=== PATIENT | female | born 1955 | race Caucasian/White ===

== ENCOUNTER 2018-07-27 18:46 | Inpatient (IN) | payer OTHER ==
--- OUTSIDE RECORDS SUMMARY | 2018-07-27 18:51 | XMS REPORT | Continuity of Care Document ---
:1955 Author Organization Interface Problems Problem Status Onset Classification Date Comments Source Date Reported J444.9 Active 06/03/20 [facility] 15 729.89 - Active 04/19/20 [facility] MUSCSKEL SYMPT 15 [place] RESP FAILURE, Active 03/27/20 [facility] CHF 15 EXACERB[place] LOW OXYGEN, Active 12/15/19 [place] S[place] BY [facility] [place] COPD Active 12/15/19 [place] EXACERBATION, 15 [place] CHF EXACERBATION LUNG Active 10/30/19 [place] ABNORMALITY-793 [facility] [place] .19 RESPIRATORY Active 07/12/20 [place] FAILURE [address] [place] [address] Center LFLT Active 07/12/20 [place] TRANSFER#[id number] [place] [address] Depression Active Problem 10/30/2015 [facility] [place], [place] Anxiety Active Problem 02/07/2018 [facility] [place], [place] Atrial Active Problem 02/07/2018 [facility] Fibrillation [place], [place] Atrial Resolved Problem 02/07/2018 [facility] fibrillation [place], [place] Back pain Active Problem 02/07/2018 [facility] [place], [place] Chest pain Active Problem 02/07/2018 [facility] [place], [place] Congestive Resolved Problem 02/07/2018 [facility] heart failure [place], [place] COPD Active Problem 02/07/2018 [facility] [place], [place] Cough Active Problem 02/07/2018 [facility] [place], [place] Depression Active Problem 02/07/2018 [facility] [place], [place] Diabetes Resolved Problem 02/07/2018 [facility] [place], [place] HTN Active Problem 02/07/2018 [facility] [place], [place] Hypertension Resolved Problem 02/07/2018 [facility] [place], [place] Myeloma Resolved Problem 02/07/2018 [facility]ID [place], [place] NIDDM Active Problem 02/07/2018 [facility] [place], [place] INA (<span Active Problem 02/07/2018 [facility] ID="[id number]" [place] >Confirmed</spa [place], n>) [facility] [place] Simple obesity Active Problem 02/07/2018 [facility] Group Sleep apnea, Resolved Problem 02/07/2018 [facility] obstructive [place], [place] RESPIRATORY Active [place] ANOMALY [facility] Center ACUTE Active [facility] RESPIRATORY FAILUR CHR AIRWAY Active [place] OBSTRUCT NEC [place] CHF NOS Active [place] Medications Medication Details Route Status Patient Ordering Order Source Instructions Provider Date cefpodoxime 200 mg 400 mg=2 tab, Active oral tablet PO, Q12H, # 14 2014 [facility] tab, 0 Refill(s) Lantus 10 unit, Inactive Route: SUB-Q, 2014 [facility] Bedtime, Dosing Weight 84.1, kg, Start date: 03/29/15 21:00:00, Duration: 30 day, Stop date: 04/27/15 21:00:00 lamotrigine 100 MG 100 mg, 1 tab, No Longer Oral Tablet Route: PO, Active 2014 [facility] Drug form: TAB, Bedtime, Dosing Weight 84.1, kg, Start date: 03/29/15 21:00:00, Duration: 30 day, Stop date: 04/27/15 21:00:00Notes: (Same as:LaMICtal) Levemir FlexPen 10 unit, 0.1 No Longer mL, Route: Active 2014 [facility] SUB-Q, Drug form: INJ, Bedtime, Start date: 03/29/15 21:00:00, Duration: 30 day, Stop date: 04/27/15 21:00:00Notes: Same as Levemir Do not hold insulin without contacting prescriber "single patient use only" Symbicort 160/4.5 2 inhalation, No Longer inhalation aerosol Route: Active 2014 [facility] with adapter INHALER, Drug Form: AERO/A, Dosing Weight 84.1, kg, BID, Start date: 03/29/15 20:00:00, Duration: 30 day, Stop date: 04/28/15 17:00:00Notes: (Same as: Symbicort) Methocarbamol 750 mg, 1 tab, No Longer Route: PO, Active 2014 [facility] Drug form: TAB, TID, Dosing Weight 84.1, kg, Start date: 03/29/15 20:00:00, Duration: 30 day, Stop date: 04/28/15 17:00:00Notes: (Same as:Robaxin) Alprazolam 0.25 mg, 1 No Longer tab, Route: Active 2014 [facility] PO, Drug form: TAB, BID, Dosing Weight 84.1, kg, PRN as needed for anxiety, Start date: 03/29/15 18:44:00, Duration: 30 day, Stop date: 04/28/15 18:43:00Notes: With food or milk (Same as: Xanax) torsemide 100 mg, 5 tab, No Longer Route: PO, Active 2014 [facility] Drug form: TAB, Daily, Dosing Weight 84.1, kg, Start date: 03/29/15 18:30:00, Stop date: 04/28/15 9:00:00Notes: (Same As: Demadex) Vantin 400 mg, 2 tab, No Longer Route: PO, Active 2014 [facility] Drug form: TAB, Q12H, Dosing Weight 84.1, kg, Start date: 03/29/15 11:00:00, Stop date: 04/02/15 22:00:00Notes: With food. (Same As: Vantin) Fenofibrate 135 mg, Route: No Longer PO, Daily, Active 2014 [facility] Dosing Weight 84.1, kg, Start date: 03/29/15 9:00:00, Duration: 30 day, Stop date: 04/27/15 9:00:00 sennosides, DETENTION 17.2 mg, 2 No Longer tab, Route: Active 2014 [facility] PO, Drug Form: TAB, Dosing Weight 84.1, kg, Daily, Start date: 03/29/15 9:00:00, Duration: 30 day, Stop date: 04/27/15 9:00:00Notes: (Same as: Ree) duloxetine 60 mg, 1 cap, No Longer Route: PO, Active 2014 [facility] Drug form: DRC, Daily, Dosing Weight 84.1, kg, Start date: 03/29/15 9:00:00, Duration: 30 day, Stop date: 04/27/15 9:00:00Notes: (Same as: Cymbalta) (Do Not Crush) Amitriptyline 2 tab, Route: Inactive Hydrochloride 25 PO, Drug Form: 2014 [facility] MG / Perphenazine TAB, Dosing 4 MG Oral Tablet Weight 84.1, kg, Bedtime, Start date: 03/28/15 21:00:00, Duration: 30 day, Stop date: 04/26/15 21:00:00 Trilafon 8 mg, 4 tab, No Longer Route: PO, Active 2014 [facility] Drug form: TAB, Bedtime, Start date: 03/28/15 21:00:00, Duration: 30 day, Stop date: 04/26/15 21:00:00Notes: (Same as: Trilafon) amitriptyline 50 mg, 1 tab, No Longer Route: PO, Active 2014 [facility] Drug form: TAB, Bedtime, Start date: 03/28/15 21:00:00, Duration: 30 day, Stop date: 04/26/15 21:00:00Notes: (Same as: Elavil) lithium 600 mg, 2 tab, No Longer Route: PO, Active 2014 [facility] Drug form: TAB, QPM, Dosing Weight 84.1, kg, Start date: 03/28/15 17:00:00, Duration: 30 day, Stop date: 04/26/15 17:00:00Notes: Give with food. (Same as: Eskalith) Xarelto 20 mg, 2 tab, No Longer Route: PO, Active 2014 [facility] Drug form: TAB, QPM, Dosing Weight 84.091, kg, Start date: 03/28/15 17:00:00, Duration: 30 day, Stop date: 04/26/15 17:00:00Notes: (Same as: Xarelto) Do Not Crush TriCor 145 mg, 1 tab, No Longer Route: PO, Active 2014 [facility] Drug form: TAB, After Dinner, Start date: 03/28/15 17:00:00, Duration: 30 day, Stop date: 04/26/15 17:00:00Notes: (Same as: Tricor) Lovenox 40 mg, 0.4 mL, No Longer Route: SUB-Q, Active 2014 [facility] Drug form: INJ, [id number], Dosing Weight 84.1, kg, Start date: 03/28/15 15:00:00, Duration: 30 day, Stop date: 04/26/15 15:00:00Notes: (Same as: Lovenox) Ativan 2 mg, 1 tab, No Longer Route: PO, Active 2014 [facility] Drug form: TAB, TID, Dosing Weight 84.1, kg, PRN Anxiety, Start date: 03/28/15 14:51:00, Duration: 30 day, Stop date: 04/27/15 14:50:00Notes: (Same as: Ativan) Albuterol 0.833 3 mL, Route: No Longer MG/ML / INHALATION, Active 2014 [facility] Ipratropium Drug Form: [place] 0.167 SOLN, Dosing MG/ML Inhalant Weight 84.1, Solution kg, RQID, Start date: 03/28/15 11:00:00, Duration: 30 day, Stop date: 04/27/15 7:00:00Notes: (Same as: Duoneb) Nicotine 21 mg, 1 No Longer patch, Route: Active 2014 [facility] TOP, Drug form: ERFILM, Daily, Dosing Weight 84.1, kg, Start date: 03/28/15 10:09:00, Duration: 30 day, Stop date: 04/27/15 9:00:00Notes: (Same as: Habitrol) "Remove old patch before application of new patch" glucagon 1 mg, Route: No Longer INJ, Drug Active 2014 [facility] form: PDR/INJ, PRN, PRN Blood Glucose Results, Start date: 03/28/15 9:18:00, Duration: 30 day, Stop date: 04/27/15 9:17:00 Dextrose 50% in 50 mL, Route: No Longer Water IV IVP, Start Active 2014 [facility] date: 03/28/15 9:18:00, Duration: 30 day, Stop date: 04/27/15 9:17:00, PRN Blood Glucose Results NovoLOG FlexPen 12 unit, 0.12 No Longer mL, Route: Active 2014 [facility] SUB-Q, Drug form: SOLN, Sliding Scale, PRN Blood Glucose Results, Start date: 03/28/15 9:18:00, Duration: 30 day, Stop date: 04/27/15 9:17:00Notes: Roll in palms of hands gently; Do not shake vigorously. (Same as: NovoLOG) "single patient use only" Stable for 28 days at room temperature. Expires in days from Date Lasix 40 mg, 4 mL, Inactive Route: IVP, 2014 [facility] Drug form: INJ, Daily, Dosing Weight 84.1, kg, Start date: 03/28/15 9:17:00, Duration: 30 day, Stop date: 04/27/15 9:00:00Notes: (Same as: Lasix) MEDICATION WASTE Product Size: 40 mg Product Wasted: ___ mg normal saline 0.9% 1,000 mL, Inactive IV 1000 mL Rate: 75 2014 [facility] ml/hr, Infuse over: 13.3 hr, Route: IV, Dosing Weight 84.1 kg, Total Volume: 1,000, Start date: 03/28/15 9:14:00, Duration: 30 day, Stop date: 04/27/15 9:13:00 Hydrocodone 1 tab, Route: No Longer Bitartrate 5 MG / PO, Drug Form: Active 2014 [facility] Ibuprofen 200 MG TAB, Dosing Oral Tablet Weight 84.1, kg, Q4H, PRN Pain Score 4-6, Start date: 03/28/15 9:08:00, Duration: 30 day, Stop date: 04/27/15 9:07:00Notes: (Same as: Vicoprofen) Saline Flush 0.9% 10 ml, Route: Inactive IVP, Drug 2014 [facility] Form: INJ, Dosing Weight 84.091, kg, Q12H, Start date: 03/28/15 9:00:00, Duration: 30 day, Stop date: 04/26/15 21:00:00Notes: (Same as: BD Posiflush) Famotidine 20 mg, 1 tab, No Longer Route: PO, Active 2014 [facility] Drug form: TAB, Q12H, Dosing Weight 84.091, kg, Start date: 03/28/15 9:00:00, Duration: 30 day, Stop date: 04/26/15 21:00:00Notes: (Same as: Pepcid) vancomycin 1.25 gm, 250 No Longer mL, Route: Active 2014 [facility] IVPB, Drug form: INJ, [id number], Start date: 03/28/15 9:00:00, Duration: 30 day, Stop date: 04/26/15 21:00:00Notes: TIME CRITICAL MEDICATION Same as: Vancocin-NS (premixed) Infusion rate 2001 mg: infuse over 2.5 hours Amiodarone 200 mg, 1 tab, No Longer Route: PO, Active 2014 [facility] Drug form: TAB, Daily, Dosing Weight 84.091, kg, Start date: 03/28/15 9:00:00, Duration: 30 day, Stop date: 04/26/15 9:00:00Notes: (Same as: Cordarone) pneumococcal 0.5 mL, Route: No Longer capsular IM, Drug Form: Active 2014 [facility] polysaccharide INJ, ONCALL, type 1 vaccine / Start date: pneumococcal 03/28/15 capsular 2:44:42, Stop polysaccharide date: 04/27/15 type 10A vaccine / 2:39:42Notes: pneumococcal (Same as: capsular Pneumovax 23) polysaccharide Refrigerate type 11A vaccine / pneumococcal capsular polysaccharide type 12F vaccine / pneumococcal capsular polysacchar meropenem 500 mg, Route: No Longer IVPB, Drug Active 2014 [facility] form: PDR/INJ, [id number], Dosing Weight 84.091, kg, CrCL >=50ml/min, Extended infusion, infuse over 3 hours, Start date: 03/28/15 2:00:00, Duration: 30 day, Stop date: 04/26/15 20:00:00Notes: Same as [place] MEDICATION WASTE Product Size: 500 mg Product Wasted: ___ mg Dextrose 50% in 25 gm, 50 mL, Inactive Water IV Route: IVP, 2014 [facility] Drug Form: INJ, PRN, PRN Blood Glucose Results, Start date: 03/28/15 1:05:00, Duration: 30 day, Stop date: 04/27/15 1:04:00 glucagon 1 mg, Route: Inactive IV, Drug form: 2014 [facility] PDR/INJ, PRN, PRN Blood Glucose Results, Start date: 03/28/15 1:05:00, Duration: 30 day, Stop date: 04/27/15 1:04:00 NovoLOG FlexPen 8 unit, 0.08 Inactive mL, Route: 2014 [facility] SUB-Q, Drug form: SOLN, Sliding Scale, PRN Blood Glucose Results, Start date: 03/28/15 1:04:00, Duration: 30 day, Stop date: 04/27/15 1:03:00Notes: Roll in palms of hands gently; Do not shake vigorously. (Same as: NovoLOG) "single patient use only" Stable for 28 days at room temperature. Expires in days from Date Vancomycin 1 ea, Route: Inactive MISC, Dosing 2014 [facility] Weight 84.091, kg, ONCALL, Start date: 03/28/15 1:00:00, Duration: 1 doses or times, Pharmacy to doseSpecial Instructions: Pharmacy to dose glucagon 1 mg, Route: Inactive INJ, Drug 2014 [facility] form: PDR/INJ, PRN, PRN Blood Glucose Results, Start date: 03/28/15 0:10:00, Duration: 30 day, Stop date: 04/27/15 0:09:00 NovoLOG FlexPen 5 unit, 0.05 Inactive mL, Route: 2014 [facility] SUB-Q, Drug form: SOLN, Sliding Scale, PRN Blood Glucose Results, Start date: 03/28/15 0:09:00, Duration: 30 day, Stop date: 04/27/15 0:08:00Notes: Roll in palms of hands gently; Do not shake vigorously. (Same as: NovoLOG) "single patient use only" Stable for 28 days at room temperature. Expires in days from Date Dextrose 50% in 25 gm, 50 mL, Inactive Water IV Route: IVP, 2014 [facility] Drug Form: INJ, PRN, PRN Blood Glucose Results, Start date: 03/28/15 0:09:00, Duration: 30 day, Stop date: 04/27/15 0:08:00 lithium 300 mg 600 mg=2 tab, Active oral tablet PO, Bedtime, # 2015 [facility] 60 tab, 1 Refill(s) Lantus 20 unit, Active SUB-Q, 2014 [facility] Bedtime, 0 Refill(s) Zolpidem tartrate 10 mg=1 tab, Active 10 MG Oral Tablet PO, Bedtime, # 2014 [facility] [Ambien] 14 tab, 0 Refill(s) lamotrigine 100 MG 100 mg=1 tab, Active Oral Tablet PO, Bedtime, # 2015 [facility] 30 tab, 1 Refill(s) Symbicort 160/4.5 2 puff, Active inhalation aerosol INHALER, BID, 2014 [facility] with adapter # 1 ea, 3 Refill(s) Sodium Chloride 250 mL, Route: No Longer 0.9% IV IVPB, Start Active 2014 [facility] date: 03/27/15 22:38:00, Duration: 30 day, Stop date: 04/26/15 22:37:00, PRN Line Flush Saline Flush 0.9% 10 ml, Route: No Longer IVP, Drug Active 2014 [facility] Form: INJ, Dosing Weight 84.091, kg, PRN, PRN Line Flush, Start date: 03/27/15 22:33:00, Duration: 30 day, Stop date: 04/26/15 22:32:00Notes: (Same as: BD Posiflush) Albuterol 0.833 3 ml, Route: No Longer MG/ML / NEB, Drug Active 2014 [facility] Ipratropium Form: SOLN, [place] 0.167 Dosing Weight MG/ML Inhalant 84.091, kg, Solution PRN, PRN Respiratory Protocol, Start date: 03/27/15 22:33:00, Duration: 30 day, Stop date: 04/26/15 22:32:00Notes: (Same as: Duoneb) Acetaminophen 650 mg, 2 tab, No Longer Route: PO, Active 2014 [facility] Drug form: TAB, Q4H, Dosing Weight 84.091, kg, PRN For Temp > 100.4 F, Start date: 03/27/15 22:33:00, Duration: 30 day, Stop date: 04/26/15 22:32:00Notes: Do not exceed 4 gm/day. (Same as: Tylenol) predniSONE 20 mg See Special Active [place] oral tablet Instructions, 2014 [facility] PO, Daily, 4 day regimen: Day 1 - 40 mg (2 tabs) Day 2 - 30 mg (1 1/2 tabs) Day 3 - 20 mg (1 tab) Day 4 - 10 mg (1/2 tab), X 4 day, # 6 tab, 0 Refill(s)Speci al Instructions: 4 day regimen: Day 1 - 40 mg (2 tabs) Day 2 - 30 mg (1 1/2 tabs) Day 3 - 20 mg (1 tab) Day 4 - 10 mg (1/2 tab) levofloxacin 750 750 mg=1 tab, Active [place] mg oral tablet PO, Daily, X 5 2014 day, # 5 tab, 0 Refill(s) Albuterol 0.833 3 ml, Active [place] MG/ML / INHALATION, 2014 [facility] QID, # 30 ea, [place] 0.167 0 Refill(s) MG/ML Inhalant Solution torsemide 100 mg, 5 tab, Inactive Sugar Route: PO, 2014 Drug form: TAB, Daily, Dosing Weight 84.091, kg, Start date: 12/16/14 9:00:00, Duration: 30 day, Stop date: 01/14/15 9:00:00Notes: (Same As: Demadex) TriCor 145 mg, 1 tab, Inactive Sugar Route: PO, 2014 Drug form: TAB, Daily, Start date: 12/16/14 9:00:00, Duration: 30 day, Stop date: 01/14/15 9:00:00Notes: (Same as: Tricor) Trilipix 135 mg, Route: No Longer [place] PO, Drug form: Active 2014 [place] CAP, Daily, Dosing Weight 84.091, kg, Start date: 12/16/14 9:00:00, Duration: 30 day, Stop date: 01/14/15 9:00:00 insulin detemir 20 unit, 0.2 No Longer Sugar mL, Route: Active 2014 [facility] SUB-Q, Drug form: INJ, Bedtime, Dosing Weight 84.091, kg, Start date: 12/15/14 21:00:00, Duration: 30 day, Stop date: 01/13/15 21:00:00Notes: Same as Levemir Do not hold insulin without contacting prescriber "single patient use only" lithium 450 mg, Route: No Longer Sugar PO, Drug form: Active 2014 [facility] ERTAB, Bedtime, Dosing Weight 84.091, kg, Start date: 12/15/14 21:00:00, Duration: 30 day, Stop date: 01/13/15 21:00:00 Amitriptyline 2 tab, Route: No Longer [place] Hydrochloride 25 PO, Drug Form: Active 2014 [place] MG / Perphenazine TAB, Dosing 4 MG Oral Tablet Weight 84.091, kg, Bedtime, Start date: 12/15/14 21:00:00, Duration: 30 day, Stop date: 01/13/15 21:00:00 Levofloxacin 750 mg, 150 No Longer Sugar mL, Route: Active 2014 [facility] IVPB, Drug form: SOLN, Daily, Dosing Weight 83.636, kg, Start date: 12/15/14 20:00:00, Duration: 30 day, Stop date: 01/13/15 20:00:00Notes: (Same as:Levaquin) Xarelto 20 mg, 1 tab, No Longer Sugar Route: PO, Active 2014 Drug form: TAB, QPM, Dosing Weight 84.091, kg, Start date: 12/15/14 17:00:00, Duration: 30 day, Stop date: 01/13/15 17:00:00Notes: (Same as: Xarelto) Administer with food duloxetine 60 mg, 2 cap, No Longer Sugar Route: PO, Active 2014 Drug form: DRC, Daily, Dosing Weight 84.091, kg, Start date: 12/15/14 16:00:00, Duration: 30 day, Stop date: 01/14/15 9:00:00Notes: (Same as: Cymbalta) (Do Not Crush) Cartia XT 180 mg, 1 cap, No Longer Sugar Route: PO, Active 2014 Drug form: ERCAP, Daily, Dosing Weight 84.091, kg, Start date: 12/15/14 16:00:00, Duration: 30 day, Stop date: 01/14/15 9:00:00Notes: (Same as: Tiazac) Before meals. DO NOT CRUSH. Amiodarone 200 mg, 1 tab, No Longer Sugar Route: PO, 2014 Drug form: TAB, Daily, Dosing Weight 84.091, kg, Start date: 12/15/14 16:00:00, Duration: 30 day, Stop date: 01/14/15 9:00:00Notes: (Same as: Cordarone) Methocarbamol 750 mg, 1 tab, No Longer Sugar Route: PO, Active 2014 Drug form: TAB, TID, Dosing Weight 84.091, kg, Start date: 12/15/14 13:00:00, Duration: 30 day, Stop date: 01/14/15 9:00:00Notes: (Same as:Robaxin) Alprazolam 0.25 mg, 1 No Longer Sugar tab, Route: Active 2014 PO, Drug form: TAB, BID, Dosing Weight 84.091, kg, PRN as needed for anxiety, Start date: 12/15/14 10:42:00, Duration: 30 day, Stop date: 01/14/15 10:41:00Notes: With food or milk (Same as: Xanax) Insulin, Aspart, 4 unit, 0.04 No Longer Sugar Human mL, Route: Active 2014 [facility] SUB-Q, Drug form: SOLN, Bedtime, Dosing Weight 84.091, kg, PRN Blood Glucose Results, Start date: 12/15/14 10:41:00, Duration: 30 day, Stop date: 01/14/15 10:40:00Notes: Roll in palms of hands gently; Do not shake vigorously. (Same as: NovoLOG) "single patient use only" Stable for 28 days at room temperature. Expires in days from Date Dextrose 50% 25 gm, 50 mL, No Longer Sugar Syringe Route: IVP, Active 2014 [facility] Drug Form: INJ, Dosing Weight 84.091, kg, PRN, PRN Blood Glucose Results, Start date: 12/15/14 10:41:00, Duration: 30 day, Stop date: 01/14/15 10:40:00 Glucagon 1 mg, Route: No Longer Sugar IM, Drug form: Active 2014 [facility] PDR/INJ, PRN, Dosing Weight 84.091, kg, PRN Blood Glucose Results, Start date: 12/15/14 10:41:00, Duration: 30 day, Stop date: 01/14/15 10:40:00 Omnipaque 300 100 mL, Route: Inactive Sugar IV, Drug Form: 2014 [facility] SOLN, ONCE, Start date: 12/15/14 10:05:00, Stop date: 12/15/14 10:05:00Notes: (Same as:Omnipaque 300). Budesonide 0.25 1 mg, 4 ml, No Longer Sugar MG/ML Inhalant Route: NEB, Active 2014 [facility] Solution Drug form: [Pulmicort] SUSP, RBID, Dosing Weight 84.091, kg, Start date: 12/15/14 9:37:00, Duration: 30 day, Stop date: 01/14/15 8:00:00Notes: (Same As: Pulmicort) Lasix 20 mg, 2 mL, No Longer Sugar Route: IV, Active 2014 Drug form: INJ, BID, Dosing Weight 83.636, kg, Start date: 12/15/14 9:00:00, Duration: 30 day, Stop date: 01/13/15 17:00:00Notes: (Same as: Lasix) Enoxaparin 30 mg, 0.3 mL, No Longer Sugar Route: SUB-Q, Active 2014 Drug form: INJ, Daily, Dosing Weight 83.636, kg, For CrCl >=30 mL/min, Start date: 12/15/14 9:00:00, Duration: 30 day, Stop date: 01/13/15 9:00:00Notes: (Same as: Lovenox) acetaminophen-hydr 1 tab, Route: No Longer Sugar ocodone 325 mg-10 PO, Drug Form: Active 2014 [place] mg oral tablet TAB, Q4H, PRN Pain Score 1-5, Start date: 12/15/14 1:24:00, Duration: 30 day, Stop date: 01/14/15 1:23:00Notes: Do not exceed 4gm/day of acetaminophen. (Same as: [place] 325/10) acetaminophen-hydr 1 tab, Route: Inactive [place] ocodone 325 mg-10 PO, Drug Form: 2014 [place] mg oral tablet TAB, Dosing Weight 84.091, kg, Q4H, PRN Pain Score 1-5, prn, Start date: 12/15/14 1:20:00, Duration: 30 day, Stop date: 01/14/15 1:19:00Notes: Do not exceed 4gm/day of acetaminophen. (Same as: [place] 325/10) Acetaminophen 325 1 tab, Route: Inactive [place] MG / Hydrocodone PO, Drug Form: 2014 [place] Bitartrate 10 MG TAB, Dosing Oral Tablet [[place] Weight 84.091, 10/325] kg, Q4H, PRN Pain Score 1-5, prn, Start date: 12/15/14 1:02:00, Duration: 30 day, Stop date: 01/14/15 1:01:00Notes: Do not exceed 4gm/day of acetaminophen. (Same as: [place] 325/10) methylPREDNISolone 40 mg, 1 mL, No Longer Sugar SODium SUCCinate Route: IVP, Active 2014 Drug form: INJ, Q8H, Dosing Weight 83.636, kg, Start date: 12/15/14 0:00:00, Duration: 30 day, Stop date: 01/13/15 16:00:00Notes: (Same as:Solu-MEDROL , A-Methapred) Acetaminophen 325 1 tab, PO, Active [place] MG / Hydrocodone Q4H, PRN for 2014 Bitartrate 10 MG pain, 0 Oral Tablet [[place] Refill(s) 10/325] 24 HR Diltiazem 180 mg=1 cap, Active [place] Hydrochloride 180 PO, Daily, # 2014 [place] MG Extended 30 cap, 0 Release Capsule Refill(s) [Cartia] lithium 450 mg 450 mg=1 tab, Active Sugar oral tablet, PO, Bedtime, # 2014 [facility] extended release 60 tab, 0 Refill(s) Levofloxacin 500 mg, 100 No Longer Sugar mL, Route: Active 2014 IVPB, Drug form: INJ, Daily, Dosing Weight 83.636, kg, Start date: 12/14/14 20:00:00, Duration: 30 day, Stop date: 01/12/15 20:00:00Notes: (Same as:Levaquin) Albuterol 0.833 3 mL, Route: No Longer Sugar MG/ML / NEB, Drug Active 2014 [facility] Form: SOLN, [place] 0.167 Dosing Weight MG/ML Inhalant 83.636, kg, Solution RQ6H, Start date: 12/14/14 20:00:00, Duration: 30 day, Stop date: 01/13/15 14:00:00Notes: (Same as: Mendezoneb) Albuterol 0.83 2.5 mg, 3.01 No Longer Sugar MG/ML Inhalant mL, Route: Active 2014 Solution NEB, Drug form: SOLN, RQ2H, Dosing Weight 83.636, kg, PRN Wheezing, Priority: Routine, Start date: 12/14/14 19:48:00, Duration: 30 day, Stop date: 01/13/15 19:47:00Notes: SEE RT DOCUMENTATION (Same as: Proventil) potassium chloride 40 mEq, 2 tab, Inactive Sugar Route: PO, 2014 [facility] Drug form: ERTAB, ONCE, Dosing Weight 83.636, kg, Priority: STAT, Start date: 12/14/14 17:48:00, Stop date: 12/14/14 17:48:00Notes: (Same as: K-Dur 20) "Do Not Crush" With food and full glass of water Ceftriaxone 1 gm, Route: Inactive Sugar IVPB, Drug 2014 [facility] form: PDR/INJ, ONCE, Dosing Weight 83.636, kg, Priority: STAT, Start date: 12/14/14 17:46:00, Stop date: 12/14/14 17:46:00 Lasix 40 mg, 4 mL, No Longer Sugar Route: IVP, Active 2014 [facility] Drug form: INJ, Daily, Dosing Weight 83.636, kg, Priority: STAT, Start date: 12/14/14 17:45:00, Duration: 30 day, Stop date: 01/13/15 9:00:00Notes: (Same as: Lasix) MEDICATION WASTE Product Size: 40 mg Product Wasted: ___ mg Levaquin 750 mg, 150 Inactive Sugar mL, Route: IV, 2014 [facility] Drug form: SOLN, Q24H, Dosing Weight 83.636, kg, Start date: 12/14/14 17:13:00, Duration: 30 day, Stop date: 01/12/15 17:13:00Notes: (Same as:Levaquin) Solu-Medrol 125 mg, 2 mL, Inactive Sugar Route: IVP, 2014 [facility] Drug form: INJ, ONCE, Dosing Weight 83.636, kg, Priority: STAT, Start date: 12/14/14 17:11:00, Stop date: 12/14/14 17:11:00Notes: (Same as:Solu-MEDROL , A-Methapred) Acetaminophen 325 1 tab, Route: Inactive [place] MG / Hydrocodone PO, Drug Form: 2014 [place] Bitartrate 5 MG TAB, Dosing Oral Tablet [[place] Weight 83.636, 5/325] kg, ONCE, STAT, Start date: 12/14/14 17:03:00, Stop date: 12/14/14 17:03:00 Lasix 20 mg, Route: Inactive [place] IVP, Drug 2014 [place] form: INJ, ONCE, Dosing Weight 83.636, kg, Priority: STAT, Start date: 12/14/14 15:07:00, Stop date: 12/14/14 15:07:00 Albuterol 0.833 3 mL, Route: Inactive [place] MG/ML / INHALATION, 2014 [place] Ipratropium Dosing Weight [place] 0.167 83.636, kg, MG/ML Inhalant ONCE, Start Solution [DuoNeb] date: 12/14/14 15:07:00, Stop date: 12/14/14 15:07:00 Saline Flush 0.9% 10 mL, Route: No Longer Sugar IVP, Drug Active 2014 [place] Form: INJ, Dosing Weight 83.636, kg, PRN, PRN Line Flush, Start date: 12/14/14 14:16:00, Duration: 30 day, Stop date: 01/13/15 14:15:00Notes: (Same as: BD Posiflush) Alprazolam 0.5 MG 0.5 mg=1 tab, Active [place] Oral Tablet PO, PRN, 0 2014 [place] [Xanax] Refill(s) Metformin 1,000 mg=1 Active [place] hydrochloride 1000 tab, PO, BID, 2014 [place] MG Oral Tablet 0 Refill(s) duloxetine 60 MG 60 mg=1 cap, Active [place] Enteric Coated PO, Daily, 0 2014 [place] Capsule [Cymbalta] Refill(s) torsemide 100 mg 100 mg=1 tab, Active [place] oral tablet PO, Daily, 0 2014 [place] Refill(s) Rosuvastatin 20 mg=1 tab, Active [place] calcium 20 MG Oral PO, Bedtime, 0 2014 [place] Tablet [Crestor] Refill(s) AMIODarone 200 mg 200 mg=1 tab, Active [place] oral tablet PO, Daily, 0 2014 [place] Refill(s) fenofibric acid 135 mg=1 cap, Active Sugar 135 MG Enteric PO, Daily, # 2015 [place] Coated Capsule 30 cap, 0 [Trilipix] Refill(s) rivaroxaban 20 MG 20 mg=1 tab, Active [place] Oral Tablet PO, QPM, 0 2014 [place] [Xarelto] Refill(s) Allergies, Adverse Reactions, Alerts Substance Category Reaction Severity Reaction Status Date Comments Source type Reported penicillins Assertion hives,swel High Drug Active OPID ling allergy 2 [facility] Immunizations Immunization Date Given Site Status Last Updated Comments Source Results Order Name Results Value Reference Date Interpretation Comments Source Range Spine Spine lumbar Examination: Spine lumbar wo contrast MRI 04/20 - OPID lumbar wo wo contrast /2014 - [facility] contrast MRI MRI History: 729.89 bilateral leg weakness Read by: Franklin Olsen MD Dictated Date/time: 04/20/15 11:00 Electronically Signed by: Franklin Olsen MD 04/20/15 11:14 FINAL REPORT DIAGNOSIS: 1. Central canal and neuroforaminal stenosis at L2-L3, one level superior to a multilevel fusion, as discussed below. 2. Other extradural findings and postoperative changes as discussed. 3. No evidence of infection or spondylo-discitis TECHNIQUE: Lumbar MRI was completed without contrast in axial and sagittal planes with T1, T2 FSE and STIR pulse parameters. History is noted of prior L3-L4 and L4-L5 fusion DISCUSSION: Bone and Marrow Assessment: No evidence of bone marrow edema or evidence of spondylo-discitis Overall Disc Assessment: Fusions at L3-L4 and L4-L5 are noted. L1/2: Mild narrowing of the disc space with desiccation with minimal facet arthrosis but no high-grade canal or foraminal stenosis L 2/3: Mild narrowing of the a displaced with degenerative disc desiccation, moderately advanced facet arthrosis, with ligamentum flavum hypertrophy resulting in moderately high-grade canal and foraminal stenosis bilaterally. L 3/4: Interbody fusion with stabilizing pedicular screws and vertical rods. No high-grade canal stenosis L4/5: Fusion of the interspace with stabilizing posterior pedicular screws and rods L5/S1: Degenerative disc desiccation, mild disc space narrowing with minimal facet arthrosis. Minimal encroachment on the neuroforamina. Other: No subluxation is evident. STORM Tom Jr., MD Neuroradiology CHEM PANEL eGFR 96 03/30 Result Comment: The eGFR is calculated using the CKD-EPI formula. In most young, healthy individuals the eGFR will be >90 mL/ min/1.73m2. The eGFR declines with age. An eGFR of 60-89 may be normal in mL/min/1. some populations, particularly the elderly, for whom the CKD-EPI formula has not been extensively validated. Use of the eGFR is not recommended in the following populations: [place] [address] Individuals with unstable creatinine concentrations, including patients and those with serious co-morbid conditions. Patients with extremes in muscle mass or diet. The data above are obtained from the National Kidney Disease Education Program (NKDEP) which additionally recommends that when the eGFR is used in patients with extremes of body mass index for purposes of drug dosing, the eGFR should be multiplied by the estimated BMI. CHEM PANEL Calcium Lvl 9.2 mg/dL 8.5 - 10.5 03/30 [facility] CHEM PANEL Sodium Lvl 141 meq/L 135 - 145 03/30 [facility] CHEM PANEL Potassium 3.5 meq/L 3.5 - 5.1 03/30 [facility] CHEM PANEL Chloride Lvl 104 meq/L 95 - 109 03/30 [facility] CHEM PANEL CO2 28 meq/L 24 - 32 03/30 [facility] CHEM PANEL BUN 17 mg/dL 7 - 22 03/30 [facility] CHEM PANEL Creatinine 0.7 mg/dL 0.5 - 1.4 03/30 [facility] CHEM PANEL Glucose Lvl 126 mg/dL 70 - 99 03/30 [facility] CHEM PANEL AGAP 12.5 meq/L 10.0 - 03/30.0 [place] CHEM PANEL Lactic Acid 1.1 mMol/L 0.5 - 2.2 03/30 [facility] CHEM PANEL Magnesium 1.9 mg/dL 1.8 - 2.4 03/30 [facility] CHEM PANEL Phosphorus 3.3 mg/dL 2.5 - 4.5 03/30 [facility] HEMATOLOGY Lymphocytes 15.3 % 20.0 - 03/30 MH 40.0 /2014 [facility] HEMATOLOGY Segs 75.3 % 45.0 - 03/30 MH 75.0 /2014 [facility] HEMATOLOGY Basophils # 0.1 K/CMM 0.0 - 0.2 03/30 [facility] HEMATOLOGY Eosinophils 0.2 K/CMM 0.0 - 0.5 03/30 # /2014 [facility] HEMATOLOGY Monocytes # 0.5 K/CMM 0.0 - 0.8 03/30 [facility] HEMATOLOGY Lymphocytes 1.3 K/CMM 1.0 - 5.5 03/30 # /2014 [facility] HEMATOLOGY Segs-Bands # 6.2 K/CMM 1.5 - 8.1 03/30 [facility] HEMATOLOGY Eosinophils 2.9 % 0.0 - 4.0 03/30 [facility] HEMATOLOGY Monocytes 5.9 % 2.0 - 12.0 03/30 [facility] HEMATOLOGY Basophils 0.6 % 0.0 - 1.0 03/30 [facility] HEMATOLOGY RBC 4.14 M/CMM 4.20 - 03/30 MH 5.40 /2014 [facility] HEMATOLOGY WBC 8.2 K/CMM 3.7 - 10.4 03/30 [facility] HEMATOLOGY MPV 8.0 fL 7.4 - 10.4 03/30 /2014 [facility] HEMATOLOGY Hgb 10.9 g/dL 12.0 - 03/30 MH 16.0 [facility] HEMATOLOGY MCHC 31.8 g/dL 32.0 - 03/30 MH 36.0 [facility] HEMATOLOGY MCH 26.4 pg 27.0 - 03/30 MH 31.0 [facility] HEMATOLOGY MCV 83.0 fL 80.0 - 03/30 MH 98.0 /2014 [facility] HEMATOLOGY Hct 34.4 % 36.0 - 03/30 MH 48.0 [facility] HEMATOLOGY Platelet 316 K/CMM 133 - 450 03/30 [facility] HEMATOLOGY RDW 23.7 % 11.5 - 03/30 14. [facility] PARATHYROI Ca Norm WB 1.14 1.05 - 03/30 D PROFILE mMol/L 1. [facility] PARATHYROI Ca Ion WB 1.10 1.05 - 08/26 MH D PROFILE mMol/L 1. [facility] METAL [place] Lvl 0.66 meq/L 0.50 - 03/29 MH 1.50 [facility] TOXICOLOGY Vanco Tr TND [id number] 03/29 [facility] TOXICOLOGY Vanco Tr 12.9 ug/ml 03/29 [facility] CHEM PANEL Phosphorus 3.0 mg/dL 2.5 - 4.5 03/29 [facility] CHEM PANEL Magnesium 2.2 mg/dL 1.8 - 2.4 03/29 Lvl [facility] CHEM PANEL Procalcitoni 2.02 ng/mL 0.00 - 03/29 Result MH n Lvl 0.10 Comment: [facility] Critical Result(s) called to tamikanyasia at 03/29/2015 06:03 by gp. Read back OK. ELECTROLYT AGAP 8.8 meq/L 10.0 - 03/29 ES 20.0 [facility] ELECTROLYT eGFR 96 03/29 Result Comment: The eGFR is calculated using the CKD-EPI formula. In most young, healthy individuals the eGFR will be >90 mL/ min/1.73m2. The eGFR declines with age. An eGFR of 60-89 may be normal in ES mL/min/1.7 some populations, particularly the elderly, for whom the CKD-EPI formula has not been extensively validated. Use of the eGFR is not recommended in the following populations: [facility] 3m2 Individuals with unstable creatinine concentrations, including patients and those with serious co-morbid conditions. Patients with extremes in muscle mass or diet. The data above are obtained from the National Kidney Disease Education Program (NKDEP) which additionally recommends that when the eGFR is used in patients with extremes of body mass index for purposes of drug dosing, the eGFR should be multiplied by the estimated BMI. ELECTROLYT Sodium Lvl 143 meq/L 135 - 145 03/29 ES [facility] ELECTROLYT Creatinine 0.7 mg/dL 0.5 - 1.4 03/29 ES Lvl [facility] ELECTROLYT BUN 13 mg/dL 7 - 22 03/29 ES [facility] ELECTROLYT Glucose Lvl 136 mg/dL 70 - 99 03/29 ES [facility] ELECTROLYT Calcium Lvl 8.9 mg/dL 8.5 - 10.5 03/29 ES [facility] ELECTROLYT CO2 30 meq/L 24 - 32 03/29 ES [facility] ELECTROLYT Chloride Lvl 108 meq/L 95 - 109 03/29 ES [facility] ELECTROLYT Potassium 3.8 meq/L 3.5 - 5.1 03/29 ES [facility] CHEM PANEL Lactic Acid 1.3 mMol/L 0.5 - 2.2 03/29 Lvl [facility] HEMATOLOGY Lymphocytes 12.0 % 20.0 - 03/29 40.0 [facility] HEMATOLOGY Segs 83.2 % 45.0 - 03/29 MH 75.0 [facility] HEMATOLOGY Plt Morph Normal 03/29 [facility] (03/29/15 3:50 AM) HEMATOLOGY Monocytes 4.0 % 2.0 - 12.0 03/29 [facility] HEMATOLOGY Lymphocytes 1.3 K/CMM 1.0 - 5.5 03/29 # /2014 [facility] HEMATOLOGY Segs-Bands # 9.4 K/CMM 1.5 - 8.1 03/29 [facility] HEMATOLOGY Basophils 0.2 % 0.0 - 1.0 03/29 [facility] HEMATOLOGY Eosinophils 0.6 % 0.0 - 4.0 03/29 [facility] HEMATOLOGY Polychrom Moderate None Seen 03/29 [facility] *ABN* (03/29/15 3:50 AM) HEMATOLOGY Eosinophils 0.1 K/CMM 0.0 - 0.5 03/29 # /2014 [facility] HEMATOLOGY Monocytes # 0.5 K/CMM 0.0 - 0.8 03/29 [facility] HEMATOLOGY MPV 8.8 fL 7.4 - 10.4 03/29 [facility] HEMATOLOGY WBC 11.3 K/CMM 3.7 - 10.4 03/29 [facility] HEMATOLOGY RBC 3.61 M/CMM 4.20 - 03/29 MH 5.40 /2014 [facility] HEMATOLOGY MCV 83.8 fL 80.0 - 03/29 98.0 [facility] HEMATOLOGY MCH 26.5 pg 27.0 - 03/29 31.0 [facility] HEMATOLOGY Hgb 9.6 g/dL 12.0 - 03/29 16.0 [facility] HEMATOLOGY Hct 30.3 % 36.0 - 03/29 48.0 [facility] HEMATOLOGY RDW 24.3 % 11.5 - 03/29 14.5 [facility] HEMATOLOGY Platelet 280 K/CMM 133 - 450 03/29 /2014 [facility] HEMATOLOGY MCHC 31.6 g/dL 32.0 - 03/29 MH 36.0 /2014 [facility] PARATHYROI Ca Norm WB 1.08 1.05 - 03/29 MH D PROFILE mMol/L . [facility] PARATHYROI Ca Ion WB 1.10 1.05 - 03/29 MH D PROFILE mMol/L . [facility] CARDIAC CK MB Index 3.0 0.0 - 2.5 03/28 MH ENZYMES /2014 [facility] CARDIAC Total CK 47 unit/L 12 - 191 03/28 MH ENZYMES /2014 [facility] CARDIAC CK MB 1.4 ng/mL 0.5 - 3.6 03/28 MH ENZYMES /2014 [facility] CARDIAC Troponin-I null 0.00 - 03/28 MH ENZYMES 0.40 [facility] CHEM PANEL Procalcitoni 2.09 ng/mL 0.00 - 03/28 Result n Lvl 0.10 Comment: [facility] Critical Result(s) called to alisha forman at 03/28/2015 12:44 by jeffrey. Read back OK. METAL [place] Lvl 1.44 meq/L 0.50 - 03/28 MH 1.50 [facility] CARDIAC Troponin-I null 0.00 - 03/28 MH ENZYMES 0.40 [facility] CARDIAC Total CK 52 unit/L 03/28 MH ENZYMES [facility] CHEM PANEL eGFR 71 03/28 Result Comment: The eGFR is calculated using the CKD-EPI formula. In most young, healthy individuals the eGFR will be >90 mL/ min/1.73m2. The eGFR declines with age. An eGFR of 60-89 may be normal in MH mL/min/1.7 some populations, particularly the elderly, for whom the CKD-EPI formula has not been extensively validated. Use of the eGFR is not recommended in the following populations: [facility] 3m2 Individuals with unstable creatinine concentrations, including patients and those with serious co-morbid conditions. Patients with extremes in muscle mass or diet. The data above are obtained from the National Kidney Disease Education Program (NKDEP) which additionally recommends that when the eGFR is used in patients with extremes of body mass index for purposes of drug dosing, the eGFR should be multiplied by the estimated BMI. CHEM PANEL AGAP 7.0 meq/L 10.0 - 03/28 MH 20.0 [facility] CHEM PANEL Chloride Lvl 109 meq/L 95 - 109 03/28 [facility] CHEM PANEL CO2 28 meq/L 24 - 32 03/28 [facility] CHEM PANEL Calcium Lvl 8.9 mg/dL 8.5 - 10.5 03/28 [facility] CHEM PANEL Creatinine 0.9 mg/dL 0.5 - 1.4 03/28 [facility] CHEM PANEL Sodium Lvl 140 meq/L 135 - 145 03/28 [facility] CHEM PANEL Potassium 4.0 meq/L 3.5 - 5.1 03/28 MH Lv [facility] CHEM PANEL Glucose Lvl 230 mg/dL 70 - 99 03/28 [facility] CHEM PANEL BUN 13 mg/dL 7 - 22 03/28 [facility] CHEM PANEL Phosphorus 2.7 mg/dL 2.5 - 4.5 03/28 [facility] CHEM PANEL Magnesium 2.0 mg/dL 1.8 - 2.4 03/28 [facility] HEMATOLOGY Monocytes # 0.4 K/CMM 0.0 - 0.8 03/28 [facility] HEMATOLOGY Lymphocytes 2.4 % 20.0 - 03/28 MH 40.0 [facility] HEMATOLOGY Monocytes 1.9 % 2.0 - 12.0 03/28 [facility] HEMATOLOGY Lymphocytes 0.4 K/CMM 1.0 - 5.5 03/28 MH [facility] HEMATOLOGY Segs-Bands # 17.9 K/CMM 1.5 - 8.1 03/28 [facility] HEMATOLOGY Segs 95.7 % 45.0 - 03/28 MH 75.0 [facility] HEMATOLOGY Hct 35.3 % 36.0 - 03/28 MH 48.0 [facility] HEMATOLOGY WBC 18.7 K/CMM 3.7 - 10.4 03/28 [facility] HEMATOLOGY Hgb 11.0 g/dL 12.0 - 03/28 MH 16.0 [facility] HEMATOLOGY MCV 83.6 fL 80.0 - 03/28 MH 98.0 [facility] HEMATOLOGY RBC 4.22 M/CMM 4.20 - 03/28 MH 5.40 /2014 [facility] HEMATOLOGY MCHC 31.1 g/dL 32.0 - 03/28 MH 36.0 [facility] HEMATOLOGY RDW 23.8 % 11.5 - 03/28 MH 14.5 [facility] HEMATOLOGY MCH 26.0 pg 27.0 - 03/28 MH 31.0 /2014 [facility] HEMATOLOGY Platelet 293 K/CMM 133 - 450 03/28 [facility] HEMATOLOGY MPV 8.5 fL 7.4 - 10.4 03/28 [facility] PARATHYROI Ca Ion WB 1.19 1.05 - 03/28 D PROFILE mMol/L 1. [facility] PARATHYROI Ca Norm WB 1.15 1.05 - 03/28 D PROFILE mMol/L 1. [facility] CHEM PANEL Lactic Acid 2.4 mMol/L 0.5 - 2.2 03/28 MH Lvl /2014 [facility] CARDIAC Troponin-I 0.02 ng/mL 0.00 - 03/28 MH ENZYMES 0.40 [facility] CARDIAC Total CK 55 unit/L 12 - 191 03/28 ENZYMES [facility] BACTERIAL MRSA by PCR Negative 03/28 - SEROLOGY [facility] (03/27/15 10:42 PM) CARDIAC proBNP 2233 pg/mL 0 - 125 03/28 ENZYMES [facility] CHEM PANEL Globulin 5.1 g/dL 2.0 - 4.0 03/28 [facility] CHEM PANEL A/G Ratio 0.6 0.7 - 1.6 03/28 [facility] CHEM PANEL B/C Ratio 11 6 - 25 03/28 [facility] CHEM PANEL Total 8.1 g/dL 6.4 - 8.4 03/28 Protein [facility] CHEM PANEL Albumin Lvl 3.0 g/dL 3.5 - 5.0 03/28 [facility] CHEM PANEL Bili Total 0.5 mg/dL 0.2 - 1.3 03/28 [facility] CHEM PANEL AST 32 unit/L 0 - 37 03/28 [facility] CHEM PANEL ALT 16 unit/L 0 - 65 03/28 [facility] CHEM PANEL Alk Phos 59 unit/L 39 - 136 03/28 [facility] HEMATOLOGY Plt Morph Normal 03/28 [facility] (03/27/15 10:42 PM) HEMATOLOGY RBC Morph Normal 03/28 [facility] (03/27/15 10:42 PM) HEMATOLOGY Atypical 0.0 % <=0.0 % 03/28 Lymphs [facility] HEMATOLOGY Bands 7.0 % 0.0 - 11.0 03/28 [facility] HEMATOLOGY INR 1.04 0.85 - 03/28 MH 1.17 /2014 [facility] HEMATOLOGY PTT 31.6 s 22.9 - 03/28 MH 35.8 /2014 [facility] HEMATOLOGY PT 13.6 s 12.0 - 03/28 MH 14.7 /2014 [facility] URINE AND UA Color Yellow Yellow 03/28 STOOL [facility] *NA* (03/27/15 10:42 PM) URINE AND UA Spec Grav 1.025 <=1.030 03/28 STOOL [facility] URINE AND UA Turbidity Clear Clear 03/28 STOOL [facility] (03/27/15 10:42 PM) URINE AND UA Glucose 100 mg/dL Negative 03/28 [facility] mg/dL [facility] URINE AND UA Protein Negative Negative 03/28 STOOL [facility] (03/27/15 10:42 PM) URINE AND UA Ketones Negative Negative 03/28 STOOL [facility] *NA* (03/27/15 10:42 PM) URINE AND UA pH 6.0 5.0 - 8.0 03/28 STOOL [facility] URINE AND UA Nitrite Negative Negative 03/28 STOOL [facility] (03/27/15 10:42 PM) URINE AND UA Leuk Est Negative Negative 03/28 STOOL [facility] (03/27/15 10:42 PM) URINE AND UA 0.2 EU/dL 0.1 - 1.0 03/28 [facility] Urobilinogen /2014 [facility] URINE AND UA Bili Negative Negative 03/28 STOOL [facility] *NA* (03/27/15 10:42 PM) URINE AND UA Blood Small Negative 03/28 STOOL [facility] *ABN* (03/27/15 10:42 PM) URINE AND UA Sq Epi None Seen Few 03/28 STOOL [facility] (03/27/15 10:42 PM) URINE AND UA Mucus Few /LPF None Seen 03/28 [facility] /LPF [facility] URINE AND UA Bacteria Occasional None Seen 03/28 [facility] /HPF /HPF [facility] URINE AND UA RBC 13 /HPF 0 - 2 03/28 STOOL [facility] URINE AND UA CaOx Lizette Occasional None Seen 03/28 [facility] /HPF /HPF [facility] URINE AND UA WBC 2 /HPF 0 - 5 03/28 STOOL [facility] Chest Chest 1view Chest one view: 03/28 - 1view DX DX /2014 - [facility] Exam reason: Shortness of breath. Read by: Ambrose Waters MD Dictated Date/time: 03/28/15 01:39 Electronically Signed by: Ambrose Waters MD 03/28/15 01:40 FINAL REPORT Cardio mediastinal silhouette is stable unchanged from 12/14/2014; however , since the previous exam, there is diffuse consolidative pulmonary parenchymal opacity at both lungs associated with air bronch ograms which is nonspecific could represent ARDS, pulmonary edema, pulmonary hemorrhage or pneumonia. Tiny pleural fluid collections are noted bilaterally. SL:12 Chest w Chest w Exam: CT chest with contrast: 03/07 - OPID contrast contrast CT /2014 - [facility] History: Dyspnea/COPD Read by: Zoila Paiz MD Dictated Date/time: 03/07/15 09:03 Electronically Signed by: Zoila Paiz MD 03/07/15 09:29 FINAL REPORT Comparison Study: 12/15/2014 Findings: Contiguous axial sections are obtained through the chest after intravenous administration of 100 cc of Omnipaque-300 as per protocol. Sagittal and coronal reformations are also obtained .Seru m creatinine level obtained using i Stat is 0.6. The reported DLP in mGy* cm is 488 . No remarkable change in the appearance of mediastinal and hilar lymphadenopathy is noted.. Normal appearance of the aorta and major brachiocephalic vessels are noted. The pulmonary artery and its major branches demonstrate no filling defects to suggest pulmonary embolism. The main pulmonary vein is prominent in size, which along with mild bowing of the interventricular septum raises the possibility of increased right ventricular pressure. The lung parenchyma demonstrates generalized mosaic pattern of groundglass opacity with appearance suggestive of interstitial edema and mild CHF. These changes are greatest in the upper lung zones. Pres ence of small right pleural effusion is noted. Minimal areas of basilar atelectasis are seen the. . There is no evidence of bronchiectasis or interstitial lung disease . The visualized bony structures are unremarkable . The visualized portions of the upper abdominal structures within normal limits . Impression: No remarkable interval change compared to prior studies. Mediastinal and hilar lymphadenopathy, probably reactive, it is unchanged. Generalized ground glass opacity predominantly involving the upper anil ng zones. Probable pulmonary arterial hypertension.. IMMUNOLOGY Tot Prot 14 mg/dL 05 [facility] [place] (UPE) /2014 [place] IMMUNOLOGY Interp (UPE) Urine 12/15 [facility] [place] protein /2014 [place] consists primarily of albumin. No monoclonal bands are identified .Interpret ation performed at [facility]. IMMUNOLOGY Spec Type random 12/15 [place] (UPE) urine 100x /2014 [place] IMMUNOLOGY Albumin % 39.4 REL % 55.8 - 12/15 [facility] [place] 66.1 /2014 [place] IMMUNOLOGY Alpha 1 % 5.0 REL % 2.8 - 4.9 12/15 [place] /2014 [place] IMMUNOLOGY SPE Interp Total 12/15 [place] protein is /2014 [place] increased. A presumptiv e monoclonal protein (1.47 g/dl) is present within the preserved polyclonal gamma globulin region and overlaps with a large peak in the beta-2 fraction that may also ne monoclonal . Serum and urine immunofixa tion studies are recommende d for further evaluation .Interpret ation performed at [facility]. IMMUNOLOGY Beta Glob 1.52 g/dL 0.50 - 12/15 [facility] [place] 1.15 /2014 [place] IMMUNOLOGY Alpha 2 Glob 1.42 g/dL 0.45 - 12/15 [facility] [place] 1.00 /2014 [place] IMMUNOLOGY Alpha 1 Glob 0.51 g/dL 0.18 - 12/15 [facility] [place] 0.41 /2014 [place] IMMUNOLOGY Tot Prot 10.1 g/dL 6.4 - 8.4 12/15 [facility] [place] (SPE) /2014 [place] IMMUNOLOGY Gamma Glob 2.68 g/dL 0.71 - 12/15 [facility] [place] 1.57 /2014 [place] IMMUNOLOGY Alpha 2 % 14.1 REL % 7.0 - 11.9 12/15 [place] /2014 [place] IMMUNOLOGY Albumin 3.98 g/dL 3.57 - 12/15 [facility] [place] (SPE) 5.55 /2014 [place] IMMUNOLOGY Gamma % 26.5 REL % 11.1 - 12/15 [facility] [place] 18.7 /2014 [place] IMMUNOLOGY Beta % 15.0 REL % 7.8 - 13.7 12/15 [place] /2014 [place] IMMUNOLOGY RF Qnt null 0 - 20 12/15 [place] /2014 [place] IMMUNOLOGY DIANNE Negative Negative 12/15 [place] /2014 [place] (12/15/14 12:16 PM) SPECIAL DORA 53 unit/L 8 - 52 12/15 [place] CHEMISTRY /2014 [place] THYROID TSH 1.110 0.360 - 12/15 [place] PANEL uIU/mL 3.740 /2014 [facility] CARDIAC Total CK 35 unit/L 12 - 191 12/15 [place] ENZYMES /2014 [facility] CARDIAC Troponin-I null 0.00 - 12/15 [place] ENZ[facility]ES 0.40 /2014 [place] CHEM PANEL Calcium Lvl 8.8 mg/dL 8.5 - 10.5 12/15 [place] CHEM PANEL AGAP 12.1 meq/L 10.0 - 05 [place] 20.0 /2014 [place] CHEM PANEL CO2 24 meq/L 24 - 32 12/15 [place] CHEM PANEL Chloride Lvl 106 meq/L 95 - 109 12/15 [place] CHEM PANEL eGFR 82 12/15 1Result Comment: The eGFR is calculated using the CKD-EPI formula. In most young, healthy individuals the eGFR will be >90 mL/ min/1.73m2. The eGFR declines with age. An eGFR of 60-89 may be normal in mL/min/1.7 some populations, particularly the elderly, for whom the CKD-EPI formula has not been extensively validated. Use of the eGFR is not recommended in the following populations: [place] 3m2 Individuals with unstable creatinine concentrations, including patients and those with serious co-morbid conditions. Patients with extremes in muscle mass or diet. The data above are obtained from the National Kidney Disease Education Program (NKDEP) which additionally recommends that when the eGFR is used in patients with extremes of body mass index for purposes of drug dosing, the eGFR should be multiplied by the estimated BMI. CHEM PANEL Sodium Lvl 138 meq/L 135 - 145 12/15 [place] CHEM PANEL Creatinine 0.8 mg/dL 0.5 - 1.4 12/15 [place] CHEM PANEL Glucose Lvl 247 mg/dL 70 - 99 12/15 3Interpretive Data: Adult reference range values reflect the clinical guidelines of the [place] [employer]. [place] CHEM PANEL BUN 12 mg/dL 7 - 22 12/15 [place] CHEM PANEL Potassium 4.1 meq/L 3.5 - 5.1 12/15 [place] Lvl [facility] HEMATOLOGY Platelet 305 K/CMM 133 - 450 12/15 [facility] HEMATOLOGY RDW 21.8 % 11.5 - 12/15 [place] 14.5 [facility] HEMATOLOGY MPV 8.2 fL 7.4 - 10.4 12/15 [place] /2014 [place] HEMATOLOGY WBC 9.7 K/CMM 3.7 - 10.4 12/15 [place] /2014 [place] HEMATOLOGY Hct 31.8 % 36.0 - 12/15 [place] 48.0 /2014 [place] HEMATOLOGY RBC 3.92 M/CMM 4.20 - 12/15 [place] 5.40 /2014 [place] HEMATOLOGY Hgb 10.3 g/dL 12.0 - 12/15 [place] 16.0 /2014 [place] HEMATOLOGY MCHC 32.3 g/dL 32.0 - 12/15 [place] 36.0 /2014 [place] HEMATOLOGY MCH 26.3 pg 27.0 - 12/15 [place] 31.0 /2014 [place] HEMATOLOGY MCV 81.3 fL 80.0 - 12/15 [place] 98.0 /2014 [place] HEMATOLOGY Eosinophils 0.0 K/CMM 0.0 - 0.5 12/15 [place] # /2014 [place] HEMATOLOGY Anisocyte 1+ None Seen 12/15 [place] *ABN* (12/15/14 6:09 AM) HEMATOLOGY Basophils # 0.0 K/CMM 0.0 - 0.2 12/15 [place] HEMATOLOGY Monocytes # 0.1 K/CMM 0.0 - 0.8 12/15 [place] HEMATOLOGY Segs-Bands # 9.0 K/CMM 1.5 - 8.1 12/15 [place] HEMATOLOGY Lymphocytes 0.6 K/CMM 1.0 - 5.5 12/15 [place] # /2014 [place] HEMATOLOGY Eosinophils 0.0 % 0.0 - 4.0 12/15 [place] HEMATOLOGY Basophils 0.1 % 0.0 - 1.0 12/15 [place] HEMATOLOGY Lymphocytes 6.3 % 20.0 - 12/15 [place] 40.0 [place] HEMATOLOGY Segs 92.7 % 45.0 - 12/15 [place] 75.0 [place] HEMATOLOGY Monocytes 0.9 % 2.0 - 12.0 12/15 [place] Chest Chest Examination: Chest CTA pulm emb 12/15 - [place] Pulmonary Pulmonary /2014 - [place] Embolism Embolism CTA Dose: 631 mGy-cm CTA Read by: Franklin Olsen MD Dictated Date/time: 12/15/14 13:17 History: Cough and fever Electronically Signed by: Franklin Olsen MD 12/15/14 13:24 FINAL REPORT DIAGNOSIS: 1. No evidence of pulmonary embolic disease, aortic dissection 2. Vascular congestion, extensive groundglass alveolar edema, and small effusions consistent with congestive heart failure 3. Other findings as below. DISCUSSION: Dynamic, high resolution CT scanning with the bolus injection of 100 cc Omnipaque, with MIP reconstructions including coronal and oblique reconstructions. The study demonstrates satisfactory opacification of the pulmonary arterial as well as systemic arterial system. No evidence of a pulmonary arterial filling defect is identified and there is no evidence of aortic dissection. No evidence of a pulmonary . Of note is extensive groundglass alveolar edema throughout both lungs. Central pulmonary vascularity is prominent. There are small pleural effusions. Mild mediastinal and hilar lymphadenopathy is present unchanged from 12 July 2014. There is a small pericardial effusion unchanged. Mild left-sided substernal thyroid is noted. The left atrium is mod erately enlarged. There are calcifications within the mitral annulus as well as the aortic root. Of note is mild bowing of the interventricular septum posterior laterally, (images [id number], series 2) which can be associated with pulmonary hypertension. With the extensive alveolar consolidation, and other findings as discussed , superimposed inflammatory disease cannot be excluded. CARDIAC Troponin-I null 0.00 - 12/15 [place] ENZYMES 0.40 /2014 [facility] CARDIAC Total CK 45 unit/L 12 - 191 12/15 ENZYMES [facility] URINE AND UA RBC 0-2 /HPF 0 - 2 12/15 [facility] URINE AND UA Bacteria Occasional None Seen 12/15 [place] STOOL /HPF /HPF /2014 [facility] URINE AND UA WBC 0-2 /HPF None Seen 12/15 [place] ST[facility]OL /HPF /2014 [facility] URINE AND UA Leuk Est Negative Negative 12/15 [place] [facility] [place] (12/14/14 7:06 PM) URINE AND UA Sq Epi Occasional Few /LPF 12/15 [place] STOOL /LPF /2014 [facility] URINE AND UA Ketones Negative Negative 12/15 [place] *NA* (12/14/14 7:06 PM) URINE AND UA Bili Negative Negative 12/15 [facility] *NA* (12/14/14 7:06 PM) URINE AND UA Nitrite Negative Negative 12/15 [place] (12/14/14 7:06 PM) URINE AND UA Blood Trace Negative 12/15 [place] [facility] [place] *ABN* (12/14/14 7:06 PM) URINE AND UA 0.2 EU/dL 0.1 - 1.0 12/15 [place] STOOL Urobilinogen URINE AND UA Color Yellow Yellow 12/15 [place] *NA* (12/14/14 7:06 PM) URINE AND UA Turbidity Clear Clear 12/15 [place] [facility] [place] (12/14/14 7:06 PM) URINE AND UA Spec Grav 1.010 <=1.030 12/15 [place] STOOL [facility] URINE AND UA Protein Negative Negative 12/15 [place] STOOL [facility] (12/14/14 7:06 PM) URINE AND UA pH 6.5 5.0 - 8.0 12/15 [place] [facility] URINE AND UA Glucose Negative Negative 12/15 [place] [facility] [place] (12/14/14 7:06 PM) SPECIAL Hgb A1C 7.4 % <=5.6 % 12/14 [place] CHEMISTRY [facility] HEMATOLOGY Microcyte 1+ None Seen 12/14 [place] *ABN* (12/14/14 4:24 PM) HEMATOLOGY Spherocyte Occasional None Seen 12/14 [place] *ABN* (12/14/14 4:24 PM) HEMATOLOGY Anisocyte 1+ None Seen 12/14 *ABN* (12/14/14 4:24 PM) HEMATOLOGY Macrocyte 1+ None Seen 12/14 *ABN* (12/14/14 4:24 PM) HEMATOLOGY Lymphocytes 1.2 K/CMM 1.0 - 5.5 12/14 [place] # /2014 [place] HEMATOLOGY Eosinophils 0.1 K/CMM 0.0 - 0.5 12/14 [place] # /2014 [place] HEMATOLOGY Basophils # 0.1 K/CMM 0.0 - 0.2 12/14 HEMATOLOGY Lymphocytes 7.0 % 20.0 - 12/14 [place] 40.0 /2015 [place] HEMATOLOGY Monocytes 3.9 % 2.0 - 12.0 12/14 HEMATOLOGY Eosinophils 0.5 % 0.0 - 4.0 12/14 [place] HEMATOLOGY Plt Morph Normal 12/14 [place] /2015 [place] (12/14/14 4:24 PM) HEMATOLOGY Monocytes # 0.6 K/CMM 0.0 - 0.8 12/14 [place] /2014 [place] HEMATOLOGY Segs 88.2 % 45.0 - 12/14 6Result [facility] [place] 75.0 /2014 Comment: [place] Reviewed. HEMATOLOGY Basophils 0.4 % 0.0 - 1.0 12/14 [place] /2014 [place] HEMATOLOGY Segs-Bands # 14.7 K/CMM 1.5 - 8.1 12/14 [place] /2014 [place] HEMATOLOGY MPV 7.5 fL 7.4 - 10.4 12/14 [place] /2014 [place] HEMATOLOGY Hct 34.9 % 36.0 - 12/14 [place] 48.0 /2014 [place] HEMATOLOGY Platelet 400 K/CMM 133 - 450 12/14 [place] HEMATOLOGY RDW 21.9 % 11.5 - 12/14 [place] 14.5 /2014 [place] HEMATOLOGY MCHC 32.7 g/dL 32.0 - 12/14 [place] 36.0 /2014 [place] HEMATOLOGY MCV 81.4 fL 80.0 - 12/14 [place] 98.0 /2014 [place] HEMATOLOGY MCH 26.6 pg 27.0 - 12/14 [place] 31.0 /2014 [place] HEMATOLOGY Hgb 11.4 g/dL 12.0 - 12/14 [place] 16.0 /2014 [place] HEMATOLOGY WBC 16.6 K/CMM 3.7 - 10.4 12/14 [place] /2014 [place] HEMATOLOGY RBC 4.29 M/CMM 4.20 - 12/14 [place] 5.40 /2014 [place] CARDIAC CK MB Index 4.2 0.0 - 2.5 12/14 [place] CARDIAC BNP 350 pg/mL <=100 12/14 5Interpretive Data: Elevated results are in line with increasing severity of [place] ENZYMES pg/mL /2014 congestive heart failure. Minor elevations between 100 and 300 [place] may be seen with Myocardial Ischemia, Sodium retaining drugs, and compensated/treated heart failure. CARDIAC CK MB 2.0 ng/mL 0.5 - 3.6 12/14 [place] [place] CARDIAC Troponin-I null 0.00 - 12/14 [place] EN[facility] 0.40 /2014 [place] CARDIAC Total CK 48 unit/L 12 - 191 12/14 [place] [facility] [place] CHEM PANEL eGFR 82 12/14 2Result Comment: The eGFR is calculated using the CKD-EPI formula. In most young, healthy individuals the eGFR will be >90 mL/ min/1.73m2. The eGFR declines with age. An eGFR of 60-89 may be normal in mL/min/1.7 /2015 some populations, particularly the elderly, for whom the CKD-EPI formula has not been extensively validated. Use of the eGFR is not recommended in the following populations: [place] 3m2 Individuals with unstable creatinine concentrations, including patients and those with serious co-morbid conditions. Patients with extremes in muscle mass or diet. The data above are obtained from the National Kidney Disease Education Program (NKDEP) which additionally recommends that when the eGFR is used in patients with extremes of body mass index for purposes of drug dosing, the eGFR should be multiplied by the estimated BMI. CHEM PANEL A/G Ratio 0.5 0.7 - 1.6 05/ MH [place] CHEM PANEL AST 15 unit/L 0 - 37 / [place] CHEM PANEL Bili Total 0.5 mg/dL 0.2 - 1.3 / MH [place] CHEM PANEL Alk Phos 74 unit/L 39 - 136 05/ MH [place] CHEM PANEL Total 10.1 g/dL 6.4 - 8.4 / MH [place] Protein [place] CHEM PANEL Albumin Lvl 3.5 g/dL 3.5 - 5.0 / [facility] [place] CHEM PANEL ALT 12 unit/L 0 - 65 / [facility] [place] CHEM PANEL Calcium Lvl 9.0 mg/dL 8.5 - 10.5 / MH [place] CHEM PANEL B/C Ratio 9 6 - 25 /12 [facility] [place] CHEM PANEL AGAP 11.4 meq/L 10.0 - 05/12 [facility] [place] 20.0 /2015 [place] CHEM PANEL Globulin 6.6 g/dL 2.0 - 4.0 05/ MH [place] CHEM PANEL CO2 26 meq/L 24 - 32 05/ [facility] [place] CHEM PANEL Sodium Lvl 139 meq/L 135 - 145 05/12 [facility] [place] CHEM PANEL Creatinine 0.8 mg/dL 0.5 - 1.4 05/12 [facility] [place] L[facility] [place] CHEM PANEL Chloride Lvl 105 meq/L 95 - 109 05/12 [place] [facility] CHEM PANEL Potassium 3.4 meq/L 3.5 - 5.1 12/14 [place] Lvl /2014 [facility] CHEM PANEL Glucose Lvl 124 mg/dL 70 - 99 12/14 4Interpretive Data: Adult reference range values reflect the clinical guidelines of the [place] [employer]. [facility] CHEM PANEL BUN 7 mg/dL 7 - 22 12/14 [place] [facility] Chest Chest 1view Examination: Chest 1view 12/14 - [place] 1view DX Provided History: Chest pain Read by: Franklin Olsen MD Dictated Date/time: 12/14/14 14:56 Electronically Signed by: Franklin Olsen MD 12/14/14 14:57 FINAL REPORT DIAGNOSIS: Changes suspect for congestive failure DISCUSSION: Single AP chest is compared to a prior study dated November 15, 2014. There is cardiomegaly, central pulmonary vascular congestion and a probable small left pleural effusion consistent with developing congestive failure. Fluoroscop Fluoroscopy No report is required for this exam. 11/15 - [place] y assist assist to [facility] to 1 hour hour DX Technical component complete. Dose report sent to PACS. DX Electronically Signed by: aMrleni Garcia RT 11/15/14 15:30 FINAL REPORT Chest Chest 1view PORTABLE CHEST AP SEMIERECT 11/15/2014, 9:09 a.m. 11/15 - [place] 1view DX HISTORY: Post bronchoscopy. Compared to exam dated 07/17/2014. Read by: Wali Gonzalez MD Dictated Date/time: 11/15/14 09:46 Electronically Signed by: Wali Gonzalez MD 11/15/14 09:50 FINAL REPORT Mild cardiomegaly. The pulmonary vascularity is now congested with Juan Antonio B lines at the lung bases suggesting pulmonary edema, superimposed on COPD, new finding since exam dated 07/17/2015. Acute exace rbation of lung fibrosis or progression of other diffuse interstitial lung disease not excluded. No evidence of pneumothorax. CONCLUSION: The appearance of the chest suggests pulmonary edema superimposed on COPD, new finding compared to exam dated 07/17/2015. Acute exacerbation of lung fibrosis or progression of other diffuse interstitial lung disease not excluded. Report called to Dr. Navas. Vital Signs Vital Sign Value Date Comments Source BMI Calculated 29.84 11/01/2017 [facility] Height 167.64 cm 11/01/2017 [facility] Weight 83.864 11/01/2017 [facility] Heart Rate 87 11/01/2017 [facility] Systolic (mm Hg) 120 11/01/2017 [facility] Diastolic (mm Hg) 73 11/01/2017 [facility] Weight 77.273 06/20/2015 [facility] BMI Calculated 29.7 06/20/2015 [facility] Height 161.29 cm 06/20/2015 [facility] Respitory Rate 20 03/30/2015 [facility] Systolic (mm Hg) 100 03/30/2015 [facility] Diastolic (mm Hg) 66 03/30/2015 [facility] Heart Rate 82 03/30/2015 [facility] Temperature Oral (F) 97.9 F 03/30/2015 [facility] Systolic (mm Hg) 110 03/30/2015 [facility] Diastolic (mm Hg) 70 03/30/2015 [facility] Respitory Rate 18 03/30/2015 [facility] Heart Rate 77 03/30/2015 [facility] Temperature Oral (F) 97.7 F 03/30/2015 [facility] Systolic (mm Hg) 104 03/30/2015 [facility] Diastolic (mm Hg) 69 03/30/2015 [facility] Heart Rate 85 03/30/2015 [facility] Temperature Oral (F) 98.5 F 03/30/2015 [facility] Respitory Rate 18 03/30/2015 [facility] Weight 84.1 03/28/2015 [facility] BMI Calculated 28.19 03/28/2015 [facility] Weight 84.091 03/28/2015 [facility] Height 172.72 cm 03/28/2015 [facility] Heart Rate 84 12/16/2014 [facility] Temperature Oral (F) 97.8 F 12/16/2014 [facility] Systolic (mm Hg) 105 12/16/2014 [facility] Diastolic (mm Hg) 65 12/16/2014 [facility] Respitory Rate 18 12/16/2014 [facility] Respitory Rate 18 12/16/2014 [facility] Systolic (mm Hg) 107 12/16/2014 [facility] Diastolic (mm Hg) 74 12/16/2014 [facility] Temperature Oral (F) 97.9 F 12/16/2014 [facility] Heart Rate 80 12/16/2014 [facility] Temperature Oral (F) 97.6 F 12/16/2014 [facility] Heart Rate 87 12/16/2014 [facility] Respitory Rate 18 12/16/2014 [facility] Systolic (mm Hg) 115 12/16/2014 [facility] Diastolic (mm Hg) 69 12/16/2014 [facility] Weight 84.091 12/15/2014 [facility] BMI Calculated 28.19 12/15/2014 [facility] Height 172.72 cm 12/15/2014 [facility] Weight 83.636 12/14/2014 [facility] Weight 84.091 11/12/2014 [facility] BMI Calculated 28.19 11/12/2014 [facility] Height 172.72 cm 11/12/2014 [facility] Encounters Location Location Encounter Encounter Reason Attending ADM DC Status Source Details Type Number For Provider Date Date Visit [facility] [id number] [facility] 11/15 11/15 [facility] [place] [facility] [id number] [facility] 12/14 12/16 [facility] [place] [facility] Outpt Diag [id number] [facility] 03/07 03/08 [facility]2014 [facility] [id number] [place] 03/28 03/30 Bertrand Sweet /2014 [facility] Outpt Diag [id number] Nery 04/20 04/21 [facility] /2014 [facility] [place] [facility] Outpt Diag [id number] Jenaro Russ 06/03 06/04 [facility]2014 [facility] [id number] [place] 06/20 06/21 [facility] Spoor /2014 [facility] Outpt Diag [id number] Nery 10/26 10/27 [facility] Shar /2015 [facility] [place] [facility] [id number] [facility] 03/01 [facility] /2016 [facility] Outpatient [id number] [facility] 03/15 Active [facility] /2016 [facility] Outpatient [id number] [place] 06/14 Active [facility] /2016 [facility] [id number] [facility] [id number] [place] 11/01 11/02 [facility] Procedures Procedure Code Date Perfomer Comments Source Back fusion [id number] 01/03/2014 [facility] [place] Back fusion [id number] 01/03/2014 [facility] Back fusion [id number] 01/03/2014 [place] Back fusion [id number] 01/03/2014 [facility] Ablation [id number] 08/05/2012 [facility] [place] Ablation [id number] 08/05/2012 [facility] Ablation [id number] 08/05/2012 [place] Ablation [id number] 08/05/2012 [facility] Back fusion [id number] 08/05/2008 [facility] [place] Back fusion [id number] 08/05/2008 [facility] Back fusion [id number] 08/05/2008 [place] Back fusion [id number] 08/05/2008 [facility] Hysterectomy [id number] 08/05/1994 [facility] [place] Hysterectomy [id number] 08/05/1994 [facility] Hysterectomy [id number] 08/05/1994 [place] Hysterectomy [id number] 08/05/1994 [facility] Arthroscopy of [id number] 08/05/1972 [facility] [place] knee [place] Arthroscopy of [id number] 08/05/1972 [facility] knee Arthroscopy of [id number] 08/05/1972 [place] knee Arthroscopy of [id number] 08/05/1972 Medical knee Group
--- OUTSIDE RECORDS SUMMARY | 2018-07-27 18:52 | XMS REPORT | Summary of Care ---
:1955 Author Organization [facility] Outpatient [facility] [place] Address [address] [place] [address]- [facility] Jim_abdulaziz(FIN) [id number] Date(s): 03/07/15 - 03/07/15 [facility] Outpatient Imaging [address] Discharge Disposition: Home Attending Physician: Raudel Navas MD Vital Signs No data available for this section Problem List Condition Effective Dates Status Health Status Informant Anxiety(Confirmed) Active Anxiety(Confirmed) Active Atrial Fibrillation(Confirmed) Active Atrial fibrillation(Confirmed) Resolved Atrial fibrillation(Confirmed) Active Back pain(Confirmed) Active Back pain(Confirmed) Active Chest pain(Confirmed) Active Congestive heart failure(Confirmed) Resolved COPD(Confirmed) Active Cough(Confirmed) Active Depression(Confirmed) Active Depression(Confirmed) Active Diabetes(Confirmed) Resolved Diabetes(Confirmed) Active HTN(Confirmed) Active Hypertension(Confirmed) Resolved Myeloma(Confirmed) Resolved NIDDM(Confirmed) Active INA (obstructive sleep Active apnea)(Confirmed) Sleep apnea, obstructive(Confirmed) Resolved Allergies, Adverse Reactions, Alerts Substance Reaction Severity Status penicillins hives,swelling High Active Medications No data available for this section Results No data available for this section Immunizations No data available for this section Procedures Procedure Date Related Diagnosis Body Site Back fusion 01/03/14 Ablation 08/05/12 Back fusion 08/05/08 Hysterectomy 08/05/94 Arthroscopy of knee 08/05/72 Social History Social History Type Response Substance Abuse Use: None. Sexual Sexually active: No. 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 Alcohol Past Smoking Status Current every day smoker; Type: Cigarettes; Ready to change: No ; Exposure to Tobacco Smoke None; Cigarette Smoking Last 365 Days Yes; Reg Smoking Cessation Counseling Yes 1no Assessment and Plan No data available for this section
--- OUTSIDE RECORDS SUMMARY | 2018-07-27 18:52 | XMS REPORT | Summary of Care ---
:1955 Author Encounter KATIE Lowe(LUCINA) [id number] Date(s): 11/15/14 - 11/15/14 [facility] [address] [place] [address]- Discharge Disposition: Home Physician Attending: Raudel Navas MD Physician Admitting: Raudel Navas MD Physician_Referring: Raudel Navas MD Vital Signs Most recent to oldest [Reference Range]: 1 Height 172.72 cm (11/12/14 8:52 AM) Weight 84.091 kg (11/12/14 8:52 AM) Body Mass Index 28.19 m2 (11/12/14 8:52 AM) Problem List Condition Effective Dates Status Health Status Informant Anxiety(Confirmed) Active Anxiety(Confirmed) Active Atrial Fibrillation(Confirmed) Active Atrial fibrillation(Confirmed) Resolved Atrial fibrillation(Confirmed) Active Back pain(Confirmed) Active Back pain(Confirmed) Active Chest pain(Confirmed) Active Congestive heart failure(Confirmed) Resolved COPD(Confirmed) Active Cough(Confirmed) Active Depression(Confirmed) Active Depression(Confirmed) Active Diabetes(Confirmed) Resolved Diabetes(Confirmed) Active HTN(Confirmed) Active Hypertension(Confirmed) Resolved NIDDM(Confirmed) Active INA (obstructive sleep Active apnea)(Confirmed) Sleep apnea, obstructive(Confirmed) Resolved Allergies, Adverse Reactions, Alerts Substance Reaction Severity Status penicillins hives,swelling High Active Medications AMIODarone 200 mg oral tablet 200 mg=1 tab, PO, Daily, 0 Refill(s) Start Date: 11/12/14 Status: OrderedCrestor 20 mg oral tablet 20 mg=1 tab, PO, Bedtime, 0 Refill(s) Start Date: 11/12/14 Status: OrderedCymbalta 60 mg oral delayed release capsule 60 mg=1 cap, PO, Daily, 0 Refill(s) Start Date: 11/12/14 Status: OrderedmetFORMIN 1000 mg oral tablet 1,000 mg=1 tab, PO, BID, 0 Refill(s) Start Date: 11/12/14 Status: Orderedtorsemide 100 mg oral tablet 100 mg=1 tab, PO, Daily, 0 Refill(s) Start Date: 11/12/14 Status: OrderedTrilipix 135 mg oral delayed release capsule 135 mg=1 cap, PO, Daily, # 30 cap, 0 Refill(s) Start Date: 11/12/14 Status: OrderedXanax 0.5 mg oral tablet 0.5 mg=1 tab, PO, PRN, 0 Refill(s) Start Date: 11/12/14 Status: OrderedXarelto 20 mg oral tablet 20 mg=1 tab, PO, QPM, 0 Refill(s) Start Date: 11/12/14 Status: Ordered Results No data available for this section Immunizations No data available for this section Procedures Procedure Date Related Diagnosis Body Site Back fusion 01/03/14 Ablation 08/05/12 Back fusion 08/05/08 Hysterectomy 08/05/94 Arthroscopy of knee 08/05/72 Social History Social History Type Response Substance Abuse Use: None. 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 Alcohol Never Smoking Status Current every day smoker; Exposure to Tobacco Smoke None; Cigarette Smoking Last 365 Days No; Reg Smoking Cessation Counseling No 1no Assessment and Plan No data available for this section
--- OUTSIDE RECORDS SUMMARY | 2018-07-27 18:52 | XMS REPORT | Summary of Care ---
:1955 Author Encounter KATIE Lowe(LUCINA) [id number] Date(s): 12/14/14 - 12/16/14 [facility] [address] [place] [address]- Discharge Disposition: Home Physician Attending: Magnus Hampton MD Physician Admitting: Magnus Hampton MD Vital Signs Most recent to oldest 1 2 3 [Reference Range]: Height 172.72 cm (12/14/14 7:49 PM) Current Weight 83.273 kg (12/15/14 7:01 AM) Temperature Oral [96.4-99.1 97.8 DegF 97.9 DegF 97.6 DegF DegF] (12/16/14 11:07 AM) (12/16/14 7:24 AM) (12/16/14 3:25 AM) Blood Pressure [90-140/60-90 105/65 mmHg 107/74 mmHg 115/69 mmHg mmHg] (12/16/14 11:07 AM) (12/16/14 7:24 AM) (12/16/14 3:25 AM) Respiratory Rate [14-20 BRMIN] 18 BRMIN 18 BRMIN 18 BRMIN (12/16/14 11:07 AM) (12/16/14 7:24 AM) (12/16/14 3:25 AM) Peripheral Pulse Rate [60-100 84 bpm 80 bpm 87 bpm bpm] (12/16/14 11:07 AM) (12/16/14 7:24 AM) (12/16/14 3:25 AM) Weight 84.091 kg 83.636 kg (12/14/14 7:49 PM) (12/14/14 2:02 PM) Body Mass Index 28.19 m2 (12/14/14 7:49 PM) Problem List Condition Effective Dates Status Health [...] Severity Status penicillins hives,swelling High Active Medications acetaminophen-hydrocodone 325 mg-10 mg oral tablet 1 tab, Route: PO, Drug Form: TAB, Q4H, PRN Pain Score 1-5, Start date: 12/15/14 1:24:00, Duration: 30 day, Stop date: 01/14/15 1:23:00 Notes: Do not exceed 4gm/day of acetaminophen. (Same as: Caroleen 325/10) Start Date: 12/15/14 Stop Date: 12/16/14 Status: Discontinuedacetaminophen-hydrocodone 325 mg-10 mg oral tablet 1 tab, Route: PO, Drug Form: TAB, Dosing Weight 84.091, kg, Q4H, PRN Pain Score 1-5, prn, Start date: 12/15/14 1:20:00, Duration: 30 day, Stop date: 01/14/15 1: 19:00 Notes: Do not exceed 4gm/day of acetaminophen. (Same as: Caroleen 325/10) Start Date: 12/15/14 Stop Date: 12/15/14 Status: Deletedalbuterol 0.083% inhalation solution 2.5 mg, 3.01 mL, Route: NEB, Drug form: SOLN, RQ2H, Dosing Weight 83.636, kg, PRN Wheezing, Priority: Routine, Start date: 12/14/14 19:48:00, Duration: 30 day , Stop date: 01/13/15 19:47:00 Notes: SEE RT DOCUMENTATION (Same as: Proventil) Start Date: 12/14/14 Stop Date: 12/16/14 Status: Discontinuedalbuterol-ipratropium 2.5-0.5 mg inhalation solution 3 mL, Route: NEB, Drug Form: SOLN, Dosing Weight 83.636, kg, RQ6H, Start date: 12/14/14 20:00:00, Duration: 30 day, Stop date: 01/13/15 14:00:00 Notes: (Same as: Duoneb) Start Date: 12/14/14 Stop Date: 12/16/14 Status: Discontinuedalbuterol-ipratropium 2.5-0.5 mg inhalation solution 3 ml, INHALATION, QID, # 30 ea, 0 Refill(s) Start Date: 12/16/14 Status: OrderedALPRAZOLam 0.25 mg, 1 tab, Route: PO, Drug form: TAB, BID, Dosing Weight 84.091, kg, PRN as needed for anxiety,Start date: 12/15/14 10:42:00, Duration: 30 day, Stop date : 01/14/15 10:41:00 Notes: With food or milk(Same as: Xanax) Start Date: 12/15/14 Stop Date: 12/16/14 Status: DiscontinuedAMIODarone 200 mg, 1 tab, Route: PO, Drug form: TAB, Daily, Dosing Weight 84.091, kg, Start date: 12/15/14 16:00:00, Duration: 30 day, Stop date: 01/14/15 9:00:00 Notes: (Same as: Cordarone) Start Date: 12/15/14 Stop Date: 12/16/14 Status: Discontinuedamitriptyline-perphenazine 25 mg-4 mg oral tablet 2 tab, Route: PO, Drug Form: TAB, Dosing Weight 84.091, kg, Bedtime, Start date : 12/15/14 21:00:00, Duration: 30 day, Stop date: 01/13/15 21:00:00 Start Date: 12/15/14 Stop Date: 12/16/14 Status: DiscontinuedCartia XT 180 mg, 1 cap, Route: PO, Drug form: ERCAP, Daily, Dosing Weight 84.091, kg, Start date: 12/15/14 16:00:00, Duration: 30 day, Stop date: 01/14/15 9:00:00 Notes: (Same as: Tiazac) Before meals. DO NOT CRUSH. Start Date: 12/15/14 Stop Date: 12/16/14 Status: DiscontinuedCartia XT 180 mg/24 hours oral capsule, extended release 180 mg=1 cap, PO, Daily, # 30 cap, 0 Refill(s) Start Date: 12/14/14 Status: OrderedcefTRIAXone 1 gm, Route: IVPB, Drug form: PDR/INJ, ONCE, Dosing Weight 83.636, kg, Priority : STAT, Start date: 12/14/14 17:46:00, Stop date: 12/14/14 17:46:00 Start Date: 12/14/14 Stop Date: 12/14/14 Status: DiscontinuedDextrose 50% Syringe 25 gm, 50 mL, Route: IVP, Drug Form: INJ, Dosing Weight 84.091, kg, PRN, PRN Blood Glucose Results, Start date: 12/15/14 10:41:00, Duration: 30 day, Stop date: 01/14/15 10:40:00 Start Date: 12/15/14 Stop Date: 12/16/14 Status: DiscontinuedDextrose 50% Syringe 12.5 gm, 25 mL, Route: IVP, Drug Form: INJ, Dosing Weight 84.091, kg, PRN, PRN Blood Glucose Results, Start date: 12/15/14 10:41:00, Duration: 30 day, Stop date: 01/14/15 10:40:00 Start Date: 12/15/14 Stop Date: 12/16/14 Status: DiscontinuedDULoxetine 60 mg, 2 cap, Route: PO, Drug form: DRC, Daily, Dosing Weight 84.091, kg, Start date: 12/15/14 16:00:00, Duration: 30 day, Stop date: 01/14/15 9:00:00 Notes: (Same as: Cymbalta) (Do Not Crush) Start Date: 12/15/14 Stop Date: 12/16/14 Status: DiscontinuedDuoNeb inhalation solution 3 mL, Route: INHALATION, Dosing Weight 83.636, kg, ONCE, Start date: 12/14/14 15 :07:00, Stop date: 12/14/14 15:07:00 Start Date: 12/14/14 Stop Date: 12/14/14 Status: Completedenoxaparin 30 mg, 0.3 mL, Route: SUB-Q, Drug form: INJ, Daily, Dosing Weight 83.636, kg, For CrCl >=30 mL/min, Start date: 12/15/14 9:00:00, Duration: 30 day, Stop date : 01/13/15 9:00:00 Notes: (Same as: Lovenox) Start Date: 12/15/14 Stop Date: 12/16/14 Status: Discontinuedglucagon 1 mg, Route: IM, Drug form: PDR/INJ, PRN, Dosing Weight 84.091, kg, PRN Blood Glucose Results, Startdate: 12/15/14 10:41:00, Duration: 30 day, Stop date: 07/19 10:40:00 Start Date: 12/15/14 Stop Date: 12/16/14 Status: Discontinuedinsulin aspart 4 unit, 0.04 mL, Route: SUB-Q, Drug form: SOLN, Bedtime, Dosing Weight 84.091, kg, PRN Blood GlucoseResults, Start date: 12/15/14 10:41:00, Duration: 30 day, Stop date: 01/14/15 10:40:00 Notes: Roll in palms of hands gently; Do not shake vigorously. (Same as: NovoLOG)"single patient use only" Stable for 28 days at room temperature.Expires in days from Date Start Date: 12/15/14 Stop Date: 12/16/14 Status: Discontinuedinsulin aspart 2 unit, 0.02 mL, Route: SUB-Q, Drug form: SOLN, Bedtime, Dosing Weight 84.091, kg, PRN Blood GlucoseResults, Start date: 12/15/14 10:41:00, Duration: 30 day, Stop date: 01/14/15 10:40:00 Notes: Roll in palms of hands gently; Do not shake vigorously. (Same as: NovoLOG)"single patient use only" Stable for 28 days at room temperature.Expires in days from Date Start Date: 12/15/14 Stop Date: 12/16/14 Status: Discontinuedinsulin aspart 1 unit, 0.01 mL, Route: SUB-Q, Drug form: SOLN, Bedtime, Dosing Weight 84.091, kg, PRN Blood GlucoseResults, Start date: 12/15/14 10:41:00, Duration: 30 day, Stop date: 01/14/15 10:40:00 Notes: Roll in palms of hands gently; Do not shake vigorously. (Same as: NovoLOG)"single patient use only" Stable for 28 days at room temperature.Expires in days from Date Start Date: 12/15/14 Stop Date: 12/16/14 Status: Discontinuedinsulin aspart 3 unit, 0.03 mL, Route: SUB-Q, Drug form: SOLN, Bedtime, Dosing Weight 84.091, kg, PRN Blood GlucoseResults, Start date: 12/15/14 10:41:00, Duration: 30 day, Stop date: 01/14/15 10:40:00 Notes: Roll in palms of hands gently; Do not shake vigorously. (Same as: NovoLOG)"single patient use only" Stable for 28 days at room temperature.Expires in days from Date Start Date: 12/15/14 Stop Date: 12/16/14 Status: Discontinuedinsulin aspart 10 unit, 0.1 mL, Route: SUB-Q, Drug form: SOLN, TID-Before Meals, Dosing Weight 84.091, kg, PRN Blood Glucose Results, Start date: 12/15/14 10:41:00, Duration: 30 day, Stop date: 01/14/15 10:40:00 Notes: Roll in palms of hands gently; Do not shake vigorously. (Same as: NovoLOG)"single patient use only" Stable for 28 days at room temperature.Expires in days from Date Start Date: 12/15/14 Stop Date: 12/16/14 Status: Discontinuedinsulin aspart 8 unit, 0.08 mL, Route: SUB-Q, Drug form: SOLN, TID-Before Meals, Dosing Weight 84.091, kg, PRN Blood Glucose Results, Start date: 12/15/14 10:41:00, Duration: 30 day, Stop date: 01/14/15 10:40:00 Notes: Roll in palms of hands gently; Do not shake vigorously. (Same as: NovoLOG)"single patient use only" Stable for 28 days at room temperature.Expires in days from Date Start Date: 12/15/14 Stop Date: 12/16/14 Status: Discontinuedinsulin aspart 6 unit, 0.06 mL, Route: SUB-Q, Drug form: SOLN, TID-Before Meals, Dosing Weight 84.091, kg, PRN Blood Glucose Results, Start date: 12/15/14 10:41:00, Duration: 30 day, Stop date: 01/14/15 10:40:00 Notes: Roll in palms of hands gently; Do not shake vigorously. (Same as: NovoLOG)"single patient use only" Stable for 28 days at room temperature.Expires in days from Date Start Date: 12/15/14 Stop Date: 12/16/14 Status: Discontinuedinsulin aspart 4 unit, 0.04 mL, Route: SUB-Q, Drug form: SOLN, TID-Before Meals, Dosing Weight 84.091, kg, PRN Blood Glucose Results, Start date: 12/15/14 10:41:00, Duration: 30 day, Stop date: 01/14/15 10:40:00 Notes: Roll in palms of hands gently; Do not shake vigorously. (Same as: NovoLOG)"single patient use only" Stable for 28 days at room temperature.Expires in days from Date Start Date: 12/15/14 Stop Date: 12/16/14 Status: Discontinuedinsulin aspart 2 unit, 0.02 mL, Route: SUB-Q, Drug form: SOLN, TID-Before Meals, Dosing Weight 84.091, kg, PRN Blood Glucose Results, Start date: 12/15/14 10:41:00, Duration: 30 day, Stop date: 01/14/15 10:40:00 Notes: Roll in palms of hands gently; Do not shake vigorously. (Same as: NovoLOG)"single patient use only" Stable for 28 days at room temperature.Expires in days from Date Start Date: 12/15/14 Stop Date: 12/16/14 Status: Discontinuedinsulin detemir 20 unit, 0.2 mL, Route: SUB-Q, Drug form: INJ, Bedtime, Dosing Weight 84.091, kg , Start date: 12/15/14 21:00:00, Duration: 30 day, Stop date: 01/13/15 21:00:00 Notes: Same as LevemirDo not hold insulin without contacting prescriber " single patient use only" Start Date: 12/15/14 Stop Date: 12/16/14 Status: DiscontinuedLasix 20 mg, 2 mL, Route: IV, Drug form: INJ, BID, Dosing Weight 83.636, kg, Start date: 12/15/14 9:00:00,Duration: 30 day, Stop date: 01/13/15 17:00:00 Notes: (Same as: Lasix) Start Date: 12/15/14 Stop Date: 12/16/14 Status: DiscontinuedLasix 40 mg, 4 mL, Route: IVP, Drug form: INJ, Daily, Dosing Weight 83.636, kg, Priority: STAT, Start date: 12/14/14 17:45:00, Duration: 30 day, Stop date: 06/19 9:00:00 Notes: (Same as: Lasix) MEDICATION WASTE Product Size: 40 mgProduct Wasted: ___ mg Start Date: 12/14/14 Stop Date: 12/15/14 Status: DiscontinuedLasix 20 mg, Route: IVP, Drug form: INJ, ONCE, Dosing Weight 83.636, kg, Priority: STAT, Start date: 12/14/14 15:07:00, Stop date: 12/14/14 15:07:00 Start Date: 12/14/14 Stop Date: 12/14/14 Status: CompletedLevaquin 750 mg, 150 mL, Route: IV, Drug form: SOLN, Q24H, Dosing Weight 83.636, kg, Start date: 12/14/14 17:13:00, Duration: 30 day, Stop date: 01/12/15 17:13:00 Notes: (Same as:Levaquin) Start Date: 12/14/14 Stop Date: 12/14/14 Status: Discontinuedlevofloxacin 750 mg, 150 mL, Route: IVPB, Drug form: SOLN, Daily, Dosing Weight 83.636, kg, Start date: 12/15/14 20:00:00, Duration: 30 day, Stop date: 01/13/15 20:00:00 Notes: (Same as:Levaquin) Start Date: 12/15/14 Stop Date: 12/16/14 Status: Discontinuedlevofloxacin 500 mg, 100 mL, Route: IVPB, Drug form: INJ, Daily, Dosing Weight 83.636, kg, Start date: 12/14/14 20:00:00, Duration: 30 day, Stop date: 01/12/15 20:00:00 Notes: (Same as:Levaquin) Start Date: 12/14/14 Stop Date: 12/15/14 Status: Discontinuedlevofloxacin 750 mg oral tablet 750 mg=1 tab, PO, Daily, X 5 day, # 5 tab, 0 Refill(s) Start Date: 12/16/14 Stop Date: 12/21/14 Status: Orderedlithium 450 mg, Route: PO, Drug form: ERTAB, Bedtime, Dosing Weight 84.091, kg, Start date: 12/15/14 21:00:00, Duration: 30 day, Stop date: 01/13/15 21:00:00 Start Date: 12/15/14 Stop Date: 12/16/14 Status: Discontinuedlithium 450 mg oral tablet, extended release 450 mg=1 tab, PO, Bedtime, # 60 tab, 0 Refill(s) Start Date: 12/14/14 Status: Orderedmethocarbamol 750 mg, 1 tab, Route: PO, Drug form: TAB, TID, Dosing Weight 84.091, kg, Start date: 12/15/14 13:00:00, Duration: 30 day, Stop date: 01/14/15 9:00:00 Notes: (Same as:Robaxin) Start Date: 12/15/14 Stop Date: 12/16/14 Status: DiscontinuedmethylPREDNISolone SODium SUCCinate 40 mg, 1 mL, Route: IVP, Drug form: INJ, Q8H, Dosing Weight 83.636, kg, Start date: 12/15/14 0:00:00, Duration: 30 day, Stop date: 01/13/15 16:00:00 Notes: (Same as:Solu-MEDROL, A-Methapred) Start Date: 12/15/14 Stop Date: 12/16/14 Status: DiscontinuedNorco 10/325 oral tablet 1 tab, Route: PO, Drug Form: TAB, Dosing Weight 84.091, kg, Q4H, PRN Pain Score 1-5, prn, Start date: 12/15/14 1:02:00, Duration: 30 day, Stop date: 01/14/15 1: 01:00 Notes: Do not exceed 4gm/day of acetaminophen. (Same as: Caroleen 325/10) Start Date: 12/15/14 Stop Date: 12/15/14 Status: DiscontinuedNorco 10/325 oral tablet 1 tab, PO, Q4H, PRN for pain, 0 Refill(s) Start Date: 12/14/14 Status: OrderedNorco 5/325 oral tablet 1 tab, Route: PO, Drug Form: TAB, Dosing Weight 83.636, kg, ONCE, STAT, Start date: 12/14/14 17:03:00, Stop date: 12/14/14 17:03:00 Start Date: 12/14/14 Stop Date: 12/14/14 Status: CompletedOmnipaque 300 100 mL, Route: IV, Drug Form: SOLN, ONCE, Start date: 12/15/14 10:05:00, Stop date: 12/15/14 10:05:00 Notes: (Same as:Omnipaque 300). Start Date: 12/15/14 Stop Date: 12/15/14 Status: Completedpotassium chloride 40 mEq, 2 tab, Route: PO, Drug form: ERTAB, ONCE, Dosing Weight 83.636, kg, Priority: STAT, Start date: 12/14/14 17:48:00, Stop date: 12/14/14 17:48:00 Notes: (Same as: K-Dur 20)"Do Not Crush" With food and full glass of water Start Date: 12/14/14 Stop Date: 12/14/14 Status: CompletedpredniSONE 20 mg oral tablet See Special Instructions, PO, Daily, 4 day regimen: Day 1 - 40 mg (2 tabs) Day 2 - 30 mg (1 1/2 tabs) Day 3 - 20 mg (1 tab) Day 4 - 10 mg (1/2 tab), X 4 day, # 6 tab, 0 Refill(s) Special Instructions: 4 day regimen:Day 1 - 40 mg (2 tabs)Day 2 - 30 mg (1 1/2 tabs)Day 3 - 20 mg (1tab)Day 4 - 10 mg (1/2 tab) Start Date: 12/16/14 Stop Date: 12/20/14 Status: OrderedPulmicort Respules 0.5 mg/2 mL inhalation suspension 1 mg, 4 ml, Route: NEB, Drug form: SUSP, RBID, Dosing Weight 84.091, kg, Start date: 12/15/14 9:37:00, Duration: 30 day, Stop date: 01/14/15 8:00:00 Notes: (Same As: Pulmicort) Start Date: 12/15/14 Stop Date: 12/16/14 Status: DiscontinuedSaline Flush 0.9% 10 mL, Route: IVP, Drug Form: INJ, Dosing Weight 83.636, kg, PRN, PRN Line Flush , Start date: 12/14/14 14:16:00, Duration: 30 day, Stop date: 01/13/15 14:15:00 Notes: (Same as: BD Posiflush) Start Date: 12/14/14 Stop Date: 12/16/14 Status: DiscontinuedSolu-MEDROL 125 mg, 2 mL, Route: IVP, Drug form: INJ, ONCE, Dosing Weight 83.636, kg, Priority: STAT, Start date: 12/14/14 17:11:00, Stop date: 12/14/14 17:11:00 Notes: (Same as:Solu-MEDROL, A-Methapred) Start Date: 12/14/14 Stop Date: 12/14/14 Status: Completedtorsemide 100 mg, 5 tab, Route: PO, Drug form: TAB, Daily, Dosing Weight 84.091, kg, Start date: 12/16/14 9:00:00, Duration: 30 day, Stop date: 01/14/15 9:00:00 Notes: (Same As: Demadex) Start Date: 12/16/14 Stop Date: 12/16/14 Status: DiscontinuedTriCor 145 mg, 1 tab, Route: PO, Drug form: TAB, Daily, Start date: 12/16/14 9:00:00, Duration: 30 day, Stop date: 01/14/15 9:00:00 Notes: (Same as: Tricor) Start Date: 12/16/14 Stop Date: 12/16/14 Status: DiscontinuedTrilipix 135 mg, Route: PO, Drug form: CAP, Daily, Dosing Weight 84.091, kg, Start date: 12/16/14 9:00:00, Duration: 30 day, Stop date: 01/14/15 9:00:00 Start Date: 12/16/14 Stop Date: 12/15/14 Status: DeletedXarelto 20 mg, 1 tab, Route: PO, Drug form: TAB, QPM, Dosing Weight 84.091, kg, Start date: 12/15/14 17:00:00, Duration: 30 day, Stop date: 01/13/15 17:00:00 Notes: (Same as: Xarelto)Administer with food Start Date: 12/15/14 Stop Date: 12/16/14 Status: Discontinued Results ELECTROLYTES Most recent to oldest [Reference Range]: 1 2 3 Sodium Lvl [135-145 mEq/L] 138 mEq/L 139 mEq/L (12/15/14 6:09 AM) (12/14/14 2:37 PM) Potassium Lvl [3.5-5.1 mEq/L] 4.1 mEq/L 3.4 mEq/L (12/15/14 6:09 AM) *LOW* (12/14/14 2:37 PM) Chloride Lvl [95-109 mEq/L] 106 mEq/L 105 mEq/L (12/15/14 6:09 AM) (12/14/14 2:37 PM) CO2 [24-32 mEq/L] 24 mEq/L 26 mEq/L (12/15/14 6:09 AM) (12/14/14 2:37 PM) AGAP [10.0-20.0 mEq/L] 12.1 mEq/L 11.4 mEq/L (12/15/14 6:09 AM) (12/14/14 2:37 PM) CHEM PANEL Most recent to oldest [Reference Range]: 1 2 3 Creatinine Lvl [0.5-1.4 mg/dL] 0.8 mg/dL 0.8 mg/dL (12/15/14 6:09 AM) (12/14/14 2:37 PM) eGFR 82 mL/min/1.73m2 1 82 mL/min/1.73m2 2 *NA* *NA* (12/15/14 6:09 AM) (12/14/14 2:37 PM) BUN [7-22 mg/dL] 12 mg/dL 7 mg/dL (12/15/14 6:09 AM) (12/14/14 2:37 PM) B/C Ratio [6-25] 9 (12/14/14 2:37 PM) Glucose Lvl [70-99 mg/dL] 247 mg/dL 3 124 mg/dL 4 *HI* *HI* (12/15/14 6:09 AM) (12/14/14 2:37 PM) Total Protein [6.4-8.4 g/dL] 10.1 g/dL *HI* (12/14/14 2:37 PM) Albumin Lvl [3.5-5.0 g/dL] 3.5 g/dL (12/14/14 2:37 PM) Globulin [2.0-4.0 g/dL] 6.6 g/dL *HI* (12/14/14 2:37 PM) A/G Ratio [0.7-1.6] 0.5 *LOW* (12/14/14 2:37 PM) Calcium Lvl [8.5-10.5 mg/dL] 8.8 mg/dL 9.0 mg/dL (12/15/14 6:09 AM) (12/14/14 2:37 PM) ALT [0-65 unit/L] 12 unit/L (12/14/14 2:37 PM) AST [0-37 unit/L] 15 unit/L (12/14/14 2:37 PM) Alk Phos [39-136 unit/L] 74 unit/L (12/14/14 2:37 PM) Bili Total [0.2-1.3 mg/dL] 0.5 mg/dL (12/14/14 2:37 PM) 1Result Comment: The eGFR is calculated using the CKD-EPI formula. In most young , healthy individualsthe eGFR will be >90 mL/min/1.73m2. The eGFR declines with age. An eGFR of 60-89 may be normal in some populations, particularly the elderly, for whom the CKD-EPI formula has not been extensively validated. Use of the eGFR is not recommended in the following populations: Individuals with unstable creatinine concentrations, including patients and those with serious co-morbid conditions. Patients with extremes in muscle mass or diet. The data above are obtained from the National Kid[employer] Disease Education Program ( NKDEP) which additionally recommends that when the eGFR is used in patients with extremes of body mass index for purposesof drug dosing, the eGFR should be multiplied by the estimated BMI.2Result Comment: The eGFR is calculated using the CKD-EPI formula. In most young, healthy individualsthe eGFR will be >90 mL/ min/1.73m2. The eGFR declines with age. An eGFR of 60-89 may be normal in some populations, particularly the elderly, for whom the CKD-EPI formula has not been extensively validated. Use of the eGFR is not recommended in the following populations: Individuals with unstable creatinine concentrations, including patients and those with serious co-morbid conditions. Patients with extremes in muscle mass or diet. The data above are obtained from the National Kid[employer] Disease Education Program ( NKDEP) which additionally recommends that when the eGFR is used in patients with extremes of body mass index for purposesof drug dosing, the eGFR should be multiplied by the estimated BMI.3Interpretive Data: Adult reference range values reflect the clinical guidelines of the [place] [employer].4Interpretive Data: Adult reference range values reflect the clinical guidelines of the [place] [employer].CARDIAC ENZYMES Most recent to oldest 1 2 3 [Reference Range]: Total CK [12-191 unit/L] 35 unit/L 45 unit/L 48 unit/L (12/15/14 6:09 AM) (12/14/14 10:14 PM) (12/14/14 2:37 PM) CK MB [0.5-3.6 ng/mL] 2.0 ng/mL (12/14/14 2:37 PM) CK MB Index [0.0-2.5] 4.2 *HI* (12/14/14 2:37 PM) Troponin-I [0.00-0.40 ng/mL] <0.02 ng/mL <0.02 ng/mL <0.02 ng/mL (12/15/14 6:09 AM) (12/14/14 10:14 PM) (12/14/14 2:37 PM) BNP [<=100 pg/mL] 350 pg/mL 5 *HI* (12/14/14 2:37 PM) 5Interpretive Data: Elevated results are in line with increasing severity of congestive heart failure. Minor elevations between 100 and 300 may be seen with Myocardial Ischemia, Sodium retaining drugs, and compensated/treated heart failure.SPECIAL CHEMISTRY Most recent to oldest [Reference Range]: 1 2 3 Hgb A1C [<=5.6 %] 7.4 % *HI* (12/14/14 6:39 PM) DORA [8-52 unit/L] 53 unit/L *HI* (12/15/14 12:16 PM) THYROID PANEL Most recent to oldest [Reference Range]: 1 2 3 TSH [0.360-3.740 uIU/mL] 1.110 uIU/mL (12/15/14 12:16 PM) URINE AND STOOL Most recent to oldest [Reference Range]: 1 2 3 UA Turbidity [Clear] Clear (12/14/14 7:06 PM) UA Color [Yellow] Yellow *NA* (12/14/14 7:06 PM) UA pH [5.0-8.0] 6.5 (12/14/14 7:06 PM) UA Spec Grav [<=1.030] 1.010 (12/14/14 7:06 PM) UA Glucose [Negative] Negative (12/14/14 7:06 PM) UA Blood [Negative] Trace *ABN* (12/14/14 7:06 PM) UA Ketones [Negative] Negative *NA* (12/14/14 7:06 PM) UA Protein [Negative] Negative (12/14/14 7:06 PM) UA Urobilinogen [0.1-1.0 EU/dL] 0.2 EU/dL (12/14/14 7:06 PM) UA Bili [Negative] Negative *NA* (12/14/14 7:06 PM) UA Leuk Est [Negative] Negative (12/14/14 7:06 PM) UA Nitrite [Negative] Negative (12/14/14 7:06 PM) UA WBC [None Seen /HPF] 0-2 /HPF (12/14/14 7:06 PM) UA RBC [0-2 /HPF] 0-2 /HPF (12/14/14 7:06 PM) UA Bacteria [None Seen /HPF] Occasional /HPF (12/14/14 7:06 PM) UA Sq Epi [Few /LPF] Occasional /LPF (12/14/14 7:06 PM) IMMUNOLOGY Most recent to oldest [Reference 1 2 3 Range]: DIANNE [Negative] Negative (12/15/14 12:16 PM) RF Qnt [0-20 IU/mL] <10 IU/mL (12/15/14 12:16 PM) Albumin % [55.8-66.1 REL %] 39.4 REL % *LOW* (12/15/14 12:16 PM) Alpha 1 % [2.8-4.9 REL %] 5.0 REL % *HI* (12/15/14 12:16 PM) Alpha 2 % [7.0-11.9 REL %] 14.1 REL % *HI* (12/15/14 12:16 PM) Beta % [7.8-13.7 REL %] 15.0 REL % *HI* (12/15/14 12:16 PM) Gamma % [11.1-18.7 REL %] 26.5 REL % *HI* (12/15/14 12:16 PM) Albumin (SPE) [3.57-5.55 g/dL] 3.98 g/dL (12/15/14 12:16 PM) Alpha 1 Glob [0.18-0.41 g/dL] 0.51 g/dL *HI* (12/15/14 12:16 PM) Alpha 2 Glob [0.45-1.00 g/dL] 1.42 g/dL *HI* (12/15/14 12:16 PM) Beta Glob [0.50-1.15 g/dL] 1.52 g/dL *HI* (12/15/14 12:16 PM) Gamma Glob [0.71-1.57 g/dL] 2.68 g/dL *HI* (12/15/14 12:16 PM) Tot Prot (SPE) [6.4-8.4 g/dL] 10.1 g/dL *HI* (12/15/14 12:16 PM) SPE Interp Total protein is increased. A presumptive monoclonal protein (1.47 g/dl) is present within the preserved polyclonal gamma globulin region and overlaps with a large peak in the beta-2 fraction that may a lso ne monoclonal. Serum and urine immunofixation studies are recommended for further evaluation. Interpretation performed at [facility] [place]. *NA* (12/15/14 12:16 PM) Tot Prot (UPE) 14 mg/dL *NA* (12/15/14 2:31 PM) Interp (UPE) Urine protein consists primarily of albumin. No monoclonal bands are identified. Interpretation performed at [facility] [place]. *NA* (12/15/14 2:31 PM) Spec Type (UPE) random urine 100x *NA* (12/15/14 2:31 PM) HEMATOLOGY Most recent to oldest [Reference Range]: 1 2 3 WBC [3.7-10.4 K/CMM] 9.7 K/CMM 16.6 K/CMM (12/15/14 6:09 AM) *HI* (12/14/14 4:24 PM) RBC [4.20-5.40 M/CMM] 3.92 M/CMM 4.29 M/CMM *LOW* (12/14/14 4:24 PM) (12/15/14 6:09 AM) Hgb [12.0-16.0 g/dL] 10.3 g/dL 11.4 g/dL *LOW* *LOW* (12/15/14 6:09 AM) (12/14/14 4:24 PM) Hct [36.0-48.0 %] 31.8 % 34.9 % *LOW* *LOW* (12/15/14 6:09 AM) (12/14/14 4:24 PM) MCV [80.0-98.0 fL] 81.3 fL 81.4 fL (12/15/14 6:09 AM) (12/14/14 4:24 PM) MCH [27.0-31.0 pg] 26.3 pg 26.6 pg *LOW* *LOW* (12/15/14 6:09 AM) (12/14/14 4:24 PM) MCHC [32.0-36.0 g/dL] 32.3 g/dL 32.7 g/dL (12/15/14 6:09 AM) (12/14/14 4:24 PM) RDW [11.5-14.5 %] 21.8 % 21.9 % *HI* *HI* (12/15/14:09 AM) (12/14/14 4:24 PM) Platelet [133-450 K/CMM] 305 K/CMM 400 K/CMM (12/15/14:09 AM) (12/14/14 4:24 PM) MPV [7.4-10.4 fL] 8.2 fL 7.5 fL (12/15/14 6:09 AM) (12/14/14 4:24 PM) Segs [45.0-75.0 %] 92.7 % 88.2 % 6 *HI* *HI* (12/15/14 6:09 AM) (12/14/14 4:24 PM) Lymphocytes [20.0-40.0 %] 6.3 % 7.0 % *LOW* *LOW* (12/15/14:09 AM) (12/14/14 4:24 PM) Monocytes [2.0-12.0 %] 0.9 % 3.9 % *LOW* (12/14/14 4:24 PM) (12/15/14 6:09 AM) Eosinophils [0.0-4.0 %] 0.0 % 0.5 % (12/15/14 6:09 AM) (12/14/14 4:24 PM) Basophils [0.0-1.0 %] 0.1 % 0.4 % (12/15/14 6:09 AM) (12/14/14 4:24 PM) Segs-Bands # [1.5-8.1 K/CMM] 9.0 K/CMM 14.7 K/CMM *HI* *HI* (12/15/14 6:09 AM) (12/14/14 4:24 PM) Lymphocytes # [1.0-5.5 K/CMM] 0.6 K/CMM 1.2 K/CMM *LOW* (12/14/14 4:24 PM) (12/15/14 6:09 AM) Monocytes # [0.0-0.8 K/CMM] 0.1 K/CMM 0.6 K/CMM (12/15/14 6:09 AM) (12/14/14 4:24 PM) Eosinophils # [0.0-0.5 K/CMM] 0.0 K/CMM 0.1 K/CMM (12/15/14 6:09 AM) (12/14/14 4:24 PM) Basophils # [0.0-0.2 K/CMM] 0.0 K/CMM 0.1 K/CMM (12/15/14 6:09 AM) (12/14/14 4:24 PM) Anisocyte [None Seen] 1+ 1+ *ABN* *ABN* (12/15/14 6:09 AM) (12/14/14 4:24 PM) Macrocyte [None Seen] 1+ *ABN* (12/14/14 4:24 PM) Microcyte [None Seen] 1+ *ABN* (12/14/14 4:24 PM) Spherocyte [None Seen] Occasional *ABN* (12/14/14 4:24 PM) Plt Morph Normal (12/14/14 4:24 PM) 6Result Comment: Reviewed. Immunizations No data available for this section Procedures Procedure Date Related Diagnosis Body Site Back fusion 01/03/14 Ablation 08/05/12 Back fusion 08/05/08 Hysterectomy 08/05/94 Arthroscopy of knee 08/05/72 Social History Social History Type Response Substance Abuse Use: None. Sexual Sexually active: No. 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 Alcohol Past Smoking Status Current every day smoker; Type: Cigarettes; Ready to change: No ; Exposure to Tobacco Smoke None; Cigarette Smoking Last 365 Days Yes; Reg Smoking Cessation Counseling Yes 1no Assessment and Plan No data available for this section
--- OUTSIDE RECORDS SUMMARY | 2018-07-27 18:53 | XMS REPORT | Summary of Care ---
:1955 Author Organization [facility] [place] Address [address] [place] [address]- [facility] Jim_abdulaziz(FIN) [phone] Date(s): 10/27/15 - 10/27/15 [facility] Outpatient Imaging [address] Discharge Disposition: Home Attending Physician: Nery Maciel MD Vital Signs No data available for [...] Sexually active: No. 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 Alcohol Past Smoking Status Current every day smoker; Exposure to Tobacco Smoke None; Cigarette Smoking Last 365 Days No; Reg Smoking Cessation Counseling No 1no Assessment and Plan No data available for this section
--- OUTSIDE RECORDS SUMMARY | 2018-07-27 18:53 | XMS REPORT | Summary of Care ---
:1955 Author Organization [facility] Out[facility] [place] Address [id number] [place] [address]- [facility] Jim_abdulaziz(FIN) [phone] Date(s): 04/20/15 - 04/20/15 [facility] Outpatient Imaging [address] Discharge Disposition: Home Attending Physician: Nery [...] Sexually active: No. 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 Alcohol Past Smoking Status Current every day smoker; Exposure to Tobacco Smoke None; Cigarette Smoking Last 365 Days No; Reg Smoking Cessation Counseling No 1no Assessment and Plan No data available for this section
--- OUTSIDE RECORDS SUMMARY | 2018-07-27 18:53 | XMS REPORT | Summary of Care ---
:1955 Author Organization [facility] Address [address], [place] [address]- Encounter [facility](LUCINA) [id number] Date(s): 03/27/15 - 03/30/15 [facility] [address] [place] [address]- Discharge Disposition: Home Attending Physician: Magnus Hampton MD Admitting Physician: Magnus Hampton MD Referring Physician: Ruben Wing MD Vital Signs Most recent to oldest [Reference Range]: 1 2 3 Height 172.72 cm (03/27/15 10:03 PM) Most recent to oldest 1 2 3 [Reference Range]: Current Weight 84.091 kg 83.6 kg 84.1 kg (03/30/15 5:00 AM) (03/29/15 4:47 AM) (03/28/15 4:59 AM) Most recent to oldest 1 2 3 [Reference Range]: Temperature Oral [96.4-99.1 97.9 DegF 97.7 DegF 98.5 DegF DegF] (03/30/15 12:34 PM) (03/30/15 8:05 AM) (03/30/15 4:00 AM) Most recent to oldest 1 2 3 [Reference Range]: Blood Pressure [90-140/60-90 100/66 mmHg 110/70 mmHg 104/69 mmHg mmHg] (03/30/15 12:34 PM) (03/30/15 8:05 AM) (03/30/15 4:00 AM) Most recent to oldest 1 2 3 [Reference Range]: Respiratory Rate [14-20 BRMIN] 20 BRMIN 18 BRMIN 18 BRMIN (03/30/15 12:34 PM) (03/30/15 8:05 AM) (03/30/15 4:00 AM) Most recent to oldest 1 2 3 [Reference Range]: Peripheral Pulse Rate [60-100 82 bpm 77 bpm 85 bpm bpm] (03/30/15 12:34 PM) (03/30/15 8:05 AM) (03/30/15 4:00 AM) Most recent to oldest [Reference Range]: 1 2 3 Weight 84.1 kg 84.091 kg (03/28/15 2:32 AM) (03/27/15 10:03 PM) Most recent to oldest [Reference Range]: 1 2 3 Body Mass Index 28.19 m2 (03/27/15 10:03 PM) Problem List Condition Effective Dates Status [...] Severity Status penicillins hives,swelling High Active Medications acetaminophen 650 mg, 2 tab, Route: PO, Drug form: TAB, Q4H, Dosing Weight 84.091, kg, PRN For Temp > 100.4 F, Start date: 03/27/15 22:33:00, Duration: 30 day, Stop date: 04/26/15 22:32:00 Notes: Do not exceed 4 gm/day. (Same as: Tylenol) Start Date: 03/27/15 Stop Date: 03/30/15 Status: Discontinuedalbuterol-ipratropium 2.5-0.5 mg inhalation solution 3 ml, Route: NEB, Drug Form: SOLN, Dosing Weight 84.091, kg, PRN, PRN Respiratory Protocol, Start date: 03/27/15 22:33:00, Duration: 30 day, Stop date : 04/26/15 22:32:00 Notes: (Same as: Duoneb) Start Date: 03/27/15 Stop Date: 03/30/15 Status: Discontinuedalbuterol-ipratropium 2.5-0.5 mg inhalation solution 3 mL, Route: INHALATION, Drug Form: SOLN, Dosing Weight 84.1, kg, RQID, Start date: 03/28/15 11:00:00, Duration: 30 day, Stop date: 04/27/15 7:00:00 Notes: (Same as: Duoneb) Start Date: 03/28/15 Stop Date: 03/30/15 Status: DiscontinuedALPRAZOLam 0.25 mg, 1 tab, Route: PO, Drug form: TAB, BID, Dosing Weight 84.1, kg, PRN as needed for anxiety, Start date: 03/29/15 18:44:00, Duration: 30 day, Stop date: 04/28/15 18:43:00 Notes: With food or milk(Same as: Xanax) Start Date: 03/29/15 Stop Date: 03/30/15 Status: DiscontinuedAmbien 10 mg oral tablet 10 mg=1 tab, PO, Bedtime, # 14 tab, 0 Refill(s) Start Date: 03/27/15 Stop Date: 04/10/15 Status: OrderedAMIODarone 200 mg, 1 tab, Route: PO, Drug form: TAB, Daily, Dosing Weight 84.091, kg, Start date: 03/28/15 9:00:00, Duration: 30 day, Stop date: 04/26/15 9:00:00 Notes: (Same as: Cordarone) Start Date: 03/28/15 Stop Date: 03/30/15 Status: Discontinuedamitriptyline 50 mg, 1 tab, Route: PO, Drug form: TAB, Bedtime, Start date: 03/28/15 21:00:00 , Duration: 30 day, Stop date: 04/26/15 21:00:00 Notes: (Same as: Elavil) Start Date: 03/28/15 Stop Date: 03/30/15 Status: Discontinuedamitriptyline-perphenazine 25 mg-4 mg oral tablet 2 tab, Route: PO, Drug Form: TAB, Dosing Weight 84.1, kg, Bedtime, Start date: 03/28/15 21:00:00, Duration: 30 day, Stop date: 04/26/15 21:00:00 Start Date: 03/28/15 Stop Date: 03/28/15 Status: DeletedAtivan 2 mg, 1 tab, Route: PO, Drug form: TAB, TID, Dosing Weight 84.1, kg, PRN Anxiety , Start date: 03/28/15 14:51:00, Duration: 30 day, Stop date: 04/27/15 14:50:00 Notes: (Same as: Ativan) Start Date: 03/28/15 Stop Date: 03/30/15 Status: Discontinuedcefpodoxime 200 mg oral tablet 400 mg=2 tab, PO, Q12H, # 14 tab, 0 Refill(s) Start Date: 03/30/15 Stop Date: 04/06/15 Status: OrderedDextrose 50% in Water IV 25 gm, 50 mL, Route: IVP, Drug Form: INJ, PRN, PRN Blood Glucose Results, Start date: 03/28/15 1:05:00, Duration: 30 day, Stop date: 04/27/15 1:04:00 Start Date: 03/28/15 Stop Date: 03/28/15 Status: DiscontinuedDextrose 50% in Water IV 50 mL, Route: IVP, Start date: 03/28/15 9:18:00, Duration: 30 day, Stop date: 9:17:00, PRN Blood Glucose Results Start Date: 03/28/15 Stop Date: 03/30/15 Status: DiscontinuedDextrose 50% in Water IV 25 gm, 50 mL, Route: IVP, Drug Form: INJ, PRN, PRN Blood Glucose Results, Start date: 03/28/15 0:09:00, Duration: 30 day, Stop date: 04/27/15 0:08:00 Start Date: 03/28/15 Stop Date: 03/28/15 Status: DiscontinuedDULoxetine 60 mg, 1 cap, Route: PO, Drug form: DRC, Daily, Dosing Weight 84.1, kg, Start date: 03/29/15 9:00:00, Duration: 30 day, Stop date: 04/27/15 9:00:00 Notes: (Same as: Cymbalta) (Do Not Crush) Start Date: 03/29/15 Stop Date: 03/30/15 Status: Discontinuedfamotidine 20 mg, 1 tab, Route: PO, Drug form: TAB, Q12H, Dosing Weight 84.091, kg, Start date: 03/28/15 9:00:00, Duration: 30 day, Stop date: 04/26/15 21:00:00 Notes: (Same as: Pepcid) Start Date: 03/28/15 Stop Date: 03/29/15 Status: Discontinuedfenofibric acid 135 mg, Route: PO, Daily, Dosing Weight 84.1, kg, Start date: 03/29/15 9:00:00, Duration: 30 day, Stop date: 04/27/15 9:00:00 Start Date: 03/29/15 Stop Date: 03/28/15 Status: Deletedglucagon 1 mg, Route: INJ, Drug form: PDR/INJ, PRN, PRN Blood Glucose Results, Start date : 03/28/15 9:18:00, Duration: 30 day, Stop date: 04/27/15 9:17:00 Start Date: 03/28/15 Stop Date: 03/30/15 Status: Discontinuedglucagon 1 mg, Route: INJ, Drug form: PDR/INJ, PRN, PRN Blood Glucose Results, Start date : 03/28/15 0:10:00, Duration: 30 day, Stop date: 04/27/15 0:09:00 Start Date: 03/28/15 Stop Date: 03/28/15 Status: Discontinuedglucagon 1 mg, Route: IV, Drug form: PDR/INJ, PRN, PRN Blood Glucose Results, Start date : 03/28/15 1:05:00, Duration: 30 day, Stop date: 04/27/15 1:04:00 Start Date: 03/28/15 Stop Date: 03/28/15 Status: DiscontinuedHYDROcodone-ibuprofen 5 mg-200 mg oral tablet 1 tab, Route: PO, Drug Form: TAB, Dosing Weight 84.1, kg, Q4H, PRN Pain Score 4- 6, Start date: 03/28/15 9:08:00, Duration: 30 day, Stop date: 04/27/15 9:07:00 Notes: (Same as: Vicoprofen) Start Date: 03/28/15 Stop Date: 03/30/15 Status: DiscontinuedlamoTRIgine 100 mg oral tablet 100 mg, 1 tab, Route: PO, Drug form: TAB, Bedtime, Dosing Weight 84.1, kg, Start date: 03/29/15 21:00:00, Duration: 30 day, Stop date: 04/27/15 21:00:00 Notes: (Same as:LaMICtal) Start Date: 03/29/15 Stop Date: 03/30/15 Status: DiscontinuedlamoTRIgine 100 mg oral tablet 100 mg=1 tab, PO, Bedtime, # 30 tab, 1 Refill(s) Start Date: 03/27/15 Status: OrderedLantus 10 unit, Route: SUB-Q, Bedtime, Dosing Weight 84.1, kg, Start date: 03/29/15 21: 00:00, Duration: 30 day, Stop date: 04/27/15 21:00:00 Start Date: 03/29/15 Stop Date: 03/29/15 Status: DeletedLantus 20 unit, SUB-Q, Bedtime, 0 Refill(s) Start Date: 03/27/15 Status: OrderedLasix 40 mg, 4 mL, Route: IVP, Drug form: INJ, Daily, Dosing Weight 84.1, kg, Start date: 03/28/15 9:17:00, Duration: 30 day, Stop date: 04/27/15 9:00:00 Notes: (Same as: Lasix) MEDICATION WASTE Product Size: 40 mgProduct Wasted: ___ mg Start Date: 03/28/15 Stop Date: 03/28/15 Status: DiscontinuedLevemir FlexPen 10 unit, 0.1 mL, Route: SUB-Q, Drug form: INJ, Bedtime, Start date: 03/29/15 21: 00:00, Duration: 30 day, Stop date: 04/27/15 21:00:00 Notes: Same as LevemirDo not hold insulin without contacting prescriber " single patient use only" Start Date: 03/29/15 Stop Date: 03/30/15 Status: Discontinuedlithium 600 mg, 2 tab, Route: PO, Drug form: TAB, QPM, Dosing Weight 84.1, kg, Start date: 03/28/15 17:00:00, Duration: 30 day, Stop date: 04/26/15 17:00:00 Notes: Give with food. (Same as: Eskalith) Start Date: 03/28/15 Stop Date: 03/30/15 Status: Discontinuedlithium 300 mg oral tablet 600 mg=2 tab, PO, Bedtime, # 60 tab, 1 Refill(s) Start Date: 03/27/15 Status: OrderedLovenox 40 mg, 0.4 mL, Route: SUB-Q, Drug form: INJ, [id number], Dosing Weight 84.1, kg, Start date: 03/28/15 15:00:00, Duration: 30 day, Stop date: 04/26/15 15:00:00 Notes: (Same as: Lovenox) Start Date: 03/28/15 Stop Date: 03/29/15 Status: Discontinuedmeropenem + Sodium Chloride 0.9% IV 100 mL 500 mg, Route: IVPB, Drug form: PDR/INJ, [id number], Dosing Weight 84.091, kg, CrCL >=50ml/min, Extended infusion, infuse over 3 hours, Start date: 03/28/15 2:00:00 , Duration: 30 day, Stop date: 04/26/15 20:00:00 Notes: Same as Merrem MEDICATION WASTE Product Size: 500 mgProduct Wasted: ___ mg Start Date: 03/28/15 Stop Date: 03/29/15 Status: Discontinuedmethocarbamol 750 mg, 1 tab, Route: PO, Drug form: TAB, TID, Dosing Weight 84.1, kg, Start date: 03/29/15 20:00:00, Duration: 30 day, Stop date: 04/28/15 17:00:00 Notes: (Same as:Robaxin) Start Date: 03/29/15 Stop Date: 03/30/15 Status: Discontinuednicotine 21 mg, 1 patch, Route: TOP, Drug form: ERFILM, Daily, Dosing Weight 84.1, kg, Start date: 03/28/15 10:09:00, Duration: 30 day, Stop date: 04/27/15 9:00:00 Notes: (Same as: Habitrol)"Remove old patch before application of new patch" Start Date: 03/28/15 Stop Date: 03/30/15 Status: Discontinuednormal saline 0.9% IV 1000 mL 1,000 mL, Rate: 75 ml/hr, Infuse over: 13.3 hr, Route: IV, Dosing Weight 84.1 kg , Total Volume: 1,000, Start date: 03/28/15 9:14:00, Duration: 30 day, Stop date : 04/27/15 9:13:00 Start Date: 03/28/15 Stop Date: 03/28/15 Status: DiscontinuedNovoLOG FlexPen 5 unit, 0.05 mL, Route: SUB-Q, Drug form: SOLN, Sliding Scale, PRN Blood Glucose Results, Start date: 03/28/15 0:09:00, Duration: 30 day, Stop date: 0:08:00 Notes: Roll in palms of hands gently; Do not shake vigorously. (Same as: NovoLOG)"single patient use only" Stable for 28 days at room temperature.Expires in days from Date Start Date: 03/28/15 Stop Date: 03/28/15 Status: DiscontinuedNovoLOG FlexPen 8 unit, 0.08 mL, Route: SUB-Q, Drug form: SOLN, Sliding Scale, PRN Blood Glucose Results, Start date: 03/28/15 1:04:00, Duration: 30 day, Stop date: 1:03:00 Notes: Roll in palms of hands gently; Do not shake vigorously. (Same as: NovoLOG)"single patient use only" Stable for 28 days at room temperature.Expires in days from Date Start Date: 03/28/15 Stop Date: 03/28/15 Status: DiscontinuedNovoLOG FlexPen 6 unit, 0.06 mL, Route: SUB-Q, Drug form: SOLN, Sliding Scale, PRN Blood Glucose Results, Start date: 03/28/15 1:04:00, Duration: 30 day, Stop date: 1:03:00 Notes: Roll in palms of hands gently; Do not shake vigorously. (Same as: NovoLOG)"single patient use only" Stable for 28 days at room temperature.Expires in days from Date Start Date: 03/28/15 Stop Date: 03/28/15 Status: DiscontinuedNovoLOG FlexPen 5 unit, 0.05 mL, Route: SUB-Q, Drug form: SOLN, Sliding Scale, PRN Blood Glucose Results, Start date: 03/28/15 1:04:00, Duration: 30 day, Stop date: 1:03:00 Notes: Roll in palms of hands gently; Do not shake vigorously. (Same as: NovoLOG)"single patient use only" Stable for 28 days at room temperature.Expires in days from Date Start Date: 03/28/15 Stop Date: 03/28/15 Status: DiscontinuedNovoLOG FlexPen 4 unit, 0.04 mL, Route: SUB-Q, Drug form: SOLN, Sliding Scale, PRN Blood Glucose Results, Start date: 03/28/15 1:04:00, Duration: 30 day, Stop date: 1:03:00 Notes: Roll in palms of hands gently; Do not shake vigorously. (Same as: NovoLOG)"single patient use only" Stable for 28 days at room temperature.Expires in days from Date Start Date: 03/28/15 Stop Date: 03/28/15 Status: DiscontinuedNovoLOG FlexPen 12 unit, 0.12 mL, Route: SUB-Q, Drug form: SOLN, Sliding Scale, PRN Blood Glucose Results, Start date: 03/28/15 9:18:00, Duration: 30 day, Stop date: 9:17:00 Notes: Roll in palms of hands gently; Do not shake vigorously. (Same as: NovoLOG)"single patient use only" Stable for 28 days at room temperature.Expires in days from Date Start Date: 03/28/15 Stop Date: 03/30/15 Status: DiscontinuedNovoLOG FlexPen 8 unit, 0.08 mL, Route: SUB-Q, Drug form: SOLN, Sliding Scale, PRN Blood Glucose Results, Start date: 03/28/15 9:18:00, Duration: 30 day, Stop date: 9:17:00 Notes: Roll in palms of hands gently; Do not shake vigorously. (Same as: NovoLOG)"single patient use only" Stable for 28 days at room temperature.Expires in days from Date Start Date: 03/28/15 Stop Date: 03/30/15 Status: DiscontinuedNovoLOG FlexPen 7 unit, 0.07 mL, Route: SUB-Q, Drug form: SOLN, Sliding Scale, PRN Blood Glucose Results, Start date: 03/28/15 9:18:00, Duration: 30 day, Stop date: 9:17:00 Notes: Roll in palms of hands gently; Do not shake vigorously. (Same as: NovoLOG)"single patient use only" Stable for 28 days at room temperature.Expires in days from Date Start Date: 03/28/15 Stop Date: 03/30/15 Status: DiscontinuedNovoLOG FlexPen 6 unit, 0.06 mL, Route: SUB-Q, Drug form: SOLN, Sliding Scale, PRN Blood Glucose Results, Start date: 03/28/15 9:18:00, Duration: 30 day, Stop date: 9:17:00 Notes: Roll in palms of hands gently; Do not shake vigorously. (Same as: NovoLOG)"single patient use only" Stable for 28 days at room temperature.Expires in days from Date Start Date: 03/28/15 Stop Date: 03/30/15 Status: DiscontinuedNovoLOG FlexPen 10 unit, 0.1 mL, Route: SUB-Q, Drug form: SOLN, Sliding Scale, PRN Blood Glucose Results, Start date: 03/28/15 0:09:00, Duration: 30 day, Stop date: 0:08:00 Notes: Roll in palms of hands gently; Do not shake vigorously. (Same as: NovoLOG)"single patient use only" Stable for 28 days at room temperature.Expires in days from Date Start Date: 03/28/15 Stop Date: 03/28/15 Status: DiscontinuedNovoLOG FlexPen 7 unit, 0.07 mL, Route: SUB-Q, Drug form: SOLN, Sliding Scale, PRN Blood Glucose Results, Start date: 03/28/15 0:09:00, Duration: 30 day, Stop date: 0:08:00 Notes: Roll in palms of hands gently; Do not shake vigorously. (Same as: NovoLOG)"single patient use only" Stable for 28 days at room temperature.Expires in days from Date Start Date: 03/28/15 Stop Date: 03/28/15 Status: DiscontinuedNovoLOG FlexPen 6 unit, 0.06 mL, Route: SUB-Q, Drug form: SOLN, Sliding Scale, PRN Blood Glucose Results, Start date: 03/28/15 0:09:00, Duration: 30 day, Stop date: 0:08:00 Notes: Roll in palms of hands gently; Do not shake vigorously. (Same as: NovoLOG)"single patient use only" Stable for 28 days at room temperature.Expires in days from Date Start Date: 03/28/15 Stop Date: 03/28/15 Status: Discontinuedpneumococcal 23-valent vaccine 0.5 mL, Route: IM, Drug Form: INJ, ONCALL, Start date: 03/28/15 2:44:42, Stop date: 04/27/15 2:39:42 Notes: (Same as: Pneumovax 23) Refrigerate Start Date: 03/28/15 Stop Date: 03/30/15 Status: CanceledSaline Flush 0.9% 10 ml, Route: IVP, Drug Form: INJ, Dosing Weight 84.091, kg, PRN, PRN Line Flush , Start date: 03/27/15 22:33:00, Duration: 30 day, Stop date: 04/26/15 22:32:00 Notes: (Same as: BD Posiflush) Start Date: 03/27/15 Stop Date: 03/30/15 Status: DiscontinuedSaline Flush 0.9% 10 ml, Route: IVP, Drug Form: INJ, Dosing Weight 84.091, kg, Q12H, Start date: 03/28/15 9:00:00, Duration: 30 day, Stop date: 04/26/15 21:00:00 Notes: (Same as: BD Posiflush) Start Date: 03/28/15 Stop Date: 03/28/15 Status: Discontinuedsenna 17.2 mg, 2 tab, Route: PO, Drug Form: TAB, Dosing Weight 84.1, kg, Daily, Start date: 03/29/15 9:00:00, Duration: 30 day, Stop date: 04/27/15 9:00:00 Notes: (Same as: Senokot) Start Date: 03/29/15 Stop Date: 03/30/15 Status: DiscontinuedSodium Chloride 0.9% IV 250 mL, Route: IVPB, Start date: 03/27/15 22:38:00, Duration: 30 day, Stop date : 04/26/15 22:37:00, PRN Line Flush Start Date: 03/27/15 Stop Date: 03/30/15 Status: DiscontinuedSymbicort 160/4.5 inhalation aerosol with adapter 2 inhalation, Route: INHALER, Drug Form: AERO/A, Dosing Weight 84.1, kg, BID, Start date: 03/29/15 20:00:00, Duration: 30 day, Stop date: 04/28/15 17:00:00 Notes: (Same as: Symbicort) Start Date: 03/29/15 Stop Date: 03/30/15 Status: DiscontinuedSymbicort 160/4.5 inhalation aerosol with adapter 2 puff, INHALER, BID, # 1 ea, 3 Refill(s) Start Date: 03/27/15 Status: Orderedtorsemide 100 mg, 5 tab, Route: PO, Drug form: TAB, Daily, Dosing Weight 84.1, kg, Start date: 03/29/15 18:30:00, Stop date: 04/28/15 9:00:00 Notes: (Same As: Demadex) Start Date: 03/29/15 Stop Date: 03/30/15 Status: DiscontinuedTriCor 145 mg, 1 tab, Route: PO, Drug form: TAB, After Dinner, Start date: 03/28/15 17: 00:00, Duration: 30 day, Stop date: 04/26/15 17:00:00 Notes: (Same as: Tricor) Start Date: 03/28/15 Stop Date: 03/30/15 Status: DiscontinuedTrilafon 8 mg, 4 tab, Route: PO, Drug form: TAB, Bedtime, Start date: 03/28/15 21:00:00, Duration: 30 day, Stop date: 04/26/15 21:00:00 Notes: (Same as: Trilafon) Start Date: 03/28/15 Stop Date: 03/30/15 Status: Discontinuedvancomycin 1.25 gm, 250 mL, Route: IVPB, Drug form: INJ, [id number], Start date: 03/28/15 9:00 :00, Duration: 30 day, Stop date: 04/26/15 21:00:00 Notes: TIME CRITICAL MEDICATIONSame as: Vancocin-NS (premixed)Infusion rate< 1000 mg: infuse over1 [id number] - 1500 mg: infuse over 1.5 [id number] - 2000 mg: infuse over 2 hours> 2001 mg: infuse over 2.5 hours Start Date: 03/28/15 Stop Date: 03/29/15 Status: DiscontinuedVancomycin Pharmacy Dosing 1 ea, Route: MISC, Dosing Weight 84.091, kg, ONCALL, Start date: 03/28/15 1:00: 00, Duration: 1 dosesor times, Pharmacy to dose Special Instructions: Pharmacy to dose Start Date: 03/28/15 Stop Date: 03/28/15 Status: DeletedVantin 400 mg, 2 tab, Route: PO, Drug form: TAB, Q12H, Dosing Weight 84.1, kg, Start date: 03/29/15 11:00:00, Stop date: 04/02/15 22:00:00 Notes: With food. (Same As: Vantin) Start Date: 03/29/15 Stop Date: 03/30/15 Status: DiscontinuedXarelto 20 mg, 2 tab, Route: PO, Drug form: TAB, QPM, Dosing Weight 84.091, kg, Start date: 03/28/15 17:00:00, Duration: 30 day, Stop date: 04/26/15 17:00:00 Notes: (Same as: Xarelto)Do Not Crush Start Date: 03/28/15 Stop Date: 03/30/15 Status: Discontinued Results ELECTROLYTES Most recent to oldest 1 2 3 [Reference Range]: Sodium Lvl [135-145 mEq/L] 141 mEq/L 143 mEq/L 140 mEq/L (03/30/15 6:03 AM) (03/29/15 4:59 AM) (03/28/15 4:13 AM) Potassium Lvl [3.5-5.1 3.5 mEq/L 3.8 mEq/L 4.0 mEq/L mEq/L] (03/30/15 6:03 AM) (03/29/15 4:59 AM) (03/28/15 4:13 AM) Chloride Lvl [95-109 mEq/L] 104 mEq/L 108 mEq/L 109 mEq/L (03/30/15 6:03 AM) (03/29/15 4:59 AM) (03/28/15 4:13 AM) CO2 [24-32 mEq/L] 28 mEq/L 30 mEq/L 28 mEq/L (03/30/15 6:03 AM) (03/29/15 4:59 AM) (03/28/15 4:13 AM) AGAP [10.0-20.0 mEq/L] 12.5 mEq/L 8.8 mEq/L 7.0 mEq/L (03/30/15 6:03 AM) *LOW* *LOW* (03/29/15 4:59 AM) (03/28/15 4:13 AM) CHEM PANEL Most recent to oldest 1 2 3 [Reference Range]: Creatinine Lvl [0.5-1.4 0.7 mg/dL 0.7 mg/dL 0.9 mg/dL mg/dL] (03/30/15 6:03 AM) (03/29/15 4:59 AM) (03/28/15 4:13 AM) eGFR 96 mL/min/1.73m2 3 96 mL/min/1.73m2 4 71 mL/min/1.73m2 5 *NA* *NA* *NA* (03/30/15 6:03 AM) (03/29/15 4:59 AM) (03/28/15 4:13 AM) BUN [7-22 mg/dL] 17 mg/dL 13 mg/dL 13 mg/dL (03/30/15 6:03 AM) (03/29/15 4:59 AM) (03/28/15 4:13 AM) B/C Ratio [6-25] 11 (03/27/15 10:42 PM) Glucose Lvl [70-99 mg/dL] 126 mg/dL 136 mg/dL 230 mg/dL *HI* *HI* *HI* (03/30/15 6:03 AM) (03/29/15 4:59 AM) (03/28/15 4:13 AM) Total Protein [6.4-8.4 g/dL] 8.1 g/dL (03/27/15 10:42 PM) Albumin Lvl [3.5-5.0 g/dL] 3.0 g/dL *LOW* (03/27/15 10:42 PM) Globulin [2.0-4.0 g/dL] 5.1 g/dL *HI* (03/27/15 10:42 PM) A/G Ratio [0.7-1.6] 0.6 *LOW* (03/27/15 10:42 PM) Calcium Lvl [8.5-10.5 mg/dL] 9.2 mg/dL 8.9 mg/dL 8.9 mg/dL (03/30/15 6:03 AM) (03/29/15 4:59 AM) (03/28/15 4:13 AM) Phosphorus [2.5-4.5 mg/dL] 3.3 mg/dL 3.0 mg/dL 2.7 mg/dL (03/30/15 6:03 AM) (03/29/15 4:59 AM) (03/28/15 4:13 AM) Magnesium Lvl [1.8-2.4 mg/dL] 1.9 mg/dL 2.2 mg/dL 2.0 mg/dL (03/30/15 6:03 AM) (03/29/15 4:59 AM) (03/28/15 4:13 AM) ALT [0-65 unit/L] 16 unit/L (03/27/15 10:42 PM) AST [0-37 unit/L] 32 unit/L (03/27/15 10:42 PM) Alk Phos [39-136 unit/L] 59 unit/L (03/27/15 10:42 PM) Bili Total [0.2-1.3 mg/dL] 0.5 mg/dL (03/27/15 10:42 PM) Lactic Acid Lvl [0.5-2.2 1.1 mMol/L 1.3 mMol/L 2.4 mMol/L mMol/L] (03/30/15 6:03 AM) (03/29/15 3:50 AM) *HI* (03/28/15 1:28 AM) Procalcitonin Lvl [0.00-0.10 2.02 ng/mL 1 2.09 ng/mL 2 ng/mL] *CRIT* *CRIT* (03/29/15 4:59 AM) (03/28/15 10:55 AM) 1Result Comment: Critical Result(s) called to daniel at 03/29/2015 06:03 by gp. Read back OK.2Result Comment: Critical Result(s) called to alisha forman at 03/28 12:44 by jeffrey. Read back OK.3Result Comment: The eGFR is calculated using the [...] eGFR should be multiplied by the estimated BMI.4Result Comment: The eGFR is calculated using the [...] eGFR should be multiplied by the estimated BMI.5Result Comment: The eGFR is calculated using the [...] eGFR should be multiplied by the estimated BMI.CARDIAC ENZYMES Most recent to oldest 1 2 3 [Reference Range]: Total CK [12-191 unit/L] 47 unit/L 52 unit/L 55 unit/L (03/28/15 10:55 AM) (03/28/15 4:13 AM) (03/27/15 10:44 PM) CK MB [0.5-3.6 ng/mL] 1.4 ng/mL (03/28/15 10:55 AM) CK MB Index [0.0-2.5] 3.0 *HI* (03/28/15 10:55 AM) Troponin-I [0.00-0.40 <0.02 ng/mL <0.02 ng/mL 0.02 ng/mL ng/mL] (03/28/15 10:55 AM) (03/28/15 4:13 AM) (03/27/15 10:44 PM) proBNP [0-125 pg/mL] 2233 pg/mL *HI* (03/27/15 10:42 PM) PARATHYROID PROFILE Most recent to oldest 1 2 3 [Reference Range]: Ca Ion WB [1.05-1.25 mMol/L] 1.10 mMol/L 1.10 mMol/L 1.19 mMol/L (03/30/15 6:03 AM) (03/29/15 3:50 AM) (03/28/15 4:13 AM) Ca Norm WB [1.05-1.25 1.14 mMol/L 1.08 mMol/L 1.15 mMol/L mMol/L] (03/30/15 6:03 AM) (03/29/15 3:50 AM) (03/28/15 4:13 AM) TOXICOLOGY Most recent to oldest [Reference Range]: 1 2 3 Vanco Tr TND [id number] *NA* (03/29/15 8:40 AM) Vanco Tr 12.9 ug/ml *NA* (03/29/15 8:40 AM) METAL Most recent to oldest [Reference Range]: 1 2 3 [place] Lvl [0.50-1.50 mEq/L] 0.66 mEq/L 1.44 mEq/L (03/29/15 8:40 AM) (03/28/15 10:55 AM) URINE AND STOOL Most recent to oldest [Reference Range]: 1 2 3 UA Turbidity [Clear] Clear (03/27/15 10:42 PM) UA Color [Yellow] Yellow *NA* (03/27/15 10:42 PM) UA pH [5.0-8.0] 6.0 (03/27/15 10:42 PM) UA Spec Grav [<=1.030] 1.025 (03/27/15 10:42 PM) UA Glucose [Negative mg/dL] 100 mg/dL *ABN* (03/27/15 10:42 PM) UA Blood [Negative] Small *ABN* (03/27/15 10:42 PM) UA Ketones [Negative] Negative *NA* (03/27/15 10:42 PM) UA Protein [Negative] Negative (03/27/15 10:42 PM) UA Urobilinogen [0.1-1.0 EU/dL] 0.2 EU/dL (03/27/15 10:42 PM) UA Bili [Negative] Negative *NA* (03/27/15 10:42 PM) UA Leuk Est [Negative] Negative (03/27/15 10:42 PM) UA Nitrite [Negative] Negative (03/27/15 10:42 PM) UA WBC [0-5 /HPF] 2 /HPF (03/27/15 10:42 PM) UA RBC [0-2 /HPF] 13 /HPF *HI* (03/27/15 10:42 PM) UA Bacteria [None Seen /HPF] Occasional /HPF *NA* (03/27/15 10:42 PM) UA Sq Epi [Few] None Seen (03/27/15 10:42 PM) UA CaOx Lizette [None Seen /HPF] Occasional /HPF *NA* (03/27/15 10:42 PM) UA Mucus [None Seen /LPF] Few /LPF *NA* (03/27/15 10:42 PM) HEMATOLOGY Most recent to oldest 1 2 3 [Reference Range]: WBC [3.7-10.4 K/CMM] 8.2 K/CMM 11.3 K/CMM 18.7 K/CMM (03/30/15 6:03 AM) *HI* *HI* (03/29/15 3:50 AM) (03/28/15 4:13 AM) RBC [4.20-5.40 M/CMM] 4.14 M/CMM 3.61 M/CMM 4.22 M/CMM *LOW* *LOW* (03/28/15 4:13 AM) (03/30/15 6:03 AM) (03/29/15 3:50 AM) Hgb [12.0-16.0 g/dL] 10.9 g/dL 9.6 g/dL 11.0 g/dL *LOW* *LOW* *LOW* (03/30/15 6:03 AM) (03/29/15 3:50 AM) (03/28/15 4:13 AM) Hct [36.0-48.0 %] 34.4 % 30.3 % 35.3 % *LOW* *LOW* *LOW* (03/30/15 6:03 AM) (03/29/15 3:50 AM) (03/28/15:13 AM) MCV [80.0-98.0 fL] 83.0 fL 83.8 fL 83.6 fL (03/30/15 6:03 AM) (03/29/15 3:50 AM) (03/28/15 4:13 AM) MCH [27.0-31.0 pg] 26.4 pg 26.5 pg 26.0 pg *LOW* *LOW* *LOW* (03/30/15 6:03 AM) (03/29/15 3:50 AM) (03/28/15 4:13 AM) MCHC [32.0-36.0 g/dL] 31.8 g/dL 31.6 g/dL 31.1 g/dL *LOW* *LOW* *LOW* (03/30/15 6:03 AM) (03/29/15 3:50 AM) (03/28/15 4:13 AM) RDW [11.5-14.5 %] 23.7 % 24.3 % 23.8 % *HI* *HI* *HI* (03/30/15 6:03 AM) (03/29/15 3:50 AM) (03/28/15:13 AM) Platelet [133-450 K/CMM] 316 K/CMM 280 K/CMM 293 K/CMM (03/30/15 6:03 AM) (03/29/15 3:50 AM) (03/28/15 4:13 AM) MPV [7.4-10.4 fL] 8.0 fL 8.8 fL 8.5 fL (03/30/15 6:03 AM) (03/29/15 3:50 AM) (03/28/15 4:13 AM) Segs [45.0-75.0 %] 75.3 % 83.2 % 95.7 % *HI* *HI* *HI* (03/30/15 6:03 AM) (03/29/15 3:50 AM) (03/28/15 4:13 AM) Bands [0.0-11.0 %] 7.0 % (03/27/15 10:42 PM) Lymphocytes [20.0-40.0 %] 15.3 % 12.0 % 2.4 % *LOW* *LOW* *LOW* (03/30/15 6:03 AM) (03/29/15 3:50 AM) (03/28/15 4:13 AM) Atypical Lymphs [<=0.0 %] 0.0 % (03/27/15 10:42 PM) Monocytes [2.0-12.0 %] 5.9 % 4.0 % 1.9 % (03/30/15 6:03 AM) (03/29/15 3:50 AM) *LOW* (03/28/15 4:13 AM) Eosinophils [0.0-4.0 %] 2.9 % 0.6 % (03/30/15 6:03 AM) (03/29/15 3:50 AM) Basophils [0.0-1.0 %] 0.6 % 0.2 % (03/30/15 6:03 AM) (03/29/15 3:50 AM) Segs-Bands # [1.5-8.1 6.2 K/CMM 9.4 K/CMM 17.9 K/CMM K/CMM] (03/30/15 6:03 AM) *HI* *HI* (03/29/15 3:50 AM) (03/28/15 4:13 AM) Lymphocytes # [1.0-5.5 1.3 K/CMM 1.3 K/CMM 0.4 K/CMM K/CMM] (03/30/15 6:03 AM) (03/29/15 3:50 AM) *LOW* (03/28/15 4:13 AM) Monocytes # [0.0-0.8 K/CMM] 0.5 K/CMM 0.5 K/CMM 0.4 K/CMM (03/30/15 6:03 AM) (03/29/15 3:50 AM) (03/28/15 4:13 AM) Eosinophils # [0.0-0.5 0.2 K/CMM 0.1 K/CMM K/CMM] (03/30/15 6:03 AM) (03/29/15 3:50 AM) Basophils # [0.0-0.2 K/CMM] 0.1 K/CMM (03/30/15 6:03 AM) RBC Morph Normal (03/27/15 10:42 PM) Polychrom [None Seen] Moderate *ABN* (03/29/15 3:50 AM) Plt Morph Normal Normal (03/29/15 3:50 AM) (03/27/15 10:42 PM) PT [12.0-14.7 seconds] 13.6 seconds (03/27/15 10:42 PM) INR [0.85-1.17] 1.04 (03/27/15 10:42 PM) PTT [22.9-35.8 seconds] 31.6 seconds (03/27/15 10:42 PM) BACTERIAL - SEROLOGY Most recent to oldest [Reference Range]: 1 2 3 MRSA by PCR Negative (03/27/15 10:42 PM) Immunizations No data available for this section Procedures Procedure Date Related Diagnosis Body Site Back fusion 01/03/14 Ablation 08/05/12 Back fusion 08/05/08 Hysterectomy 08/05/94 Arthroscopy of knee 08/05/72 Social History Social History Type Response Substance Abuse Use: None. Sexual Sexually active: No. 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 Alcohol Past Smoking Status Current every day smoker; Exposure to Tobacco Smoke None; Cigarette Smoking Last 365 Days No; Reg Smoking Cessation Counseling No 1no Assessment and Plan Extracted from: Title: Clinical Document Author: Lauryn Schulte MD Date: History and Physical [facility] Residential Program Coordinator CHIEF COMPLAINT: acute respiratory failure HPI: Mrs. Durant is a 59 year old woman with CHF who presented to the hospital in [place] earlier this evening due to shortness of breath. She has been out estrellita toresmide for 2 days. Her cxr showed pulmonar y edema. She was given 80 mg of lasix and started on bipap. Her WBC were also elveated and she received vanc an levaquion. 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 Sexual Details: Sexually active: No. Alcohol Details: Past Details: Never Exercise Comment(s): no Tobacco Details: Use: Current every day smoker. Type: Cigarettes. Ready to change: No. Tobacco smoke exposure: None. Did the Patient Smoke Cigarettes Anytime During the Last 365 Days? Yes. Cessation Counseling Provided? Yes. Details: Use: Current every day smoker. Tobacco smoke exposure: None. Did the Patient Smoke Cigarettes Anytime During the Last 365 Days? No. Cessation Counseling Provided? No. Details: Use: Current every day smoker. Type: Cigarettes. 40 per day. 40 year(s). Previous treatment: None. Ready to change: No. Household tobacco concerns: No. Tobacco smoke exposure: None. Did the Patient Smoke Cigarettes Anytime During the Last 365 Days? Yes. Cessation Counseling Provided? No.; Comment(s): 1 1/2 pack per day 2 packs per day Substance Abuse Details: Use: None. Home Medications: Current Medications: Medication List Active Medications Ordered acetaminophen: 650 mg, 2 tab, PO, Q4H, PRN: For Temp > 100.4 F. acetaminophen-hydrocodone: 1 tab, PO, Q4H, PRN: for pain, 0 Refill(s ). albuterol-ipratropium: 3 ml, NEB, PRN, PRN: Respiratory Protocol. ALPRAZolam: 0.25 mg, 1 tab, PO, BID, PRN: for anxiety. AMIODarone: 200 mg, 1 tab, PO, Daily, 0 Refill(s). AMIODarone: 200 mg, PO, Daily. amitriptyline-perphenazine: 2 tab, PO, Bedtime. budesonide-formoterol: 2 puff, INHALER, BID, 1 ea, 3 Refill(s). Dextrose 50% in Water IV: 25 gm, 50 mL, IVP, PRN, PRN: Blood Glucose Results. DULoxetine: 60 mg, 1 cap, PO, Daily, 30 cap. famotidine: 20 mg, 1 tab, PO, Q12H. fenofibric acid: 135 mg, 1 cap, PO, Daily, 30 cap. glucagon: 1 mg, INJ, PRN, PRN: Blood Glucose Results. insulin aspart: 5 unit, 0.05 mL, SUB-Q, Sliding Scale, PRN: Blood Glucose Results. insulin aspart: 6 unit, 0.06 mL, SUB-Q, Sliding Scale, PRN: Blood Glucose Results. insulin aspart: 7 unit, 0.07 mL, SUB-Q, Sliding Scale, PRN: Blood Glucose Results. insulin aspart: 10 unit, 0.1 mL, SUB-Q, Sliding Scale, PRN: Blood Glucose Results. insulin glargine: 20 unit, SUB-Q, Bedtime, 0 Refill(s). lamoTRIgine: 100 mg, 1 tab, PO, Bedtime, 30 tab, 1 Refill(s). lithium: 600 mg, 2 tab, PO, Bedtime, 60 tab, 1 Refill(s). metFORMIN: 1,000 mg, 1 tab, 2 tabs in am 1 tab in pm, 0 Refill(s). methocarbamol: 750 mg, 1 tab, PO, TID. rivaroxaban: 20 mg, 1 tab, PO, QPM, 0 Refill(s). rivaroxaban: 20 mg, PO, QPM. sodium chloride: 10 ml, IVP, Q12H. sodium chloride: 10 ml, IVP, PRN, PRN: Line Flush. Sodium Chloride 0.9% IV: 250 mL, IVPB, PRN, PRN: Line Flush. torsemide: 100 mg, 1 tab, PO, Daily, 0 Refill(s). zolpidem: 10 mg, 1 tab, PO, Bedtime, for 14 day, 14 tab, 0 Refill(s) . Medications Inactivated in the Last 72 Hours albuterol-ipratropium: 3 ml, INHALATION, QID, 30 ea, 0 Refill(s). diltiazem: 180 mg, 1 cap, PO, Daily, 30 cap, 0 Refill(s). lithium: 450 mg, 1 tab, PO, Bedtime, 60 tab, 0 Refill(s). Allergies (1) Active Reaction penicillins hives,swelling REVIEW OF SYSTEMS unable to obatin due to patien being on bipap OBJECTIVE Vitals and Temp: P 81, R 22, BP 107/55, O2 Sat 97% 24 Hr Tmax: No Data Available Vital Signs are the last 5 in the past 48 hours. Input/Output Record In Out Bal 24hr Tot 0 0 0 24hr Tot 0 0 0 Physical Exam: General: WDWN on bipap, NAD HEENT: no JVD, no bruit CV: rrr no mrg Lungs: rhonchi throughout Abdomen: obese, soft, NTND Ext: trace pretibial edema Labs (Last four charted values) WBC H 19.0 (MAR 27) Hgb L 11.7 (MAR 27) Hct L 35.8 (MAR 27) Plt 341 (MAR 27) Na 141 (MAR 27) K 4.0 (MAR 27) CO2 28 (MAR 27) Cl 104 (MAR 27) Cr 1.2 (MAR 27) BUN 13 (MAR 27) Glucose Random H 284 (MAR 27) Mg L 1.7 (MAR 27) Phos 3.6 (MAR 27) Ca L 8.2 (MAR 27) PT 13.6 (MAR 27) INR 1.04 (MAR 27) PTT 31.6 (MAR 27) Troponin 0.02 (MAR 27) Total CK 55 (MAR 27) EKG from outside facility:sinus tachycardia, no ST changes DIAGNOSTICS: pending NUTRITION: NPO PROPHYLAXIS: DVT: on xarelo for afib GI: pepcid pneum: HOB 30 ASSESMENT Critically ill 59 year old woman with acute respiratory failure, acute CHF exacerbation and pulmonary edema due to medicaition non adherence due to running out of her toresemide for the past 2 days. She also has a leukocytosis due to HCAP. She has a h/o afib, h/o COPD, and DM. PLAN 1. Respiratory: acute respiratory failure. Continue bipap and wean to room air as tolerated. 2. Pulmonary: pulmonary edema, s/p laxis at outside facilty. HCAP. Will start vanc and meropenem. COPD-not in exacerbation. Will start bronchodilators 3. CV: acute CHF, pt had not taken her toresmide for the last 2 days because she ran out. Pt got lasix at outside facility. Will hold off on giving additional diuretics at this time b/c pt is fairly hyp otensive. AFib. Will resume amiodarone and xarelto 4. ID: HCAP. Start vanc and meropenem. Will check cultures 5. Endocrine: DM. Accuchecks, SSI 6. Nutrition: NPO 7. Prophyalxis: SCDs, pepcic. Pharmacologic DVT prophylaxis is not indicated b/ c is on xarelto for afib. Critical care delivered for 40 minutes Excludes procedures and teaching time (Y/N) : Y
--- OUTSIDE RECORDS SUMMARY | 2018-07-27 18:53 | XMS REPORT | Summary of Care ---
:1955 Author Organization [facility] Outpatient Imaging [place] Address [address] [place] [address]- [facility] HQ Jim_abdulaziz(FIN) [id number] Date(s): 06/03/15 - 06/03/15 [facility] Outpatient Imaging [address] Discharge Disposition: Home Attending Physician: Jenaro Russ MD Vital Signs No data available for [...] Sexually active: No. 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 Alcohol Past Smoking Status Current every day smoker; Exposure to Tobacco Smoke None; Cigarette Smoking Last 365 Days No; Reg Smoking Cessation Counseling No 1no Assessment and Plan No data available for this section
--- OUTSIDE RECORDS SUMMARY | 2018-07-27 18:53 | XMS REPORT | Summary of Care ---
:1955 Author Organization [facility] Card[facility] [place] Address [address] [place] [address], [address] [place] [address] Encounter HQ Mynor(LUCINA) [id number] Date(s): 11/01/17 - 11/01/17 [facility] [place] [address], [address] [place] [address] Discharge Disposition: Home or Self Care Attending Physician: Ricardo Trujillo MD Vital Signs Most recent to oldest [Reference Range]: 1 Height 167.64 cm (11/01/17 3:18 PM) Blood Pressure [90-140/60-90 mmHg] 120/73 mmHg (11/01/17 3:18 PM) Peripheral Pulse Rate [60-100 bpm] 87 bpm (11/01/17 3:18 PM) Weight 83.864 kg (11/01/17 3:18 PM) Body Mass Index 29.84 m2 (11/01/17 3:18 PM) Problem List Condition Effective Dates Status Health Status Informant Anxiety(Confirmed) Active Anxiety(Confirmed) Active Atrial Fibrillation(Confirmed) Active Atrial fibrillation(Confirmed) Resolved Atrial fibrillation(Confirmed) Active Back pain(Confirmed) Active Back pain(Confirmed) Active Chest pain(Confirmed) Active Congestive heart failure(Confirmed) Resolved COPD(Confirmed) Active Cough(Confirmed) Active Depression(Confirmed) Active Diabetes(Confirmed) Resolved Diabetes(Confirmed) Active HTN(Confirmed) Active Hypertension(Confirmed) Resolved Myeloma(Confirmed) Resolved NIDDM(Confirmed) Active INA (obstructive sleep Active apnea)(Confirmed) Simple obesity(Confirmed) Active Sleep apnea, obstructive(Confirmed) Resolved Allergies, Adverse Reactions, Alerts Substance Reaction Severity Status penicillins hives,swelling High Active Medications No data available for this section Results No data available for this section Immunizations No data available for this section Procedures Procedure Date Related Diagnosis Body Site Status Back fusion 01/03/14 Completed Ablation 08/05/12 Completed Back fusion 08/05/08 Completed Hysterectomy 08/05/94 Completed Arthroscopy of knee 08/05/72 Completed Social History Social History Type Response Substance Abuse Use: None. Sexual Sexually active: No. 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 Alcohol Never Smoking Status Current every day smoker; Type: Cigarettes; Previous treatment : None; Ready to change: No; Concerns about tobacco use in household: No; Exposure to Tobacco Smoke None; Cigarette Smoking Last 365 Days Yes; Reg Smoking Cessation Counseling No; Tobacco use per day: 40; Number of years: 40; 2, 3 entered on: 11/01/17 1no22 packs per day31 1/2 pack per day Assessment and Plan No data available for this section
--- OUTSIDE RECORDS SUMMARY | 2018-07-27 18:53 | XMS REPORT | Summary of Care ---
:1955 Author Organization [facility] Address [address] [place] [id number]- Encounter HQ Jim_abdulaziz(FIN) [id number] Date(s): 06/20/15 - 06/20/[address] [address]- Discharge Disposition: Home Attending Physician: Earl Jefferson MD Referring Physician: Earl Jefferson MD Vital Signs Most recent to oldest [Reference Range]: 1 Height 161.29 cm (06/20/15 8:29 AM) Weight 77.273 kg (06/20/15 8:29 AM) Body Mass Index 29.7 m2 (06/20/15 8:29 AM) Problem List Condition Effective Dates Status [...] Sexually active: No. 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
--- OUTSIDE RECORDS SUMMARY | 2018-07-27 18:54 | XMS REPORT | Summary of Care ---
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
[2018-07-27 20:16] LABS: Arterial Blood Carboxyhemoglob 2.2 % (0-1.5); Blood Gas Oxyhemoglobin 88.9 % (94-97); Blood O2 Saturation 91.9 % (92-98.5)
[2018-07-27] MEDS ORDERED: IPRATROPIUM BROM 0.5MG/2.5ML ONE (20:18)
[2018-07-27] MEDS ORDERED: ALBUTEROL 2.5 MG/3 ML NEB SOL ONE (20:18)
[2018-07-27] MEDS ORDERED: NA CHLORIDE 0.9% 1,000 ML ONE (20:18)
[2018-07-27 20:55] LABS: Absolute Lymphocytes (CBC) 1.2 K/uL (0.7-4.9); Absolute Monocytes 0.4 K/uL (0.1-1.3); Eosinophils % 3.7 % (0-4.4); Hematocrit 34.1 % (36.0-45.0); Lymphocytes % 15.6 % (15.3-44.8); RBC Red Blood Cell Count 3.96 M/uL (3.86-4.86)
[2018-07-27 21:04] LABS: Protime INR 1.06
[2018-07-27 21:19] LABS: ALT/SGPT 24 U/L (12-78); AST/SGOT 20 U/L (15-37); Albumin 3.8 g/dL (3.4-5.0); Alkaline Phosphatase 88 U/L (45-117); BUN Blood Urea Nitrogen 19 mg/dL (7-18); Bicarbonate 23 mmol/L (21-32); Bilirubin Direct 0.2 mg/dL (0-0.2); Bilirubin Total 0.5 mg/dL (0.2-1.0); Glucose Level 161 mg/dL (74-106); Magnesium 2.5 mg/dL (1.8-2.4); NT PRO-BNP 1281 pg/mL (<125); Potassium 3.3 mmol/L (3.5-5.1); Protein, Total 8.8 g/dL (6.4-8.2); Sodium Level 135 mmol/L (136-145); Troponin (Emerg Dept Use Only) < 0.02 ng/mL (0.0-0.045)
--- NOTE | 2018-07-27 21:19 | RAD REPORT ---
EXAM DESCRIPTION: RAD - Chest Single View - 07/27/2018 8:47 pm CLINICAL HISTORY: Chest pain;Dyspnea Chest pain. COMPARISON: Chest Single View dated 04/04/2017; Chest Single View dated 12/26/2016; Chest Single View dated 10/16/2016; CHEST SINGLE VIEW dated 10/05/2015 FINDINGS: Portable technique limits examination quality. Mild interstitial pulmonary edema seen. The heart is moderately enlarged in size. No displaced fractu res. IMPRESSION: Mild CHF versus volume overload pattern.
--- NOTE | 2018-07-28 00:04 | ER ---
Nurse's Notes [facility] Name: Elli Durant Age: 63 yrs Sex: Female : 1955 Arrival Date: 07/27/2018 Time: 18:50 Bed 5 Private MD: Diagnosis: Acute dyspnea. Pulmonary edema Presentation: 07/27 19:10 Presenting complaint: Patient states: Reports she has been having difficulty breathing ea that started 1 and 1/2 weeks ago. Reports he has been having cough and congestion, "today I started feeling real short of breath and started having chest pain". Transition of care: patient was not received from another setting of care. Onset of symptoms was July 27, 2018. Risk Assessment: Do you want to hurt yourself or someone else? Patient reports no desire to harm self or others. Initial Sepsis Screen: Does the patient meet any 2 criteria? HR > 90 bpm. Yes Does the patient have a suspected source of infection? No. Patient's initial sepsis screen is negative. Care prior to arrival: None. 19:10 Method Of Arrival: Wheelchair ea 19:10 Acuity: GARY 3 ea Triage Assessment: 19:10 General: Appears uncomfortable, Behavior is restless. Pain: Complains of pain in chest ea Pain does not radiate. Neuro: Level of Consciousness is awake, alert, obeys commands, Oriented to person, place, time, situation. Cardiovascular: Patient's skin is warm and dry. Respiratory: Reports shortness of breath pain with cough since 1 week ago Onset: The symptoms/episode began/occurred 1 and 1/2 week ago, the patient has mild shortness of breath. Historical: - Allergies: 19:17 PENICILLINS; ea - Home Meds: 19:17 amiodarone 200 mg Oral tab 1 tab once daily [Active]; metformin 500 mg Oral tr24 1 tab ea twice a day [Active]; torsemide 100 mg Oral tab 1 tab once daily [Active]; citalopram 20 mg tab 1 tab once daily [Active]; clonazepam 0.5 mg Oral TbDL 1 tab 2 times per day [Active]; lithium carbonate 300 mg Oral tab 1 tab nightly [Active]; trazodone 100 mg Oral tab 1 tab nightly [Active]; - PMHx: 19:17 UTI; Pneumonia; insomnia; Diabetes - NIDDM; COPD; CHF; Atrial Fib; ea - Immunization history:: Adult Immunizations up to date. - Social history:: Smoking status: Patient uses tobacco products, E-cig. - Ebola Screening: : No symptoms or risks identified at this time. Screenin:21 Abuse screen: Denies threats or abuse. Nutritional screening: No deficits noted. ea Tuberculosis screening: No symptoms or risk factors identified. Fall Risk None identified. Assessment: 19:10 General: Appears uncomfortable, Behavior is restless. Pain: Complains of pain in chest ea Pain does not radiate. Neuro: Level of Consciousness is awake, alert, obeys commands, Oriented to person, place, time, situation. Cardiovascular: Patient's skin is warm and dry. 19:56 Respiratory: Airway is patent Respiratory effort is even, unlabored, Respiratory ea pattern is regular, symmetrical, Breath sounds with rhonchi bilaterally. GI: No signs and/or symptoms were reported involving the gastrointestinal system. Derm: Skin is pink, warm \\T\\ dry. 20:30 Reassessment: Patient and/or family updated on plan of care and expected duration. Pain ea level reassessed. Patient is alert, oriented x 3, equal unlabored respirations, skin warm/dry/pink. 21:00 Reassessment: Patient and/or family updated on plan of care and expected duration. Pain ea level reassessed. Patient is alert, oriented x 3, equal unlabored respirations, skin warm/dry/pink. 22:00 Reassessment: Patient and/or family updated on plan of care and expected duration. Pain ea level reassessed. Patient is alert, oriented x 3, equal unlabored respirations, skin warm/dry/pink. 23:36 Reassessment: Patient and/or family updated on plan of care and expected duration. Pain ea level reassessed. Patient is alert, oriented x 3, equal unlabored respirations, skin warm/dry/pink. 07/28 00:00 Reassessment: Patient and/or family updated on plan of care and expected duration. Pain ea level reassessed. Patient is alert, oriented x 3, equal unlabored respirations, skin warm/dry/pink. 01:34 Reassessment: Patient and/or family updated on plan of care and expected duration. Pain ea level reassessed. Patient is alert, oriented x 3, equal unlabored respirations, skin warm/dry/pink. 02:00 Reassessment: Patient and/or family updated on plan of care and expected duration. Pain ea level reassessed. Patient is alert, oriented x 3, equal unlabored respirations, skin warm/dry/pink. Vital Signs: 07/27 19:10 BP 126 / 58; Pulse 102; Resp 22; Temp 99.1; Pulse Ox 89% on R/A; Weight 81.65 kg; ea Height 5 ft. 6 in. (167.64 cm); Pain 8/10; 19:55 BP 111 / 64; Pulse 81; Resp 19; Pulse Ox 99% on 2 lpm NC; ea 20:45 BP 120 / 64; Pulse 82; Resp 16; Pulse Ox 100% ; ea 21:00 BP 110 / 65; Pulse 85; Resp 19; Pulse Ox 100% on 2 lpm NC; ea 22:00 BP 115 / 66; Pulse 84; Resp 18; Pulse Ox 99% ; ea 07/28 00:50 BP 120 / 60; Pulse 78; Resp 18; Pulse Ox 97% on 2 lpm NC; ea 01:55 BP 118 / 66; Pulse 76; Resp 16; Temp 98.2(O); Pulse Ox 100% on 2 lpm NC; ea 07/27 19:10 Body Mass Index 29.05 (81.65 kg, 167.64 cm) ea 07/27 19:10 Pt placed on O2 \\T\\ 2 L per n/c ea ED Course: 18:50 Patient arrived in ED. mr 19:07 Cameron Jones MD is Attending Physician. pkl 19:10 Mable Ruiz, RN is Primary Nurse. ea 19:13 Triage completed. ea 19:17 Patient has correct armband on for positive identification. Placed in gown. Bed in low ea position. Call light in reach. Side rails up X 1. 19:17 Arm band placed on right wrist. Patient placed in an exam room, on a stretcher, on ea oxygen, on personnel monitor, on pulse oximetry. 20:47 XRAY Chest (1 view) In Process Unspecified. EDMS 21:12 Notified ED physician of a critical lab result(s). d dimer 840. fc 21:30 Notified ED physician of a critical lab result(s). lactate 2.6. fc 22:47 CT Chest For PE Angio In Process Unspecified. EDMS 22:47 CT completed. Patient tolerated procedure well. Patient moved back from CT. kc3 07/28 00:01 Zita Zambrano MD is Hospitalizing Provider. pkl 01:35 No provider procedures requiring assistance completed. Patient admitted, IV remains in ea place. Administered Medications: 07/27 20:15 Drug: Albuterol - atroVENT (3:1) (2.5 mg - 0.5 mg) 3 ml Route: Nebulizer; ea 20:30 Follow up: Response: No adverse reaction; Marked relief of symptoms ea 20:38 Drug: NS 0.9% 1000 ml Route: IV; Rate: 100 ml/hr; Site: right antecubital; ea 07/28 01:00 Drug: K-Dur 20 mEq Route: PO; ea 01:30 Follow up: Response: No adverse reaction ea Outcome: 00:02 Decision to Hospitalize by Provider. pkl 01:30 Condition: stable ea 02:00 Admitted to Med/surg accompanied by tech, via wheelchair, with oxygen, with chart, ea Report called to Jenaro CHAPIN 02:00 Instructed on the need for admit. 02:13 Patient left the ED. ea Signatures: Dispatcher [employer] EDMS Cameron Jones MD MD pkl Rivera, Safia mr Daniela Adler, RN Mable Figueroa RN RN ea Campbell, Kim kc3
--- NOTE | 2018-07-28 00:04 | EDPHYS ---
Physician Documentation [facility] Name: Elli Durant Age: 63 yrs Sex: Female : 1955 Arrival Date: 07/27/2018 Time: 18:50 Bed 5 Private MD: ED Physician Cameron Jones HPI: 07/27 19:49 This 63 yrs old Female presents to ER via Wheelchair with complaints of pkl Breathing Difficulty. 19:49 The patient has shortness of breath at rest. Onset: The symptoms/episode began/occurred pkl 1.5 week(s) ago, and became worse today. Associated signs and symptoms: Pertinent positives: chest pain, productive cough. Historical: - Allergies: 19:17 PENICILLINS; ea - Home Meds: 19:17 amiodarone 200 mg Oral tab 1 tab once daily [Active]; metformin 500 mg Oral tr24 1 tab ea twice a day [Active]; torsemide 100 mg Oral tab 1 tab once daily [Active]; citalopram 20 mg tab 1 tab once daily [Active]; clonazepam 0.5 mg Oral TbDL 1 tab 2 times per day [Active]; lithium carbonate 300 mg Oral tab 1 tab nightly [Active]; trazodone 100 mg Oral tab 1 tab nightly [Active]; - PMHx: 19:17 UTI; Pneumonia; insomnia; Diabetes - NIDDM; COPD; CHF; Atrial Fib; ea - Immunization history:: Adult Immunizations up to date. - Social history:: Smoking status: Patient uses tobacco products, E-cig. - Ebola Screening: : No symptoms or risks identified at this time. ROS: 19:49 Eyes: Negative for injury, pain, redness, and discharge, ENT: Negative for injury, pkl pain, and discharge, Neck: Negative for injury, pain, and swelling. 19:49 Cardiovascular: Positive for chest pain. 19:49 Respiratory: Positive for cough, with no reported sputum, shortness of breath, at rest. 19:49 Abdomen/GI: Negative for abdominal pain, nausea, vomiting, and diarrhea. 19:49 Back: Negative for acute changes. 19:49 : Negative for urinary symptoms. 19:49 MS/extremity: Negative for acute changes. 19:49 Skin: Negative for rash. 19:49 Neuro: Negative for altered mental status. Exam: 19:49 Head/Face: Normocephalic, atraumatic. Eyes: Pupils equal round and reactive to light, pkl extra-ocular motions intact. Lids and lashes normal. Conjunctiva and sclera are non-icteric and not injected. Cornea within normal limits. Periorbital areas with no swelling, redness, or edema. ENT: Nares patent. No nasal discharge, no septal abnormalities noted. Tympanic membranes are normal and external auditory canals are clear. Oropharynx with no redness, swelling, or masses, exudates, or evidence of obstruction, uvula midline. Mucous membranes moist. Neck: Trachea midline, no thyromegaly or masses palpated, and no cervical lymphadenopathy. Supple, full range of motion without nuchal rigidity, or vertebral point tenderness. No Meningismus. Chest/axilla: Normal chest wall appearance and motion. Nontender with no deformity. No lesions are appreciated. 19:49 Cardiovascular: Rate: tachycardic, actual rate is 102 bpm, Rhythm: regular. 19:49 Respiratory: mild respiratory distress is noted, Respirations: labored breathing, that is mild, Breath sounds: rales, that are mild, are scattered. 19:49 Abdomen/GI: Bowel sounds: normal, Palpation: abdomen is soft and non-tender, in all quadrants. 19:49 Back: Exam negative for acute changes. 19:49 : Exam negative for acute changes. 19:49 Musculoskeletal/extremity: Exam is negative for acute changes. 19:49 Skin: Exam negative for rash. 19:49 Neuro: Exam negative for acute changes. Vital Signs: 19:10 BP 126 / 58; Pulse 102; Resp 22; Temp 99.1; Pulse Ox 89% on R/A; Weight 81.65 kg; ea Height 5 ft. 6 in. (167.64 cm); Pain 8/10; 19:55 BP 111 / 64; Pulse 81; Resp 19; Pulse Ox 99% on 2 lpm NC; ea 20:45 BP 120 / 64; Pulse 82; Resp 16; Pulse Ox 100% ; ea 21:00 BP 110 / 65; Pulse 85; Resp 19; Pulse Ox 100% on 2 lpm NC; ea 22:00 BP 115 / 66; Pulse 84; Resp 18; Pulse Ox 99% ; ea 07/28 00:50 BP 120 / 60; Pulse 78; Resp 18; Pulse Ox 97% on 2 lpm NC; ea 01:55 BP 118 / 66; Pulse 76; Resp 16; Temp 98.2(O); Pulse Ox 100% on 2 lpm NC; ea 07/27 19:10 Body Mass Index 29.05 (81.65 kg, 167.64 cm) ea 07/27 19:10 Pt placed on O2 \T\ 2 L per n/c ea MDM: 19:07 Patient medically screened. pkl 07/28 00:01 Data reviewed: vital signs, nurses notes, lab test result(s), EKG, radiologic studies, pkl plain films. 07/27 20:03 Order name: Basic Metabolic Panel; Complete Time: 22:24 pkl 07/27 20:03 Order name: CBC with Diff; Complete Time: 20:59 pkl 07/27 20:03 Order name: LFT's; Complete Time: 22:24 pkl 07/27 20:03 Order name: Magnesium; Complete Time: 22:24 pkl 07/27 20:03 Order name: NT PRO-BNP; Complete Time: 22:24 pkl 07/27 20:03 Order name: PT-INR; Complete Time: 21:19 pkl 07/27 20:03 Order name: Troponin (emerg Dept Use Only); Complete Time: 22:24 pkl 07/27 20:03 Order name: XRAY Chest (1 view); Complete Time: 22:24 pkl 07/27 20:03 Order name: D-Dimer; Complete Time: 21:19 pkl 07/27 20:03 Order name: ABG; Complete Time: 20:59 pkl 07/27 20:03 Order name: Blood Culture Adult (2) pkl 07/27 20:03 Order name: Procalcitonin; Complete Time: 22:24 pkl 07/27 20:03 Order name: Lactate; Complete Time: 22:24 pkl 07/27 22:29 Order name: CT Chest For PE Angio pkl 07/27 20:03 Order name: EKG; Complete Time: 20:05 pkl 07/27 20:03 Order name: Cardiac monitoring; Complete Time: 20:19 pkl 07/27 20:03 Order name: EKG - Nurse/Tech; Complete Time: 20:41 pkl 07/27 20:03 Order name: IV Saline Lock; Complete Time: 20:41 pkl 07/27 20:03 Order name: Labs collected and sent; Complete Time: : pkl 07/27 20:03 Order name: O2 Per Protocol; Complete Time: : pkl 07/27 20: Order name: O2 Sat Monitoring; Complete Time: 20: pkl Administered Medications: 07/27 20:15 Drug: Albuterol - atroVENT (3:1) (2.5 mg - 0.5 mg) 3 ml Route: Nebulizer; ea 20:30 Follow up: Response: No adverse reaction; Marked relief of symptoms ea 20:38 Drug: NS 0.9% 1000 ml Route: IV; Rate: 100 ml/hr; Site: right antecubital; ea 07/28 01:00 Drug: K-Dur 20 mEq Route: PO; ea 01:30 Follow up: Response: No adverse reaction ea Disposition: 07/28/18 00:02 Hospitalization ordered by Zita Zambrano for Observation. Preliminary diagnosis is Acute dyspnea. Pulmonary edema. - Bed requested for Telemetry/MedSurg (observation). - Status is Observation. ea - Condition is Stable. - Problem is new. - Symptoms are unchanged. UTI on Admission? No Signatures: Dispatcher [employer] EDCameron Love MD MD pkl Garcia, Cindy RN RN Mable Ruiz RN RN ea Corrections: (The following items were deleted from the chart) 01:02 00:02 Hospitalization Ordered by Zita Zambrano MD for Observation. Preliminary cg diagnosis is Acute dyspnea. Pulmonary edema. Bed requested for Telemetry/MedSurg (observation). Status is Observation. Condition is Stable. Problem is new. Symptoms are unchanged. UTI on Admission? No. pkl 02:13 01:02 07/28/2018 00:02 Hospitalization Ordered by Zita Zambrano MD for Observation. ea Preliminary diagnosis is Acute dyspnea. Pulmonary edema. Bed requested for Telemetry/MedSurg (observation). Status is Observation. Condition is Stable. Problem is new. Symptoms are unchanged. UTI on Admission? No. cg
[2018-07-28] MEDS ORDERED: POTASSIUM CL SA 10 MEQ TAB PO ONE (00:51)
[2018-07-28] MEDS ORDERED: ACETAMINOPHEN 500 MG TAB ONE (01:33)
[2018-07-28] MEDS ORDERED: ONDANSETRON 4 MG/2 ML VIAL IV PRN (02:16)
--- NOTE | 2018-07-28 05:36 | P.HP ---
Certification for Inpatient Patient admitted to: Observation With expected LOS: <2 Midnights Practitioner: I am a practitioner with admitting privileges, knowledge of patient current condition, hospital course, and medical plan of care. Services: Services provided to patient in accordance with Admission requirements found in Title 42 Section 412.3 of the Code of Federal Regulations Patient History Date of Service: 07/28/18 Reason for admission: acute respiratory failure History of Present Illness: Ms Durant is a 63 years old woman with history or COPD, former smoker, sleep apnea non-compliant with CPAP, pulmonary hypertension, DM II, who start with progressive SOB about 1 week ago. She denied cough, no history of fever or chills. She has been complaining of pressure like chest pain, subseternal, no radiating, lasting for 1-2 hours every time, since 1 week ago. She denied nausea , vomiting or sweating episode with her chest pain. At arrival she was hypoxemic , 89% on RA, lab work shows normal WBC count, normal procalcitonin but elevated lactate. CXR consistent with pulmonary edema. D-Dimer elevated, CTA chest showed no PE but pulmonary edema, also bilateral hilar and mediastinal lymphadenopathy. Allergies Penicillins Allergy (Verified 09/29/15 19:56) Itching/Hives/Rash Home medications list reviewed: Yes Home Medications: Amiodarone HCl [Cordarone*] 200 mg PO DAILY 12/26/16 [place] Carbonate [Lithotabs *] 300 mg PO BEDTIME 12/26/16 Metformin ER [Glucophage ER*] 500 mg PO BID 12/26/16 Rivaroxaban [Xarelto] 20 mg PO DAILY 12/26/16 Torsemide 100 mg PO DAILY 12/26/16 clonazePAM [Klonopin*] 0.25 mg PO BID 12/26/16 Citalopram [Celexa] 20 mg PO DAILY 07/28/18 Trazodone [Desyrel*] 150 mg PO DAILY 07/28/18 risperiDONE [Risperidone] 0.5 mg PO DAILY 07/28/18 - Past Medical/Surgical History Has patient received pneumonia vaccine in the past: Yes Diabetic: Yes -: CHF -: DM -: COPD -: SMOKER -: Degenerative Back Disease -: AFIB, SVT -: BACK SURGERY -: LEFT KNEE SURGERY -: HYSTERECTOMY -: HEART ABLATION - Family History Family History: Reviewed- Non-Contributory - Social History Smoking Status: Former smoker Alcohol use: No CD- Drugs: No Caffeine use: Yes Place of Residence: Home Review of Systems 10-point ROS is otherwise unremarkable Physical Examination - Vital Signs Temperature: 99.1 F Blood Pressure: 115/66 Pulse: 84 Respirations: 18 - Physical Exam General: Alert, In no apparent distress HEENT: Atraumatic, PERRLA, Mucous membr. moist/pink, EOMI, Sclerae nonicteric Neck: Supple, 2+ carotid pulse no bruit, No LAD, Without JVD or thyroid abnormality Respiratory: Diminished, Crackles/rales (bibasilar rales) Cardiovascular: Normal S1 S2, Abnormal S3 Gastrointestinal: Normal bowel sounds, No tenderness Musculoskeletal: No tenderness Integumentary: No rashes Neurological: Normal speech, Normal strength at 5/5 x4 extr, Normal tone, Normal affect Lymphatics: No axilla or inguinal lymphadenopathy - Studies Laboratory Data (last 24 hrs) 07/27/18 20:33: PT 12.5, INR 1.06 07/27/18 20:33: WBC 8.0, Hgb 11.5 L, Hct 34.1 L, Plt Count 258 07/27/18 20:33: Sodium 135 L, Potassium 3.3 L, BUN 19 H, Creatinine 1.27, Glucose 161 H, Magnesium 2.5 H, Total Bilirubin 0.5, AST 20, ALT 24, Alkaline Phosphatase 88 Assessment and Plan - Problems (Diagnosis) (1) Acute respiratory failure Current Visit: Yes Status: Acute Qualifiers: Respiratory failure complication: hypoxia Qualified Code(s): J96.01 - Acute respiratory failure with hypoxia (2) COPD (chronic obstructive pulmonary disease) Current Visit: No Status: Acute Qualifiers: COPD type: chronic bronchitis (3) Pulmonary hypertension Current Visit: No Status: Acute - Plan The patient will be admitted to the hospital due to acute respiratory failure with hypoxia, likely secondary to acute on chronic chf exacerbation. She has had chest pain as well, no ST-T abnormalities on EKG, trop I negative. Will order serial cardiac enzymes and EKG, IV diuresis, ECHO, consult cardiology and pulmonology. - Advance Directives Does patient have a Living Will: No Does patient have a Durable POA for Healthcare: No - Code Status/Comfort Care Code Status Assessed: Yes Code Status: Full Code
[2018-07-28] MEDS: FUROSEMIDE 40 MG/4 ML VIAL IV SCH ×2 (07:20→16:35)
[2018-07-28] MEDS: INSULIN -REGULAR HUMAN 50 UNIT/0.5 ML ML SQ SCH ×4 (07:30→21:41)
--- NOTE | 2018-07-28 07:55 | EKG ---
Test Date: 2018-07-27 Test Time: 20:31:20 Admitting Officer: MARGARET MEASUREMENT RESULTS: Intervals: Rate: 84 HI: 194 QRSD: 86 QT: 442 QTc: 522 [place]: P: 85 HI: 194 QRS: 94 T: 62 INTERPRETIVE STATEMENTS: Normal sinus rhythm Rightward axis Pulmonary disease pattern Prolonged QT Abnormal ECG Compared to ECG 04/04/2017 13:48:11 Right-axis deviation now present Prolonged QT interval now present Left-axis deviation no longer present Myocardial infarct finding no longer present Electronically Signed On 07-28-18 07:53:58 VARNISH SUPERVISOR by Colt Leblanc
[2018-07-28] MEDS: ENOXAPARIN 40 MG/0.4 ML SQ SCH (08:00)
[2018-07-28 08:21] LABS: Urine Appearance CLEAR; Urine Bilirubin NEGATIVE (NEG); Urine Blood NEGATIVE (NEG); Urine Color YELLOW; Urine Glucose NEGATIVE (NEG); Urine Protein NEGATIVE (NEG); Urine Urobilinogen 0.2 mg/dL (0.2-1.0)
[2018-07-28 08:22] LABS: Urine Microscopic Reflex NO UMIC
--- NOTE | 2018-07-28 08:42 | RAD REPORT ---
EXAM DESCRIPTION: CT - Chest For Pe Angio - 07/27/2018 10:47 pm CLINICAL HISTORY: Difficulty breathing, shortness of breath, chest pain A preliminary report was provided at the time of the study and reviewed prior to final report. COMPARISON: CT study December 2016 TECHNIQUE: Dynamically enhanced 3 mm thick images of the chest were obtained during administration o f approximately 150mL Isovue 370 IV contrast. Coronal and oblique MIP reconstruction images were gene rated and reviewed. Exam utilizes a protocol to evaluate the pulmonary arterial tree. All CT scans are performed using dose optimization technique as appropriate and may include automated exposure control or mA/KV adjustment according to patient size. FINDINGS: No pulmonary emboli are identified. The aorta as imaged shows no acute or suspicious finding. Overall cardiac silhouette is enlarged but not clearly different. Minimal pericardial thickening or effusion. Enlargement is primarily biatrial. Patient has prominent mitral valve calcifications. Aortic valve outflow was relatively narrow in the AP projection probably from atrial enlargement. There is some suggestion of left ventricular hypertr ophy as well. This can be more sensitively assessed with cardiac echo. No focal mass or consolidation. Interstitial thickening or edema is present. Small bilateral pleural effusions are present diminished compared to the comparison study. Patient has a prominent but stable mediastinal and hilar lymphadenopathy pattern. It is uncertain if the patient has undergone any further evaluation. The 1.5 year stability would indicate a non maligna nt etiology such as sarcoidosis or granulomatous disease. No chest wall masses or abnormal axillary l ymphadenopathy. IMPRESSION: No pulmonary emboli identified. Prominent but stable mediastinal and hilar lymphadenopathy. The 1.5 year stability would support a no n malignant etiologies such as sarcoidosis or granulomatous disease. Small bilateral pleural effusions and interstitial edema suggesting a mild failure or volume overload . Cardiomegaly with biatrial enlargement, questionable left ventricular hypertrophy and questionable ao rtic outflow stenosis. The aortic valve and left ventricle findings can be more sensitively assessed with cardiac echo.
[2018-07-28] MEDS: ACETAMINOPHEN 500 MG TAB PO PRN ×3 (11:15→21:44)
[2018-07-28] MEDS: IPRATROPIUM BROM 0.5MG/2.5ML NEB PRN (14:32)
[2018-07-28] MEDS: ALBUTEROL 2.5 MG/3 ML NEB SOL NEB PRN (14:32)
--- NOTE | 2018-07-28 19:16 | CON ---
Date of Consultation: 07/28/[address] Navas's service on 07/28/2018. Reason For Consultation: Chest pain and shortness of breath. History Of Present Illness: Ms. Durant is 63, has a history of bipolar disorder, mitral stenosis, COPD, pulmonary hypertension that is moderate, congestive heart failure that is chronic systolic. Go s had a history of pneumonias and UTIs, diabetes, and atrial fibrillation. She came in with chest pa in and shortness of breath. No nausea or vomiting or diaphoresis. Denied PND, orthopnea, pedal shaka a, palpitations, or syncope. Allergies: SHE IS ALLERGIC TO PENICILLIN. Review of Systems: Negative. Social History: Negative. She sees Dr. Vail for primary care. Medications: Her medications at home include amiodarone. She is supposed to be on Xarelto, but she stopped it because she could not afford it. She takes torsemide, metformin, lithium, Klonopin, Celex a, and trazodone. Physical Examination: General: When I saw her, she was in a sinus rhythm. Vital signs: Stable. She was afebrile. HEENT: Negative. Neck: Supple without any bruit, lymphadenopathy, JVD, or thyromegaly. Chest: Reveals rales bibasilarly with some expiratory wheezing. Cardiac: Revealed a regular rhythm and rate with an early diastolic murmur at the apex radiating to the axilla. There was no S3 or S4 gallops. Abdomen: Benign. Extremities: Revealed 1+ edema. Diagnostic Data: EKG was nonspecific. Chest x-ray shows CHF. Echocardiogram shows mild mitral sten osis with severe pulmonary hypertension with right ventricular systolic pressure of 97 mmHg. Her BNP was 1281. Troponin was negative. Her pO2 was 58, pCO2 of 31, pH is 7.49. D-dimer was 840. CTA wa s pending. Potassium 3.3, glucose 161, creatinine is 1.27. Impression And Plan: 1.Acute exacerbation of chronic systolic congestive heart failure. 2.Severe pulmonary hypertension. 3.Mild mitral stenosis. 4.Diabetes, well controlled. 5.Atrial fibrillation, resolved, on amiodarone. 6.Chronic obstructive pulmonary disease. 7.Bipolar disorder. 8.Hypokalemia. 9.Elevated D-dimer. I think we need to continue Mrs. Durant on present regimen. I think she needs to be on nebulized t reatment in addition to diuresis. I think we need to consider taking her off amiodarone with such se cresencio pulmonary hypertension. Her mitral stenosis is not severe enough for any procedure at this poin t. The case was discussed with Dr. Lomeli. ELISA/KENNY Voice ID: [id number] Report ID: [id number]
[2018-07-29] MEDS: ACETAMINOPHEN 500 MG TAB PO PRN ×3 (03:39→19:37)
[2018-07-29 05:11] LABS: Absolute Lymphocytes (CBC) 0.8 K/uL (0.7-4.9); Absolute Monocytes 0.4 K/uL (0.1-1.3); Absolute Neutrophil 5.5 K/uL (1.8-8.0); Basophils % 0.7 % (0-1.3); Eosinophils % 5.3 % (0-4.4); Hematocrit 30.2 % (36.0-45.0); Lymphocytes % 11.7 % (15.3-44.8); MPV 8.6 fL (7.6-11.3); Monocytes % 5.8 % (3.3-12.3); RBC Red Blood Cell Count 3.51 M/uL (3.86-4.86)
[2018-07-29 05:20] LABS: Potassium 3.6 mmol/L (3.5-5.1)
[2018-07-29] MEDS ORDERED: POTASSIUM 25 MEQ EFFERV TAB PO ONE (05:55)
--- NOTE | 2018-07-29 06:27 | ECHO ---
HEIGHT: 5 ft 6 in WEIGHT: 180 lb 0 oz DATE OF STUDY: 07/28/[address]: Zita Bates MD 2-DIMENSIONAL: YES M.MODE: YES DOPPLER: YES COLOR FLOW: YES TDS: PORTABLE: DEFINITY: BUBBLE STUDY: DIAGNOSIS: CHEST PAIN, DYSPNEA CARDIAC HISTORY: CATHERIZATION: YES SURGERY: NO PROSTHETIC VALVE: NO PACEMAKER: NO MEASUREMENTS (cm) DIASTOLIC (NORMALS) SYSTOLIC (NORMALS) IVSd 1.2 (0.6-1.2) LA Diam 4.9 (1.9-4.0) LVEF 65% LVIDd 3.6 (3.5-5.7) LVIDs 2.4 (2.0-3.5) %FS 35% LVPWd 1.4 (0.6-1.2) Ao Diam 2.9 (2.0-3.7) 2 DIMENSIONAL ASSESSMENT: RIGHT ATRIUM: NORMAL LEFT ATRIUM: DILATED RIGHT VENTRICLE: NORMAL LEFT VENTRICLE: NORMAL TRICUSPID VALVE: NORMAL MITRAL VALVE: STENOTIC PULMONIC VALVE: NORMAL AORTIC VALVE: SCLEROTIC PERICARDIAL EFFUSION: NONE AORTIC ROOT: NORMAL LEFT VENTRICULAR WALL MOTION: NORMAL DOPPLER/COLOR FLOW: MILD MITRAL STENOSIS. AREA 1.6 CENTIMETERS SQUARED. MODERATE TRICUSPID REGURGITATION. SEVERE PULMONARY HYPERTENSION. COMMENTS: NORMAL LEFT VENTRICULAR SIZE AND FUNCTION. MILD MITRAL STENOSIS. AREA 1.6 CENTIMETERS SQUARED. SEVERE PULMONARY HYPERTENSION. RIGHT VENTRICULAR SYSTOLIC PRESSRUE 96 mmHg. LEFT ATRIAL ENLARGEMENT. AORTIC SCLEROSIS. TECHNOLOGIST: URBANO SOTO
[2018-07-29] MEDS: INSULIN -REGULAR HUMAN 50 UNIT/0.5 ML ML SQ SCH ×4 (07:30→20:26)
[2018-07-29] MEDS: FUROSEMIDE 40 MG/4 ML VIAL IV SCH ×2 (09:04→16:42)
[2018-07-29] MEDS: ENOXAPARIN 40 MG/0.4 ML SQ SCH (09:05)
--- NOTE | 2018-07-29 11:18 | P.CNS ---
Date of Consult: 07/29/18 Chief Complaint: Pulmonary hypertension History of Present Illness: Patient is 63 years of age has been complaining of worsening dyspnea for the past 1-1/2 weeks although she has had intermittent dyspnea before history of pulmonary hypertension was following up with pulmonology doctor Allan in [place] Patient just got her Medicare insurance about a week ago former heavy smoker 2 packs a day does not use any bronchodilators at home he does have some dyspnea on exertion echocardiogram shows severe pulmonary hypertension without evidence of right ventricular dilatation patient is anti coagulated due to atrial fibrillation no prior history off right heart catheterization although she has had an ablation for AFib Allergies Penicillins Allergy (Verified 09/29/15 19:56) Itching/Hives/Rash Home Medications: Amiodarone HCl [Cordarone*] 200 mg PO DAILY 12/26/16 [place] Carbonate [Lithotabs *] 300 mg PO BEDTIME 12/26/16 Metformin ER [Glucophage ER*] 500 mg PO BID 12/26/16 Rivaroxaban [Xarelto] 20 mg PO DAILY 12/26/16 Torsemide 100 mg PO DAILY 12/26/16 clonazePAM [Klonopin*] 0.25 mg PO BID 12/26/16 Citalopram [Celexa] 20 mg PO DAILY 07/28/18 Trazodone [Desyrel*] 150 mg PO DAILY 07/28/18 risperiDONE [Risperidone] 0.5 mg PO DAILY 07/28/18 - Past Medical/Surgical History Diabetic: Yes -: CHF -: DM -: COPD -: SMOKER -: Degenerative Back Disease -: AFIB, SVT -: BACK SURGERY -: LEFT KNEE SURGERY -: HYSTERECTOMY -: HEART ABLATION - Social History Smoking Status: Current every day smoker Alcohol use: No CD- Drugs: No Caffeine use: Yes Place of Residence: Home Review of Systems 10-point ROS is otherwise unremarkable General: Weakness Respiratory: Shortness of Breath Cardiovascular: Edema Physical Examination Temp Pulse Resp BP Pulse Ox 97.6 F 89 18 129/60 97 07/29/18 08:00 07/29/18 09:04 07/29/18 08:00 07/29/18 09:04 07/29/18 08:00 General: Alert, Oriented x3 HEENT: Atraumatic Neck: Supple Respiratory: Clear to auscultation bilaterally, Diminished Cardiovascular: No edema, Normal S1 S2, Edema (1+ edema) Gastrointestinal: Normal bowel sounds, Soft and benign - Problems (1) Pulmonary hypertension Current Visit: No Status: Acute Plan: Patient is 63 years of age admitted with mild dyspnea on exertion she has severe pulmonary hypertension without right ventricular dilatation CT angiogram no evidence of pulmonary embolism she has chronic stable lymphadenopathy patient is mildly anemic mildly hypoxic she is already anti coagulated at this time I recommend patient be treated with bronchodilators consider Advair 250 1 puff twice a day check room air sats to see if she qualifies for home O2. Will obtain records from a drug regulatory affairs specialist to she will need a right heart catheterization before starting patient on any antihypertensives therapy I saw her last year HIV screen was negative patient is a diabetic
[2018-07-29] MEDS: RISPERIDONE 0.25 MG TABLET PO SCH (12:07)
[2018-07-29] MEDS: clonazePAM 0.5 MG TAB PO SCH ×2 (12:08→20:27)
[2018-07-29] MEDS: CITALOPRAM 10 MG TABLET PO SCH (12:08)
--- NOTE | 2018-07-29 13:39 | PN ---
Subjective: Currently, the patient sitting on the side of the bed. She continued to be short of breath. She is on oxygen. She is not on home oxygen normally. She has no chest pain. No abdominal pain. No fever or chills. Good appetite. Review of Systems: Otherwise as below. Physical Examination: Vital Signs: Blood pressure is 129/60, respiratory rate 18, pulse 89, temperature 97.6, saturating 97% on 2 L nasal cannula. General: She is alert and oriented x3. Does not look in any distress. HEENT: Atraumatic and normocephalic. PERRLA. Oral mucosa is moist. Neck: Supple. No JVD. Chest: Clear to auscultation with bibasilar rales. She has expiratory wheezing. Heart: Regular rate and rhythm. S1, S2 normal. She had diastolic murmur. No S3 or S4. Abdomen: Soft and obese. Positive bowel sounds. Extremities: No clubbing or cyanosis. She has 1+ edema, stasis dermatitis noted. Neurologic: Grossly intact. Laboratory Data: Today CBC within normal except for hemoglobin 10.3. Chemistry within normal except for creatinine 1.09, GFR 51, glucose 158. Cardiac enzyme checked over yesterday were all normal. Assessment And Plan: 1. Acute on chronic congestive heart failure. Appreciate cardiology note. The patient currently on Lasix. She is responding well. Echocardiogram showed normal left ventricular size and function. Mild mitral stenosis. Severe pulmonary hypertension, right ventricular systolic pressure 96,enlargement, aortic sclerosis. 2. Severe pulmonary hypertension on echocardiogram. Pulmonary consult requested and is still pending. Dr. Lomeli's input. 3. Mitral stenosis. No surgical intervention needed at this point. 4. Diabetes mellitus. We will check hemoglobin A1c. Continue sliding scale insulin, it seems control. 5. Atrial fibrillation paroxysmal. The patient was on amiodarone, but Dr. Leblanc stopped that given the patient's pulmonary hypertension. 6. Hyperkalemia, resolved. 7. Bipolar disorder. Continue home medication. 8. Elevated D-dimer. CT angio was negative. The patient eric and mediastinal adenopathy. She will need to have followup CT as outpatient. 9. Deep vein thrombosis prophylaxis. We will continue on Lovenox. VY/KENNY Voice ID: [id number] Report ID: [id number]
[2018-07-29] MEDS: METFORMIN ER 500 MG TAB PO SCH (16:42)
[2018-07-29] MEDS ORDERED: RIVAROXABAN 20 MG TABLET PO SCH (17:00)
[2018-07-29] MEDS: LITHIUM CARBONATE 300 MG TAB PO SCH (20:27)
[2018-07-30] MEDS: ACETAMINOPHEN 500 MG TAB PO PRN ×2 (03:19→22:11)
[2018-07-30 05:53] VITALS: BMI 29.1
[2018-07-30 06:23] LABS: Magnesium 2.5 mg/dL (1.8-2.4); Potassium 3.6 mmol/L (3.5-5.1)
[2018-07-30] MEDS ORDERED: POTASSIUM 25 MEQ EFFERV TAB PO ONE (06:27)
[2018-07-30] MEDS: INSULIN -REGULAR HUMAN 50 UNIT/0.5 ML ML SQ SCH ×4 (07:30→21:00)
[2018-07-30] MEDS ORDERED: HOME MED 1 EA UNK (Risperidone [Risperidone] 0.5 MG) PO SCH (09:00)
[2018-07-30] MEDS: ENOXAPARIN 40 MG/0.4 ML SQ SCH (09:41)
[2018-07-30] MEDS: FUROSEMIDE 40 MG/4 ML VIAL IV SCH ×2 (09:42→17:08)
[2018-07-30] MEDS: RISPERIDONE 0.25 MG TABLET PO SCH (09:42)
[2018-07-30] MEDS: clonazePAM 0.5 MG TAB PO SCH ×2 (09:43→21:16)
[2018-07-30] MEDS: CITALOPRAM 10 MG TABLET PO SCH (09:43)
[2018-07-30] MEDS: METFORMIN ER 500 MG TAB PO SCH ×2 (09:44→17:08)
[2018-07-30] MEDS: TRAZODONE 150 MG TAB PO SCH (09:44)
[2018-07-30] MEDS ORDERED: NA CHLORIDE 0.9% 0 ML IV ONE (12:04)
--- NOTE | 2018-07-30 15:18 | PN ---
Subjective: Currently, patient sitting on the side of the bed. She looks comfortable. She continue d to feel short of breath and admitted about chest pain. She has no fever or chills overnight. She is curious about the plan of care. Objective: Vital Signs: Currently, blood pressure 129/64, respiratory rate 20, pulse 88, temperatur e 97.1. General: The patient is alert and oriented x3. Does not look in any distress. HEENT: Atraumatic, normocephalic. PERRLA oral mucosa is moist. Neck: Supple. No JVD. No bruits. Chest: Clear to auscultation. Good air entry with basilar crackles and expiratory wheezing. Heart: Regular rate and rhythm. No gallop. Patient has diastolic murmur. Abdomen: Soft, nontender. No masses. No hepatosplenomegaly. Positive bowel sounds. Extremities: No clubbing, no cyanosis. She has 1+ edema with stasis dermatitis. Neuro: Grossly intact. Laboratory Data: CBC not done yet. CMP with sodium 133, potassium 3.6, creatinine 1.06, BUN of 18, glucose , magnesium 2.5. BNP done yesterday at 977. Assessment And Plan: 1.Acute on chronic congestive heart failure. The patient on Lasix responding well. She continued t o be short of breath. We will check O2 saturation with ambulation. Echocardiogram showed normal lef t ventricular size and function. Mild mitral stenosis with severe pulmonary hypertension and right v entricular systolic pressure at 96 with aortic sclerosis. Currently defer management to pulmonary, b ut Dr. Lomeli suggested that the patient will need a right heart cath before considering any antihy pertensive therapy. Pending Dr. Leblanc's plan of care. 2.Severe pulmonary hypertension. Echocardiogram again we appreciate Dr. Lomeli input in that rega rd. The patient will be started on Advair via Dr. Lomeli's recommendation. 3.Diabetes mellitus. Hemoglobin A1c order is still pending. Glucose in the range of 160 to 190. 4.Atrial fibrillation. Paroxysmal the patient amiodarone that apparently stopped by Dr. Leblanc. G iven the patient's severe pulmonary hypertension. 5.Hypokalemia, resolved. 6.Bipolar disorder. Continue home medication. 7.Elevated D-dimer. CT angio was negative for PE, but patient have hilar and mediastinal adenopathy . She will need to have close followup as outpatient to make sure those are not malignant. 8.Deep vein thrombosis prophylaxis on Lovenox. VY/KENNY Voice ID: [id number] Report ID: [id number]
--- NOTE | 2018-07-30 19:39 | PN ---
Date of Progress Note: 07/29/2018 The patient was admitted with shortness of breath, was found to have severe pulmonary hypertension. She remains on oxygen, remains on gentle diuresis as well as bronchodilators. The case was discussed with Dr. Lomeli. He requested that we do a right heart catheterization on her. I will do a left heart catheterization as well because of her elevation for troponin. The patient is on Xarelto, arellano georges, we will hold Xarelto and do the procedure on July. ELISA/KENNY Voice ID: [id number] Report ID: [id number]
--- NOTE | 2018-07-30 19:54 | PN ---
Date of Progress Note: 07/30/2018 The patient was admitted with shortness of breath, severe pulmonary hypertension, abnormal troponin, has improved from a breathing standpoint, still have some edema and some rales and expiratory wheezin g at the base of her lungs. She is in atrial fibrillation chronically. She is on Xarelto that has b een held. Plan for left and right heart catheterization in the morning on July 31, 2018. The pa paul understands the risks and the benefits of the procedure and she agrees to proceed. ELISA/KENNY Voice ID: [id number] Report ID: [id number]
[2018-07-30] MEDS: DULERA 100/5 (MOMETASONE/FORMOTEROL) INHALER IH SCH (21:16)
[2018-07-30] MEDS: LITHIUM CARBONATE 300 MG TAB PO SCH (21:16)
[2018-07-31 05:58] LABS: Absolute Lymphocytes (CBC) 0.9 K/uL (0.7-4.9); Absolute Monocytes 0.3 K/uL (0.1-1.3); Absolute Neutrophil 4.2 K/uL (1.8-8.0); Basophils % 0.9 % (0-1.3); Eosinophils % 6.4 % (0-4.4); Hematocrit 29.7 % (36.0-45.0); Lymphocytes % 15.2 % (15.3-44.8); MPV 8.6 fL (7.6-11.3); Monocytes % 5.4 % (3.3-12.3); RBC Red Blood Cell Count 3.47 M/uL (3.86-4.86)
[2018-07-31 06:20] LABS: Albumin 3.3 g/dL (3.4-5.0); Bilirubin Total 0.4 mg/dL (0.2-1.0); Potassium 3.8 mmol/L (3.5-5.1); Protein, Total 7.4 g/dL (6.4-8.2)
[2018-07-31] MEDS ORDERED: NA CHLORIDE 0.9% 250 ML ONE (06:53)
[2018-07-31] MEDS: INSULIN -REGULAR HUMAN 50 UNIT/0.5 ML ML SQ SCH ×4 (07:30→21:00)
[2018-07-31] MEDS ORDERED: KCL 20 MEQ/100 mL IVPB 20 MEQ/100 ML BAG IV SCH (07:30)
--- NOTE | 2018-07-31 08:40 | P.PN ---
Subjective Date of Service: 07/31/18 Chief Complaint: Pulmonary hypertension Subjective: Improving (Patient is doing better shortness of breath has improved schedule for a right heart catheterization) Review of Systems Unremarkable Physical Examination - Vital Signs Temperature: 98.2 F Blood Pressure: 107/58 Pulse: 86 Respirations: 16 Pulse Ox (%): 98 - Physical Exam General: Alert, Oriented x3 Respiratory: Clear to auscultation bilaterally Cardiovascular: No edema, Normal S1 S2 Assessment & Plan - Problems (Diagnosis) (1) Pulmonary hypertension Onset Date: 07/30/18 Current Visit: Yes Status: Acute Plan: Patient is 63 years of age admitted with shortness of breath I suspect that she has underlying COPD schedule for a right heart catheterization no evidence of pulmonary embolism check room air pulse ox patient can be discharged home on Symbicort or Advair for now will schedule for outpatient pulmonary function testing may need home oxygen follow up with me in 1-2 weeks recommend stopping torsemide as patients with pulmonary hypertension are volume dependent you spironolactone once a twice a day 25 mg on a p.r.n. basis the time of discharge Dc torsemide
[2018-07-31] MEDS: RISPERIDONE 0.25 MG TABLET PO SCH (09:00)
[2018-07-31] MEDS: DULERA 100/5 (MOMETASONE/FORMOTEROL) INHALER IH SCH ×2 (09:00→21:00)
[2018-07-31] MEDS: TRAZODONE 150 MG TAB PO SCH (09:00)
[2018-07-31] MEDS: ENOXAPARIN 40 MG/0.4 ML SQ SCH (09:00)
[2018-07-31] MEDS ORDERED: ATROPINE SULF 1 MG/10 ML SYR IV ONE (09:03)
[2018-07-31] MEDS ORDERED: NA CHLORIDE 0.9% 500 ML ONE ×2 (09:03→09:41)
[2018-07-31] MEDS ORDERED: NA CHLORIDE 0.9% 0 ML ONE (09:03)
[2018-07-31] MEDS ORDERED: NA CHLORIDE 0.9% 100 ML IV ONE (09:03)
[2018-07-31] MEDS ORDERED: HEPA 1000U/500MLS 1,000 UNIT/500 ML BAG IV ONE (09:03)
[2018-07-31] MEDS ORDERED: MIDAZOLAM HCL 2 MG/2 ML INJ ONE (09:04)
[2018-07-31] MEDS ORDERED: FENTANYL CITR 100 MCG/2 ML ONE (09:04)
[2018-07-31] MEDS: clonazePAM 0.5 MG TAB PO SCH ×2 (11:04→21:04)
[2018-07-31] MEDS: CITALOPRAM 10 MG TABLET PO SCH (11:05)
[2018-07-31] MEDS: METFORMIN ER 500 MG TAB PO SCH ×2 (11:05→16:38)
[2018-07-31] MEDS: FUROSEMIDE 40 MG TABLET PO SCH (11:06)
--- NOTE | 2018-07-31 11:24 | OP ---
Surgeon: Colt Leblanc MD Healthcare Business Analyst: Kin Brewer. Indications: Admitted to Dr. Pedroza's service on 07/28/2018 with chest pain and shortness of breath, abnormal EKG, severe pulmonary hypertension on echocardiography. Dr. Lomeli requested that we help in her diagnosis with right heart catheterization. I decided to do a left heart catheterization, mo stly because of her symptoms and cardiac risk factors and abnormal EKG. Procedure In Detail: She was brought to the maintenance shop laborer today as an inpatient, prepped and draped in ro utine sterile fashion, given 2 mg of Versed for IV sedation. She had a 6-Venezuelan sheath in the right common femoral artery. A 7-Venezuelan sheath in the right common femoral vein. A 6-Venezuelan catheter was used for the left heart catheterization. She has normal coronaries. Left Augie and right Augie JR4 were used. A Healy-Allen catheter was floated through the right common femoral vein. This showed severe pulmonary hypertension, elevated right atrial pressure, right ventricular pressure, and pulmon vivian artery pressure. I could not wedge the catheter. O2 saturation were pending. Cardiac output wa s 4.7 L a minute. 6-Venezuelan catheters were used. Total conscious sedation was 45 minutes. Complications: None. Blood Loss: 5 cc. Postoperative Diagnosis: Normal coronary arteries. Severe pulmonary hypertension. I will discuss the case further with Dr. Trevino and Dr. Pedroza. The patient can certainly go home to day after 2 hours of bedrest, and we will see her in the office in the next 2 weeks. ELISA/KENNY Voice ID: [id number] Report ID: [id number]
[2018-07-31] MEDS ORDERED: POTASSIUM CL SA 10 MEQ TAB PO ONE (11:31)
[2018-07-31] MEDS: ACETAMINOPHEN 500 MG TAB PO PRN ×2 (11:39→18:33)
[2018-07-31] MEDS ORDERED: NITROGLYCERIN 0.4 MG/TAB SL PRN (13:00)
[2018-07-31] MEDS ORDERED: NA CHLORIDE 0.9% 1,000 ML IV SCH (13:00)
--- NOTE | 2018-07-31 20:19 | PN ---
Date of Progress Note: 07/31/2018 Subjective: Patient seen and examined. Chart reviewed and case discussed with RN. The patient went for right heart and left heart catheterization today with normal coronaries, however, was found to h ave severe pulmonary hypertension. Medications: List reviewed. Physical Examination: Vital Signs: Temperature 97.4, heart rate 93, blood pressure 97/65, respirations 20, O2 98% on 3 L v ia nasal cannula. General: Awake, alert, and oriented x3. No acute distress. The patient is still on supplemental ox ygen. Ill-appearing, older than stated age female. CV: S1, S2. Peripheral pulses present. Respiratory: Moving air well bilaterally. No wheezing. Gastrointestinal: Abdomen is soft, nontender, nondistended. Positive bowel sounds. Extremities: No clubbing, cyanosis, or edema. Neurologic: Nonfocal. Skin: Cath site clean, dry, intact. Laboratory Data: WBC 5.8, hemoglobin and hematocrit 10.3 and 29.7, platelets 230. Sodium 135, potas sium 3.8, chloride 101, CO2 27, BUN 18, creatinine 1.08, glucose 136, calcium 8.9. Blood cultures, n o growth to date. Assessment: A 63-year-old female with: 1.Acute on chronic congestive heart failure. Continue diuresis. Continue monitoring I's and O's an d daily weights. Ejection fraction on echocardiogram is normal. Does have mild mitral stenosis and severe pulmonary hypertension. 2.Severe pulmonary hypertension. Right heart catheterization shows abnormal right sciatic pressures . Appreciate Dr. Lomeli's input. Continue Advair. The patient will need outpatient pulmonary fun ction tests. 3.Diabetes mellitus type 2 with hyperglycemia, non-insulin requiring. Continue Accu-Cheks and slidi ng scale insulin. 4.Atrial fibrillation, paroxysmal. Amiodarone stopped due to severe pulmonary hypertension. 5.Hypokalemia, corrected. 6.Bipolar disorder, stable on home medications. 7.Elevated D-dimer. CT angio negative for pulmonary embolism. The patient does have hilar and medi astinal adenopathy. The patient will need followup CT scans in 3 to 6 months to ensure resolution of the adenopathy to make sure those are no malignant. 8.Gastrointestinal and deep vein thrombosis prophylaxis addressed. Plan: Likely discharge in a.m. follow up with Pulmonology as outpatient. SA/MODL Voice ID: [id number] Report ID: [id number]
[2018-07-31] MEDS ORDERED: TRAZODONE 150 MG TAB PO SCH (21:00)
[2018-07-31] MEDS ORDERED: RISPERIDONE 0.25 MG TABLET PO SCH (21:00)
[2018-07-31] MEDS: LITHIUM CARBONATE 300 MG TAB PO SCH (21:03)
[2018-07-31] MEDS: IPRATROPIUM BROM 0.5MG/2.5ML NEB PRN (22:10)
[2018-07-31] MEDS: ALBUTEROL 2.5 MG/3 ML NEB SOL NEB PRN (22:10)
--- NOTE | 2018-08-01 06:52 | EKG ---
Test Date: 2018-07-31 Test Time: 22:59:30 Merchandising Stock Associate: RT-O MEASUREMENT RESULTS: Intervals: Rate: 84 MD: 200 QRSD: 90 QT: 444 QTc: 524 [place]: P: 82 MD: 200 QRS: 247 T: 53 INTERPRETIVE STATEMENTS: Normal sinus rhythm Indeterminate axis Cannot rule out Anterior infarct, age undetermined Prolonged QT Abnormal ECG Compared to ECG 07/27/2018 20:31:20 Indeterminate axis now present Myocardial infarct finding now present Electronically Signed On 08-01-18 06:51:38 TELE RN by Earl Ramirez
[2018-08-01] MEDS: INSULIN -REGULAR HUMAN 50 UNIT/0.5 ML ML SQ SCH ×3 (07:30→16:30)
[2018-08-01] MEDS ORDERED: AMIODARONE HCL 200 MG TAB PO SCH (09:00)
[2018-08-01] MEDS: CITALOPRAM 10 MG TABLET PO SCH (09:20)
[2018-08-01] MEDS: clonazePAM 0.5 MG TAB PO SCH (09:20)
[2018-08-01] MEDS: FUROSEMIDE 40 MG TABLET PO SCH (09:20)
[2018-08-01] MEDS: METFORMIN ER 500 MG TAB PO SCH ×2 (09:20→17:01)
[2018-08-01] MEDS: DULERA 100/5 (MOMETASONE/FORMOTEROL) INHALER IH SCH (09:21)
[2018-08-01] MEDS: ACETAMINOPHEN 325 MG TABLET PO PRN ×2 (10:36→18:15)
--- NOTE | 2018-08-01 10:41 | P.PN ---
Subjective Date of Service: 08/01/18 Chief Complaint: Pulmonary hypertension Patient's condition stable right heart cath shows severe pulmonary hypertension Review of Systems General: Weakness Respiratory: Shortness of Breath Physical Examination - Vital Signs Temperature: 97.6 F Blood Pressure: 113/64 Pulse: 88 Respirations: 20 Pulse Ox (%): 95 - Physical Exam General: Alert, In no apparent distress, Oriented x3 HEENT: Atraumatic Neck: Supple Respiratory: Clear to auscultation bilaterally, Diminished Assessment & Plan - Problems (Diagnosis) (1) Pulmonary hypertension Onset Date: 07/30/18 Current Visit: Yes Status: Acute Plan: Patient has severe pulmonary hypertension by a right-sided cardiac catheterization normal coronary artery . She will qualify for home O2 patient can be discharged home on a bronchodilator lead outpatient pulmonary function testing including treatment for her severe pulmonary hypertension can discharge home follow up with me in 1 or 2 weeks Discharge Plan: Home
[2018-08-01 11:19] VITALS: O2SAT 95
[2018-08-01 12:57] VITALS: TEMP 97.5
[2018-08-01 17:05] VITALS: BP 121/64
--- NOTE | 2018-08-02 12:15 | DS ---
Date of Discharge: 08/01/2018 Consultants: Dr. Lomeli with Pulmonology, Dr. Leblanc with Cardiology. Procedures: On 07/31/2018, left and right heart catheterization. Postoperative Diagnoses: Normal coronary arteries. Severe pulmonary hypertension. Admitting Diagnoses: 1.Acute respiratory failure with hypoxia. 2.Chronic obstructive pulmonary disease, chronic bronchitis. 3.Pulmonary hypertension. Discharge Diagnoses: 1.Acute respiratory failure with hypoxia. 2.Acute on chronic congestive heart failure, diastolic dysfunction. 3.Severe pulmonary hypertension. 4.Diabetes mellitus type 2 with hyperglycemia, [id number]. 5.Atrial fibrillation, paroxysmal. 6.Amiodarone discontinued due to pulmonary hypertension. 7.Hypokalemia, corrected. 8.Bipolar disorder, stable. 9.Elevated D-dimer. Pulmonary embolism ruled out. 10.Hilar lymphadenopathy. The patient will need a followup CT scan in 3-6 months to ensure resoluti on of adenopathy. Hospital Course: The patient is a 63-year-old female with past medical history of COPD, former smoke r, sleep apnea, noncompliant with CPAP, pulmonary hypertension, diabetes, who comes in with progressi ve shortness of breath. The patient was hypoxemic and had to be placed on supplemental oxygen. Ches t x-ray showed pulmonary edema. She was started on diuresis. D-dimer was also elevated. CT angio c hest was done, which did not show any PE, but did show some hilar and mediastinal lymphadenopathy. T he patient was seen by Pulmonology and Cardiology for her pulmonary hypertension. The patient had ri ght and left heart catheterization done, which showed normal coronaries, however, did confirm severe pulmonary hypertension. The patient was seen by Pulmonology regarding her pulmonary hypertension and she will need outpatient PFTs and follow up with Dr. Lomeli, to be started on medications for her pulmonary hypertension. The patient overall did not appear septic. Her amiodarone was discontinued due to side effects and should be avoided in the patient with pulmonary hypertension. The patient wa s requiring supplemental oxygen and room air saturations were 87%. The patient qualified for oxygen and was set up. The patient was then cleared for discharge from design consultant's standpoint. The patien t was discharged home in a stable condition. Activity: No strenuous activity. Diet: Low-sodium, fluid-restricted diet. Followup: Follow up with PCP in 2-3 days. Follow up with human resources technician, Dr. Lomeli in 2 weeks. R eturn to ER for worsening condition. Physical Examination: General: Awake, alert, oriented x3. No acute distress. CV: S1, S2. Peripheral pulse is present. Respiratory: Moving air well bilaterally. No wheezing. Gastrointestinal: Abdomen is soft, nontender, nondistended. Positive bowel sounds. Extremities: No clubbing, cyanosis, edema. Neurologic: Nonfocal. Total time spent discharging the patient was 38 minutes. /KENNY Voice ID: [id number] Report ID: [id number]
== END 2018-08-01 19:55 | disposition home or self-care (01) | DRG 286 ==
LOC: ER 18:46 → ERHOLD 07-28 00:53 → 4TH 07-28 01:52 → OBSVTOIN 07-28 10:16
PROVIDERS: ADMIT Internal Medicine; ATTEND Family Medicine
PROC: 4A023N7 Measurement of Cardiac Sampling and Pressure, Left Heart, Percutaneous Approach (ICD-10-PCS; principal; 2018-07-31)
PROC: B211YZZ Fluoroscopy of Multiple Coronary Arteries using Other Contrast (ICD-10-PCS; 2018-07-31)
PROC: 02HQ32Z Insertion of Monitoring Device into Right Pulmonary Artery, Percutaneous Approach (ICD-10-PCS; 2018-07-31)
PROC: 4A133B3 Monitoring of Arterial Pressure, Pulmonary, Percutaneous Approach (ICD-10-PCS; 2018-07-31)
PROC: 4A1239Z Monitoring of Cardiac Output, Percutaneous Approach (ICD-10-PCS; 2018-07-31)
DX: I50.33 Acute on chronic diastolic (congestive) heart failure (principal); J96.01 Acute respiratory failure with hypoxia; I27.20 Pulmonary hypertension, unspecified; E11.65 Type 2 diabetes mellitus with hyperglycemia; Z79.84 Long term (current) use of oral hypoglycemic drugs; I48.0 Paroxysmal atrial fibrillation; E87.6 Hypokalemia; F31.9 Bipolar disorder, unspecified; R59.1 Generalized enlarged lymph nodes; J44.9 Chronic obstructive pulmonary disease, unspecified; Z87.891 Personal history of nicotine dependence; Z91.19 Patient's noncompliance with other medical treatment and regimen; Z88.0 Allergy status to penicillin; Z79.01 Long term (current) use of anticoagulants; I34.2 Nonrheumatic mitral (valve) stenosis
CPT/HCPCS: 36415; 71045; 71275; 80048; 80053; 80076; 81003; 82805; 82962; 83036; 83605; 83735; 83880; 84132; 84145; 84484; 85025; 85379; 85610; 87040; 87804; 93005; 93306; 93456; 94640; 97112; 97116; 97162; 99285; C1760; C1893; J0583; J1650; J1940; J2250; J3010; J7030; J7606; Q9967

== ENCOUNTER 2018-09-05 17:52 | Inpatient (IN) | payer OTHER ==
--- OUTSIDE RECORDS SUMMARY | 2018-09-05 18:24 | XMS REPORT | Continuity of Care Document ---
:1955 Author Organization Interface Problems Problem Status Onset Classification Date Comments Source Date Reported J444.9 Active 06/03/20 [facility] 15 729.89 - Active 04/19/20 [facility] MUSCSKEL SYMPT 15 [place] RESP FAILURE, Active 03/27/20 [facility] CHF 15 EXACERBATION COPD Active 12/15/19 [place] EXACERB[place], [place] CHF EXACERBATION LOW OXYGEN, Active 12/15/[address] [place] [address] Clarissa Syed LUNG Active 10/30/19 [place] ABNORMALITY-793 [place] .19 RESPIRATORY Active 07/12/20 [place] FAILURE [address] [place] [address] Center LFLT Active 07/12/20 [place] TRANSFER#[id number] [place] [address] Depression Active Problem 10/30/2015 [facility] [place] Anxiety Active Problem 02/07/2018 [facility] [place] Atrial Active Problem 02/07/2018 [facility] Fibrillation [place] Atrial Resolved Problem 02/07/2018 [facility] fibrillation [place] Back pain Active Problem 02/07/2018 [facility] [place] Chest pain Active Problem 02/07/2018 [facility] [place] Congestive Resolved Problem 02/07/2018 [facility] heart failure [place] COPD Active Problem 02/07/2018 [facility] [place] Cough Active Problem 02/07/2018 [facility] [place] Depression Active Problem 02/07/2018 [facility] [place] Diabetes Resolved Problem 02/07/2018 [facility] [place] HTN Active Problem 02/07/2018 [facility] [place] Hypertension Resolved Problem 02/07/2018 [facility] [place] Myeloma Resolved Problem 02/07/2018 [facility] [place] NIDDM Active Problem 02/07/2018 [facility] [place] INA (<span Active Problem 02/07/2018 [facility] ID="[id number]" [place] >Confirmed</spa [place], n>) [facility] Simple obesity Active Problem 02/07/2018 [facility] Sleep apnea, Resolved Problem 02/07/2018 [facility] obstructive [place] ACUTE Active [facility] RESPIRATORY FAILUR RESPIRATORY Active [place] [facility]OM[facility] CHR AIRWAY Active [place] OBSTRUCT NEC [place] CHF NOS Active [place] Medications Medication Details Route Status Patient Ordering Order Source Instructions Provider Date cefpodoxime 200 mg 400 mg=2 tab, Active oral tablet PO, Q12H, # 14 2014 [facility] tab, 0 Refill(s) Lantus 10 unit, Inactive Route: SUB-Q, 2014 [facility] Bedtime, Dosing Weight 84.1, kg, Start date: 03/29/15 21:00:00, Duration: 30 day, Stop date: 04/27/15 21:00:00 lamotrigine 100 MG 100 mg, 1 tab, No Longer Oral Tablet Route: PO, Active 2014 [facility] Drug form: TAB, Bedtime, Dosing Weight 84.1, kg, Start date: 03/29/15 21:00:00, Duration: 30 day, Stop date: 04/27/15 21:00:00Notes: (Same as:LaMICtal) Levemir FlexPen 10 unit, 0.1 No Longer mL, Route: Active 2014 [facility] SUB-Q, Drug form: INJ, Bedtime, Start date: 03/29/15 21:00:00, Duration: 30 day, Stop date: 04/27/15 21:00:00Notes: Same as Levemir Do not hold insulin without contacting prescriber "single patient use only" Symbicort 160/4.5 2 inhalation, No Longer inhalation aerosol Route: Active 2014 [facility] with adapter INHALER, Drug Form: AERO/A, Dosing Weight 84.1, kg, BID, Start date: 03/29/15 20:00:00, Duration: 30 day, Stop date: 04/28/15 17:00:00Notes: (Same as: Symbicort) Methocarbamol 750 mg, 1 tab, No Longer Route: PO, Active 2014 [facility] Drug form: TAB, TID, Dosing Weight 84.1, kg, Start date: 03/29/15 20:00:00, Duration: 30 day, Stop date: 04/28/15 17:00:00Notes: (Same as:Robaxin) Alprazolam 0.25 mg, 1 No Longer tab, Route: Active 2014 [facility] PO, Drug form: TAB, BID, Dosing Weight 84.1, kg, PRN as needed for anxiety, Start date: 03/29/15 18:44:00, Duration: 30 day, Stop date: 04/28/15 18:43:00Notes: With food or milk (Same as: Xanax) torsemide 100 mg, 5 tab, No Longer Route: PO, Active 2014 [facility] Drug form: TAB, Daily, Dosing Weight 84.1, kg, Start date: 03/29/15 18:30:00, Stop date: 04/28/15 9:00:00Notes: (Same As: Demadex) Vantin 400 mg, 2 tab, No Longer Route: PO, 2014 [facility] Drug form: TAB, Q12H, Dosing Weight 84.1, kg, Start date: 03/29/15 11:00:00, Stop date: 04/02/15 22:00:00Notes: With food. (Same As: Vantin) Fenofibrate 135 mg, Route: No Longer PO, Daily, Active 2014 [facility] Dosing Weight 84.1, kg, Start date: 03/29/15 9:00:00, Duration: 30 day, Stop date: 04/27/15 9:00:00 sennosides, NURSING HOME 17.2 mg, 2 No Longer tab, Route: Active 2014 [facility] PO, Drug Form: TAB, Dosing Weight 84.1, kg, Daily, Start date: 03/29/15 9:00:00, Duration: 30 day, Stop date: 04/27/15 9:00:00Notes: (Same as: Senokot) duloxetine 60 mg, 1 cap, No Longer Route: PO, Active 2014 [facility] Drug form: DRC, Daily, Dosing Weight 84.1, kg, Start date: 03/29/15 9:00:00, Duration: 30 day, Stop date: 04/27/15 9:00:00Notes: (Same as: Cymbalta) (Do Not Crush) Amitriptyline 2 tab, Route: Inactive Hydrochloride 25 PO, Drug Form: 2014 [facility] MG / Perphenazine TAB, Dosing 4 MG Oral Tablet Weight 84.1, kg, Bedtime, Start date: 03/28/15 21:00:00, Duration: 30 day, Stop date: 04/26/15 21:00:00 Trilafon 8 mg, 4 tab, No Longer Route: PO, Active 2014 [facility] Drug form: TAB, Bedtime, Start date: 03/28/15 21:00:00, Duration: 30 day, Stop date: 04/26/15 21:00:00Notes: (Same as: Trilafon) amitriptyline 50 mg, 1 tab, No Longer Route: PO, Active 2014 [facility] Drug form: TAB, Bedtime, Start date: 03/28/15 21:00:00, Duration: 30 day, Stop date: 04/26/15 21:00:00Notes: (Same as: Elavil) lithium 600 mg, 2 tab, No Longer Route: PO, Active 2014 [facility] Drug form: TAB, QPM, Dosing Weight 84.1, kg, Start date: 03/28/15 17:00:00, Duration: 30 day, Stop date: 04/26/15 17:00:00Notes: Give with food. (Same as: Eskalith) Xarelto 20 mg, 2 tab, No Longer Route: PO, Active 2014 [facility] Drug form: TAB, QPM, Dosing Weight 84.091, kg, Start date: 03/28/15 17:00:00, Duration: 30 day, Stop date: 04/26/15 17:00:00Notes: (Same as: Xarelto) Do Not Crush TriCor 145 mg, 1 tab, No Longer Route: PO, Active 2014 [facility] Drug form: TAB, After Dinner, Start date: 03/28/15 17:00:00, Duration: 30 day, Stop date: 04/26/15 17:00:00Notes: (Same as: Tricor) Lovenox 40 mg, 0.4 mL, No Longer Route: SUB-Q, Active 2014 [facility] Drug form: INJ, [id number], Dosing Weight 84.1, kg, Start date: 03/28/15 15:00:00, Duration: 30 day, Stop date: 04/26/15 15:00:00Notes: (Same as: Lovenox) Ativan 2 mg, 1 tab, No Longer Route: PO, Active 2014 [facility] Drug form: TAB, TID, Dosing Weight 84.1, kg, PRN Anxiety, Start date: 03/28/15 14:51:00, Duration: 30 day, Stop date: 04/27/15 14:50:00Notes: (Same as: Ativan) Albuterol 0.833 3 mL, Route: No Longer MG/ML / INHALATION, Active 2014 [facility] Ipratropium Drug Form: [place] 0.167 SOLN, Dosing MG/ML Inhalant Weight 84.1, Solution kg, RQID, Start date: 03/28/15 11:00:00, Duration: 30 day, Stop date: 04/27/15 7:00:00Notes: (Same as: Duoneb) Nicotine 21 mg, 1 No Longer patch, Route: Active 2014 [facility], Drug form: ERFILM, Daily, Dosing Weight 84.1, kg, Start date: 03/28/15 10:09:00, Duration: 30 day, Stop date: 04/27/15 9:00:00Notes: (Same as: Habitrol) "Remove old patch before application of new patch" glucagon 1 mg, Route: No Longer INJ, Drug Active 2014 [facility] form: PDR/INJ, PRN, PRN Blood Glucose Results, Start date: 03/28/15 9:18:00, Duration: 30 day, Stop date: 04/27/15 9:17:00 Dextrose 50% in 50 mL, Route: No Longer Water IV IVP, Start Active 2014 [facility] date: 03/28/15 9:18:00, Duration: 30 day, Stop date: 04/27/15 9:17:00, PRN Blood Glucose Results NovoLOG FlexPen 12 unit, 0.12 No Longer mL, Route: Active 2014 [facility] SUB-Q, Drug form: SOLN, Sliding Scale, PRN Blood Glucose Results, Start date: 03/28/15 9:18:00, Duration: 30 day, Stop date: 04/27/15 9:17:00Notes: Roll in palms of hands gently; Do not shake vigorously. (Same as: NovoLOG) "single patient use only" Stable for 28 days at room temperature. Expires in days from Date Lasix 40 mg, 4 mL, Inactive Route: IVP, 2014 [facility] Drug form: INJ, Daily, Dosing Weight 84.1, kg, Start date: 03/28/15 9:17:00, Duration: 30 day, Stop date: 04/27/15 9:00:00Notes: (Same as: Lasix) MEDICATION WASTE Product Size: 40 mg Product Wasted: ___ mg normal saline 0.9% 1,000 mL, Inactive IV 1000 mL Rate: 75 2014 [facility] ml/hr, Infuse over: 13.3 hr, Route: IV, Dosing Weight 84.1 kg, Total Volume: 1,000, Start date: 03/28/15 9:14:00, Duration: 30 day, Stop date: 04/27/15 9:13:00 Hydrocodone 1 tab, Route: No Longer Bitartrate 5 MG / PO, Drug Form: Active 2014 [facility] Ibuprofen 200 MG TAB, Dosing Oral Tablet Weight 84.1, kg, Q4H, PRN Pain Score 4-6, Start date: 03/28/15 9:08:00, Duration: 30 day, Stop date: 04/27/15 9:07:00Notes: (Same as: Vicoprofen) Saline Flush 0.9% 10 ml, Route: Inactive IVP, Drug 2014 [facility] Form: INJ, Dosing Weight 84.091, kg, Q12H, Start date: 03/28/15 9:00:00, Duration: 30 day, Stop date: 04/26/15 21:00:00Notes: (Same as: BD Posiflush) Famotidine 20 mg, 1 tab, No Longer Route: PO, Active 2014 [facility] Drug form: TAB, Q12H, Dosing Weight 84.091, kg, Start date: 03/28/15 9:00:00, Duration: 30 day, Stop date: 04/26/15 21:00:00Notes: (Same as: Pepcid) vancomycin 1.25 gm, 250 No Longer mL, Route: Active 2014 [facility] IVPB, Drug form: INJ, [id number], Start date: 03/28/15 9:00:00, Duration: 30 day, Stop date: 04/26/15 21:00:00Notes: TIME CRITICAL MEDICATION Same as: Vancocin-NS (premixed) Infusion rate 2001 mg: infuse over 2.5 hours Amiodarone 200 mg, 1 tab, No Longer Route: PO, Active 2014 [facility] Drug form: TAB, Daily, Dosing Weight 84.091, kg, Start date: 03/28/15 9:00:00, Duration: 30 day, Stop date: 04/26/15 9:00:00Notes: (Same as: Cordarone) pneumococcal 0.5 mL, Route: No Longer capsular IM, Drug Form: Active 2014 [facility] polysaccharide INJ, ONCALL, type 1 vaccine / Start date: pneumococcal 03/28/15 capsular 2:44:42, Stop polysaccharide date: 04/27/15 type 10A vaccine / 2:39:42Notes: pneumococcal (Same as: capsular Pneumovax 23) polysaccharide Refrigerate type 11A vaccine / pneumococcal capsular polysaccharide type 12F vaccine / pneumococcal capsular polysacchar meropenem 500 mg, Route: No Longer IVPB, Drug Active 2014 [facility] form: PDR/INJ, [id number], Dosing Weight 84.091, kg, CrCL >=50ml/min, Extended infusion, infuse over 3 hours, Start date: 03/28/15 2:00:00, Duration: 30 day, Stop date: 04/26/15 20:00:00Notes: Same as [place] MEDICATION WASTE Product Size: 500 mg Product Wasted: ___ mg Dextrose 50% in 25 gm, 50 mL, Inactive Water IV Route: IVP, 2014 [facility] Drug Form: INJ, PRN, PRN Blood Glucose Results, Start date: 03/28/15 1:05:00, Duration: 30 day, Stop date: 04/27/15 1:04:00 glucagon 1 mg, Route: Inactive IV, Drug form: 2014 [facility] PDR/INJ, PRN, PRN Blood Glucose Results, Start date: 03/28/15 1:05:00, Duration: 30 day, Stop date: 04/27/15 1:04:00 NovoLOG FlexPen 8 unit, 0.08 Inactive mL, Route: 2014 [facility] SUB-Q, Drug form: SOLN, Sliding Scale, PRN Blood Glucose Results, Start date: 03/28/15 1:04:00, Duration: 30 day, Stop date: 04/27/15 1:03:00Notes: Roll in palms of hands gently; Do not shake vigorously. (Same as: NovoLOG) "single patient use only" Stable for 28 days at room temperature. Expires in days from Date Vancomycin 1 ea, Route: Inactive MISC, Dosing 2014 [facility] Weight 84.091, kg, ONCALL, Start date: 03/28/15 1:00:00, Duration: 1 doses or times, Pharmacy to doseSpecial Instructions: Pharmacy to dose glucagon 1 mg, Route: Inactive INJ, Drug 2014 [facility] form: PDR/INJ, PRN, PRN Blood Glucose Results, Start date: 03/28/15 0:10:00, Duration: 30 day, Stop date: 04/27/15 0:09:00 NovoLOG FlexPen 5 unit, 0.05 Inactive mL, Route: 2014 [facility] SUB-Q, Drug form: SOLN, Sliding Scale, PRN Blood Glucose Results, Start date: 03/28/15 0:09:00, Duration: 30 day, Stop date: 04/27/15 0:08:00Notes: Roll in palms of hands gently; Do not shake vigorously. (Same as: NovoLOG) "single patient use only" Stable for 28 days at room temperature. Expires in days from Date Dextrose 50% in 25 gm, 50 mL, Inactive Water IV Route: IVP, 2014 [facility] Drug Form: INJ, PRN, PRN Blood Glucose Results, Start date: 03/28/15 0:09:00, Duration: 30 day, Stop date: 04/27/15 0:08:00 lithium 300 mg 600 mg=2 tab, Active oral tablet PO, Bedtime, # 2015 [facility] 60 tab, 1 Refill(s) Lantus 20 unit, Active SUB-Q, 2014 [facility] Bedtime, 0 Refill(s) Zolpidem tartrate 10 mg=1 tab, Active 10 MG Oral Tablet PO, Bedtime, # 2014 [facility] [Ambien] 14 tab, 0 Refill(s) lamotrigine 100 MG 100 mg=1 tab, Active Oral Tablet PO, Bedtime, # 2014 [facility] 30 tab, 1 Refill(s) Symbicort 160/4.5 2 puff, Active inhalation aerosol INHALER, BID, 2015 [facility] with adapter # 1 ea, 3 Refill(s) Sodium Chloride 250 mL, Route: No Longer 0.9% IV IVPB, Start Active 2014 [facility] date: 03/27/15 22:38:00, Duration: 30 day, Stop date: 04/26/15 22:37:00, PRN Line Flush Saline Flush 0.9% 10 ml, Route: No Longer IVP, Drug Active 2014 [facility] Form: INJ, Dosing Weight 84.091, kg, PRN, PRN Line Flush, Start date: 03/27/15 22:33:00, Duration: 30 day, Stop date: 04/26/15 22:32:00Notes: (Same as: BD Posiflush) Albuterol 0.833 3 ml, Route: No Longer MG/ML / NEB, Drug Active 2014 [facility] Ipratropium Form: SOLN, [place] 0.167 Dosing Weight MG/ML Inhalant 84.091, kg, Solution PRN, PRN Respiratory Protocol, Start date: 03/27/15 22:33:00, Duration: 30 day, Stop date: 04/26/15 22:32:00Notes: (Same as: Duoneb) Acetaminophen 650 mg, 2 tab, No Longer Route: PO, Active 2014 [facility] Drug form: TAB, Q4H, Dosing Weight 84.091, kg, PRN For Temp > 100.4 F, Start date: 03/27/15 22:33:00, Duration: 30 day, Stop date: 04/26/15 22:32:00Notes: Do not exceed 4 gm/day. (Same as: Tylenol) predniSONE 20 mg See Special Active [place] oral tablet Instructions, 2014 [facility] PO, Daily, 4 day regimen: Day 1 [...] mg oral tablet PO, Daily, X 5 2014, # 5 tab, 0 Refill(s) Albuterol 0.833 3 ml, Active [place] MG/ML / INHALATION, 2014 [facility] Ipratropium QID, # 30 ea, [place] 0.167 0 Refill(s) MG/ML Inhalant Solution torsemide 100 mg, 5 tab, Inactive [place] Route: PO, 2014 [facility] Drug form: TAB, Daily, Dosing Weight 84.091, kg, Start date: 12/16/14 9:00:00, Duration: 30 day, Stop date: 01/14/15 9:00:00Notes: (Same As: Demadex) TriCor 145 mg, 1 tab, Inactive [place] Route: PO, 2014 [facility] Drug form: TAB, Daily, Start date: 12/16/14 9:00:00, Duration: 30 day, Stop date: 01/14/15 9:00:00Notes: (Same as: Tricor) Trilipix 135 mg, Route: No Longer [place] PO, Drug form: Active 2014 [facility] CAP, Daily, Dosing Weight 84.091, kg, Start date: 12/16/14 9:00:00, Duration: 30 day, Stop date: 01/14/15 9:00:00 insulin detemir 20 unit, 0.2 No Longer [place] mL, Route: Active 2014 [facility] SUB-Q, Drug form: INJ, Bedtime, Dosing Weight 84.091, kg, Start date: 12/15/14 21:00:00, Duration: 30 day, Stop date: 01/13/15 21:00:00Notes: Same as Levemir Do not hold insulin without contacting prescriber "single patient use only" lithium 450 mg, Route: No Longer [place] PO, Drug form: Active 2014 [facility] ERTAB, Bedtime, Dosing Weight 84.091, kg, Start date: 12/15/14 21:00:00, Duration: 30 day, Stop date: 01/13/15 21:00:00 Amitriptyline 2 tab, Route: No Longer [place] Hydrochloride 25 PO, Drug Form: Active 2014 [facility] MG / Perphenazine TAB, Dosing 4 MG Oral Tablet Weight 84.091, kg, Bedtime, Start date: 12/15/14 21:00:00, Duration: 30 day, Stop date: 01/13/15 21:00:00 Levofloxacin 750 mg, 150 No Longer [place] mL, Route: Active 2014 [facility] IVPB, Drug form: SOLN, Daily, Dosing Weight 83.636, kg, Start date: 12/15/14 20:00:00, Duration: 30 day, Stop date: 01/13/15 20:00:00Notes: (Same as:Levaquin) Xarelto 20 mg, 1 tab, No Longer Sugar Route: PO, Active 2014 [facility] Drug form: TAB, QPM, Dosing Weight 84.091, kg, Start date: 12/15/14 17:00:00, Duration: 30 day, Stop date: 01/13/15 17:00:00Notes: (Same as: Xarelto) Administer with food duloxetine 60 mg, 2 cap, No Longer 05/13/ [facility] Route: PO, Active 2014 Drug form: [...] Route: PO, Active 2014 Drug form: TAB, Daily, Dosing Weight [...] mg, 1 No Longer [place] tab, Route: 2014 PO, Drug form: TAB, BID, Dosing Weight 84.091, kg, PRN as needed for anxiety, Start date: 12/15/14 10:42:00, Duration: 30 day, Stop date: 01/14/15 10:41:00Notes: With food or milk (Same as: Xanax) Insulin, Aspart, 4 unit, 0.04 No Longer Sugar Human mL, Route: Active 2014 SUB-Q, Drug form: SOLN, Bedtime, Dosing Weight [...] Longer [place] Syringe Route: IVP, Active 2014 [facility] Drug Form: INJ, Dosing Weight 84.091, kg, PRN, PRN Blood Glucose Results, Start date: 12/15/14 10:41:00, Duration: 30 day, Stop date: 01/14/15 10:40:00 Glucagon 1 mg, Route: No Longer [place] IM, Drug form: Active 2014 [place] PDR/INJ, PRN, Dosing Weight 84.091, kg, PRN Blood Glucose Results, Start date: 12/15/14 10:41:00, Duration: 30 day, Stop date: 01/14/15 10:40:00 Omnipaque 300 100 mL, Route: Inactive [place] IV, Drug Form: 2014 SOLN, ONCE, Start date: 12/15/14 10:05:00, Stop date: 12/15/14 10:05:00Notes: (Same as:Omnipaque 300). Budesonide 0.25 1 mg, 4 ml, No Longer [place] MG/ML Inhalant Route: NEB, Active 2014 [facility] Solution Drug form: [Pulmicort] SUSP, RBID, Dosing Weight 84.091, kg, Start date: 12/15/14 9:37:00, Duration: 30 day, Stop date: 01/14/15 8:00:00Notes: (Same As: Pulmicort) Lasix 20 mg, 2 mL, No Longer Sugar Route: IV, Active 2014 [facility] Drug form: INJ, BID, Dosing Weight 83.636, [...] not exceed 4gm/day of acetaminophen. (Same as: [place] 325/10) acetaminophen-hydr 1 tab, Route: Inactive [place] ocodone 325 mg-10 PO, Drug Form: 2014 [place] mg oral tablet TAB, Dosing Weight 84.091, kg, Q4H, PRN Pain Score 1-5, prn, Start date: 12/15/14 1:20:00, Duration: 30 day, Stop date: 01/14/15 1:19:00Notes: Do not exceed 4gm/day of acetaminophen. (Same as: [place] 325/10) Acetaminophen 325 1 tab, Route: Inactive [place] MG / Hydrocodone PO, Drug Form: 2014 Bitartrate 10 MG TAB, Dosing Oral Tablet [[place] Weight 84.091, 10/325] kg, Q4H, PRN Pain Score 1-5, prn, Start date: 12/15/14 1:02:00, Duration: 30 day, Stop date: 01/14/15 1:01:00Notes: Do not exceed 4gm/day of acetaminophen. (Same as: [place] 325/10) methylPREDNISolone 40 mg, 1 mL, No Longer [place] SODium SUCCinate Route: IVP, Active 2014 Drug form: INJ, Q8H, Dosing Weight 83.636, kg, Start date: 12/15/14 0:00:00, Duration: 30 day, Stop date: 01/13/15 16:00:00Notes: (Same as:Solu-MEDROL , A-Methapred) Acetaminophen 325 1 tab, PO, Active [place] MG / Hydrocodone Q4H, PRN for 2014 Bitartrate 10 MG pain, 0 Oral Tablet [[place] Refill(s) 10/325] 24 HR Diltiazem 180 mg=1 cap, Active [place] Hydrochloride 180 PO, Daily, # 2015 [place] Extended 30 cap, 0 Release Capsule Refill(s) [Cartia] lithium 450 mg 450 mg=1 tab, Active [place] oral tablet, PO, Bedtime, # 2015 [place] extended release 60 tab, 0 Refill(s) Levofloxacin 500 mg, 100 No Longer [place] mL, Route: Active 2014 IVPB, Drug form: INJ, Daily, Dosing Weight 83.636, kg, Start date: 12/14/14 20:00:00, Duration: 30 day, Stop date: 01/12/15 20:00:00Notes: (Same as:Levaquin) Albuterol 0.833 3 mL, Route: No Longer [place] MG/ML / NEB, Drug Active 2014 I[facility] Form: SOLN, [place] 0.167 Dosing Weight MG/ML Inhalant 83.636, kg, Solution RQ6H, Start date: 12/14/14 20:00:00, Duration: 30 day, Stop date: 01/13/15 14:00:00Notes: (Same as: Dory) Albuterol 0.83 2.5 mg, 3.01 No Longer [place] MG/ML Inhalant mL, Route: Active 2014 Solution NEB, Drug form: SOLN, RQ2H, Dosing Weight 83.636, kg, PRN Wheezing, Priority: Routine, Start date: 12/14/14 19:48:00, Duration: 30 day, Stop date: 01/13/15 19:47:00Notes: SEE RT DOCUMENTATION (Same as: Proventil) potassium chloride 40 mEq, 2 tab, Inactive [place] Route: PO, 2014 Drug form: ERTAB, ONCE, Dosing Weight 83.636, kg, Priority: STAT, Start date: 12/14/14 17:48:00, Stop date: 12/14/14 17:48:00Notes: (Same as: K-Dur 20) "Do Not Crush" With food and full glass of water Ceftriaxone 1 gm, Route: Inactive [place] IVPB, Drug 2014 [place] form: PDR/INJ, ONCE, Dosing Weight 83.636, kg, Priority: STAT, Start date: 12/14/14 17:46:00, Stop date: 12/14/14 17:46:00 Lasix 40 mg, 4 mL, No Longer Sugar Route: IVP, Active 2014 Drug form: INJ, Daily, Dosing Weight 83.636, kg, Priority: STAT, Start date: 12/14/14 17:45:00, Duration: 30 day, Stop date: 01/13/15 9:00:00Notes: (Same as: Lasix) MEDICATION WASTE Product Size: 40 mg Product Wasted: ___ mg Levaquin 750 mg, 150 Inactive [place] mL, Route: IV, 2014 Drug form: SOLN, Q24H, Dosing Weight 83.636, kg, Start date: 12/14/14 17:13:00, Duration: 30 day, Stop date: 01/12/15 17:13:00Notes: (Same as:Levaquin) Solu-Medrol 125 mg, 2 mL, Inactive [place] Route: IVP, 2014 Drug form: INJ, ONCE, Dosing Weight 83.636, kg, Priority: STAT, Start date: 12/14/14 17:11:00, Stop date: 12/14/14 17:11:00Notes: (Same as:Solu-MEDROL , A-Methapred) Acetaminophen 325 1 tab, Route: Inactive [place] MG / Hydrocodone PO, Drug Form: 2014 Bitartrate 5 MG TAB, Dosing Oral Tablet [[place] Weight 83.636, 5/325] kg, ONCE, STAT, Start date: 12/14/14 17:03:00, Stop date: 12/14/14 17:03:00 Lasix 20 mg, Route: Inactive [place] IVP, Drug 2014 [place] form: INJ, ONCE, Dosing Weight 83.636, kg, Priority: STAT, Start date: 12/14/14 15:07:00, Stop date: 12/14/14 15:07:00 Albuterol 0.833 3 mL, Route: Inactive [place] MG/ML / INHALATION, 2014 [place] Ipratropium Dosing Weight [place] 0.167 83.636, kg, MG/ML Inhalant ONCE, Start [...] Active [place] hydrochloride 1000 tab, PO, BID, 2015 [place] MG Oral Tablet 0 Refill(s) duloxetine [...] rivaroxaban 20 MG 20 mg=1 tab, Active 04/10/ [facility] Oral Tablet PO, QPM, 0 2014 [place] [Xarelto] Refill(s) Allergies, Adverse Reactions, Alerts Substance Category Reaction Severity Reaction Status Date Comments Source type Reported penicillins Assertion hivpaulswel High Drug Active [facility] ling allergy 2 [place] Immunizations Immunization Date Given Site Status Last Updated Comments Source Results Order Name Results Value Reference Date Interpretation Comments Source Range Spine Spine lumbar Examination: Spine lumbar wo contrast MRI 04/20 - [facility] lumbar wo wo contrast /2014 - [place] contrast MRI MRI History: 729.89 bilateral leg [...] is not recommended in the following populations: [place] [id number] Individuals with unstable creatinine concentrations, including patients [...] Lvl 9.2 mg/dL 8.5 - 10.5 03/30 [facility] CHEM PANEL Sodium Lvl 141 meq/L 135 - 145 03/30 [facility] CHEM PANEL Potassium 3.5 meq/L 3.5 - 5.1 03/30 [facility] CHEM PANEL Chloride Lvl 104 meq/L 95 - 109 03/30 [facility] CHEM PANEL CO2 28 meq/L 24 - 32 03/30 [facility] CHEM PANEL BUN 17 mg/dL 7 - 22 03/30 [facility] CHEM PANEL Creatinine 0.7 mg/dL 0.5 - 1.4 03/30 [facility] CHEM PANEL Glucose Lvl 126 mg/dL 70 - 99 03/30 [facility] CHEM PANEL AGAP 12.5 meq/L 10.0 - 03/30 20.0 [facility] CHEM PANEL Lactic Acid 1.1 mMol/L 0.5 - 2.2 03/30 [facility] CHEM PANEL Magnesium 1.9 mg/dL 1.8 - 2.4 03/30 [facility] CHEM PANEL Phosphorus 3.3 mg/dL 2.5 - 4.5 03/30 [facility] HEMATOLOGY Lymphocytes 15.3 % 20.0 - 03/30 40.0 [facility] HEMATOLOGY Segs 75.3 % 45.0 - 03/30 75.0 [facility] HEMATOLOGY Basophils # 0.1 K/CMM 0.0 - 0.2 03/30 [facility] HEMATOLOGY Eosinophils 0.2 K/CMM 0.0 - 0.5 03/30 /2014 [facility] HEMATOLOGY Monocytes # 0.5 K/CMM 0.0 - 0.8 03/30 [facility] HEMATOLOGY Lymphocytes 1.3 K/CMM 1.0 - 5.5 03/30 MH # /2014 [facility] HEMATOLOGY Segs-Bands # 6.2 K/CMM 1.5 - 8.1 03/30 [facility] HEMATOLOGY Eosinophils 2.9 % 0.0 - 4.0 03/30 [facility] HEMATOLOGY Monocytes 5.9 % 2.0 - 12.0 03/30 [facility] HEMATOLOGY Basophils 0.6 % 0.0 - 1.0 03/30 [facility] HEMATOLOGY RBC 4.14 M/CMM 4.20 - 03/30 MH 5.40 /2014 [facility] HEMATOLOGY WBC 8.2 K/CMM 3.7 - 10.4 03/30 [facility] HEMATOLOGY MPV 8.0 fL 7.4 - 10.4 03/30 [facility] HEMATOLOGY Hgb 10.9 g/dL 12.0 - 03/30 16.0 [facility] HEMATOLOGY MCHC 31.8 g/dL 32.0 - 03/30 36.0 [facility] HEMATOLOGY MCH 26.4 pg 27.0 - 03/30 MH 31.0 [facility] HEMATOLOGY MCV 83.0 fL 80.0 - 03/30 MH 98.0 [facility] HEMATOLOGY Hct 34.4 % 36.0 - 03/30 48.0 [facility] HEMATOLOGY Platelet 316 K/CMM 133 - 450 03/30 [facility] HEMATOLOGY RDW 23.7 % 11.5 - 03/30 MH 14.5 [facility] PARATHYROI Ca Norm WB 1.14 1.05 - 03/30 D PROFILE mMol/L 1. [facility] PARATHYROI Ca Ion WB 1.10 1.05 - 03/30 D PROFILE mMol/L . [facility] METAL [place] Lvl 0.66 meq/L 0.50 - 03/29 MH 1.50 [facility] TOXICOLOGY Vanco Tr TND [id number] 03/29 [facility] TOXICOLOGY Vanco Tr 12.9 ug/ml 03/29 [facility] CHEM PANEL Phosphorus 3.0 mg/dL 2.5 - 4.5 03/29 [facility] CHEM PANEL Magnesium 2.2 mg/dL 1.8 - 2.4 03/29 Lv [facility] CHEM PANEL Procalcitoni 2.02 ng/mL 0.00 - 03/29 Result n Lvl 0.10 Comment: [facility] Critical Result(s) called to daniel at 03/29/2015 06:03 by gp. Read back OK. ELECTROLYT AGAP 8.8 meq/L 10.0 - 03/29 ES 20.0 [facility] ELECTROLYT eGFR 96 03/29 Result Comment: The [...] is not recommended in the following populations: [facility] 3m2 Individuals with unstable creatinine concentrations, including [...] Lvl 143 meq/L 135 - 145 03/29 [facility] ELECTROLYT Creatinine 0.7 mg/dL 0.5 - 1.4 03/29 ES Lv [facility] ELECTROLYT BUN 13 mg/dL 7 - 22 03/29 [facility] ELECTROLYT Glucose Lvl 136 mg/dL 70 - 99 03/29 [facility] ELECTROLYT Calcium Lvl 8.9 mg/dL 8.5 - 10.5 03/29 ES [facility] ELECTROLYT CO2 30 meq/L 24 - 32 03/29 ES [facility] ELECTROLYT Chloride Lvl 108 meq/L 95 - 109 03/29 ES [facility] ELECTROLYT Potassium 3.8 meq/L 3.5 - 5.1 03/29 ES Lv [facility] CHEM PANEL Lactic Acid 1.3 mMol/L 0.5 - 2.2 03/29 Lv [facility] HEMATOLOGY Lymphocytes 12.0 % 20.0 - 03/29 MH 40.0 /2014 [facility] HEMATOLOGY Segs 83.2 % 45.0 - 03/29 MH 75.0 /2014 [facility] HEMATOLOGY Plt Morph Normal 03/29 /2014 [facility] (03/29/15 3:50 AM) HEMATOLOGY Monocytes 4.0 % 2.0 - 12.0 03/29 [facility] HEMATOLOGY Lymphocytes 1.3 K/CMM 1.0 - 5.5 03/29 # /2014 [facility] HEMATOLOGY Segs-Bands # 9.4 K/CMM 1.5 - 8.1 03/29 [facility] HEMATOLOGY Basophils 0.2 % 0.0 - 1.0 03/29 [facility] HEMATOLOGY Eosinophils 0.6 % 0.0 - 4.0 03/29 [facility] HEMATOLOGY Polychrom Moderate None Seen 03/29 [facility] *ABN* (03/29/15 3:50 AM) HEMATOLOGY Eosinophils 0.1 K/CMM 0.0 - 0.5 03/29 # /2014 [facility] HEMATOLOGY Monocytes # 0.5 K/CMM 0.0 - 0.8 03/29 [facility] HEMATOLOGY MPV 8.8 fL 7.4 - 10.4 03/29 [facility] HEMATOLOGY WBC 11.3 K/CMM 3.7 - 10.4 03/29 [facility] HEMATOLOGY RBC 3.61 M/CMM 4.20 - 03/29 MH 5.40 /2014 [facility] HEMATOLOGY MCV 83.8 fL 80.0 - 03/29 98.0 /2014 [facility] HEMATOLOGY MCH 26.5 pg 27.0 - 03/29 31.0 [facility] HEMATOLOGY Hgb 9.6 g/dL 12.0 - 03/29 16.0 [facility] HEMATOLOGY Hct 30.3 % 36.0 - 03/29 MH 48.0 /2014 [facility] HEMATOLOGY RDW 24.3 % 11.5 - 03/29 14.5 /2014 [facility] HEMATOLOGY Platelet 280 K/CMM 133 - 450 03/29 [facility] HEMATOLOGY MCHC 31.6 g/dL 32.0 - 03/29 36.0 [facility] PARATHYROI Ca Norm WB 1.08 1.05 - 03/29 MH D PROFILE mMol/L 08.29 [facility] PARATHYROI Ca Ion WB 1.10 1.05 - 03/29 D PROFILE mMol/L 08.29 [facility] CARDIAC CK MB Index 3.0 0.0 - 2.5 08/24 MH ENZYMES /2014 [facility] CARDIAC Total CK 47 unit/L 12 - 191 03/28 MH ENZYMES /2014 [facility] CARDIAC CK MB 1.4 ng/mL 0.5 - 3.6 03/28 MH ENZYMES /2014 [facility] CARDIAC Troponin-I null 0.00 - 03/28 MH ENZYMES 0.40 [facility] CHEM PANEL Procalcitoni 2.09 ng/mL 0.00 - 03/28 Result n Lvl 0.10 Comment: [facility] Critical Result(s) called to alisha forman at 03/28/2015 12:44 by jeffrey. Read back OK. METAL [place] Lvl 1.44 meq/L 0.50 - 03/28 MH 1.50 /2014 [facility] CARDIAC Troponin-I null 0.00 - 03/28 MH ENZYMES 0.40 [facility] CARDIAC Total CK 52 unit/L 12 - 191 03/28 MH ENZYMES /2014 [facility] CHEM PANEL eGFR 71 03/28 Result Comment: [...] is not recommended in the following populations: [facility] 3m2 Individuals with unstable creatinine concentrations, including [...] CHEM PANEL AGAP 7.0 meq/L 10.0 - 08 MH 20.0 /2014 [facility] CHEM PANEL Chloride Lvl 109 meq/L 95 - 109 03/28 [facility] CHEM PANEL CO2 28 meq/L 24 - 32 03/28 MH [facility] CHEM PANEL Calcium Lvl 8.9 mg/dL 8.5 - 10.5 03/28 [facility] CHEM PANEL Creatinine 0.9 mg/dL 0.5 - 1.4 03/28 MH Lvl /2014 [facility] CHEM PANEL Sodium Lvl 140 meq/L 135 - 145 03/28 [facility] CHEM PANEL Potassium 4.0 meq/L 3.5 - 5.1 03/28 MH Lvl /2014 [facility] CHEM PANEL Glucose Lvl 230 mg/dL 70 - 99 03/28 /2014 [facility] CHEM PANEL BUN 13 mg/dL 7 - 22 03/28 [facility] CHEM PANEL Phosphorus 2.7 mg/dL 2.5 - 4.5 03/28 [facility] CHEM PANEL Magnesium 2.0 mg/dL 1.8 - 2.4 03/28 [facility] HEMATOLOGY Monocytes # 0.4 K/CMM 0.0 - 0.8 03/28 /2014 [facility] HEMATOLOGY Lymphocytes 2.4 % 20.0 - 03/28 MH 40.0 /2014 [facility] HEMATOLOGY Monocytes 1.9 % 2.0 - 12.0 03/28 [facility] HEMATOLOGY Lymphocytes 0.4 K/CMM 1.0 - 5.5 03/28 MH /2014 [facility] HEMATOLOGY Segs-Bands # 17.9 K/CMM 1.5 - 8.1 03/28 [facility] HEMATOLOGY Segs 95.7 % 45.0 - 03/28 MH 75.0 /2014 [facility] HEMATOLOGY Hct 35.3 % 36.0 - 03/28 MH 48.0 /2014 [facility] HEMATOLOGY WBC 18.7 K/CMM 3.7 - 10.4 03/28 /2014 [facility] HEMATOLOGY Hgb 11.0 g/dL 12.0 - 03/28 MH 16.0 [facility] HEMATOLOGY MCV 83.6 fL 80.0 - 03/28 MH 98.0 /2014 [facility] HEMATOLOGY RBC 4.22 M/CMM 4.20 - 03/28 MH 5.40 /2014 [facility] HEMATOLOGY MCHC 31.1 g/dL 32.0 - 03/28 MH 36.0 [facility] HEMATOLOGY RDW 23.8 % 11.5 - 03/28 MH 14.5 /2014 [facility] HEMATOLOGY MCH 26.0 pg 27.0 - 03/28 MH 31.0 [facility] HEMATOLOGY Platelet 293 K/CMM 133 - 450 03/28 [facility] HEMATOLOGY MPV 8.5 fL 7.4 - 10.4 03/28 [facility] PARATHYROI Ca Ion WB 1.19 1.05 - 03/28 MH D PROFILE mMol/L . [facility] PARATHYROI Ca Norm WB 1.15 1.05 - 03/28 MH D PROFILE mMol/L 1. [facility] CHEM PANEL Lactic Acid 2.4 mMol/L 0.5 - 2.2 03/28 Lvl /2014 [facility] CARDIAC Troponin-I 0.02 ng/mL 0.00 - 03/28 ENZYMES 0.40 /2014 [facility] CARDIAC Total CK 55 unit/L 12 - 191 03/28 ENZYMES [facility] BACTERIAL MRSA by PCR Negative 03/28 - SEROLOGY [facility] (03/27/15 10:42 PM) CARDIAC proBNP 2233 pg/mL 0 - 125 03/28 ENZYMES [facility] CHEM PANEL Globulin 5.1 g/dL 2.0 - 4.0 03/28 [facility] CHEM PANEL A/G Ratio 0.6 0.7 - 1.6 03/28 [facility] CHEM PANEL B/C Ratio 11 6 - 25 03/28 [facility] CHEM PANEL Total 8.1 g/dL 6.4 - 8.4 03/28 Protein [facility] CHEM PANEL Albumin Lvl 3.0 g/dL 3.5 - 5.0 03/28 [facility] CHEM PANEL Bili Total 0.5 mg/dL 0.2 - 1.3 03/28 [facility] CHEM PANEL AST 32 unit/L 0 - 37 03/28 [facility] CHEM PANEL ALT 16 unit/L 0 - 65 03/28 [facility] CHEM PANEL Alk Phos 59 unit/L 39 - 136 03/28 [facility] HEMATOLOGY Plt Morph Normal 03/28 [facility] (03/27/15 10:42 PM) HEMATOLOGY RBC Morph Normal 03/28 [facility] (03/27/15 10:42 PM) HEMATOLOGY Atypical 0.0 % <=0.0 % 03/28 Lymphs [facility] HEMATOLOGY Bands 7.0 % 0.0 - 11.0 03/28 [facility] HEMATOLOGY INR 1.04 0.85 - 03/28 MH 1.17 [facility] HEMATOLOGY PTT 31.6 s 22.9 - 03/28 MH 35.8 [facility] HEMATOLOGY PT 13.6 s 12.0 - 03/28 MH 14.7 [facility] URINE AND UA Color Yellow Yellow 03/28 STOOL [facility] *NA* (03/27/15 10:42 PM) URINE AND UA Spec Grav 1.025 <=1.030 03/28 STOOL [facility] URINE AND UA Turbidity Clear Clear 03/28 STOOL [facility] (03/27/15 10:42 PM) URINE AND UA Glucose 100 mg/dL Negative 03/28 STOOL mg/dL [facility] URINE AND UA Protein Negative Negative 03/28 STOOL [facility] (03/27/15 10:42 PM) URINE AND UA Ketones Negative Negative 03/28 STOOL [facility] *NA* (03/27/15 10:42 PM) URINE AND UA pH 6.0 5.0 - 8.0 03/28 STOOL [facility] URINE AND UA Nitrite Negative Negative 03/28 STOOL [facility] (03/27/15 10:42 PM) URINE AND UA Leuk Est Negative Negative 03/28 STOOL [facility] (03/27/15 10:42 PM) URINE AND UA 0.2 EU/dL 0.1 - 1.0 03/28 STOOL Urobilinogen [facility] URINE AND UA Bili Negative Negative 03/28 STOOL [facility] *NA* (03/27/15 10:42 PM) URINE AND UA Blood Small Negative 03/28 STOOL [facility] *ABN* (03/27/15 10:42 PM) URINE AND UA Sq Epi None Seen Few 03/28 STOOL [facility] (03/27/15 10:42 PM) URINE AND UA Mucus Few /LPF None Seen 03/28 [facility] /LPF [facility] URINE AND UA Bacteria Occasional None Seen 03/28 [facility] /HPF /HPF URINE AND UA RBC 13 /HPF 0 - 2 03/28 [facility] URINE AND UA CaOx Lizette Occasional None Seen 03/28 [facility] /HPF /HPF [facility] URINE AND UA WBC 2 /HPF 0 - 5 03/28 STOOL [facility] Chest Chest 1view Chest one view: 03/28 [facility] 1view DX DX - [facility] Exam reason: Shortness of breath. Read by: [...] - OPID contrast contrast CT /2014 - [place] [facility] History: Dyspnea/COPD Read by: Zoila Paiz [...] arterial hypertension.. IMMUNOLOGY Tot Prot 14 mg/dL 12/15 [place] (UPE) /2014 [facility] IMMUNOLOGY Interp (UPE) Urine 12/15 [place] protein /2014 [place] consists primarily of albumin. No monoclonal bands are identified .Interpret ation performed at [facility]. IMMUNOLOGY Spec Type random 12/15 [place] (UPE) urine 100x /2014 [facility] IMMUNOLOGY Albumin % 39.4 REL % 55.8 - 12/15 [place] 66.1 /2015 [facility] IMMUNOLOGY Alpha 1 % 5.0 REL % 2.8 - 4.9 12/15 MH [place] /2014 [place] IMMUNOLOGY SPE Interp Total 12/15 MH [place] protein is /2014 [place] increased. A presumptiv e monoclonal protein (1.47 g/dl) is present within the preserved polyclonal gamma globulin region and overlaps with a large peak in the beta-2 fraction that may also ne monoclonal . Serum and urine immunofixa tion studies are recommende d for further evaluation .Interpret ation performed at [facility]. IMMUNOLOGY Beta Glob 1.52 g/dL 0.50 - 05 MH [place] 1.15 /2014 [place] IMMUNOLOGY Alpha 2 Glob 1.42 g/dL 0.45 - 05 MH [place] 1.00 /2014 [place] IMMUNOLOGY Alpha 1 Glob 0.51 g/dL 0.18 - 05 MH [place] 0.41 /2014 [place] IMMUNOLOGY Tot Prot 10.1 g/dL 6.4 - 8.4 12/15 MH [place] (SPE) /2014 [place] IMMUNOLOGY Gamma Glob 2.68 g/dL 0.71 - 12/15 MH [place] 1.57 /2014 [place] IMMUNOLOGY Alpha 2 % 14.1 REL % 7.0 - 11.9 12/15 MH [place] /2014 [place] IMMUNOLOGY Albumin 3.98 g/dL 3.57 - 05 MH [place] (SPE) 5.55 /2014 [place] IMMUNOLOGY Gamma % 26.5 REL % 11.1 - 05 MH [place] 18.7 /2014 [place] IMMUNOLOGY Beta % 15.0 REL % 7.8 - 13.7 12/15 MH [place] /2014 [place] IMMUNOLOGY RF Qnt null 0 - 20 12/15 MH [place] /2014 [place] IMMUNOLOGY DIANNE Negative Negative 12/15 [place] (12/15/14 12:16 PM) SPECIAL DORA 53 unit/L 8 - 52 12/15 MH [place] CHEMISTRY /2014 [place] THYROID TSH 1.110 0.360 - 12/15 MH [place] PANEL uIU/mL 3.740 /2014 [place] CARDIAC Total CK 35 unit/L 12 - 191 12/15 MH [place] ENZYMES /2014 [place] CARDIAC Troponin-I null 0.00 - 12/15 MH [place] EN[place]ES 0.40 /2014 [place] CHEM PANEL Calcium Lvl 8.8 mg/dL 8.5 - 10.5 12/15 [place] /2014 [place] CHEM PANEL AGAP 12.1 meq/L 10.0 - 05 MH [place] 20.0 /2014 [place] CHEM PANEL CO2 24 meq/L 24 - 32 12/15 [place] CHEM PANEL Chloride Lvl 106 meq/L 95 - 109 12/15 [place] CHEM PANEL eGFR 82 12/15 1Result Comment: The eGFR is calculated using the CKD-EPI formula. In most young, healthy individuals the eGFR will be >90 mL/ min/1.73m2. The eGFR declines with age. An eGFR of 60-89 may be normal in mL/min/1.7 /2014 some populations, particularly the elderly, for whom the CKD-EPI formula has not been extensively validated. Use of the eGFR is not recommended in the following populations: [facility] 3m2 Individuals with unstable creatinine concentrations, including [...] 0.8 mg/dL 0.5 - 1.4 12/15 [place] CHEM PANEL Glucose Lvl 247 mg/dL 70 - 99 12/15 3Interpretive Data: Adult reference range values reflect the clinical guidelines of the [place] [employer]. [place] CHEM PANEL BUN 12 mg/dL 7 - 22 12/15 [place] CHEM PANEL Potassium 4.1 meq/L 3.5 - 5.1 12/15 [place] Lvl [place] HEMATOLOGY Platelet 305 K/CMM 133 - 450 12/15 [place] HEMATOLOGY RDW 21.8 % 11.5 - 12/15 MH [place] 14.5 /2014 [place] HEMATOLOGY MPV 8.2 fL 7.4 - 10.4 12/15 [place] HEMATOLOGY WBC 9.7 K/CMM 3.7 - 10.4 12/15 [place] HEMATOLOGY Hct 31.8 % 36.0 - 12/15 [place] 48.0 /2014 [facility] HEMATOLOGY RBC 3.92 M/CMM 4.20 - 12/15 [place] 5.40 /2015 [facility] HEMATOLOGY Hgb 10.3 g/dL 12.0 - 12/15 [place] 16.0 [facility] HEMATOLOGY MCHC 32.3 g/dL 32.0 - 12/15 [place] 36.0 /2014 [facility] HEMATOLOGY MCH 26.3 pg 27.0 - 12/15 [place] 31.0 [facility] HEMATOLOGY MCV 81.3 fL 80.0 - 12/15 [place] 98.0 /2014 [facility] HEMATOLOGY Eosinophils 0.0 K/CMM 0.0 - 0.5 12/15 [place] # /2015 [place] HEMATOLOGY Anisocyte 1+ None Seen 12/15 [place] *ABN* (12/15/14 6:09 AM) HEMATOLOGY Basophils # 0.0 K/CMM 0.0 - 0.2 12/15 [place] /2014 [facility] HEMATOLOGY Monocytes # 0.1 K/CMM 0.0 - 0.8 12/15 [facility] HEMATOLOGY Segs-Bands # 9.0 K/CMM 1.5 - 8.1 12/15 [facility] HEMATOLOGY Lymphocytes 0.6 K/CMM 1.0 - 5.5 12/15 [place] # /2014 [facility] HEMATOLOGY Eosinophils 0.0 % 0.0 - 4.0 12/15 [facility] HEMATOLOGY Basophils 0.1 % 0.0 - 1.0 12/15 /2014 [facility] HEMATOLOGY Lymphocytes 6.3 % 20.0 - 12/15 [place] 40.0 [facility] HEMATOLOGY Segs 92.7 % 45.0 - 12/15 [place] 75.0 [facility] HEMATOLOGY Monocytes 0.9 % 2.0 - 12.0 12/15 [facility] Chest Chest Examination: Chest CTA pulm emb [...] 0.00 - 12/15 [place] ENZYMES 0.40 /2014 [facility] CARDIAC Total CK 45 unit/L 12 - 191 12/15 [place] ENZYMES [facility] URINE AND UA RBC 0-2 /HPF 0 - 2 12/15 [place] STOOL [facility] URINE AND UA Bacteria Occasional None Seen 12/15 [place] [facility] /HPF /HPF /2014 [facility] URINE AND UA WBC 0-2 /HPF None Seen 12/15 [place] [facility] /HPF /2014 [facility] URINE AND UA Leuk Est Negative Negative 12/15 [place] STOOL [facility] (12/14/14 7:06 PM) URINE AND UA Sq Epi Occasional Few /LPF 12/15 [place] [facility] /LPF /2014 [facility] URINE AND UA Ketones Negative Negative 12/15 [place] STOOL [facility] *NA* (12/14/14 7:06 PM) URINE AND UA Bili Negative Negative 12/15 [place] STOOL [facility] *NA* (12/14/14 7:06 PM) URINE AND UA Nitrite Negative Negative 12/15 [place] STOOL [facility] (12/14/14 7:06 PM) URINE AND UA Blood Trace Negative 12/15 [place] [facility] *ABN* (12/14/14 7:06 PM) URINE AND UA 0.2 EU/dL 0.1 - 1.0 12/15 [place] [facility] Urobilinogen /2014 [facility] URINE AND UA Color Yellow Yellow 12/15 [place] [facility] *NA* (12/14/14 7:06 PM) URINE AND UA Turbidity Clear Clear 12/15 [place] [facility] [place] (12/14/14 7:06 PM) URINE AND UA Spec Grav 1.010 <=1.030 12/15 [place] ST[facility] [place] URINE AND UA Protein Negative Negative 12/15 [place] [facility] [place] (12/14/14 7:06 PM) URINE AND UA pH 6.5 5.0 - 8.0 12/15 [place] [facility] [place] URINE AND UA Glucose Negative Negative 12/15 [place] ST[facility] [place] (12/14/14 7:06 PM) SPECIAL Hgb A1C 7.4 % <=5.6 % 12/14 [place] CHEMISTRY [place] HEMATOLOGY Microcyte 1+ None Seen 12/14 [place] *ABN* (12/14/14 4:24 PM) HEMATOLOGY Spherocyte Occasional None Seen 12/14 [place] *ABN* (12/14/14 4:24 PM) HEMATOLOGY Anisocyte 1+ None Seen 12/14 [place] *ABN* (12/14/14 4:24 PM) HEMATOLOGY Macrocyte 1+ None Seen 12/14 [place] *ABN* (12/14/14 4:24 PM) HEMATOLOGY Lymphocytes 1.2 K/CMM 1.0 - 5.5 12/14 [place] # [place] HEMATOLOGY Eosinophils 0.1 K/CMM 0.0 - 0.5 12/14 [place] HEMATOLOGY Basophils # 0.1 K/CMM 0.0 - 0.2 12/14 [place] HEMATOLOGY Lymphocytes 7.0 % 20.0 - 12/14 [place] 40.0 /2015 [place] HEMATOLOGY Monocytes 3.9 % 2.0 - 12.0 12/14 [place] HEMATOLOGY Eosinophils 0.5 % 0.0 - 4.0 12/14 [place] HEMATOLOGY Plt Morph Normal 12/14 [place] (12/14/14 4:24 PM) HEMATOLOGY Monocytes # 0.6 K/CMM 0.0 - 0.8 12/14 [place] HEMATOLOGY Segs 88.2 % 45.0 - 12/14 6Result MH [place] 75.0 /2015 Comment: [place] Reviewed. HEMATOLOGY Basophils 0.4 % 0.0 - 1.0 12/14 [place] HEMATOLOGY Segs-Bands # 14.7 K/CMM 1.5 - 8.1 05/12 MH [place] /2014 [facility] HEMATOLOGY MPV 7.5 fL 7.4 - 10.4 / [place] /2014 [facility] HEMATOLOGY Hct 34.9 % 36.0 - 12/14 MH [place] 48.0 /2015 [facility] HEMATOLOGY Platelet 400 K/CMM 133 - 450 12/14 [place] /2014 [facility] HEMATOLOGY RDW 21.9 % 11.5 - 05/ MH [place] 14.5 /2015 [facility] HEMATOLOGY MCHC 32.7 g/dL 32.0 - 12/14 MH [place] 36.0 /2014 [facility] HEMATOLOGY MCV 81.4 fL 80.0 - 12/14 MH [place] 98.0 /2014 [facility] HEMATOLOGY MCH 26.6 pg 27.0 - 12/14 [place] 31.0 /2014 [facility] HEMATOLOGY Hgb 11.4 g/dL 12.0 - 12/14 [place] 16.0 /2014 [facility] HEMATOLOGY WBC 16.6 K/CMM 3.7 - 10.4 12/14 [place] /2014 [facility] HEMATOLOGY RBC 4.29 M/CMM 4.20 - 12/14 [place] 5.40 /2014 [facility] CARDIAC CK MB Index 4.2 0.0 - 2.5 12/14 [place] ENZYMES /2014 [facility] CARDIAC BNP 350 pg/mL <=100 12/14 5Interpretive Data: Elevated results are in line with increasing severity of [place] ENZYMES pg/mL /2014 congestive heart failure. Minor elevations between 100 and 300 [place] may be seen with Myocardial Ischemia, Sodium retaining drugs, and compensated/treated heart failure. CARDIAC CK MB 2.0 ng/mL 0.5 - 3.6 12/14 [place] ENZYMES [facility] CARDIAC Troponin-I null 0.00 - 12/14 [place] ENZYMES 0.40 /2014 [facility] CARDIAC Total CK 48 unit/L 12 - 191 12/14 [place] ENZYMES [facility] CHEM PANEL eGFR 82 12/14 2Result Comment: The eGFR is calculated using the CKD-EPI formula. In most young, healthy individuals the eGFR will be >90 mL/ min/1.73m2. The eGFR declines with age. An eGFR of 60-89 may be normal in mL/min/1.7 /2014 some populations, particularly the elderly, for whom [...] PANEL A/G Ratio 0.5 0.7 - 1.6 05/12 [facility] [place] CHEM PANEL AST 15 unit/L 0 - 37 05/ MH [place] CHEM PANEL Bili Total 0.5 mg/dL 0.2 - 1.3 / MH [place] CHEM PANEL Alk Phos 74 unit/L 39 - 136 05/ MH [place] CHEM PANEL Total 10.1 g/dL 6.4 - 8.4 / MH [place] Protein [place] CHEM PANEL Albumin Lvl 3.5 g/dL 3.5 - 5.0 05/ MH [place] CHEM PANEL ALT 12 unit/L 0 - 65 / [place] CHEM PANEL Calcium Lvl 9.0 mg/dL 8.5 - 10.5 / [place] CHEM PANEL B/C Ratio 9 6 - 25 / MH [place] CHEM PANEL AGAP 11.4 meq/L 10.0 - 05/ MH [place] 20.0 /2014 [place] CHEM PANEL Globulin 6.6 g/dL 2.0 - 4.0 / [place] CHEM PANEL CO2 26 meq/L 24 - 32 / MH [place] CHEM PANEL Sodium Lvl 139 meq/L 135 - 145 / [place] CHEM PANEL Creatinine 0.8 mg/dL 0.5 - 1.4 / MH [place] Lvl [place] CHEM PANEL Chloride Lvl 105 meq/L 95 - 109 / MH [place] CHEM PANEL Potassium 3.4 meq/L 3.5 - 5.1 / MH [place] Lvl [place] CHEM PANEL Glucose Lvl 124 mg/dL 70 - 99 05/ 4Interpretive Data: Adult reference range values reflect the clinical guidelines of the [place] [employer]. [place] CHEM PANEL BUN 7 mg/dL 7 - 22 05/ MH [place] Chest Chest 1view Examination: Chest 1view 05/ - MH [place] 1view DX DX /2014 - Provided History: Chest pain Read by: [place] [...] 11/15 - [place] y assist assist to - [place] to 1 hour hour DX Technical component complete. Dose report sent to PACS. DX Electronically Signed by: Marleni Garcia RT 11/15/14 15:30 FINAL REPORT Chest Chest 1view PORTABLE CHEST AP SEMIERECT 11/15/2014, 9:09 a.m. 11/15 - [place] 1view DX - HISTORY: Post bronchoscopy. Compared to exam dated [...] 11/01/2017 [facility] Weight 83.864 11/01/2017 [facility] Heart Rate 87 11/01/2017 [facility] Systolic (mm Hg) 120 11/01/2017 [facility] Diastolic (mm Hg) 73 11/01/2017 [facility] Weight 77.273 06/20/2015 [facility] BMI Calculated 29.7 06/20/2015 [facility] Height 161.29 cm 06/20/2015 [facility] Respitory Rate 20 03/30/2015 [facility] Systolic (mm Hg) 100 03/30/2015 [facility] Diastolic (mm Hg) 66 03/30/2015 [facility] Heart Rate 82 03/30/2015 [facility] Temperature Oral (F) 97.9 F 03/30/2015 [facility] Systolic (mm Hg) 110 03/30/2015 [facility] Diastolic (mm Hg) 70 03/30/2015 [facility] Respitory Rate 18 03/30/2015 [facility] Heart Rate 77 03/30/2015 [facility] Temperature Oral (F) 97.7 F 03/30/2015 [facility] Systolic (mm Hg) 104 03/30/2015 [facility] Diastolic (mm Hg) 69 03/30/2015 [facility] Heart Rate 85 03/30/2015 [facility] Temperature Oral (F) 98.5 F 03/30/2015 [facility] Respitory Rate 18 03/30/2015 [facility] Weight 84.1 03/28/2015 [facility] BMI Calculated 28.19 03/28/2015 [facility] Weight 84.091 03/28/2015 [facility] Height 172.72 cm 03/28/2015 [facility] Heart Rate 84 12/16/2014 [place] Temperature Oral (F) 97.8 F 12/16/2014 [place] Systolic (mm Hg) 105 12/16/2014 [place] Diastolic (mm Hg) 65 12/16/2014 [place] Respitory Rate 18 12/16/2014 [place] Respitory Rate 18 12/16/2014 [place] Systolic (mm Hg) 107 12/16/2014 [place] Diastolic (mm Hg) 74 12/16/2014 [place] Temperature Oral (F) 97.9 F 12/16/2014 [place] Heart Rate 80 12/16/2014 [place] Temperature Oral (F) 97.6 F 12/16/2014 [place] Heart Rate 87 12/16/2014 [place] Respitory Rate 18 12/16/2014 [place] Systolic (mm Hg) 115 12/16/2014 [place] Diastolic (mm Hg) 69 12/16/2014 [place] Weight 84.091 12/15/2014 [place] BMI Calculated 28.19 12/15/2014 [place] Height 172.72 cm 12/15/2014 [place] Weight 83.636 12/14/2014 [place] Weight 84.091 11/12/2014 [place] BMI Calculated 28.19 11/12/2014 [place] Height 172.72 cm 11/12/2014 [place] Encounters Location Location Encounter Encounter Reason Attending ADM DC Status Source Details Type Number For Provider Date Date Visit [facility] [id number] [facility] 11/15 11/15 [facility] [id number] [facility] 12/14 12/16 [facility] Ry Berta /2014 [facility] [place] [facility] Outpt Diag [id number] [facility] 03/07 03/08 [facility] Outpatient Services [facility] [place] /2014 [facility] Inpatient [id number] [place] 03/28 03/30 Ry Sweet /2014 [facility] Outpt Diag [id number] Nery 04/20 04/21 [facility] /2014 [facility] Outpt Diag [id number] Jenaro Russ 06/03 06/04 [facility] /2014 [facility] Outpatient [id number] [place] 06/20 06/21 Ry Spoor /2014 [facility] Outpt Diag [id number] [facility] 10/26 10/27 [facility] Outpatient Services [facility] /2015 [facility] [id number] [place] 03/01 [facility] /2016 [facility] Outpatient [id number] [place] 03/15 [facility] /2016 [place] [facility] [id number] [place] 06/14 [facility] /2016 [facility] Outpatient [id number] [place] 11/01 [facility] /2017 [facility] Outpatient [id number] [place] 11/01 11/02 Cardiology [facility] /2017 [facility] Procedures Procedure Code Date Perfomer Comments Source Back fusion [id number] 01/03/2014 [facility] [place] Back fusion [id number] 01/03/2014 [facility] Back fusion [id number] 01/03/2014 [place] Back fusion [id number] 01/03/2014 [facility] Ablation [id number] 08/05/2012 [facility] [place] Ablation [id number] 08/05/2012 [facility] Ablation [id number] 08/05/2012 [place] Ablation [id number] 08/05/2012 [facility] fusion [id number] 08/05/2008 [facility] [place] Back fusion [id number] 08/05/2008 [facility] Back fusion [id number] 08/05/2008 [place] Back fusion [id number] 08/05/2008 [facility] Hysterectomy [id number] 08/05/1994 [facility] [place] Hysterectomy [id number] 08/05/1994 [facility] Hysterectomy [id number] 08/05/1994 [place] Hysterectomy [id number] 08/05/1994 [facility] Arthroscopy of [id number] 08/05/1972 [facility] [id number] 08/05/1972 [facility] knee [facility] Arthroscopy of [id number] 08/05/1972 [place] knee Arthroscopy of [id number] 08/05/1972 [facility] knee
[2018-09-05 18:50] LABS: Absolute Lymphocytes (CBC) 0.3 K/uL (0.7-4.9); Absolute Monocytes 0.3 K/uL (0.1-1.3); Absolute Neutrophil 7.3 K/uL (1.8-8.0); Basophils % 0.5 % (0-1.3); Eosinophils % 1.4 % (0-4.4); Hematocrit 35.3 % (36.0-45.0); Lymphocytes % 3.7 % (15.3-44.8); MPV 9.2 fL (7.6-11.3); Monocytes % 3.5 % (3.3-12.3); RBC Red Blood Cell Count 4.18 M/uL (3.86-4.86)
[2018-09-05 18:51] LABS: Protime INR 1.94
[2018-09-05 19:15] LABS: ALT/SGPT 18 U/L (12-78); AST/SGOT 19 U/L (15-37); Albumin 3.3 g/dL (3.4-5.0); Alkaline Phosphatase 84 U/L (45-117); BUN Blood Urea Nitrogen 16 mg/dL (7-18); Bicarbonate 22 mmol/L (21-32); Bilirubin Direct 0.2 mg/dL (0-0.2); Bilirubin Total 0.6 mg/dL (0.2-1.0); Glucose Level 168 mg/dL (74-106); Magnesium 2.1 mg/dL (1.8-2.4); NT PRO-BNP 3148 pg/mL (<125); Potassium 3.9 mmol/L (3.5-5.1); Protein, Total 8.4 g/dL (6.4-8.2); Sodium Level 139 mmol/L (136-145); Troponin (Emerg Dept Use Only) < 0.02 ng/mL (0.0-0.045)
[2018-09-05 19:27] LABS: Anisocytosis 1+; Blood Morphology Comment NOTED (NOT SEEN); Platelet Estimate ADEQ; Platelets, Giant FEW; Urine White Blood Cell Casts OK
--- NOTE | 2018-09-05 19:47 | RAD REPORT ---
EXAM DESCRIPTION: RAD - Chest Single View - 09/05/2018 7:24 pm CLINICAL HISTORY: SOB Chest pain. COMPARISON: Chest Single View dated 07/27/2018; Chest Single View dated 04/04/2017; Chest Single View dated 12/26/2016; Chest Single View dated 10/16/2016 FINDINGS: Portable technique limits examination quality. Moderate bilateral pulmonary opacities are present compatible with moderate pulmonary edema. Small pl eural effusions are noted. The heart is moderately enlarged in size. No displaced fractures. IMPRESSION: Moderate CHF versus volume overload.
[2018-09-05] MEDS ORDERED: ALBUTEROL 2.5 MG/3 ML NEB SOL ONE (20:19)
[2018-09-05] MEDS ORDERED: FUROSEMIDE 40 MG/4 ML VIAL ONE (20:19)
[2018-09-05] MEDS ORDERED: IPRATROPIUM BROM 0.5MG/2.5ML ONE (20:19)
--- NOTE | 2018-09-05 20:34 | EDPHYS ---
Physician Documentation [facility] Name: Elli Durant Age: 63 yrs Sex: Female : 1955 Arrival Date: 09/05/2018 Time: 17:55 Bed 27 Private MD: Ceasar Zhou ED Physician Juan Best HPI: 09/05 18:20 This 63 yrs old Female presents to ER via Ambulatory with complaints of pm1 Breathing Difficulty. 18:20 The patient has shortness of breath at rest. Onset: The symptoms/episode began/occurred pm1 today. Duration: The symptoms are chronic, for 4 month(s), worse today. The patient's shortness of breath is aggravated by nothing, is alleviated by nothing. Associated signs and symptoms: Pertinent negatives: chest pain, non-productive cough, productive cough, fever, nausea, vomiting. Severity of symptoms: in the emergency department the symptoms are worse Pain is currently a 0 / 10. The patient has been recently seen by a physician: Dr. Lomeli and prescribed two new medicines: Trelegy Ellipta and Letairis 2 day(s) ago. 18:20 Patient on O2 oxygen at home 2 L and normally has saturation level of 92-94. Today with pm1 shortness of breath, reports dropped to 84% and required increase in O2 NC. Historical: - Allergies: 18:44 PENICILLINS; mg2 - Home Meds: 19:05 amiodarone 200 mg Oral tab 1 tab once daily [Active]; aripiprazole 5 mg Oral tab 1 tab mg2 once daily [Active]; citalopram 20 mg tab 1 tab once daily [Active]; clonazepam 0.5 mg Oral TbDL 0.5 tab nightly [Active]; clonazepam 0.5 mg Oral TbDL 1 tab 2 times per day [Active]; duloxetine 60 mg Oral cpDR 1 cap once daily [Active]; metformin 500 mg Oral tr24 1 tab twice a day [Active]; furosemide 20 mg Oral tab 1 tab once daily [Active]; trazodone 150 mg oral tab [Active]; lithium carbonate 300 mg Oral tab 1 tab nightly [Active]; Xarelto 20 mg Oral tab 1 tab once daily [Active]; citalopram 20 mg tab 2 tabs once daily [Active]; risperidone 0.5 mg oral TbDL [Active]; spironolactone 25 mg Oral tab [Active]; Letairis 5 mg oral tab 1 tab once daily [Active]; trelegy 100 /62.5/256 mcg 1 puff [Active]; - PMHx: 18:44 Atrial Fib; COPD; CHF; Diabetes - NIDDM; insomnia; Pneumonia; UTI; mg2 - PSHx: 18:44 Hysterectomy; back surgery; Knee surgery; ablation; mg2 - Immunization history:: Flu vaccine is up to date. - Social history:: Smoking status: Patient/guardian denies using tobacco, Patient/guardian denies using alcohol, street drugs, IV drugs. - Ebola Screening: : No symptoms or risks identified at this time. ROS: 19:10 Constitutional: Negative for fever, chills, and weight loss, Eyes: Negative for injury, pm1 pain, redness, and discharge, ENT: Negative for injury, pain, and discharge, Neck: Negative for injury, pain, and swelling, Cardiovascular: Negative for chest pain, palpitations, and edema. 19:10 Abdomen/GI: Negative for abdominal pain, nausea, vomiting, diarrhea, and constipation, Back: Negative for injury and pain, : Negative for injury, bleeding, discharge, and swelling, MS/Extremity: Negative for injury and deformity, Skin: Negative for injury, rash, and discoloration, Neuro: Negative for headache, weakness, numbness, tingling, and seizure. 19:10 Cardiovascular: Positive for edema, Negative for chest pain, orthopnea, palpitations. 19:10 Respiratory: Positive for shortness of breath. Exam: 18:20 Constitutional: This is a well developed, well nourished patient who is awake, alert, pm1 and in no acute distress. Head/Face: Normocephalic, atraumatic. Eyes: Pupils equal round and reactive to light, extra-ocular motions intact. Lids and lashes normal. Conjunctiva and sclera are non-icteric and not injected. Cornea within normal limits. Periorbital areas with no swelling, redness, or edema. ENT: Nares patent. No nasal discharge, no septal abnormalities noted. Tympanic membranes are normal and external auditory canals are clear. Oropharynx with no redness, swelling, or masses, exudates, or evidence of obstruction, uvula midline. Mucous membranes moist. Neck: Trachea midline, no thyromegaly or masses palpated, and no cervical lymphadenopathy. Supple, full range of motion without nuchal rigidity, or vertebral point tenderness. No Meningismus. Chest/axilla: Normal chest wall appearance and motion. Nontender with no deformity. No lesions are appreciated. Cardiovascular: Regular rate and rhythm with a normal S1 and S2. No gallops, murmurs, or rubs. Normal PMI, no JVD. No pulse deficits. 18:20 Abdomen/GI: Soft, non-tender, with normal bowel sounds. No distension or tympany. No guarding or rebound. No evidence of tenderness throughout. Back: No spinal tenderness. No costovertebral tenderness. Full range of motion. Skin: Warm, dry with normal turgor. Normal color with no rashes, no lesions, and no evidence of cellulitis. MS/ Extremity: Pulses equal, no cyanosis. Neurovascular intact. Full, normal range of motion. 18:20 Respiratory: the patient does not display signs of respiratory distress, Respirations: normal, Breath sounds: decreased breath sounds, are located in both bases. 18:20 Neuro: Orientation: is normal, Motor: is normal, moves all fours. Vital Signs: 18:42 BP 107 / 63; Pulse 96; Resp 24; Temp 99.1(O); Pulse Ox 96% on 4 lpm NC; Weight 86.64 mg2 kg; Height 5 ft. 6 in. (167.64 cm); Pain 4/10; 19:44 BP 114 / 60; Pulse 85; Resp 22; Pulse Ox 93% on 2 lpm NC; mg2 20:51 BP 126 / 79; Pulse 104; Resp 20; Pulse Ox 91% on 2 lpm NC; mg2 23:03 BP 103 / 56; Pulse 101; Resp 20; Temp 99.2; Pulse Ox 92% on 2 lpm NC; Pain 0/10; mg2 18:42 Body Mass Index 30.83 (86.64 kg, 167.64 cm) mg2 MDM: 18:11 Patient medically screened. pm1 20:31 Data reviewed: vital signs. Data interpreted: Pulse oximetry: on 2L(s) per nasal pm1 canula, is 93 %. Interpretation: normal. Counseling: I had a detailed discussion with the patient and/or guardian regarding: the historical points, exam findings, and any diagnostic results supporting the discharge/admit diagnosis, lab results, radiology results, the need for further work-up and treatment in the hospital. 09/05 18:17 Order name: Basic Metabolic Panel; Complete Time: 19:30 pm1 09/05 18:17 Order name: CBC with Diff; Complete Time: 19:30 pm1 09/05 18:17 Order name: LFT's; Complete Time: 19:30 pm1 09/05 18:17 Order name: Magnesium; Complete Time: 19:30 pm1 09/05 18:17 Order name: NT PRO-BNP; Complete Time: 19:30 pm1 09/05 18:17 Order name: PT-INR; Complete Time: 19:30 pm1 09/05 18:17 Order name: Troponin (emerg Dept Use Only); Complete Time: 19:30 pm1 09/05 18:53 Order name: CBC Smear Scan; Complete Time: 19:30 EDMS 09/05 22:15 Order name: CBC with Automated Diff EDMS 09/05 22:15 Order name: CBC with Automated Diff EDMS 09/05 22:15 Order name: Comprehensive Metabolic Panel EDMS 09/05 22:15 Order name: Comprehensive Metabolic Panel EDMS 09/05 22:15 Order name: Magnesium EDMS 09/05 22:15 Order name: Magnesium EDMS 09/05 18:17 Order name: XRAY Chest (1 view); Complete Time: 20:00 pm1 09/05 18:17 Order name: EKG; Complete Time: 18:18 pm1 09/05 18:17 Order name: Cardiac monitoring; Complete Time: 18:49 pm1 09/05 18:17 Order name: EKG - Nurse/Tech; Complete Time: 18:49 pm1 09/05 18:17 Order name: IV Saline Lock; Complete Time: 18:49 pm1 09/05 18:17 Order name: Labs collected and sent; Complete Time: 18:49 pm1 09/05 18:17 Order name: O2 Per Protocol; Complete Time: 18:49 pm1 09/05 18:17 Order name: O2 Sat Monitoring; Complete Time: 18:49 pm1 09/05 22:15 Order name: Heart Healthy EDMS 09/05 22:15 Order name: Phosphorus EDMS 09/05 22:15 Order name: Phosphorus EDMS Administered Medications: 20:14 Drug: Lasix 40 mg Route: IVP; Site: left antecubital; mg2 21:08 Follow up: Response: No adverse reaction; Marked relief of symptoms mg2 20:14 Drug: Albuterol - atroVENT (3:1) (2.5 mg - 0.5 mg) 3 ml Route: Nebulizer; mg2 21:08 Follow up: Response: No adverse reaction; Marked relief of symptoms mg2 Disposition: 09/05/18 20:34 Hospitalization ordered by Siobhan Maravilla for Inpatient Admission. Preliminary diagnosis are Pulmonary hypertension, Pulmonary edema. - Bed requested for Telemetry/MedSurg (Inpatient). - Status is Inpatient Admission. tl3 - Condition is Stable. - Problem is new. - Symptoms have improved. UTI on Admission? No Addendum: 09/08/2018 07:21 Co-signature as Attending Physician, Juan Best MD I agree with the assessment and k dr plan of care. Signatures: Dispatcher [employer] EDMS Ailyn Muhammad RN RN Juan Best MD MD [facility] Ambrose Vivar NP DIETARY AIDE COOK pm1 Ruby Lopez RN RN tl3 Kwame Medley RN RN mg2 Corrections: (The following items were deleted from the chart) 09/05 22:33 20:34 Hospitalization Ordered by Siobhan Maravilla MD for Inpatient Admission. Preliminary diagnosis is Pulmonary hypertension; Pulmonary edema. Bed requested for Telemetry/MedSurg (Inpatient). Status is Inpatient Admission. Condition is Stable. Problem is new. Symptoms have improved. UTI on Admission? No. pm1 23:19 22:33 09/05/2018 20:34 Hospitalization Ordered by Siobhan Maravilla MD for Inpatient tl3 Admission. Preliminary diagnosis is Pulmonary hypertension; Pulmonary edema. Bed requested for Telemetry/MedSurg (Inpatient). Status is Inpatient Admission. Condition is Stable. Problem is new. Symptoms have improved. UTI on Admission? No. mw
--- NOTE | 2018-09-05 20:34 | ER ---
Nurse's Notes [facility] Name: Elli Durant Age: 63 yrs Sex: Female : 1955 Arrival Date: 09/05/2018 Time: 17:55 Bed 27 Private MD: Ceasar Zhou Diagnosis: Pulmonary hypertension;Pulmonary edema Presentation: 09/05 18:40 Presenting complaint: Patient states: i have shortness of breath, cough and chest pain mg2 for about a month now. pain is aggravated by exertion. Transition of care: patient was not received from another setting of care. Onset of symptoms was August 01, 2018. Risk Assessment: Do you want to hurt yourself or someone else? Patient reports no desire to harm self or others. Initial Sepsis Screen: Does the patient meet any 2 criteria? No. Patient's initial sepsis screen is negative. Does the patient have a suspected source of infection? No. Patient's initial sepsis screen is negative. Care prior to arrival: None. 18:40 Method Of Arrival: Ambulatory mg2 18:40 Acuity: GARY 3 mg2 Triage Assessment: 19:07 General: Appears in no apparent distress. comfortable, Behavior is calm, cooperative. mg2 Respiratory: the patient has mild shortness of breath. Historical: - Allergies: 18:44 PENICILLINS; mg2 - Home Meds: 19:05 amiodarone 200 mg Oral tab 1 tab once daily [Active]; aripiprazole 5 mg Oral tab 1 tab mg2 once daily [Active]; citalopram 20 mg tab 1 tab once daily [Active]; clonazepam 0.5 mg Oral TbDL 0.5 tab nightly [Active]; clonazepam 0.5 mg Oral TbDL 1 tab 2 times per day [Active]; duloxetine 60 mg Oral cpDR 1 cap once daily [Active]; metformin 500 mg Oral tr24 1 tab twice a day [Active]; furosemide 20 mg Oral tab 1 tab once daily [Active]; trazodone 150 mg oral tab [Active]; lithium carbonate 300 mg Oral tab 1 tab nightly [Active]; Xarelto 20 mg Oral tab 1 tab once daily [Active]; citalopram 20 mg tab 2 tabs once daily [Active]; risperidone 0.5 mg oral TbDL [Active]; spironolactone 25 mg Oral tab [Active]; Letairis 5 mg oral tab 1 tab once daily [Active]; trelegy 100 /62.5/256 mcg 1 puff [Active]; - PMHx: 18:44 Atrial Fib; COPD; CHF; Diabetes - NIDDM; insomnia; Pneumonia; UTI; mg2 - PSHx: 18:44 Hysterectomy; back surgery; Knee surgery; ablation; mg2 - Immunization history:: Flu vaccine is up to date. - Social history:: Smoking status: Patient/guardian denies using tobacco, Patient/guardian denies using alcohol, street drugs, IV drugs. - Ebola Screening: : No symptoms or risks identified at this time. Screenin:44 Abuse screen: Denies threats or abuse. Denies injuries from another. Nutritional mg2 screening: No deficits noted. Tuberculosis screening: No symptoms or risk factors identified. Fall Risk IV access (20 points). Assessment: 18:49 General: Appears in no apparent distress. comfortable, Behavior is calm, cooperative. mg2 Pain: Complains of pain in chest Pain does not radiate. Pain currently is 4 out of 10 on a pain scale. Quality of pain is described as aching, Pain began suddenly, Is intermittent. Neuro: Level of Consciousness is awake, alert, obeys commands, Oriented to person, place, time, situation. Cardiovascular: Capillary refill < 3 seconds Patient's skin is warm and dry. Rhythm is. Respiratory: Reports shortness of breath on exertion cough that is non-productive, since 1 month Airway is patent Respiratory effort is even, unlabored, Breath sounds are clear bilaterally. in right upper lobe, left upper lobe, right middle lobe and left lower lobe. GI: No signs and/or symptoms were reported involving the gastrointestinal system. : No signs and/or symptoms were reported regarding the genitourinary system. EENT: No signs and/or symptoms were reported regarding the EENT system. Derm: Skin is intact, is healthy with good turgor, Skin is pink, warm \T\ dry. normal. Musculoskeletal: Circulation, motion, and sensation intact. Capillary refill < 3 seconds. 20:50 Reassessment: Patient appears in no apparent distress at this time. Patient and/or mg2 family updated on plan of care and expected duration. Pain level reassessed. Patient is alert, oriented x 3, equal unlabored respirations, skin warm/dry/pink. patient informed about the need for admission. family and patient agreed. Vital Signs: 18:42 BP 107 / 63; Pulse 96; Resp 24; Temp 99.1(O); Pulse Ox 96% on 4 lpm NC; Weight 86.64 mg2 kg; Height 5 ft. 6 in. (167.64 cm); Pain 4/10; 19:44 BP 114 / 60; Pulse 85; Resp 22; Pulse Ox 93% on 2 lpm NC; mg2 20:51 BP 126 / 79; Pulse 104; Resp 20; Pulse Ox 91% on 2 lpm NC; mg2 23:03 BP 103 / 56; Pulse 101; Resp 20; Temp 99.2; Pulse Ox 92% on 2 lpm NC; Pain 0/10; mg2 18:42 Body Mass Index 30.83 (86.64 kg, 167.64 cm) mg2 ED Course: 17:55 Patient arrived in ED. mr 17:56 Ceasar Zhou DO is Private Physician. mr 18:07 Ambrose Vivar NP is PHCP. pm1 18:07 Juan Best MD is Attending Physician. pm1 18:21 Kwame Medley RN is Primary Nurse. mg2 18:42 Triage completed. mg2 18:44 Arm band placed on. mg2 18:52 No provider procedures requiring assistance completed. mg2 18:58 Inserted saline lock: 20 gauge in right antecubital area, using aseptic technique. mg2 Blood collected. 19:06 Patient has correct armband on for positive identification. mg2 19:24 XRAY Chest (1 view) In Process Unspecified. EDMS 20:33 Siobhan Maravilla MD is Hospitalizing Provider. pm1 23:00 Patient admitted, IV remains in place. mg2 Administered Medications: 20:14 Drug: Lasix 40 mg Route: IVP; Site: left antecubital; mg2 21:08 Follow up: Response: No adverse reaction; Marked relief of symptoms mg2 20:14 Drug: Albuterol - atroVENT (3:1) (2.5 mg - 0.5 mg) 3 ml Route: Nebulizer; mg2 21:08 Follow up: Response: No adverse reaction; Marked relief of symptoms mg2 Outcome: 20:34 Decision to Hospitalize by Provider. pm1 23:01 Admitted to Med/surg accompanied by nurse, via wheelchair, room 212, with oxygen, with mg2 chart, Report called to TAVARES Soto 23:01 Condition: stable 23:01 Instructed on the need for admit, Demonstrated understanding of instructions. 23:19 Patient left the ED. tl3 Signatures: Dispatcher [employer] Safia Nunez CbAmbrose, DERRICK WORKER WELL SERVICE DERRICK WORKER WELL SERVICE pm1 Ruby Lopez RN RN tl3 Kwame Medley RN RN mg2
[2018-09-05] MEDS ORDERED: ONDANSETRON 4 MG/2 ML VIAL IV PRN (22:11)
[2018-09-05] MEDS: ACETAMINOPHEN 500 MG TAB PO PRN (23:48)
[2018-09-06 01:10] LABS: Urine Appearance CLEAR; Urine Bilirubin NEGATIVE (NEG); Urine Blood NEGATIVE (NEG); Urine Color YELLOW; Urine Glucose NEGATIVE (NEG); Urine Protein NEGATIVE (NEG); Urine Specific Gravity <=1.005 (1.005-1.030); Urine Urobilinogen 0.2 mg/dL (0.2-1.0); Urine pH 6.5 (5.0-7.0)
[2018-09-06 01:30] LABS: Urine Microscopic Reflex NO UMIC
[2018-09-06] MEDS: ALBUTEROL 2.5 MG/3 ML NEB SOL NEB SCH ×4 (02:00→20:00)
[2018-09-06] MEDS: IPRATROPIUM BROM 0.5MG/2.5ML NEB SCH ×5 (04:00→20:00)
[2018-09-06 05:07] LABS: Absolute Lymphocytes (CBC) 0.7 K/uL (0.7-4.9); Absolute Monocytes 0.3 K/uL (0.1-1.3); Absolute Neutrophil 6.9 K/uL (1.8-8.0); Basophils % 0.6 % (0-1.3); Eosinophils % 1.6 % (0-4.4); Hematocrit 33.4 % (36.0-45.0); Lymphocytes % 8.4 % (15.3-44.8); MPV 9.1 fL (7.6-11.3); Monocytes % 4.1 % (3.3-12.3); RBC Red Blood Cell Count 3.99 M/uL (3.86-4.86)
[2018-09-06 05:26] LABS: Albumin 3.2 g/dL (3.4-5.0); Bilirubin Total 0.6 mg/dL (0.2-1.0); Phosphorus 3.6 mg/dL (2.5-4.9); Potassium 3.7 mmol/L (3.5-5.1); Protein, Total 7.9 g/dL (6.4-8.2)
--- NOTE | 2018-09-06 07:46 | EKG ---
Test Date: 2018-09-05 Test Time: 18:48:32 Environmental Economist: MG MEASUREMENT RESULTS: Intervals: Rate: 92 AR: 180 QRSD: 76 QT: 388 QTc: 479 [place]: P: 73 AR: 180 QRS: 202 T: 54 INTERPRETIVE STATEMENTS: Sinus rhythm with occasional premature ventricular complexes Right superior axis deviation Cannot rule out Anterior infarct, age undetermined Pulmonary disease pattern Abnormal ECG Compared to ECG 07/31/2018 22:59:30 Ventricular premature complex(es) now present Prolonged QT interval no longer present Myocardial infarct finding still present Electronically Signed On 09-06-18 07:46:25 FORK LIFT TECHNICIAN by Earl Ramirez
[2018-09-06] MEDS ORDERED: METFORMIN HCL 500 MG TAB PO SCH (08:00)
[2018-09-06] MEDS: clonazePAM 0.5 MG TAB PO SCH ×2 (08:41→20:43)
[2018-09-06] MEDS: ACETAMINOPHEN 500 MG TAB PO PRN ×3 (08:41→19:02)
[2018-09-06] MEDS: METOPROLOL TAR 50 MG TAB PO SCH ×2 (08:42→20:46)
[2018-09-06] MEDS: SPIRONOLACTONE 25 MG TABLET PO SCH (08:43)
[2018-09-06] MEDS: ASPIRIN EC 81 MG TAB PO SCH (08:43)
--- NOTE | 2018-09-06 08:56 | P.HP ---
Certification for Inpatient Patient admitted to: Inpatient With expected LOS: >2 Midnights Patient will require the following post-hospital care: None Practitioner: I am a practitioner with admitting privileges, knowledge of patient current condition, hospital course, and medical plan of care. Services: Services provided to patient in accordance with Admission requirements found in Title 42 Section 412.3 of the Code of Federal Regulations Patient History Date of Service: 09/05/18 Reason for admission: Shortness of breath History of Present Illness: Patient is a 63-year-old female with history of primary pulmonary hypertension. She had extensive workup done about a month and a half ago. At that time she was found to not have any coronary artery disease nor did she have any cardiac issues. She was diagnosed with primary pulmonary hypertension. She has followed up with Dr. Jimenes and has been started on Letairis. This was just started last week. Patient started getting short of breath a couple of days ago and has gotten progressively worse. She gets severely short of breath just walking a few steps. She finally came into the hospital. We started her on IV diuretics. She is clinically starting to feel better but gets short of breath just going to the bathroom. Will go ahead and put a Diane catheter for the next 24-48 hours while we diurese her and get her respiratory status stabilized. I will consult Dr. Jimenes as well. Allergies Penicillins Allergy (Verified 09/06/18 00:03) Itching/Hives/Rash Home Medications: Ambrisentan [Letairis] 1 tab PO DAILY 09/06/18 Citalopram [Celexa*] 15 mg PO BEDTIME 09/06/18 Fluticasone/Umeclidin/Vilanter [Trelegy Ellipta 100-62.5-25] 1 puff IH DAILY 09/23 Furosemide [Lasix] 20 mg PO DAILY 09/06/18 [place] Carbonate [Lithotabs *] 1 tab PO BEDTIME 09/06/18 Metformin HCl 1 tab PO BID 09/06/18 Risperidone [Risperdal] 1 tab PO BEDTIME 09/06/18 Rivaroxaban [Xarelto*] 20 mg PO DAILY 09/06/18 Spironolactone [Aldactone*] 1 tab PO DAILY 09/06/18 Trazodone [Desyrel*] 1 tab PO BEDTIME 09/06/18 clonazePAM [Clonazepam] 0.25 mg PO BID 09/06/18 - Past Medical/Surgical History Diabetic: Yes -: CHF -: DM -: COPD -: SMOKER -: Degenerative Back Disease -: AFIB, SVT -: BACK SURGERY -: LEFT KNEE SURGERY -: HYSTERECTOMY -: HEART ABLATION - Family History Father Family History: Reviewed- Non-Contributory - Social History Smoking Status: Never smoker Alcohol use: No CD- Drugs: No Caffeine use: Yes Place of Residence: Home Review of Systems 10-point ROS is otherwise unremarkable Physical Examination - Vital Signs Temperature: 97.6 F Blood Pressure: 122/56 Pulse: 101 Respirations: 18 Pulse Ox (%): 72 - Physical Exam General: Alert, In no apparent distress, Oriented x3 HEENT: Atraumatic, PERRLA, Mucous membr. moist/pink, EOMI, Sclerae nonicteric Neck: Supple, 2+ carotid pulse no bruit, No LAD, Without JVD or thyroid abnormality Respiratory: Diminished, Crackles/rales Cardiovascular: Regular rate/rhythm, Normal S1 S2, Systolic murmur Gastrointestinal: Normal bowel sounds, Soft and benign, Non-distended, No tenderness Musculoskeletal: No clubbing, No swelling, No tenderness Integumentary: No rashes Neurological: Normal gait, Normal speech, Normal strength at 5/5 x4 extr, Normal tone, Normal affect Lymphatics: No axilla or inguinal lymphadenopathy - Studies Laboratory Data (last 24 hrs) 09/05/18 18:30: PT 23.1 H, INR 1.94 09/05/18 18:30: WBC 8.0, Hgb 11.1 L, Hct 35.3 L, Plt Count 258 09/05/18 18:30: Sodium 139, Potassium 3.9, BUN 16, Creatinine 1.11, Glucose 168 H, Magnesium 2.1, Total Bilirubin 0.6, AST 19, ALT 18, Alkaline Phosphatase 84 Assessment & Plan - Problems (Diagnosis) (1) Acute respiratory failure Onset Date: 07/30/18 Current Visit: No Status: Acute Qualifiers: Respiratory failure complication: hypoxia Qualified Code(s): J96.01 - Acute respiratory failure with hypoxia (2) Primary pulmonary hypertension Current Visit: Yes Status: Acute (3) Diastolic dysfunction with acute on chronic heart failure Current Visit: No Status: Acute (4) A-fib Current Visit: No Status: Acute (5) Lower extremity edema Onset Date: 12/27/16 Current Visit: No Status: Acute (6) Shortness of breath Onset Date: 09/05/15 Current Visit: No Status: Acute - Plan 1. Echocardiogram performed last month revealed normal cardiac functioning but severe pulmonary hypertension 2. Resume Letairis 3. Strict blood pressure control 4. pulmonary consultation 5. Aggressive diuresis 6. Strict I's and O's 7. Repeat CXR 8. Daily weights 9. Education regarding treatment of primary pulmonary hypertension Discharge Plan: Home Plan to discharge in: Greater than 2 days - Advance Directives Does patient have a Living Will: No Does patient have a Durable POA for Healthcare: No - Code Status/Comfort Care Code Status Assessed: Yes Code Status: Full Code Critical Care: No Time Spent Managing PTS Care (In Minutes): 50
[2018-09-06] MEDS ORDERED: POTASSIUM CL SA 10 MEQ TAB PO ONE (09:00)
[2018-09-06] MEDS ORDERED: HOME MED 1 EA UNK (Fluticasone/Umeclidin/Vilanter [Trelegy Ellipta 100-62.5-25] 1 PUFF) IH SCH (09:00)
[2018-09-06] MEDS ORDERED: FUROSEMIDE 40 MG/4 ML VIAL IV SCH (09:00)
[2018-09-06] MEDS ORDERED: AMBRISENTAN PO SCH (09:00)
[2018-09-06] MEDS ORDERED: ENOXAPARIN 40 MG/0.4 ML SQ SCH (09:00)
--- NOTE | 2018-09-06 10:45 | P.CNS ---
Date of Consult: 09/06/18 Chief Complaint: Shortness of breath History of Present Illness: Patient is 63 years of age recently diagnosed with severe pulmonary hypertension she also had a cardiac catheterization done and was started on Letaris by me just last week no history of coronary artery disease no evidence of thromboembolism currently on a BiPAP of breath Patient was scheduled to have PFTs and a sleep study anti coagulated Allergies Penicillins Allergy (Verified 09/06/18 00:03) Itching/Hives/Rash Home Medications: Ambrisentan [Letairis] 1 tab PO DAILY 09/06/18 Citalopram [Celexa*] 15 mg PO BEDTIME 09/06/18 Fluticasone/Umeclidin/Vilanter [Trelegy Ellipta 100-62.5-25] 1 puff IH DAILY 09/23 Furosemide [Lasix] 20 mg PO DAILY 09/06/18 [place] Carbonate [Lithotabs *] 1 tab PO BEDTIME 09/06/18 Metformin HCl 1 tab PO BID 09/06/18 Risperidone [Risperdal] 1 tab PO BEDTIME 09/06/18 Rivaroxaban [Xarelto*] 20 mg PO DAILY 09/06/18 Spironolactone [Aldactone*] 1 tab PO DAILY 09/06/18 Trazodone [Desyrel*] 1 tab PO BEDTIME 09/06/18 clonazePAM [Clonazepam] 0.25 mg PO BID 09/06/18 - Past Medical/Surgical History Diabetic: Yes -: CHF -: DM -: COPD -: SMOKER -: Degenerative Back Disease -: AFIB, SVT -: BACK SURGERY -: LEFT KNEE SURGERY -: HYSTERECTOMY -: HEART ABLATION - Family History Father Family History: Reviewed- Non-Contributory - Social History Smoking Status: Current every day smoker Alcohol use: No CD- Drugs: No Caffeine use: Yes Place of Residence: Home Review of Systems is unable to be obtained Physical Examination Temp Pulse Resp BP Pulse Ox 97.6 F 101 H 18 122/56 L 72 L 09/06/18 09:04 09/06/18 09:04 09/06/18 09:04 09/06/18 09:04 09/06/18 09:04 General: Moderate distress Respiratory: Clear to auscultation bilaterally Cardiovascular: No edema, Normal S1 S2 Gastrointestinal: Normal bowel sounds, Soft and benign Laboratory Data (last 24 hrs) 09/05/18 18:30: PT 23.1 H, INR 1.94 09/05/18 18:30: WBC 8.0, Hgb 11.1 L, Hct 35.3 L, Plt Count 258 09/05/18 18:30: Sodium 139, Potassium 3.9, BUN 16, Creatinine 1.11, Glucose 168 H, Magnesium 2.1, Total Bilirubin 0.6, AST 19, ALT 18, Alkaline Phosphatase 84 - Problems (1) Respiratory distress Current Visit: Yes Status: Acute Plan: Patient is 63 years of age with the recent diagnosis of severe pulmonary hypertension confirmed by a cardiac catheterization admitted with respiratory distress she was just recently started on Letaris as an outpatient 5 mg. A former heavy smoker workup was pending as an outpatient including PFTs and a sleep study he has normal left ventricular function elevated BNP is probably from her cor pulmonale I suggest stopping Lasix continue with low-dose spironolactone increased bronchodilators and steroids I have also added sildenafil arterial blood gases currently on BiPAP chest x-ray shows cardiomegaly suspect is from her head pulmonary hypertension no evidence of sepsis normal white count
[2018-09-06] MEDS: SILDENAFIL CITRATE 20 MG TABLET PO SCH ×2 (11:20→20:46)
[2018-09-06] MEDS: METHYLPREDNISOLONE 40 MG INJ IV SCH ×2 (11:20→17:24)
[2018-09-06 12:34] LABS: Arterial Blood Carboxyhemoglob 2.5 % (0-1.5); Blood Gas Oxyhemoglobin 83.7 % (94-97); Blood O2 Saturation 86.2 % (92-98.5)
[2018-09-06] MEDS ORDERED: GLUCAGON 1 MG/VIAL IM PRN (14:40)
[2018-09-06] MEDS ORDERED: D50W 25 GM/50 ML SYRINGE IV PRN (14:40)
[2018-09-06] MEDS: INSULIN -REGULAR HUMAN 50 UNIT/0.5 ML ML SQ SCH ×2 (17:23→20:29)
[2018-09-06] MEDS: RIVAROXABAN 20 MG TABLET PO SCH (17:24)
--- NOTE | 2018-09-06 17:29 | P.PN ---
Subjective Date of Service: 09/06/18 Chief Complaint: Shortness of breath Physical Examination - Vital Signs Temperature: 97.4 F Blood Pressure: 100/56 Pulse: 91 Respirations: 18 Pulse Ox (%): 89 - Studies Laboratory Data (last 24 hrs) 09/05/18 18:30: PT 23.1 H, INR 1.94 09/05/18 18:30: WBC 8.0, Hgb 11.1 L, Hct 35.3 L, Plt Count 258 09/05/18 18:30: Sodium 139, Potassium 3.9, BUN 16, Creatinine 1.11, Glucose 168 H, Magnesium 2.1, Total Bilirubin 0.6, AST 19, ALT 18, Alkaline Phosphatase 84 Assessment And Plan - Plan Acute respiratory failure Primary pulmonary hypertension Diastolic dysfunction with acute on chronic heart failure A-fib Lower extremity edema Shortness of breath 1. Echocardiogram performed last month revealed normal cardiac functioning but severe pulmonary hypertension 2. Resume Letairis 3. Strict blood pressure control 4. pulmonary consultation, recommendations appreciated 5. Aggressive diuresis 6. Strict I's and O's 7. Repeat CXR tomorrow 8. Daily weights 9. BiPAP as needed
[2018-09-06] MEDS: TRAZODONE 150 MG TAB PO SCH (20:44)
[2018-09-06] MEDS: RISPERIDONE 0.25 MG TABLET PO SCH (20:44)
[2018-09-06] MEDS: CITALOPRAM 10 MG TABLET PO SCH (20:45)
[2018-09-06] MEDS: LITHIUM CARBONATE 300 MG TAB PO SCH (20:48)
[2018-09-06] MEDS ORDERED: RISPERIDONE PO SCH (21:00)
[2018-09-07] MEDS: ACETAMINOPHEN 500 MG TAB PO PRN (00:11)
[2018-09-07] MEDS: METHYLPREDNISOLONE 40 MG INJ IV SCH ×2 (00:12→09:31)
[2018-09-07] MEDS: IPRATROPIUM BROM 0.5MG/2.5ML NEB SCH ×4 (03:20→20:00)
[2018-09-07] MEDS: ALBUTEROL 2.5 MG/3 ML NEB SOL NEB SCH ×2 (03:20→09:12)
[2018-09-07 05:17] LABS: Potassium 4.5 mmol/L (3.5-5.1)
[2018-09-07] MEDS: INSULIN -REGULAR HUMAN 50 UNIT/0.5 ML ML SQ SCH ×4 (07:30→22:29)
[2018-09-07] MEDS: SPIRONOLACTONE 25 MG TABLET PO SCH (09:32)
[2018-09-07] MEDS: clonazePAM 0.5 MG TAB PO SCH ×2 (09:32→22:22)
[2018-09-07] MEDS: METOPROLOL TAR 50 MG TAB PO SCH ×2 (09:33→21:00)
[2018-09-07] MEDS: SILDENAFIL CITRATE 20 MG TABLET PO SCH ×2 (09:33→22:28)
[2018-09-07] MEDS: ASPIRIN EC 81 MG TAB PO SCH (09:33)
--- NOTE | 2018-09-07 10:10 | P.PN ---
Subjective Date of Service: 09/07/18 Chief Complaint: Shortness of breath Subjective: No C/O voiced, Improving Patient seen and examined at bedside. No family at bedside. Chart reviewed and case discussed with nursing staff. Drastic improvement in breathing. Off of BiPAP, on 2 L nasal cannula, which is baseline for her. complaints of generalized weakness/feeling tired this morning. Review of Systems 10-point ROS is otherwise unremarkable Physical Examination - Vital Signs Temperature: 97.0 F Blood Pressure: 98/60 Pulse: 62 Respirations: 16 Pulse Ox (%): 96 - Physical Exam General: Alert, In no apparent distress, Oriented x3 HEENT: Atraumatic, PERRLA, EOMI Neck: Supple, JVD not distended Respiratory: Diminished, Crackles/rales Cardiovascular: Regular rate/rhythm, Normal S1 S2 Gastrointestinal: Normal bowel sounds, No tenderness Musculoskeletal: No tenderness Integumentary: No rashes Neurological: Normal speech, Normal tone, Normal affect Lymphatics: No axilla or inguinal lymphadenopathy Assessment And Plan - Current Problems (Diagnosis) (1) Primary pulmonary hypertension Current Visit: Yes Status: Acute (2) A-fib Current Visit: No Status: Acute (3) Acute respiratory failure Onset Date: 07/30/18 Current Visit: No Status: Acute Qualifiers: Respiratory failure complication: hypoxia Qualified Code(s): J96.01 - Acute respiratory failure with hypoxia (4) COPD (chronic obstructive pulmonary disease) Onset Date: 07/30/18 Current Visit: No Status: Acute Qualifiers: COPD type: chronic bronchitis (5) Diastolic dysfunction with acute on chronic heart failure Current Visit: No Status: Acute - Plan Acute respiratory failure Primary pulmonary hypertension Pulmonary consultation, recommendations appreciated Resume Letairis Aggressive diuresis, Strict I's and O's and Daily weights Strict blood pressure control BiPAP as needed Diastolic dysfunction with acute on chronic heart failure Echocardiogram performed last month revealed normal cardiac functioning but severe pulmonary hypertension A-fib Resume home medications. DVT prophylaxis: Lovenox GI prophylaxis: None Diet: Heart healthy Disposition: Pending symptomatic improvement. Physical therapy consult/ evaluation pending. Possible discharge home in the next 24-48 hr depending on clinical symptoms
[2018-09-07] MEDS ORDERED: ALBUTEROL 2.5 MG/3 ML NEB SOL NEB PRN (11:10)
--- NOTE | 2018-09-07 11:11 | P.PN ---
Subjective Date of Service: 09/07/18 Chief Complaint: Shortness of breath Subjective: Improving (Patient is doing much better today shortness of breath has improved no new complaints) Review of Systems Unremarkable Physical Examination - Vital Signs Temperature: 97.0 F Blood Pressure: 98/60 Pulse: 62 Respirations: 16 Pulse Ox (%): 96 - Physical Exam General: Alert, In no apparent distress, Oriented x3 Neck: Supple Respiratory: Clear to auscultation bilaterally, Diminished Cardiovascular: No edema, Regular rate/rhythm Assessment & Plan - Problems (Diagnosis) (1) Respiratory distress Current Visit: Yes Status: Resolved Plan: Patient is 63 years of age with the recent diagnosis of severe pulmonary hypertension confirmed by a cardiac catheterization admitted with respiratory distress she was just recently started on Letaris as an outpatient 5 mg. A former heavy smoker workup was pending as an outpatient including PFTs and a sleep study he has normal left ventricular function elevated BNP is probably from her cor pulmonale I suggest stopping Lasix continue with low-dose spironolactone increased bronchodilators and steroids I have also added sildenafil arterial blood gases currently on BiPAP chest x-ray shows cardiomegaly suspect is from her head pulmonary hypertension no evidence of sepsis normal white count (2) COPD (chronic obstructive pulmonary disease) Onset Date: 07/30/18 Current Visit: No Status: Acute Plan: Is quite possible that she had a COPD exacerbation continue with steroids patient has improved significantly the pressure is slightly low continue with low-dose Sildenafil . Dc metoprolol continue with bronchodilators is quite possible that she had side effect of lLetaris. Patient has been advised to stop this medication she is scheduled to have further studies done as an outpatient as a part of workup for pulmonary hypertension she will not qualify for a BiPAP the check if she will qualify for home O2 possible discharge tomorrow on low-dose prednisone 10 mg twice a day continue with her trilogy inhaler. And low-dose sildenafil 10 mg twice a day Qualifiers: COPD type: chronic bronchitis Discharge Plan: Home Plan to discharge in: 24 Hours
[2018-09-07] MEDS: predniSONE 20 MG TAB PO SCH ×2 (12:22→22:24)
[2018-09-07] MEDS: RIVAROXABAN 20 MG TABLET PO SCH (17:32)
[2018-09-07] MEDS: CITALOPRAM 10 MG TABLET PO SCH (22:25)
[2018-09-07] MEDS: TRAZODONE 150 MG TAB PO SCH (22:27)
[2018-09-07] MEDS: LITHIUM CARBONATE 300 MG TAB PO SCH (22:28)
[2018-09-07] MEDS: RISPERIDONE 0.25 MG TABLET PO SCH (22:31)
[2018-09-08] MEDS: IPRATROPIUM BROM 0.5MG/2.5ML NEB SCH ×3 (02:00→14:22)
[2018-09-08] MEDS ORDERED: ACETAMINOPHEN 325 MG TABLET PO ONE (06:14)
[2018-09-08 06:42] VITALS: BMI 32.3
[2018-09-08] MEDS: SPIRONOLACTONE 25 MG TABLET PO SCH (08:32)
[2018-09-08] MEDS: predniSONE 20 MG TAB PO SCH (08:32)
[2018-09-08] MEDS: clonazePAM 0.5 MG TAB PO SCH (08:32)
[2018-09-08] MEDS: ASPIRIN EC 81 MG TAB PO SCH (08:32)
[2018-09-08] MEDS: INSULIN -REGULAR HUMAN 50 UNIT/0.5 ML ML SQ SCH ×3 (08:33→16:30)
[2018-09-08] MEDS: METOPROLOL TAR 50 MG TAB PO SCH (08:33)
[2018-09-08 10:15] VITALS: O2SAT 100
[2018-09-08] MEDS: SILDENAFIL CITRATE 20 MG TABLET PO SCH (10:19)
--- NOTE | 2018-09-08 11:53 | P.DS ---
Admission Date: 09/05/18 Discharge Date: 09/08/18 Primary Care Provider: Dr. Zhou Disposition: DC HOME/HOME HEALTH CARE Discharge Condition: FAIR Reason for Admission: Shortness of breath Consultations: Pulmonary-Dr. Lomeli Procedures: Medical problem list: Shortness of breath secondary to primary pulmonary hypertension Atrial fibrillation on chronic anti coagulation therapy Diabetes mellitus type 2 Bipolar disorder Tobacco abuse Brief History of Present Illness: 63-year-old female presented to emergency room with increasing shortness of breath. Patient with primary pulmonary hypertension. Patient recently started on Letairis. Patient seen by pulmonology. Patient was admitted for treatment. Hospital Course: Patient presented with shortness of breath secondary to primary pulmonary hypertension. Patient seen and evaluated by pulmonology. Medications adjusted. At discharge she will no longer take Letairis and Lasix. New medications include Viagra 10 mg 1 pill twice daily and Aldactone 25 mg daily. Patient will follow up with pulmonology within 1 week. Prior to discharge home oxygen will be set up to maintain sats above 90%. Home health and physical therapy will also be arranged. Patient also presented with COPD exacerbation. At discharge she will continue with prednisone 20 mg 1 pill twice daily for 5 days then 1 pill once daily for 5 days. Patient will continue with her medication of Trelegy 1 puff daily and albuterol 2 puffs 3 times a day as needed for shortness of breath. Further adjustment in medication can be done by pulmonology. Recommend to follow up with pulmonology within 1 week. Patient with bipolar disorder. Patient will continue with her medications including Celexa 15 mg at bedtime, lithium 300 mg at bedtime, Risperdal 1 mg at bedtime, Klonopin 0.25 mg 1 pill twice daily, trazodone 150 mg at bedtime. Further adjustment in medication can be done by psychiatry. Recommend to follow up with psychiatry in 2-4 weeks to follow Patient with diabetes. Patient will continue with metformin twice daily. Recommend to maintain blood sugars less 140 fasting and less than 200 after meals. Further adjustment can be done by her PCP. Patient with history of atrial fibrillation on chronic anti coagulation therapy. Patient will continue with Xarelto 20 mg daily. Metoprolol has been discontinued due to low blood pressure. It is been discontinued as well in relation to her COPD and pulmonary hypertension. This was recommended by pulmonology. Vital Signs/Physical Exam: Temp Pulse Resp BP Pulse Ox 97 F 60 18 89/52 L 100 09/08/18 08:00 09/08/18 08:33 09/08/18 08:00 09/08/18 08:33 09/08/18 08:00 General: Alert, In no apparent distress, Oriented x3, Cooperative HEENT: Atraumatic Neck: Supple Respiratory: Clear to auscultation bilaterally, Normal air movement Cardiovascular: Normal pulses, Regular rate/rhythm Gastrointestinal: Normal bowel sounds, Soft and benign, Non-distended, No tenderness, No masses, No rebound, No guarding Musculoskeletal: No erythema, No tenderness, No warmth Integumentary: No tenderness/swelling, No erythema, No warmth, No cyanosis Neurological: Normal speech, Normal strength at 5/5 x4 extr, Normal tone Laboratory Data at Discharge: WBC 8.0 K/uL (4.3-10.9) 09/06/18 04:40 Hgb 10.5 g/dL (12.0-15.0) L 09/06/18 04:40 Hct 33.4 % (36.0-45.0) L 09/06/18 04:40 Plt Count 262 K/uL (152-406) 09/06/18 04:40 PT 23.1 SECONDS (9.5-12.5) H 09/05/18 18:30 INR 1.94 09/05/18 18:30 Sodium 136 mmol/L (136-145) 09/07/18 04:21 Potassium 4.5 mmol/L (3.5-5.1) 09/07/18 04:21 BUN 28 mg/dL (7-18) H 09/07/18 04:21 Creatinine 1.25 mg/dL (0.55-1.3) 09/07/18 04:21 Glucose 239 mg/dL (74-106) H 09/07/18 04:21 Phosphorus 3.6 mg/dL (2.5-4.9) 09/06/18 04:40 Magnesium 2.0 mg/dL (1.8-2.4) 09/06/18 04:40 Total Bilirubin 0.6 mg/dL (0.2-1.0) 09/06/18 04:40 AST 16 U/L (15-37) 09/06/18 04:40 ALT 15 U/L (12-78) 09/06/18 04:40 Alkaline Phosphatase 71 U/L (45-117) 09/06/18 04:40 Home Medications: Citalopram [Celexa*] 15 mg PO BEDTIME 09/06/18 Fluticasone/Umeclidin/Vilanter [Trelegy Ellipta 100-62.5-25] 1 puff IH DAILY 09/23 [place] Carbonate [Lithotabs *] 1 tab PO BEDTIME 09/06/18 Metformin HCl 1 tab PO BID 09/06/18 Risperidone [Risperdal] 1 tab PO BEDTIME 09/06/18 Rivaroxaban [Xarelto*] 20 mg PO DAILY 09/06/18 Spironolactone [Aldactone*] 1 tab PO DAILY 09/06/18 Trazodone [Desyrel*] 1 tab PO BEDTIME 09/06/18 clonazePAM [Clonazepam] 0.25 mg PO BID 09/06/18 Albuterol Sulfate [Proair Hfa] 8.5 gm IH TID PRN #1 hfa.aer.[id number] 09/08/18 Sildenafil Citrate [Sildenafil] 10 mg PO BID #60 tablet 09/08/18 predniSONE [Prednisone*] 20 mg PO SEECOM #15 tab 09/08/18 New Medications: Albuterol Sulfate [Proair Hfa] 8.5 gm IH TID PRN #1 hfa.aer.ad PRN Reason: Shortness Of Breath predniSONE [Prednisone*] 20 mg PO SEECOM #15 tab Sildenafil Citrate [Sildenafil] 10 mg PO BID #60 tablet Patient Discharge Instructions: 1. Patient will need to follow up with her PCP within 1 week to follow up this hospitalization. 2. Patient presented with shortness of breath secondary to primary pulmonary hypertension. Patient seen and evaluated by pulmonology. Medications adjusted. At discharge she will no longer take Letairis and Lasix. New medications include Viagra 10 mg 1 pill twice daily and Aldactone 25 mg daily. Patient will follow up with pulmonology within 1 week. Prior to discharge home oxygen will be set up to maintain sats above 90%. Home health and physical therapy will also be arranged. 3. Patient also presented with COPD exacerbation. At discharge she will continue with prednisone 20 mg 1 pill twice daily for 5 days then 1 pill once daily for 5 days. Patient will continue with her medication of Trelegy 1 puff daily and albuterol 2 puffs 3 times a day as needed for shortness of breath. Further adjustment in medication can be done by pulmonology. Recommend to follow up with pulmonology within 1 week. 4. Patient with bipolar disorder. Patient will continue with her medications including Celexa 15 mg at bedtime, lithium 300 mg at bedtime, Risperdal 1 mg at bedtime, Klonopin 0.25 mg 1 pill twice daily, trazodone 150 mg at bedtime. Further adjustment in medication can be done by psychiatry. Recommend to follow up with psychiatry in 2-4 weeks to follow. 5. Patient with diabetes. Patient will continue with metformin twice daily. Recommend to maintain blood sugars less 140 fasting and less than 200 after meals. Further adjustment can be done by her PCP. 6. Patient with history of atrial fibrillation on chronic anti coagulation therapy. Patient will continue with Xarelto 20 mg daily. Metoprolol has been discontinued due to low blood pressure. It is been discontinued as well in relation to her COPD and pulmonary hypertension. This was recommended by pulmonology. Diet: ADA Activity: Fall precautions Followup: Sloan Lomeli MD [ACTIVE - CAN ADMIT] - Ceasar Zhou DO [Primary Care Provider] - Time spent managing pt's care (in minutes): 55
[2018-09-08] MEDS ORDERED: ACETAMINOPHEN 500 MG TAB PO PRN (14:02)
[2018-09-08] MEDS: RIVAROXABAN 20 MG TABLET PO SCH (17:02)
[2018-09-08 18:31] VITALS: BP 95/55; TEMP 97.4
== END 2018-09-08 19:53 | disposition home or self-care (01) | DRG 314 ==
LOC: ER 17:52 → ERHOLD 22:17 → 2ND 23:01
PROVIDERS: ADMIT Hospitalist; ATTEND Family Medicine
PROC: 5A09457 Assistance with Respiratory Ventilation, 24-96 Consecutive Hours, Continuous Positive Airway Pressure (ICD-10-PCS; principal; 2018-09-05)
DX: I27.0 Primary pulmonary hypertension (principal); J96.01 Acute respiratory failure with hypoxia; I50.33 Acute on chronic diastolic (congestive) heart failure; J44.1 Chronic obstructive pulmonary disease with (acute) exacerbation; I48.2 Chronic atrial fibrillation; Z79.01 Long term (current) use of anticoagulants; E11.9 Type 2 diabetes mellitus without complications; F31.9 Bipolar disorder, unspecified; F17.210 Nicotine dependence, cigarettes, uncomplicated; Z79.84 Long term (current) use of oral hypoglycemic drugs; Z88.0 Allergy status to penicillin; R60.9 Edema, unspecified
CPT/HCPCS: 36415; 71045; 80048; 80053; 80076; 81003; 82805; 82962; 83735; 83880; 84100; 84145; 84484; 85025; 85610; 93005; 94640; 94660; 94760; 96374; 97110; 97116; 97162; 97530; 99285; J1940; J2920; J7512

== ENCOUNTER 2018-12-01 12:52 | Emergency (ER) | payer OTHER ==
--- OUTSIDE RECORDS SUMMARY | 2018-12-01 12:59 | XMS REPORT | Continuity of Care Document ---
:1955 Author Organization Interface Problems Problem Status Onset Classification Date Comments Source Date Reported J444.9 Active 06/03/20 [facility] 15 729.89 - Active 04/19/20 [facility] MUSCSKEL SYMPT 15 [place] RESP FAILURE, Active 03/27/20 [facility] CHF 15 EXACERBATION LOW OXYGEN, Active 12/15/19 [facility] SENT BY [facility] [place] COPD Active 12/15/19 [facility] EXACERBATION, 15 [place] CHF EXACERBATION LUNG Active 10/30/19 [facility] [id number]-793 15 [place] .19 LFLT Active 07/12/20 [facility] TRANSFER#[id number] 14 [facility] RESPIRATORY Active 07/12/20 [place] [facility] Anxiety Active Problem 10/30/2015 [facility] OPID [place] Atrial Active Problem 10/30/2015 Fibrillation [facility], [facility] [place] Atrial Resolved Problem 10/30/2015 fibrillation [facility] OPID [place] Back pain Active Problem 10/30/2015 [facility] [place] Chest pain Active Problem 10/30/2015 [facility] [place] Congestive Resolved Problem 10/30/2015 heart failure [facility] OP[facility] [place] COPD Active Problem 10/30/2015 [facility] [place] Cough Active Problem 10/30/2015 [facility] [place] Depression Active Problem 10/30/2015 [facility] [place] Depression Active Problem 10/30/2015 [facility] [place] Diabetes Resolved Problem 10/30/2015 [facility] [place] HTN Active Problem 10/30/2015 [facility] [place] Hypertension Resolved Problem 10/30/2015 [facility] [place] Myeloma Resolved Problem 10/30/2015 [facility] [place] NIDDM Active Problem 10/30/2015 [facility] OPID [place] INA (<span Active Problem 10/30/2015 ID="[id number]" [facility] >Confirmed</spa OPID [facility] n>) [place] Sleep apnea, Resolved Problem 10/30/2015 obstructive [facility] OPID [place] Anxiety Active Problem 10/15/2018 [facility] Atrial Active Problem 10/15/2018 Fibrillation [facility] Atrial Resolved Problem 10/15/2018 fibrillation [facility] Back pain Active Problem 10/15/2018 [facility] Chest pain Active Problem 10/15/2018 [facility] Congestive Resolved Problem 10/15/2018 heart failure [facility] COPD Active Problem 10/15/2018 [facility] Cough Active Problem 10/15/2018 [facility] Depression Active Problem 10/15/2018 [facility] Diabetes Resolved Problem 10/15/2018 [facility] HTN Active Problem 10/15/2018 [facility] Hypertension Resolved Problem 10/15/2018 [facility] Myeloma Resolved Problem 10/15/2018 [facility] NIDDM Active Problem 10/15/2018 [facility] INA (<span Active Problem 10/15/2018 ID="[id number]" [facility] >Confirmed</spa [facility] n>) [facility] Simple obesity Active Problem 10/15/2018 [facility] Sleep apnea, Resolved Problem 10/15/2018 obstructive [facility] RESPIRATORY Active [place] [facility] ACUTE Active [facility] RESPIRATORY FAILUR CHR AIRWAY Active [facility] OBSTRUCT NEC [facility] CHF NOS Active [place] Medications Medication Details Route Status Patient Ordering Order Source Instructions Provider Date rivaroxaban 20 MG 20 mg=1 tab, Active 08/19/ Medical Oral Tablet PO, QPM, # 30 2019 Group [Xarelto] tab, 0 Refill(s), Pharmacy: [facility] [id number], Patient must shedule a follow up appointment for any further refills. AMIODarone 200 mg See Active 05/28/ Medical oral tablet Instructions, 2018 Group TAKE 1 TABLET BY MOUTH EVERY DAY, # 30 tab, 0 Refill(s), Pharmacy: [facility] [id number] AMIODarone 200 mg See Active Medical oral tablet Instructions, 2018 Group TAKE 1 TABLET BY MOUTH DAILY, # 30 tab, 0 Refill(s), Pharmacy: [facility] [id number], Patient needs to schedule a follow up appointment. cefpodoxime 200 mg 400 mg=2 tab, Active oral tablet PO, Q12H, # 14 2014 [facility] tab, 0 Refill(s) Lantus 10 unit, Inactive Route: SUB-Q, 2014 [facility] Bedtime, Dosing Weight 84.1, kg, Start date: 03/29/15 21:00:00, Duration: 30 day, Stop date: 04/27/15 21:00:00 lamotrigine 100 MG 100 mg, 1 tab, No Longer Oral Tablet Route: PO, Active 2014 [facility] Drug form: TAB, Bedtime, Dosing Weight 84.1, kg, Start date: 03/29/15 21:00:00, Duration: 30 day, Stop date: 04/27/15 21:00:00Notes: (Same as:LaMICtal) Levemir FlexPen 10 unit, 0.1 No Longer mL, Route: Active 2014 [facility] SUB-Q, Drug form: INJ, Bedtime, Start date: 03/29/15 21:00:00, Duration: 30 day, Stop date: 04/27/15 21:00:00Notes: Same as Levemir Do not hold insulin without contacting prescriber "single patient use only" Symbicort 160/4.5 2 inhalation, No Longer inhalation aerosol Route: Active 2014 [facility] with adapter INHALER, Drug Form: AERO/A, Dosing Weight 84.1, kg, BID, Start date: 03/29/15 20:00:00, Duration: 30 day, Stop date: 04/28/15 17:00:00Notes: (Same as: Symbicort) Methocarbamol 750 mg, 1 tab, No Longer Route: PO, Active 2014 [facility] Drug form: TAB, TID, Dosing Weight 84.1, kg, Start date: 03/29/15 20:00:00, Duration: 30 day, Stop date: 04/28/15 17:00:00Notes: (Same as:Robaxin) Alprazolam 0.25 mg, 1 No Longer tab, Route: Active 2014 [facility] PO, Drug form: TAB, BID, Dosing Weight 84.1, kg, PRN as needed for anxiety, Start date: 03/29/15 18:44:00, Duration: 30 day, Stop date: 04/28/15 18:43:00Notes: With food or milk (Same as: Xanax) torsemide 100 mg, 5 tab, No Longer Route: PO, Active 2014 [facility] Drug form: TAB, Daily, Dosing Weight 84.1, kg, Start date: 03/29/15 18:30:00, Stop date: 04/28/15 9:00:00Notes: (Same As: Demadex) Vantin 400 mg, 2 tab, No Longer Route: PO, Active 2014 [facility] Drug form: TAB, Q12H, Dosing Weight 84.1, kg, Start date: 03/29/15 11:00:00, Stop date: 04/02/15 22:00:00Notes: With food. (Same As: Vantin) Fenofibrate 135 mg, Route: No Longer PO, Daily, Active 2014 [facility] Dosing Weight 84.1, kg, Start date: 03/29/15 9:00:00, Duration: 30 day, Stop date: 04/27/15 9:00:00 sennosides, JAIL 17.2 mg, 2 No Longer tab, Route: Active 2014 [facility] PO, Drug Form: TAB, Dosing Weight 84.1, kg, Daily, Start date: 03/29/15 9:00:00, Duration: 30 day, Stop date: 04/27/15 9:00:00Notes: (Same as: Senokot) duloxetine 60 mg, 1 cap, No Longer Route: PO, Active 2014 [facility] Drug form: DRC, Daily, Dosing Weight 84.1, kg, Start date: 03/29/15 9:00:00, Duration: 30 day, Stop date: 04/27/15 9:00:00Notes: (Same as: Cymbalta) (Do Not Crush) Amitriptyline 2 tab, Route: Inactive Hydrochloride 25 PO, Drug Form: 2014 [facility] MG / Perphenazine TAB, Dosing 4 MG Oral Tablet Weight 84.1, kg, Bedtime, Start date: 03/28/15 21:00:00, Duration: 30 day, Stop date: 04/26/15 21:00:00 Trilafon 8 mg, 4 tab, No Longer Route: PO, Active 2014 [facility] Drug form: TAB, Bedtime, Start date: 03/28/15 21:00:00, Duration: 30 day, Stop date: 04/26/15 21:00:00Notes: (Same as: Trilafon) amitriptyline 50 mg, 1 tab, No Longer Route: PO, Active 2014 [facility] Drug form: TAB, Bedtime, Start date: 03/28/15 21:00:00, Duration: 30 day, Stop date: 04/26/15 21:00:00Notes: (Same as: Elavil) lithium 600 mg, 2 tab, No Longer Route: PO, Active 2014 [facility] Drug form: TAB, QPM, Dosing Weight 84.1, kg, Start date: 03/28/15 17:00:00, Duration: 30 day, Stop date: 04/26/15 17:00:00Notes: Give with food. (Same as: Eskalith) Xarelto 20 mg, 2 tab, No Longer Route: PO, Active 2014 [facility] Drug form: TAB, QPM, Dosing Weight 84.091, kg, Start date: 03/28/15 17:00:00, Duration: 30 day, Stop date: 04/26/15 17:00:00Notes: (Same as: Xarelto) Do Not Crush TriCor 145 mg, 1 tab, No Longer Route: PO, Active 2014 [facility] Drug form: TAB, After Dinner, Start date: 03/28/15 17:00:00, Duration: 30 day, Stop date: 04/26/15 17:00:00Notes: (Same as: Tricor) Lovenox 40 mg, 0.4 mL, No Longer Route: SUB-Q, Active 2014 [facility] Drug form: INJ, [id number], Dosing Weight 84.1, kg, Start date: 03/28/15 15:00:00, Duration: 30 day, Stop date: 04/26/15 15:00:00Notes: (Same as: Lovenox) Ativan 2 mg, 1 tab, No Longer Route: PO, Active 2014 [facility] Drug form: TAB, TID, Dosing Weight 84.1, kg, PRN Anxiety, Start date: 03/28/15 14:51:00, Duration: 30 day, Stop date: 04/27/15 14:50:00Notes: (Same as: Ativan) Albuterol 0.833 3 mL, Route: No Longer MG/ML / INHALATION, Active 2014 [facility] Ipratropium Drug Form: [place] 0.167 SOLN, Dosing MG/ML Inhalant Weight 84.1, Solution kg, RQID, Start date: 03/28/15 11:00:00, Duration: 30 day, Stop date: 04/27/15 7:00:00Notes: (Same as: Duoneb) Nicotine 21 mg, 1 No Longer patch, Route: Active 2014 [facility] TOP, Drug form: ERFILM, Daily, Dosing Weight 84.1, kg, Start date: 03/28/15 10:09:00, Duration: 30 day, Stop date: 04/27/15 9:00:00Notes: (Same as: Habitrol) "Remove old patch before application of new patch" glucagon 1 mg, Route: No Longer INJ, Drug Active 2014 [facility] form: PDR/INJ, PRN, PRN Blood Glucose Results, Start date: 03/28/15 9:18:00, Duration: 30 day, Stop date: 04/27/15 9:17:00 Dextrose 50% in 50 mL, Route: No Longer Water IV IVP, Start Active 2014 [facility] date: 03/28/15 9:18:00, Duration: 30 day, Stop date: 04/27/15 9:17:00, PRN Blood Glucose Results NovoLOG FlexPen 12 unit, 0.12 No Longer mL, Route: Active 2014 [facility] SUB-Q, Drug form: SOLN, Sliding Scale, PRN Blood Glucose Results, Start date: 03/28/15 9:18:00, Duration: 30 day, Stop date: 04/27/15 9:17:00Notes: Roll in palms of hands gently; Do not shake vigorously. (Same as: NovoLOG) "single patient use only" Stable for 28 days at room temperature. Expires in days from Date Lasix 40 mg, 4 mL, Inactive Route: IVP, 2014 [facility] Drug form: INJ, Daily, Dosing Weight 84.1, kg, Start date: 03/28/15 9:17:00, Duration: 30 day, Stop date: 04/27/15 9:00:00Notes: (Same as: Lasix) MEDICATION WASTE Product Size: 40 mg Product Wasted: ___ mg normal saline 0.9% 1,000 mL, Inactive IV 1000 mL Rate: 2014 [facility] ml/hr, Infuse over: 13.3 hr, Route: IV, Dosing Weight 84.1 kg, Total Volume: 1,000, Start date: 03/28/15 9:14:00, Duration: 30 day, Stop date: 04/27/15 9:13:00 Hydrocodone 1 tab, Route: No Longer Bitartrate 5 MG / PO, Drug Form: Active 2014 [facility] Ibuprofen 200 MG TAB, Dosing Oral Tablet Weight 84.1, kg, Q4H, PRN Pain Score 4-6, Start date: 03/28/15 9:08:00, Duration: 30 day, Stop date: 04/27/15 9:07:00Notes: (Same as: Vicoprofen) Saline Flush 0.9% 10 ml, Route: Inactive IVP, Drug 2014 [facility] Form: INJ, Dosing Weight 84.091, kg, Q12H, Start date: 03/28/15 9:00:00, Duration: 30 day, Stop date: 04/26/15 21:00:00Notes: (Same as: BD Posiflush) Famotidine 20 mg, 1 tab, No Longer Route: PO, Active 2014 [facility] Drug form: TAB, Q12H, Dosing Weight 84.091, kg, Start date: 03/28/15 9:00:00, Duration: 30 day, Stop date: 04/26/15 21:00:00Notes: (Same as: Pepcid) vancomycin 1.25 gm, 250 No Longer mL, Route: Active 2014 [facility] IVPB, Drug form: INJ, [id number], Start date: 03/28/15 9:00:00, Duration: 30 day, Stop date: 04/26/15 21:00:00Notes: TIME CRITICAL MEDICATION Same as: Vancocin-NS (premixed) Infusion rate 2001 mg: infuse over 2.5 hours Amiodarone 200 mg, 1 tab, No Longer Route: PO, Active 2014 [facility] Drug form: TAB, Daily, Dosing Weight 84.091, kg, Start date: 03/28/15 9:00:00, Duration: 30 day, Stop date: 04/26/15 9:00:00Notes: (Same as: Cordarone) pneumococcal 0.5 mL, Route: No Longer capsular IM, Drug Form: Active 2014 [facility] polysaccharide INJ, ONCALL, type 1 vaccine / Start date: pneumococcal 03/28/15 capsular 2:44:42, Stop polysaccharide date: 04/27/15 type 10A vaccine / 2:39:42Notes: pneumococcal (Same as: capsular Pneumovax 23) polysaccharide Refrigerate type 11A vaccine / pneumococcal capsular polysaccharide type 12F vaccine / pneumococcal capsular polysacchar meropenem 500 mg, Route: No Longer IVPB, Drug Active 2014 [facility] form: PDR/INJ, [id number], Dosing Weight 84.091, kg, CrCL >=50ml/min, Extended infusion, infuse over 3 hours, Start date: 03/28/15 2:00:00, Duration: 30 day, Stop date: 04/26/15 20:00:00Notes: Same as Merrem MEDICATION WASTE Product Size: 500 mg Product Wasted: ___ mg Dextrose 50% in 25 gm, 50 mL, Inactive Water IV Route: IVP, 2014 [facility] Drug Form: INJ, PRN, PRN Blood Glucose Results, Start date: 03/28/15 1:05:00, Duration: 30 day, Stop date: 04/27/15 1:04:00 glucagon 1 mg, Route: Inactive IV, Drug form: 2014 [facility] PDR/INJ, PRN, PRN Blood Glucose Results, Start date: 03/28/15 1:05:00, Duration: 30 day, Stop date: 04/27/15 1:04:00 NovoLOG FlexPen 8 unit, 0.08 Inactive mL, Route: 2014 [facility] SUB-Q, Drug form: SOLN, Sliding Scale, PRN Blood Glucose Results, Start date: 03/28/15 1:04:00, Duration: 30 day, Stop date: 04/27/15 1:03:00Notes: Roll in palms of hands gently; Do not shake vigorously. (Same as: NovoLOG) "single patient use only" Stable for 28 days at room temperature. Expires in days from Date Vancomycin 1 ea, Route: Inactive MISC, Dosing 2014 [facility] Weight 84.091, kg, ONCALL, Start date: 03/28/15 1:00:00, Duration: 1 doses or times, Pharmacy to doseSpecial Instructions: Pharmacy to dose glucagon 1 mg, Route: Inactive INJ, Drug 2014 [facility] form: PDR/INJ, PRN, PRN Blood Glucose Results, Start date: 03/28/15 0:10:00, Duration: 30 day, Stop date: 04/27/15 0:09:00 NovoLOG FlexPen 5 unit, 0.05 Inactive mL, Route: 2014 [facility] SUB-Q, Drug form: SOLN, Sliding Scale, PRN Blood Glucose Results, Start date: 03/28/15 0:09:00, Duration: 30 day, Stop date: 04/27/15 0:08:00Notes: Roll in palms of hands gently; Do not shake vigorously. (Same as: NovoLOG) "single patient use only" Stable for 28 days at room temperature. Expires in days from Date Dextrose 50% in 25 gm, 50 mL, Inactive Water IV Route: IVP, 2014 [facility] Drug Form: INJ, PRN, PRN Blood Glucose Results, Start date: 03/28/15 0:09:00, Duration: 30 day, Stop date: 04/27/15 0:08:00 lithium 300 mg 600 mg=2 tab, Active oral tablet PO, Bedtime, # 2015 [facility] 60 tab, 1 Refill(s) Lantus 20 unit, Active SUB-Q, 2014 [facility] Bedtime, 0 Refill(s) Zolpidem tartrate 10 mg=1 tab, Active 10 MG Oral Tablet PO, Bedtime, # 2014 [facility] [Ambien] 14 tab, 0 Refill(s) lamotrigine 100 MG 100 mg=1 tab, Active Oral Tablet PO, Bedtime, # 2014 [facility] 30 tab, 1 Refill(s) Symbicort 160/4.5 2 puff, Active inhalation aerosol INHALER, BID, 2014 [facility] with adapter # 1 ea, 3 Refill(s) Sodium Chloride 250 mL, Route: No Longer 0.9% IV IVPB, Start Active 2014 [facility] date: 03/27/15 22:38:00, Duration: 30 day, Stop date: 04/26/15 22:37:00, PRN Line Flush Saline Flush 0.9% 10 ml, Route: No Longer IVP, Drug Active 2014 [facility] Form: INJ, Dosing Weight 84.091, kg, PRN, PRN Line Flush, Start date: 03/27/15 22:33:00, Duration: 30 day, Stop date: 04/26/15 22:32:00Notes: (Same as: BD Posiflush) Albuterol 0.833 3 ml, Route: No Longer MG/ML / NEB, Drug Active 2014 [facility] Ipratropium Form: SOLN, [place] 0.167 Dosing Weight MG/ML Inhalant 84.091, kg, Solution PRN, PRN Respiratory Protocol, Start date: 03/27/15 22:33:00, Duration: 30 day, Stop date: 04/26/15 22:32:00Notes: (Same as: Duoneb) Acetaminophen 650 mg, 2 tab, No Longer Route: PO, Active 2014 [facility] Drug form: TAB, Q4H, Dosing Weight 84.091, kg, PRN For Temp > 100.4 F, Start date: 03/27/15 22:33:00, Duration: 30 day, Stop date: 04/26/15 22:32:00Notes: Do not exceed 4 gm/day. (Same as: Tylenol) predniSONE 20 mg See Special Active [facility] oral tablet Instructions, 2014 [facility] PO, Daily, 4 day regimen: Day 1 [...] INHALATION, 2014 [facility] QID, # 30 ea, [place] 0.167 0 Refill(s) MG/ML Inhalant Solution torsemide 100 mg, 5 tab, Inactive Sugar Route: PO, 2014 [facility] Drug form: TAB, Daily, Dosing Weight 84.091, kg, Start date: 12/16/14 9:00:00, Duration: 30 day, Stop date: 01/14/15 9:00:00Notes: (Same As: Demadex) TriCor 145 mg, 1 tab, Inactive Sugar Route: PO, 2014 [facility] Drug form: TAB, Daily, Start date: 12/16/14 9:00:00, Duration: 30 day, Stop date: 01/14/15 9:00:00Notes: (Same as: Tricor) Trilipix 135 mg, Route: No Longer [place] PO, Drug form: Active 2014 [facility] CAP, Daily, Dosing Weight 84.091, kg, Start date: 12/16/14 9:00:00, Duration: 30 day, Stop date: 01/14/15 9:00:00 insulin detemir 20 unit, 0.2 No Longer [place] mL, Route: Active 2014 [facility] SUB-Q, Drug form: INJ, Bedtime, Dosing Weight 84.091, kg, Start date: 12/15/14 21:00:00, Duration: 30 day, Stop date: 01/13/15 21:00:00Notes: Same as Levemir Do not hold insulin without contacting prescriber "single patient use only" lithium 450 mg, Route: No Longer [place] PO, Drug form: Active 2014 [facility] ERTAB, Bedtime, Dosing Weight 84.091, kg, Start [...] No Longer Sugar mL, Route: Active 2014 [facility] IVPB, Drug form: SOLN, Daily, Dosing Weight [...] No Longer Sugar Route: PO, Active 2014 [facility] Drug form: ERCAP, Daily, Dosing Weight 84.091, [...] Longer Sugar Syringe Route: IVP, Active 2014 [facility] Drug Form: INJ, Dosing Weight 84.091, kg, [...] Sugar MG/ML Inhalant Route: NEB, Active 2014 [facility] Solution Drug form: [Pulmicort] SUSP, RBID, Dosing [...] No Longer Sugar Route: SUB-Q, Active 2014 [facility] Drug form: INJ, Daily, Dosing Weight 83.636, [...] not exceed 4gm/day of acetaminophen. (Same as: [place] 325/10) acetaminophen-hydr 1 tab, Route: Inactive Sugar ocodone 325 mg-10 PO, Drug Form: 2014 [facility] mg oral tablet TAB, Dosing Weight 84.091, kg, Q4H, PRN Pain Score 1-5, prn, Start date: 12/15/14 1:20:00, Duration: 30 day, Stop date: 01/14/15 1:19:00Notes: Do not exceed 4gm/day of acetaminophen. (Same as: [place] 325/10) Acetaminophen 325 1 tab, Route: Inactive [place] MG / Hydrocodone PO, Drug Form: 2014 Bitartrate 10 MG TAB, Dosing Oral Tablet [[place] Weight 84.091, 10/325] kg, Q4H, PRN Pain Score 1-5, prn, Start date: 12/15/14 1:02:00, Duration: 30 day, Stop date: 01/14/15 1:01:00Notes: Do not exceed 4gm/day of acetaminophen. (Same as: [place] 325/10) methylPREDNISolone 40 mg, 1 mL, No Longer Sugar SODium SUCCinate Route: IVP, Active 2014 Drug form: INJ, Q8H, Dosing Weight 83.636, kg, Start date: 12/15/14 0:00:00, Duration: 30 day, Stop date: 01/13/15 16:00:00Notes: (Same as:Solu-MEDROL , A-Methapred) Acetaminophen 325 1 tab, PO, Active [place] MG / Hydrocodone Q4H, PRN for 2014 Bitartrate 10 MG pain, 0 Oral Tablet [[place] Refill(s) 10/325] 24 HR Diltiazem 180 mg=1 [...] NEB, Drug Active 2014 [facility] Form: SOLN, [place] 0.167 Dosing Weight MG/ML Inhalant 83.636, kg, Solution RQ6H, Start date: 12/14/14 20:00:00, Duration: 30 day, Stop date: 01/13/15 14:00:00Notes: (Same as: Duoneb) Albuterol 0.83 2.5 mg, 3.01 No Longer [...] Bitartrate 5 MG TAB, Dosing Oral Tablet [[place] Weight 83.636, 5/325] kg, ONCE, STAT, Start date: 12/14/14 17:03:00, Stop date: 12/14/14 17:03:00 Lasix 20 mg, Route: Inactive [place] IVP, Drug 2014 [facility] form: INJ, ONCE, Dosing Weight 83.636, kg, Priority: STAT, Start date: 12/14/14 15:07:00, Stop date: 12/14/14 15:07:00 Albuterol 0.833 3 mL, Route: Inactive [place] MG/ML / INHALATION, 2014 [facility] Dosing Weight [place] 0.167 83.636, kg, MG/ML Inhalant ONCE, Start [...] Date Comments Source type Reported penicillins Assertion hives,swe High Drug Active [facility] lling allergy 2 [place] Immunizations Immunization Date Given Site Status Last Updated Comments Source Results Order Name Results Value Reference Date Interpretation Comments Source Range Spine Spine lumbar Examination: Spine lumbar wo contrast MRI 04/20 - [facility] OPID lumbar wo wo contrast /2014 - [facility] contrast MRI MRI History: 729.89 bilateral leg [...] is not recommended in the following populations: [place] [address] Individuals with unstable creatinine concentrations, including patients [...] Lvl 9.2 mg/dL 8.5 - 10.5 03/30 [facility] CHEM PANEL Sodium Lvl 141 meq/L 135 - 145 03/30 [facility] CHEM PANEL Potassium 3.5 meq/L 3.5 - 5.1 03/30 [facility] CHEM PANEL Chloride Lvl 104 meq/L 95 - 109 03/30 [facility] CHEM PANEL CO2 28 meq/L 24 - 32 03/30 [facility] CHEM PANEL BUN 17 mg/dL 7 - 03/30 [facility] CHEM PANEL Creatinine 0.7 mg/dL 0.5 - 1.4 03/30 [facility] CHEM PANEL Glucose Lvl 126 mg/dL 70 - 99 03/30 [facility] CHEM PANEL AGAP 12.5 meq/L 10.0 - 03/30 20. [facility] CHEM PANEL Lactic Acid 1.1 mMol/L 0.5 - 2.2 03/30 [facility] CHEM PANEL Magnesium 1.9 mg/dL 1.8 - 2.4 03/30 [facility] CHEM PANEL Phosphorus 3.3 mg/dL 2.5 - 4.5 03/30 [facility] HEMATOLOGY Lymphocytes 15.3 % 20.0 - 03/30 [facility] 40.0 [facility] HEMATOLOGY Segs 75.3 % 45.0 - 03/30 75.0 [facility] HEMATOLOGY Basophils # 0.1 K/CMM 0.0 - 0.2 03/30 [facility] HEMATOLOGY Eosinophils 0.2 K/CMM 0.0 - 0.5 03/30 [facility] HEMATOLOGY Monocytes # 0.5 K/CMM 0.0 - 0.8 03/30 [facility] HEMATOLOGY Lymphocytes 1.3 K/CMM 1.0 - 5.5 03/30 [facility] # /2014 [facility] HEMATOLOGY Segs-Bands # 6.2 K/CMM 1.5 - 8.1 03/30 /2014 [facility] HEMATOLOGY Eosinophils 2.9 % 0.0 - 4.0 03/30 /2014 [facility] HEMATOLOGY Monocytes 5.9 % 2.0 - 12.0 03/30 [facility] HEMATOLOGY Basophils 0.6 % 0.0 - 1.0 03/30 [facility] HEMATOLOGY RBC 4.14 M/CMM 4.20 - 03/30 MH 5.40 /2014 [facility] HEMATOLOGY WBC 8.2 K/CMM 3.7 - 10.4 03/30 [facility] HEMATOLOGY MPV 8.0 fL 7.4 - 10.4 03/30 [facility] HEMATOLOGY Hgb 10.9 g/dL 12.0 - 03/30 16.0 [facility] HEMATOLOGY MCHC 31.8 g/dL 32.0 - 03/30 MH 36.0 [facility] MCH 26.4 pg 27.0 - 03/30 MH 31.0 [facility] HEMATOLOGY MCV 83.0 fL 80.0 - 03/30 MH 98.0 [facility] HEMATOLOGY Hct 34.4 % 36.0 - 03/30 MH 48.0 /2014 [facility] HEMATOLOGY Platelet 316 K/CMM 133 - 450 03/30 [facility] HEMATOLOGY RDW 23.7 % 11.5 - 03/30 14.5 [facility] PARATHYROI Ca Norm WB 1.14 1.05 - 03/30 D PROFILE mMol/L 1. [facility] PARATHYROI Ca Ion WB 1.10 1.05 - 03/30 D PROFILE mMol/L . [facility] METAL [place] Lvl 0.66 meq/L 0.50 - 03/29 MH 1.50 [facility] TOXICOLOGY Vanco Tr TND [id number] 03/29 [facility] TOXICOLOGY Vanco Tr 12.9 ug/ml 03/29 [facility] CHEM PANEL Phosphorus 3.0 mg/dL 2.5 - 4.5 03/29 [facility] CHEM PANEL Magnesium 2.2 mg/dL 1.8 - 2.4 03/29 Lvl /2014 [facility] CHEM PANEL Procalcitoni 2.02 ng/mL 0.00 - 03/29 Result n Lvl 0. Comment: [facility] Critical Result(s) called to daniel at 03/29/2015 06:03 by gp. Read back OK. ELECTROLYT AGAP 8.8 meq/L 10.0 - 03/29 ES 20. [facility] ELECTROLYT eGFR 96 03/29 Result Comment: The eGFR is calculated using the CKD-EPI formula. In most young, healthy individuals the eGFR will be >90 mL/ min/1.73m2. The eGFR declines with age. An eGFR of 60-89 may be normal in ES mL/min/1. some populations, particularly the elderly, for whom the CKD-EPI formula has not been extensively validated. Use of the eGFR is not recommended in the following populations: [facility] 3m2 Individuals with unstable creatinine concentrations, [...] Lvl 143 meq/L 135 - 145 03/29 [facility] ELECTROLYT Creatinine 0.7 mg/dL 0.5 - 1.4 03/29 ES Lv [facility] ELECTROLYT BUN 13 mg/dL 7 - 22 03/29 [facility] ELECTROLYT Glucose Lvl 136 mg/dL 70 - 99 03/29 [facility] ELECTROLYT Calcium Lvl 8.9 mg/dL 8.5 - 10.5 03/29 [facility] ELECTROLYT CO2 30 meq/L 24 - 32 03/29 [facility] ELECTROLYT Chloride Lvl 108 meq/L 95 - 109 03/29 [facility] ELECTROLYT Potassium 3.8 meq/L 3.5 - 5.1 03/29 ES Lv [facility] CHEM PANEL Lactic Acid 1.3 mMol/L 0.5 - 2.2 03/29 [facility] [facility] HEM[facility]Y Lymphocytes 12.0 % 20.0 - 03/29 40.0 [facility] HEMATOLOGY Segs 83.2 % 45.0 - 03/29 75.0 [facility] HEMATOLOGY Plt Morph Normal 03/29 [facility] (03/29/15 3:50 AM) HEMATOLOGY Monocytes 4.0 % 2.0 - 12.0 03/29 [facility] HEMATOLOGY Lymphocytes 1.3 K/CMM 1.0 - 5.5 03/29 # /2014 [facility] HEMATOLOGY Segs-Bands # 9.4 K/CMM 1.5 - 8.1 03/29 [facility] HEMATOLOGY Basophils 0.2 % 0.0 - 1.0 03/29 [facility] HEMATOLOGY Eosinophils 0.6 % 0.0 - 4.0 03/29 [facility] HEMATOLOGY Polychrom Moderate None Seen 03/29 [facility] *ABN* (03/29/15 3:50 AM) HEMATOLOGY Eosinophils 0.1 K/CMM 0.0 - 0.5 03/29 # /2014 [facility] HEMATOLOGY Monocytes # 0.5 K/CMM 0.0 - 0.8 03/29 [facility] HEMATOLOGY MPV 8.8 fL 7.4 - 10.4 03/29 [facility] HEMATOLOGY WBC 11.3 K/CMM 3.7 - 10.4 03/29 [facility] HEMATOLOGY RBC 3.61 M/CMM 4.20 - 03/29 MH 5.40 /2014 [facility] HEMATOLOGY MCV 83.8 fL 80.0 - 03/29 MH 98.0 /2014 [facility] HEMATOLOGY MCH 26.5 pg 27.0 - 03/29 MH 31.0 [facility] HEMATOLOGY Hgb 9.6 g/dL 12.0 - 03/29 16.0 [facility] HEMATOLOGY Hct 30.3 % 36.0 - 03/29 MH 48.0 /2014 [facility] HEMATOLOGY RDW 24.3 % 11.5 - 03/29 MH 14.5 [facility] HEMATOLOGY Platelet 280 K/CMM 133 - 450 03/29 [facility] HEMATOLOGY MCHC 31.6 g/dL 32.0 - 03/29 MH 36.0 [facility] PARATHYROI Ca Norm WB 1.08 1.05 - 03/29 D PROFILE mMol/L 08.29 [facility] PARATHYROI Ca Ion WB 1.10 1.05 - 03/29 D PROFILE mMol/L 08.29 [facility] CARDIAC CK MB Index 3.0 0.0 - 2.5 03/28 [facility] CARDIAC Total CK 47 unit/L 12 - 191 03/28 [facility] CARDIAC CK MB 1.4 ng/mL 0.5 - 3.6 08/24 MH ENZYMES /2015 [facility] CARDIAC Troponin-I null 0.00 - 03/28 MH ENZYMES 0.40 [facility] CHEM PANEL Procalcitoni 2.09 ng/mL 0.00 - 03/28 Result n Lvl 0.10 Comment: [facility] Critical Result(s) called to alisha forman at 03/28/2015 12:44 by jeffrey. Read back OK. METAL [place] Lvl 1.44 meq/L 0.50 - 08 MH 1.50 /2014 [facility] CARDIAC Troponin-I null 0.00 - 08 MH ENZYMES 0.40 [facility] CARDIAC Total CK 52 unit/L 12 - 191 03/28 MH ENZYMES /2014 [facility] CHEM PANEL eGFR 71 03/28 Result Comment: [...] is not recommended in the following populations: [facility] 3m2 Individuals with unstable creatinine concentrations, [...] 7.0 meq/L 10.0 - 03/28 MH 20.0 [facility] CHEM PANEL Chloride Lvl 109 meq/L 95 - 109 03/28 MH [facility] CHEM PANEL CO2 28 meq/L 24 - 32 03/28 MH [facility] CHEM PANEL Calcium Lvl 8.9 mg/dL 8.5 - 10.5 03/28 MH [facility] CHEM PANEL Creatinine 0.9 mg/dL 0.5 - 1.4 / MH Lvl [facility] CHEM PANEL Sodium Lvl 140 meq/L 135 - 145 03/28 MH [facility] CHEM PANEL Potassium 4.0 meq/L 3.5 - 5.1 03/28 MH Lvl [facility] CHEM PANEL Glucose Lvl 230 mg/dL 70 - 99 03/28 /2014 [facility] CHEM PANEL BUN 13 mg/dL 7 - 22 03/28 /2014 [facility] CHEM PANEL Phosphorus 2.7 mg/dL 2.5 - 4.5 03/28 /2014 [facility] CHEM PANEL Magnesium 2.0 mg/dL 1.8 - 2.4 03/28 MH Lvl [facility] HEMATOLOGY Monocytes # 0.4 K/CMM 0.0 - 0.8 03/28 /2014 [facility] HEMATOLOGY Lymphocytes 2.4 % 20.0 - 03/28 MH 40.0 /2014 [facility] HEMATOLOGY Monocytes 1.9 % 2.0 - 12.0 03/28 /2014 [facility] HEMATOLOGY Lymphocytes 0.4 K/CMM 1.0 - 5.5 03/28 MH /2014 [facility] HEMATOLOGY Segs-Bands # 17.9 K/CMM 1.5 - 8.1 03/28 /2014 [facility] HEMATOLOGY Segs 95.7 % 45.0 - 03/28 MH 75.0 /2014 [facility] HEMATOLOGY Hct 35.3 % 36.0 - 03/28 MH 48.0 /2014 [facility] HEMATOLOGY WBC 18.7 K/CMM 3.7 - 10.4 03/28 /2014 [facility] HEMATOLOGY Hgb 11.0 g/dL 12.0 - 03/28 MH 16.0 /2014 [facility] HEMATOLOGY MCV 83.6 fL 80.0 - 03/28 MH 98.0 /2014 [facility] HEMATOLOGY RBC 4.22 M/CMM 4.20 - 03/28 MH 5.40 /2014 [facility] HEMATOLOGY MCHC 31.1 g/dL 32.0 - 03/28 MH 36.0 /2014 [facility] HEMATOLOGY RDW 23.8 % 11.5 - 03/28 MH 14.5 [facility] HEMATOLOGY MCH 26.0 pg 27.0 - 03/28 MH 31.0 /2014 [facility] HEMATOLOGY Platelet 293 K/CMM 133 - 450 03/28 /2014 [facility] HEMATOLOGY MPV 8.5 fL 7.4 - 10.4 03/28 [facility] PARATHYROI Ca Ion WB 1.19 1.05 - 03/28 MH D PROFILE mMol/L 08.29 [facility] PARATHYROI Ca Norm WB 1.15 1.05 - 03/28 MH D PROFILE mMol/L 08.29 [facility] CHEM PANEL Lactic Acid 2.4 mMol/L 0.5 - 2.2 08/24 MH Lvl /2014 [facility] CARDIAC Troponin-I 0.02 ng/mL 0.00 - 03/28 ENZYMES 0.40 /2014 [facility] CARDIAC Total CK 55 unit/L 12 - 191 03/28 [facility] BACTERIAL MRSA by PCR Negative 03/28 - SEROLOGY [facility] (03/27/15 10:42 PM) CARDIAC proBNP 2233 pg/mL 0 - 125 03/28 [facility]ES [facility] CHEM PANEL Globulin 5.1 g/dL 2.0 - 4.0 03/28 [facility] CHEM PANEL A/G Ratio 0.6 0.7 - 1.6 03/28 [facility] CHEM PANEL B/C Ratio 11 6 - 25 03/28 [facility] CHEM PANEL Total 8.1 g/dL 6.4 - 8.4 03/28 Protein [facility] CHEM PANEL Albumin Lvl 3.0 g/dL 3.5 - 5.0 03/28 [facility] CHEM PANEL Bili Total 0.5 mg/dL 0.2 - 1.3 03/28 [facility] CHEM PANEL AST 32 unit/L 0 - 37 03/28 [facility] CHEM PANEL ALT 16 unit/L 0 - 65 03/28 [facility] CHEM PANEL Alk Phos 59 unit/L 39 - 136 03/28 [facility] HEMATOLOGY Plt Morph Normal 03/28 [facility] (03/27/15 10:42 PM) HEMATOLOGY RBC Morph Normal 03/28 [facility] (03/27/15 10:42 PM) HEMATOLOGY Atypical 0.0 % <=0.0 % 03/28 Lymphs [facility] HEMATOLOGY Bands 7.0 % 0.0 - 11.0 03/28 [facility] HEMATOLOGY INR 1.04 0.85 - 03/28 MH 1.17 /2014 [facility] HEMATOLOGY PTT 31.6 s 22.9 - 03/28 MH 35.8 /2014 [facility] HEMATOLOGY PT 13.6 s 12.0 - 03/28 MH 14.7 /2014 [facility] URINE AND UA Color Yellow Yellow 03/28 STOOL [facility] *NA* (03/27/15 10:42 PM) URINE AND UA Spec Grav 1.025 <=1.030 03/28 STOOL [facility] URINE AND UA Turbidity Clear Clear 03/28 STOOL [facility] (03/27/15 10:42 PM) URINE AND UA Glucose 100 mg/dL Negative 03/28 [facility] mg/dL [facility] URINE AND UA Protein Negative Negative 03/28 STOOL [facility] (03/27/15 10:42 PM) URINE AND UA Ketones Negative Negative 03/28 [facility] *NA* (03/27/15 10:42 PM) URINE AND UA pH 6.0 5.0 - 8.0 03/28 STOOL [facility] URINE AND UA Nitrite Negative Negative 03/28 STOOL [facility] (03/27/15 10:42 PM) URINE AND UA Leuk Est Negative Negative 03/28 STOOL [facility] (03/27/15 10:42 PM) URINE AND UA 0.2 EU/dL 0.1 - 1.0 03/28 [facility] Urobilinogen [facility] URINE AND UA Bili Negative Negative 03/28 [facility] *NA* (03/27/15 10:42 PM) URINE AND UA Blood Small Negative 03/28 [facility] *ABN* (03/27/15 10:42 PM) URINE AND UA Sq Epi None Seen Few 03/28 [facility]OL [facility] (03/27/15 10:42 PM) URINE AND UA Mucus Few /LPF None Seen 03/28 [facility] /LPF [facility] URINE AND UA Bacteria Occasional None Seen 03/28 [facility] /HPF /HPF [facility] URINE AND UA RBC 13 /HPF 0 - 2 03/28 [facility] URINE AND UA CaOx Lizette Occasional None Seen 03/28 [facility] /HPF /HPF [facility] URINE AND UA WBC 2 /HPF 0 - 5 03/28 [facility] Chest Chest 1view Chest one view: 03/28 [facility] 1view DX DX /2014 - [facility] Exam reason: Shortness of breath. Read by: [...] - [facility] contrast contrast CT /2014 - [facility] History: Dyspnea/COPD Read by: Zoila Paiz [...] Prot 14 mg/dL 12/15 [facility] (UPE) /2014 [facility] IMMUNOLOGY Interp (UPE) Urine 12/15 [facility] protein /2014 [place] consists primarily of albumin. No monoclonal bands are identified .Interpret ation performed at [facility]. IMMUNOLOGY Spec Type random 12/15 [facility] (UPE) urine 100x /2014 [facility] IMMUNOLOGY Albumin % 39.4 REL % 55.8 - 12/15 MH [place] 66.1 /2014 [facility] IMMUNOLOGY Alpha 1 % 5.0 REL % 2.8 - 4.9 12/15 [facility] /2014 [facility] IMMUNOLOGY SPE Interp Total 12/15 [place] protein is [place] increased. A presumptiv e monoclonal protein (1.47 g/dl) is present within the preserved polyclonal gamma globulin region and overlaps with a large peak in the beta-2 fraction that may also ne monoclonal . Serum and urine immunofixa tion studies are recommende d for further evaluation .Interpret ation performed at [facility]. IMMUNOLOGY Beta Glob 1.52 g/dL 0.50 - 05 MH [place] 1.15 /2014 [place] IMMUNOLOGY Alpha 2 Glob 1.42 g/dL 0.45 - 05 MH [place] 1.00 /2014 [facility] IMMUNOLOGY Alpha 1 Glob 0.51 g/dL 0.18 - 05 MH [place] 0.41 /2014 [facility] IMMUNOLOGY Tot Prot 10.1 g/dL 6.4 - 8.4 12/15 MH [place] (SPE) /2014 [place] IMMUNOLOGY Gamma Glob 2.68 g/dL 0.71 - 05 MH [place] 1.57 /2014 [facility] IMMUNOLOGY Alpha [...] null 0 - 20 12/15 [facility] [place] IMMUNOLOGY DIANNE Negative Negative 12/15 [facility] (12/15/14 12:16 PM) SPECIAL DORA 53 unit/L 8 - 52 12/15 [facility] CHEMISTRY /2014 [place] THYROID TSH 1.110 0.360 - 12/15 [facility] PANEL uIU/mL 3.740 /2014 [place] CARDIAC Total CK 35 unit/L 12 - 191 12/15 MH [place] [facility] /2014 [place] CARDIAC Troponin-I null 0.00 - 12/15 [facility] 0.40 /2014 [facility] CHEM PANEL Calcium Lvl 8.8 mg/dL 8.5 - 10.5 12/15 MH [place] CHEM PANEL AGAP 12.1 meq/L 10.0 - 05 MH [place] 20.0 /2014 [facility] CHEM PANEL CO2 24 meq/L 24 - 32 12/15 MH [place] CHEM PANEL Chloride Lvl 106 meq/L 95 - 109 12/15 MH [place] CHEM PANEL eGFR 82 05/ 1Result Comment: The eGFR is calculated using [...] 0.8 mg/dL 0.5 - 1.4 12/15 [facility] L[facility] CHEM PANEL Glucose Lvl 247 mg/dL 70 - 99 12/15 3Interpretive Data: Adult reference range values reflect the clinical guidelines of the [place] [employer]. [place] CHEM PANEL BUN 12 [...] HEMATOLOGY Hct 31.8 % 36.0 - 12/15 MH [place] 48.0 /2014 [place] HEMATOLOGY RBC 3.92 M/CMM 4.20 - 12/15 MH [place] 5.40 /2014 [facility] HEMATOLOGY Hgb 10.3 g/dL 12.0 - 12/15 MH [place] 16.0 /2014 [facility] HEMATOLOGY MCHC 32.3 g/dL 32.0 - 12/15 MH [place] 36.0 /2014 [facility] HEMATOLOGY MCH 26.3 pg 27.0 - 12/15 MH [place] 31.0 /2014 [facility] HEMATOLOGY MCV 81.3 fL 80.0 - 12/15 [facility] 98.0 /2015 [facility] HEMATOLOGY Eosinophils 0.0 K/CMM 0.0 - 0.5 12/15 [facility] # /2014 [facility] HEMATOLOGY Anisocyte 1+ None Seen 12/15 [facility] *ABN* (12/15/14 6:09 AM) HEMATOLOGY Basophils # 0.0 K/CMM 0.0 - 0.2 12/15 /2014 [facility] HEMATOLOGY Monocytes # 0.1 K/CMM 0.0 - 0.8 12/15 [facility] HEMATOLOGY Segs-Bands # 9.0 K/CMM 1.5 - 8.1 12/15 [facility] HEMATOLOGY Lymphocytes 0.6 K/CMM 1.0 - 5.5 12/15 [facility] # /2015 [place] HEMATOLOGY Eosinophils 0.0 % 0.0 - 4.0 12/15 [facility] HEMATOLOGY Basophils 0.1 % 0.0 - 1.0 12/15 [facility] HEMATOLOGY Lymphocytes 6.3 % 20.0 - 12/15 [facility] 40.0 [facility] HEMATOLOGY Segs 92.7 % 45.0 - 12/15 [facility] 75.0 [facility] HEMATOLOGY Monocytes 0.9 % 2.0 - 12.0 12/15 [facility] Chest Chest Examination: Chest CTA pulm emb [...] 0.00 - 12/15 [facility] ENZ[facility] 0.40 /2014 CARDIAC Total CK 45 unit/L 12 - 191 12/15 [facility] URINE AND UA RBC 0-2 /HPF 0 - 2 12/15 [facility] STOOL [facility] URINE AND UA Bacteria Occasional None Seen 12/15 [facility]OOL /HPF /HPF /2014 [facility] URINE AND UA WBC 0-2 /HPF None Seen 12/15 [facility] /HPF /2014 [facility] URINE AND UA Leuk Est Negative Negative 12/15 [facility] STOOL [facility] (12/14/14 7:06 PM) URINE AND UA Sq Epi Occasional Few /LPF 12/15 [facility] /LPF /2014 [facility] URINE AND UA Ketones Negative Negative 12/15 *NA* (12/14/14 7:06 PM) URINE AND UA Bili Negative Negative 12/15 [facility] STO[facility] *NA* (12/14/14 7:06 PM) URINE AND UA Nitrite Negative Negative 12/15 [facility] (12/14/14 7:06 PM) URINE AND UA Blood Trace Negative 12/15 [facility] STO[facility] *ABN* (12/14/14 7:06 PM) URINE AND UA 0.2 EU/dL 0.1 - 1.0 12/15 [facility] Urobilinogen [facility] URINE AND UA Color Yellow Yellow 12/15 [facility] *NA* (12/14/14 7:06 PM) URINE AND UA Turbidity Clear Clear 12/15 [facility] STOOL [facility] (12/14/14 7:06 PM) URINE AND UA Spec [...] K/CMM 0.0 - 0.5 12/14 [facility] # [facility] HEMATOLOGY Basophils # 0.1 K/CMM 0.0 - 0.2 12/14 [facility] HEMATOLOGY Lymphocytes 7.0 % 20.0 - 12/14 [facility] 40.0 /2014 [facility] HEMATOLOGY Monocytes 3.9 % 2.0 - 12.0 12/14 [facility] HEMATOLOGY Eosinophils 0.5 % 0.0 - 4.0 12/14 [facility] HEMATOLOGY Plt Morph Normal 12/14 [facility] (12/14/14 4:24 PM) HEMATOLOGY Monocytes # 0.6 K/CMM 0.0 - 0.8 12/14 [facility] HEMATOLOGY Segs 88.2 % 45.0 - 12/14 6Result [facility] 75.0 /2015 Comment: [place] Reviewed. HEMATOLOGY Basophils 0.4 % 0.0 - 1.0 12/14 [facility] HEMATOLOGY Segs-Bands # 14.7 K/CMM 1.5 - 8.1 12/14 [facility] HEMATOLOGY MPV 7.5 fL 7.4 - 10.4 12/14 [facility] HEMATOLOGY Hct 34.9 % 36.0 - 05 MH [place] 48.0 /2015 [facility] HEMATOLOGY Platelet 400 K/CMM 133 - 450 05/ MH [place] /2014 [facility] HEMATOLOGY RDW 21.9 % 11.5 - 05 MH [place] 14.5 /2014 [facility] HEMATOLOGY MCHC 32.7 g/dL 32.0 - 12/14 MH [place] 36.0 /2014 [facility] HEMATOLOGY MCV 81.4 fL 80.0 - 12/14 MH [place] 98.0 /2014 [facility] HEMATOLOGY MCH 26.6 pg 27.0 - 12/14 MH [place] 31.0 /2014 [facility] HEMATOLOGY Hgb 11.4 g/dL 12.0 - 05 MH [place] 16.0 /2015 [facility] HEMATOLOGY WBC 16.6 K/CMM 3.7 - 10.4 / [facility] /2014 [facility] HEMATOLOGY RBC 4.29 M/CMM 4.20 - 12/14 MH [place] 5.40 /2014 [facility] CARDIAC CK MB Index 4.2 0.0 - 2.5 12/14 [facility] ENZ[facility]ES /2014 [facility] CARDIAC BNP 350 pg/mL <=100 12/14 5Interpretive Data: Elevated results are in line with increasing severity of [place] ENZYMES pg/mL /2014 congestive heart failure. Minor elevations between 100 and 300 [place] may be seen with Myocardial Ischemia, Sodium retaining drugs, and compensated/treated heart failure. CARDIAC CK MB 2.0 ng/mL 0.5 - 3.6 12/14 [facility] EN[facility]ES /2014 [facility] CARDIAC Troponin-I null 0.00 - 12/14 [facility] EN[facility] 0.40 /2014 [facility] CARDIAC Total CK 48 unit/L 12 - 191 12/14 [facility] EN[facility]YMES /2014 [facility] CHEM PANEL eGFR 82 12/14 2Result Comment: The eGFR is calculated using the CKD-EPI formula. In most young, healthy individuals the eGFR will be >90 mL/ min/1.73m2. The eGFR declines with age. An eGFR of 60-89 may be normal in [place] mL/min/1.7 /2014 some populations, particularly the elderly, [...] PANEL A/G Ratio 0.5 0.7 - 1.6 /12 MH [place] CHEM PANEL AST 15 unit/L 0 - 37 / [place] CHEM PANEL Bili Total 0.5 mg/dL 0.2 - 1.3 / [place] CHEM PANEL Alk Phos 74 unit/L 39 - 136 / [place] CHEM PANEL Total 10.1 g/dL 6.4 - 8.4 / [facility] Protein [place] CHEM PANEL Albumin Lvl 3.5 g/dL 3.5 - 5.0 / [place] CHEM PANEL ALT 12 unit/L 0 - 65 / [facility] [place] CHEM PANEL Calcium Lvl 9.0 mg/dL 8.5 - 10.5 / [place] CHEM PANEL B/C Ratio 9 6 - 25 / [place] CHEM PANEL AGAP 11.4 meq/L 10.0 - 05/ MH [place] 20.0 /2014 [place] CHEM PANEL Globulin 6.6 g/dL 2.0 - 4.0 / [place] CHEM PANEL CO2 26 meq/L 24 - 32 / MH [place] CHEM PANEL Sodium Lvl 139 meq/L 135 - 145 / [place] CHEM PANEL Creatinine 0.8 mg/dL 0.5 - 1.4 / [facility] L[facility] [place] CHEM PANEL Chloride Lvl 105 meq/L 95 - 109 / [place] CHEM PANEL Potassium 3.4 meq/L 3.5 - 5.1 / [facility] Lvl /2014 [place] CHEM PANEL Glucose Lvl 124 mg/dL 70 - 99 12/14 4Interpretive Data: Adult reference range values reflect the clinical guidelines of the [place] [employer]. [place] CHEM PANEL BUN 7 mg/dL 7 - 22 12/14 [facility] Chest Chest 1view Examination: Chest 1view 12/14 - [facility] 1view DX - [facility] Provided History: Chest pain Read by: [place] [...] 73 11/01/2017 [facility] Weight 77.273 06/20/2015 [facility] BMI Calculated 29.7 06/20/2015 [facility] Height 161.29 cm 06/20/2015 [facility] Respitory Rate 20 03/30/2015 [facility] Systolic (mm Hg) 100 03/30/2015 [facility] Diastolic (mm Hg) 66 03/30/2015 [facility] Heart Rate 82 03/30/2015 [facility] Temperature Oral (F) 97.9 F 03/30/2015 [facility] Systolic (mm Hg) 110 03/30/2015 [facility] Diastolic (mm Hg) 70 03/30/2015 [facility] Respitory Rate 18 03/30/2015 [facility] Heart Rate 77 03/30/2015 [facility] Temperature Oral (F) 97.7 F 03/30/2015 [facility] Systolic (mm Hg) 104 03/30/2015 [facility] Diastolic (mm Hg) 69 03/30/2015 [facility] Heart Rate 85 03/30/2015 [facility] Temperature Oral (F) 98.5 F 03/30/2015 [facility] Respitory Rate 18 03/30/2015 [facility] Weight 84.1 03/28/2015 [facility] BMI Calculated 28.19 03/28/2015 [facility] Weight 84.091 03/28/2015 [facility] Height 172.72 cm 03/28/2015 [facility] Heart Rate 84 12/16/2014 [facility] Temperature Oral (F) 97.8 F 12/16/2014 [facility] Systolic (mm Hg) 105 12/16/2014 [facility] Diastolic (mm Hg) 65 12/16/2014 [facility] Respitory Rate 18 12/16/2014 [facility] Respitory Rate 18 12/16/2014 [facility] Systolic (mm Hg) 107 12/16/2014 [facility] Diastolic (mm Hg) 74 12/16/2014 [facility] Temperature Oral (F) 97.9 F 12/16/2014 [facility] Heart Rate 80 12/16/2014 [facility] Temperature Oral (F) 97.6 F 12/16/2014 [facility] Heart Rate 87 12/16/2014 [facility] Respitory Rate 18 12/16/2014 [facility] Systolic (mm Hg) 115 12/16/2014 [facility] Diastolic (mm Hg) 69 12/16/2014 [facility] Weight 84.091 12/15/2014 [facility] BMI Calculated 28.19 12/15/2014 [facility] Height 172.72 cm 12/15/2014 [facility] Weight 83.636 12/14/2014 [facility] Weight 84.091 11/12/2014 [facility] BMI Calculated 28.19 11/12/2014 [facility] Height 172.72 cm 11/12/2014 [facility] Encounters Location Location Encounter Encounter Reason Attending ADM DC Status Source Details Type Number For Provider Date Date Visit [facility] [id number] [facility] 11/15 11/15 [facility] [id number] [place] 12/14 12/16 [facility] Berta /2014 [place] [facility] Outpt Diag [id number] [place] 03/07 03/08 [facility] [place]2014 [facility] [id number] [place] 03/28 03/30 [facility]2014 [facility] Outpt Diag [id number] Nery 04/20 04/21 [facility] Shar /2014 [facility] Outpt Diag [id number] Jenaro Russ 06/03 06/04 [facility]2014 [facility] [id number] [place] 06/20 06/21 [facility] [id number] N[facility] 10/26 10/27 [facility] Shar /2015 [facility] [id number] [place] 03/01 [facility] /2016 [facility] [id number] [place] 03/15 [facility]2016 [facility] [id number] [place] 06/14 [facility] /2016 [facility] [id number] [place] 11/01 [facility] /2017 [facility] [id number] [place] 11/01 11/02 [facility] [place] /2017 [facility] Phone [id number] 03/27 03/29 Cardiology Message /2017 [facility] Procedures Procedure Code Date Perfomer Comments Source Back fusion [id number] 01/03/2014 [facility] Back fusion [id number] 01/03/2014 [facility] Back fusion [id number] 01/03/2014 [facility] Back fusion [id number] 01/03/2014 [facility] Ablation [id number] 08/05/2012 [facility] Ablation [id number] 08/05/2012 [facility] Ablation [id number] 08/05/2012 [facility] Ablation [id number] 08/05/2012 [facility] Back fusion [id number] 08/05/2008 [facility] Back fusion [id number] 08/05/2008 [facility] Back fusion [id number] 08/05/2008 [facility] Back fusion [id number] 08/05/2008 [facility] Hysterectomy [id number] 08/05/1994 [facility] Hysterectomy [id number] 08/05/1994 [facility] Hysterectomy [id number] 08/05/1994 [facility] Hysterectomy [id number] 08/05/1994 [facility] Arthroscopy of [id number] 08/05/1972 [facility] knee Arthroscopy of [id number] 08/05/1972 [facility] knee [place] Arthroscopy of [id number] 08/05/1972 [facility] knee Arthroscopy of [id number] 08/05/1972 [facility]
--- NOTE | 2018-12-01 15:36 | RAD REPORT ---
EXAM DESCRIPTION: RAD - Chest Single View - 12/01/2018 3:22 pm CLINICAL HISTORY: Shortness of breath, chest pain COMPARISON: September 2018 TECHNIQUE: AP portable chest image was obtained 1518 hours . FINDINGS: No focal mass or consolidation. Interstitial markings are mildly prominent, decreased from the comparison. Cardiac silhouette is enlarged similar to comparison. Vascular engorgement is presen t. No pneumothorax. Bilateral minimal costophrenic angle blunting present. No acute bony abnormality seen. No acute aortic findings suspected. IMPRESSION: Mild CHF/ volume overload pattern.
[2018-12-01 16:20] LABS: Absolute Lymphocytes (CBC) 0.6 K/uL (0.7-4.9); Absolute Monocytes 0.4 K/uL (0.1-1.3); Absolute Neutrophil 5.4 K/uL (1.8-8.0); Basophils % 0.5 % (0-1.3); Eosinophils % 1.4 % (0-4.4); Hematocrit 33.8 % (36.0-45.0); Lymphocytes % 9.7 % (15.3-44.8); MPV 8.9 fL (7.6-11.3); Monocytes % 5.4 % (3.3-12.3); RBC Red Blood Cell Count 4.58 M/uL (3.86-4.86)
[2018-12-01] MEDS ORDERED: LEVALBUTEROL 1.25 MG/3 ML NEB ONE (16:21)
[2018-12-01 16:22] LABS: Protime INR 1.54
[2018-12-01 16:41] LABS: Bilirubin Direct 0.3 mg/dL (0-0.2); Magnesium 2.1 mg/dL (1.8-2.4); Potassium 3.5 mmol/L (3.5-5.1); Protein, Total 9.2 g/dL (6.4-8.2); Troponin (Emerg Dept Use Only) 0.02 ng/mL (0.0-0.045)
[2018-12-01 16:56] LABS: Platelet Estimate ADEQ; Urine White Blood Cell Casts OK
[2018-12-01 16:57] LABS: Anisocytosis 1+; Blood Morphology Comment NOTED (NOT SEEN); Macrocytosis 1+; Ovalocytes 1+
[2018-12-01] MEDS ORDERED: FUROSEMIDE 40 MG/4 ML VIAL ONE (17:45)
--- NOTE | 2018-12-01 18:32 | EDPHYS ---
Physician Documentation [facility] Name: Elli Durant Age: 63 yrs Sex: Female : 1955 Arrival Date: 12/01/2018 Time: 12:52 Bed 16 Private MD: Ceasar Zhou ED Physician Greg Jiang HPI: 12/01 15:12 This 63 yrs old Female presents to ER via Wheelchair with complaints of jmm Shortness Of Breath. 15:12 The patient has shortness of breath at rest. Onset: The symptoms/episode began/occurred jmm gradually, 2 day(s) ago. Duration: The symptoms are continuous. The patient's shortness of breath is aggravated by coughing. This is a 63 year old female with a history of COPD, DM. pulomnary htn that presents to the ED with complaints of shortness of breath, sinus congestion beginning 2 days ago. Patient denies fever, denies chills. Patient has home o2. . Historical: - Allergies: 13:06 PENICILLINS; aa5 - Home Meds: 17:45 amiodarone 200 mg Oral tab 1 tab once daily [Active]; aripiprazole 5 mg Oral tab 1 tab ph once daily [Active]; citalopram 20 mg tab 1 tab once daily [Active]; citalopram 20 mg tab 2 tabs once daily [Active]; clonazepam 0.5 mg Oral TbDL 0.5 tab nightly [Active]; clonazepam 0.5 mg Oral TbDL 1 tab 2 times per day [Active]; duloxetine 60 mg Oral cpDR 1 cap once daily [Active]; furosemide 20 mg Oral tab 1 tab once daily [Active]; Letairis 5 mg Oral tab 1 tab once daily [Active]; lithium carbonate 300 mg Oral tab 1 tab nightly [Active]; metformin 500 mg Oral tr24 1 tab twice a day [Active]; risperidone 0.5 mg Oral TbDL [Active]; spironolactone 25 mg Oral tab [Active]; trazodone 150 mg Oral tab [Active]; trelegy 100 /62.5/256 mcg 1 puff [Active]; Xarelto 20 mg Oral tab 1 tab once daily [Active]; - PMHx: 13:06 Atrial Fib; CHF; COPD; Diabetes - NIDDM; insomnia; Pneumonia; UTI; aa5 - PSHx: 13:06 Hysterectomy; back surgery; Knee surgery; heart ablation; aa5 - Immunization history:: Adult Immunizations unknown. - Social history:: Smoking status: unknown. - Ebola Screening: : No symptoms or risks identified at this time. ROS: 15:12 Constitutional: Negative for fever, chills, and weight loss, Cardiovascular: Negative jmm for chest pain, palpitations, and edema. 15:12 Abdomen/GI: Negative for abdominal pain, nausea, vomiting, diarrhea, and constipation, Skin: Negative for injury, rash, and discoloration, Neuro: Negative for headache, weakness, numbness, tingling, and seizure. 15:12 Cardiovascular: Positive for chest pain, with cough. 15:12 Respiratory: Positive for shortness of breath. 15:12 All other systems are negative. Exam: 15:12 Constitutional: This is a well developed, well nourished patient who is awake, alert, jmm and in no acute distress. Head/Face: atraumatic. Eyes: EOMI, no conjunctival erythema appreciated ENT: Moist Mucus Membranes Neck: Trachea midline, Supple Chest/axilla: Normal chest wall appearance and motion. Cardiovascular: Regular rate and rhythm. No edema appreciated Respiratory: Normal respirations, no respiratory distress appreciated 15:12 Skin: General appearance color normal MS/ Extremity: Moves all extremities, no obvious deformities appreciated, no edema noted to the lower extremities Neuro: Awake and alert, normal gait Psych: Behavior is normal, Mood is normal, Patient is cooperative and pleasant 15:12 Respiratory: the patient does not display signs of respiratory distress, Respirations: normal, Breath sounds: are clear throughout. 15:12 Abdomen/GI: Inspection: abdomen appears normal, Bowel sounds: normal. Vital Signs: 13:08 BP 130 / 65; Pulse 113; Resp 24 S; Temp 98.8(TE); Pulse Ox 92% on 2 lpm NC; Weight 82.1 aa5 kg (R); Height 5 ft. 6 in. (167.64 cm) (R); Pain 7/10; 15:30 BP 108 / 66; Pulse 88; Resp 20; Pulse Ox 93% on 2 lpm NC; ph 16:43 BP 119 / 63; Pulse 96; Resp 22; Pulse Ox 94% on 2 lpm NC; ph 17:38 BP 126 / 65; Pulse 95; Resp 22; Pulse Ox 95% on 2 lpm NC; ph 18:50 BP 125 / 81; Pulse 94; Resp 20; Temp 98.0; Pulse Ox 97% on 2 lpm NC; ph 13:08 Body Mass Index 29.21 (82.10 kg, 167.64 cm) aa5 MDM: 15:11 Patient medically screened. [facility] 18:28 Data reviewed: vital signs, nurses notes, lab test result(s), radiologic studies, CT jmm scan. Data interpreted: Pulse oximetry: on room air. 18:39 ED course: Patient is alert and non toxic in appearance in the ED. Patient states [facility] feeling much better after administration of lasix. I discussed admission for observation with the patient whom declined. Patient was advised to closely follow up with Dr. Lomeli and otherwise given strict return precatuions. Patient was advised to double lasix until follow up. Patient understood and agrees with the plan of care. . 12/01 15:12 Order name: Basic Metabolic Panel; Complete Time: 16:57 [facility] 12/01 15:12 Order name: CBC with Diff; Complete Time: 16:59 [facility] 12/01 15:12 Order name: LFT's; Complete Time: 16:57 [facility] 12/01 15:12 Order name: Magnesium; Complete Time: 16:57 [facility] 12/01 15:12 Order name: NT PRO-BNP; Complete Time: 16:57 [facility] 12/01 15:12 Order name: PT-INR; Complete Time: 16:57 [facility] 12/01 15:12 Order name: Troponin (emerg Dept Use Only); Complete Time: 16:57 [facility] 12/01 15:12 Order name: XRAY Chest (1 view); Complete Time: 15:37 [facility] 12/01 15:12 Order name: EKG; Complete Time: 15:12 [facility] 12/01 15:12 Order name: Cardiac monitoring; Complete Time: 16:14 [facility] 12/01 15:37 Order name: Flu; Complete Time: 16:57 [facility] 12/01 16:22 Order name: CBC Smear Scan; Complete Time: 16:59 [facility] 12/01 15:12 Order name: EKG - Nurse/Tech; Complete Time: 16:14 [facility] 12/01 15:12 Order name: IV Saline Lock; Complete Time: 16:13 [facility] 12/01 15:12 Order name: Labs collected and sent; Complete Time: 16:13 [facility] 12/01 15:12 Order name: O2 Per Protocol; Complete Time: 16:42 [facility] 12/01 15:12 Order name: O2 Sat Monitoring; Complete Time: 16:42 [facility] Administered Medications: 16:13 Drug: Xopenex (3) 1.25 mg Route: Inhalation; ph 18:56 Follow up: Response: No adverse reaction ph 17:38 Drug: Lasix 40 mg Route: IVP; Site: right forearm; ph 18:56 Follow up: Urine output 500 ml; Response: No adverse reaction ph Disposition: 12/01/18 18:32 Discharged to Home. Impression: Acute on chronic combined systolic (congestive) and diastolic (congestive) heart failure. - Condition is Stable. - Discharge Instructions: Heart Failure. - Medication Reconciliation Form, Thank You Letter, Antibiotic Education, Prescription Opioid Use, Family Work Release form. - Follow up: Sloan Lomeli MD; When: 1 - 2 days; Reason: Recheck today's complaints, Continuance of care, Re-evaluation by your physician. - Notes: Please take 80 mg of lasix twice a day. Follow up with Dr. Loemli in 1 - 2 days. Please return to the ER if symptoms worsen. Signatures: Dispatcher [employer] EDMS Michael Bond PA PA jmm Calderon, Audri, RN RN aa5 Stephanie Crowley RN RN ph Corrections: (The following items were deleted from the chart) 18:58 18:32 12/01/2018 18:32 Discharged to Home. Impression: Acute on chronic combined ph systolic (congestive) and diastolic (congestive) heart failure. Condition is Stable. Forms are Medication Reconciliation Form, Thank You Letter, Antibiotic Education, Prescription Opioid Use. Follow up: Sloan Lomeli; When: 1 - 2 days; Reason: Recheck today's complaints, Continuance of care, Re-evaluation by your physician. [facility]
--- NOTE | 2018-12-01 18:32 | ER ---
Nurse's Notes [facility] Name: Elli Durant Age: 63 yrs Sex: Female : 1955 Arrival Date: 12/01/2018 Time: 12:52 Bed 16 Private MD: Ceasar Zhou Diagnosis: Acute on chronic combined systolic (congestive) and diastolic (congestive) heart failure Presentation: 12/01 13:06 Presenting complaint: Patient states: SOB that began 3 days ago and productive cough. aa5 Pt is 92% on 2 L NC at this time. Pt states "My lungs hurt". Transition of care: patient was not received from another setting of care. Onset of symptoms was November 2018. Risk Assessment: Do you want to hurt yourself or someone else? Patient reports no desire to harm self or others. Care prior to arrival: None. 13:06 Method Of Arrival: Wheelchair aa5 13:06 Acuity: GARY 3 aa5 15:00 Initial Sepsis Screen: Does the patient meet any 2 criteria? RR > 20 per min. No. ph Patient's initial sepsis screen is negative. Does the patient have a suspected source of infection? Yes: Productive cough/pneumonia. Historical: - Allergies: 13:06 PENICILLINS; aa5 - Home Meds: 17:45 amiodarone 200 mg Oral tab 1 tab once daily [Active]; aripiprazole 5 mg Oral tab 1 tab ph once daily [Active]; citalopram 20 mg tab 1 tab once daily [Active]; citalopram 20 mg tab 2 tabs once daily [Active]; clonazepam 0.5 mg Oral TbDL 0.5 tab nightly [Active]; clonazepam 0.5 mg Oral TbDL 1 tab 2 times per day [Active]; duloxetine 60 mg Oral cpDR 1 cap once daily [Active]; furosemide 20 mg Oral tab 1 tab once daily [Active]; Letairis 5 mg Oral tab 1 tab once daily [Active]; lithium carbonate 300 mg Oral tab 1 tab nightly [Active]; metformin 500 mg Oral tr24 1 tab twice a day [Active]; risperidone 0.5 mg Oral TbDL [Active]; spironolactone 25 mg Oral tab [Active]; trazodone 150 mg Oral tab [Active]; trelegy 100 /62.5/256 mcg 1 puff [Active]; Xarelto 20 mg Oral tab 1 tab once daily [Active]; - PMHx: 13:06 Atrial Fib; CHF; COPD; Diabetes - NIDDM; insomnia; Pneumonia; UTI; aa5 - PSHx: 13:06 Hysterectomy; back surgery; Knee surgery; heart ablation; aa5 - Immunization history:: Adult Immunizations unknown. - Social history:: Smoking status: unknown. - Ebola Screening: : No symptoms or risks identified at this time. Screenin:31 Abuse screen: Denies threats or abuse. Denies injuries from another. Nutritional ph screening: No deficits noted. Tuberculosis screening: No symptoms or risk factors identified. Fall Risk None identified. Assessment: 15:15 General: Appears in no apparent distress. uncomfortable, Behavior is calm, cooperative, ph appropriate for age, Denies fever, chills. Pain: Complains of pain in chest Is episodic, Aggravated by deep breathing or coughing. Neuro: Level of Consciousness is awake, alert, obeys commands, Oriented to person, place, time, situation. Cardiovascular: Reports shortness of breath, Capillary refill < 3 seconds in bilateral fingers Patient's skin is warm and dry. Respiratory: Reports shortness of breath at rest cough that is productive, pain with cough Airway is patent Respiratory effort is even, unlabored, using tripod position, Respiratory pattern is symmetrical, tachypnea. GI: No signs and/or symptoms were reported involving the gastrointestinal system. EENT: Reports nasal congestion. Derm: Skin is intact, Skin is pink, warm \\T\\ dry. Musculoskeletal: Circulation, motion, and sensation intact. Range of motion: intact in all extremities. 16:00 Reassessment: Patient appears in no apparent distress at this time. Patient and/or ph family updated on plan of care and expected duration. Pain level reassessed. Patient is alert, oriented x 3, equal unlabored respirations, skin warm/dry/pink. 17:00 Reassessment: Patient appears in no apparent distress at this time. Patient and/or ph family updated on plan of care and expected duration. Pain level reassessed. Patient is alert, oriented x 3, equal unlabored respirations, skin warm/dry/pink. 18:09 Reassessment: Patient appears in no apparent distress at this time. Patient and/or ph family updated on plan of care and expected duration. Pain level reassessed. Patient is alert, oriented x 3, equal unlabored respirations, skin warm/dry/pink. Pt resting quietly, denies pain at this time, VSS. 18:50 Reassessment: Patient appears in no apparent distress at this time. Patient and/or ph family updated on plan of care and expected duration. Pain level reassessed. Patient is alert, oriented x 3, equal unlabored respirations, skin warm/dry/pink. Pt instructed to increase home lasix and follow up w/ PCP in 1-2 days. Vital Signs: 13:08 BP 130 / 65; Pulse 113; Resp 24 S; Temp 98.8(TE); Pulse Ox 92% on 2 lpm NC; Weight 82.1 aa5 kg (R); Height 5 ft. 6 in. (167.64 cm) (R); Pain 7/10; 15:30 BP 108 / 66; Pulse 88; Resp 20; Pulse Ox 93% on 2 lpm NC; ph 16:43 BP 119 / 63; Pulse 96; Resp 22; Pulse Ox 94% on 2 lpm NC; ph 17:38 BP 126 / 65; Pulse 95; Resp 22; Pulse Ox 95% on 2 lpm NC; ph 18:50 BP 125 / 81; Pulse 94; Resp 20; Temp 98.0; Pulse Ox 97% on 2 lpm NC; ph 13:08 Body Mass Index 29.21 (82.10 kg, 167.64 cm) aa5 ED Course: 12:52 Patient arrived in ED. as 12:53 Ceasar Zhou DO is Private Physician. as 13:06 Arm band placed on. aa5 13:08 Triage completed. aa5 13:40 EKG done, by ob tech. reviewed by Greg Jiang MD. at1 15:03 Michael Bond PA is PHCP. jmm 15:03 Greg Jiang MD is Attending Physician. jmm 15:07 Stephanie Crowley, TAVARES is Primary Nurse. ph 15:22 XRAY Chest (1 view) In Process Unspecified. EDMS 16:13 Initial lab(s) drawn, by nc, sent to lab. Flu and/or RSV swab sent to lab. Inserted em1 saline lock: 22 gauge in right forearm, using aseptic technique. Blood collected. 17:43 Patient has correct armband on for positive identification. Bed in low position. Call ph light in reach. Side rails up X 1. Pulse ox on. NIBP on. Door closed. Noise minimized. Warm blanket given. 18:32 Sloan Lomeli MD is Referral Physician. [facility] 18:53 No provider procedures requiring assistance completed. IV discontinued, intact, ph bleeding controlled, No redness/swelling at site. Pressure dressing applied. Administered Medications: 16:13 Drug: Xopenex (3) 1.25 mg Route: Inhalation; ph 18:56 Follow up: Response: No adverse reaction ph 17:38 Drug: Lasix 40 mg Route: IVP; Site: right forearm; ph 18:56 Follow up: Urine output 500 ml; Response: No adverse reaction ph Output: 18:56 Urine: 500ml; Total: 500ml. ph Outcome: 18:32 Discharge ordered by MD. [facility] 18:54 Discharged to home via wheelchair, with family. ph 18:54 Condition: improved 18:54 Discharge instructions given to patient, Instructed on discharge instructions, follow up and referral plans. medication usage, Demonstrated understanding of instructions, follow-up care, medications. 18:58 Patient left the ED. ph Signatures: Dispatcher [employer] EDMS Michael Bond PA PA jmm Martinez, Amelia as Martinez, Eric em1 Radha Hendricks, RN RN aa5 Jonna Durant, medical aide EKG Tat1 Stephanie Crowley RN RN ph Corrections: (The following items were deleted from the chart) 13:08 13:06 Presenting complaint: Patient states: SOB that began 3 days ago and productive aa5 cough. Pt is 88% on 2 L NC at this time. aa5 13:09 13:06 Presenting complaint: Patient states: SOB that began 3 days ago and productive aa5 cough. Pt is 88% on 2 L NC at this time. Pt states "My lungs hurt" aa5 13:09 13:06 Acuity: GARY 2 aa5 aa5 13:09 13:08 BP 130 / 65; Pulse 113bpm; Resp 24bpm; Spontaneous; Pulse Ox 88% 2 lpm Nasal aa5 Cannula; Temp 98.8F Temporal; 82.1 kg Reported; Height 5 ft. 6 in. Reported; BMI: 29.2; Pain 7/10; aa5 17:40 14:30 Initial Sepsis Screen: Does the patient meet any 2 criteria? RR > 20 per min. No. ph Patient's initial sepsis screen is negative. Does the patient have a suspected source of infection? Yes: Productive cough/pneumonia ph
[2018-12-01 19:32] VITALS: BP 125/81; TEMP 98; O2SAT 97
--- NOTE | 2018-12-02 07:15 | EKG ---
Test Date: 2018-12-01 Test Time: 13:28:29 Roving Hauler: JEANINE MEASUREMENT RESULTS: Intervals: Rate: 91 MD: 168 QRSD: 84 QT: 418 QTc: 514 [place]: P: 83 MD: 168 QRS: 227 T: 56 INTERPRETIVE STATEMENTS: Normal sinus rhythm Possible Lateral infarct, age undetermined Right superior axis Prolonged QT Abnormal ECG Compared to ECG 09/05/2018 18:48:32 Prolonged QT interval now present Ventricular premature complex(es) no longer present Myocardial infarct finding still present Electronically Signed On 12-02-18 07:14:46 CDT by Earl Ramirez
== END 2018-12-01 18:58 | disposition home or self-care (01) ==
LOC: ER 12:52
DX: I50.43 Acute on chronic combined systolic (congestive) and diastolic (congestive) heart failure (principal); J44.9 Chronic obstructive pulmonary disease, unspecified; I48.91 Unspecified atrial fibrillation; I27.20 Pulmonary hypertension, unspecified; E11.9 Type 2 diabetes mellitus without complications; Z79.01 Long term (current) use of anticoagulants; Z88.0 Allergy status to penicillin
CPT/HCPCS: 93005; 85025; 80048; 36415; 83735; 85610; 80076; 84484; 83880; 87804 ×2; 71045; J1940

== ENCOUNTER 2018-12-09 19:06 | Inpatient (IN) | payer OTHER ==
--- OUTSIDE RECORDS SUMMARY | 2018-12-09 19:14 | XMS REPORT | Continuity of Care Document ---
:1955 Author Organization Interface Problems Problem Status Onset Classification Date Comments Source Date Reported J444.9 Active 06/03/20 [facility] 15 729.89 - Active 04/19/20 [facility] SYMPT 15 [place] RESP FAILURE, Active 03/27/20 [facility] CHF 15 EXACERBATION LOW OXYGEN, Active 12/15/19 [place] SENT BY 15 [place] COPD Active 12/15/19 [place] EXACERBATION, 15 [place] CHF EXACERBATION LUNG Active 10/30/19 [place] ABNORMALITY-793 15 [place] .19 LFLT Active 07/12/20 [facility] TRANSFER#[id number] 14 [facility] RESPIRATORY Active 07/12/20 [place] [facility] Anxiety Active Problem 10/30/2015 [facility] OPID [place] Atrial Active Problem 10/30/2015 Fibrillation [facility], OPID [place] Atrial Resolved Problem 10/30/2015 fibrillation [facility] OPID [place] Back pain Active Problem 10/30/2015 [facility] OPID [place] Chest pain Active Problem 10/30/2015 [facility] OPID [place] Congestive Resolved Problem 10/30/2015 heart failure [facility] OPID [place] COPD Active Problem 10/30/2015 [facility] OPID [place] Cough Active Problem 10/30/2015 [facility] OPID [place] Depression Active Problem 10/30/2015 [facility] OPID [place] Depression Active Problem 10/30/2015 [facility] OPID [place] Diabetes Resolved Problem 10/30/2015 [facility] OPID [place] HTN Active Problem 10/30/2015 [facility] OPID [place] Hypertension Resolved Problem 10/30/2015 [facility] OPID [place] Myeloma Resolved Problem 10/30/2015 [facility] OPID [place] NIDDM Active Problem 10/30/2015 [facility] OPID [place] INA (<span Active Problem 10/30/2015 ID="[id number]" [facility] >Confirmed</spa OPID [place] n>) [place] Sleep apnea, Resolved Problem 10/30/2015 obstructive [facility] OPID [place] Anxiety Active Problem 10/15/2018 [facility], [place] Atrial Active Problem 10/15/2018 Fibrillation [facility], [place] Atrial Resolved Problem 10/15/2018 fibrillation [facility], [place] Back pain Active Problem 10/15/2018 [facility], [place] Chest pain Active Problem 10/15/2018 [facility], [place] Congestive Resolved Problem 10/15/2018 heart failure [facility], [place] COPD Active Problem 10/15/2018 [facility], [place] Cough Active Problem 10/15/2018 [facility], [place] Depression Active Problem 10/15/2018 [facility], [place] Diabetes Resolved Problem 10/15/2018 [facility], [place] HTN Active Problem 10/15/2018 [facility], [place] Hypertension Resolved Problem 10/15/2018 [facility], [place] Myeloma Resolved Problem 10/15/2018 [facility], [place] NIDDM Active Problem 10/15/2018 [facility], [place] INA (<span Active Problem 10/15/2018 ID="[id number]" [facility] >Confirmed</spa [place] n>) [place] Simple obesity Active Problem 10/15/2018 [facility] Sleep apnea, Resolved Problem 10/15/2018 obstructive [facility], [place] RESPIRATORY Active [place] [facility] ACUTE Active [facility] RESPIRATORY FAILUR CHR AIRWAY Active [place] OBSTRUCT NEC [place] CHF NOS Active [place] Medications Medication Details Route Status Patient Ordering Order Source Instructions Provider Date rivaroxaban 20 MG 20 mg=1 tab, Active 08/19/ Medical Oral Tablet PO, QPM, # 30 2019 Group [Xarelto] tab, 0 Refill(s), Pharmacy: [facility] [id number], Patient must shedule a follow up appointment for any further refills. AMIODarone 200 mg See Active 05/28/ Medical oral tablet Instructions, 2018 Group TAKE 1 TABLET BY MOUTH EVERY DAY, # 30 tab, 0 Refill(s), Pharmacy: [facility] [id number] AMIODarone 200 mg See Active Medical oral tablet Instructions, 2018 Group TAKE 1 TABLET BY MOUTH DAILY, # 30 tab, 0 Refill(s), Pharmacy: [facility] [id number], Patient needs to schedule a follow up appointment. cefpodoxime 200 mg 400 mg=2 tab, Active oral tablet PO, Q12H, # 14 2014 [facility] tab, 0 Refill(s) Lantus 10 unit, Inactive Route: SUB-Q, 2014 [facility] Bedtime, Dosing Weight 84.1, kg, Start date: 03/29/15 21:00:00, Duration: 30 day, Stop date: 04/27/15 21:00:00 lamotrigine 100 MG 100 mg, 1 tab, No Longer Oral Tablet Route: PO, Active 2014 [facility] Drug form: TAB, Bedtime, Dosing Weight 84.1, kg, Start date: 03/29/15 21:00:00, Duration: 30 day, Stop date: 04/27/15 21:00:00Notes: (Same as:LaMICtal) Levemir FlexPen 10 unit, 0.1 No Longer mL, Route: Active 2014 [facility] SUB-Q, Drug form: INJ, Bedtime, Start date: 03/29/15 21:00:00, Duration: 30 day, Stop date: 04/27/15 21:00:00Notes: Same as Levemir Do not hold insulin without contacting prescriber "single patient use only" Symbicort 160/4.5 2 inhalation, No Longer inhalation aerosol Route: Active 2014 [facility] with adapter INHALER, Drug Form: AERO/A, Dosing Weight 84.1, kg, BID, Start date: 03/29/15 20:00:00, Duration: 30 day, Stop date: 04/28/15 17:00:00Notes: (Same as: Symbicort) Methocarbamol 750 mg, 1 tab, No Longer Route: PO, Active 2014 [facility] Drug form: TAB, TID, Dosing Weight 84.1, kg, Start date: 03/29/15 20:00:00, Duration: 30 day, Stop date: 04/28/15 17:00:00Notes: (Same as:Robaxin) Alprazolam 0.25 mg, 1 No Longer tab, Route: Active 2014 [facility] PO, Drug form: TAB, BID, Dosing Weight 84.1, kg, PRN as needed for anxiety, Start date: 03/29/15 18:44:00, Duration: 30 day, Stop date: 04/28/15 18:43:00Notes: With food or milk (Same as: Xanax) torsemide 100 mg, 5 tab, No Longer Route: PO, Active 2014 [facility] Drug form: TAB, Daily, Dosing Weight 84.1, kg, Start date: 03/29/15 18:30:00, Stop date: 04/28/15 9:00:00Notes: (Same As: Demadex) Vantin 400 mg, 2 tab, No Longer Route: PO, Active 2014 [facility] Drug form: TAB, Q12H, Dosing Weight 84.1, kg, Start date: 03/29/15 11:00:00, Stop date: 04/02/15 22:00:00Notes: With food. (Same As: Vantin) Fenofibrate 135 mg, Route: No Longer PO, Daily, Active 2014 [facility] Dosing Weight 84.1, kg, Start date: 03/29/15 9:00:00, Duration: 30 day, Stop date: 04/27/15 9:00:00 sennosides, CORRECTION 17.2 mg, 2 No Longer tab, Route: Active 2014 [facility] PO, Drug Form: TAB, Dosing Weight 84.1, kg, Daily, Start date: 03/29/15 9:00:00, Duration: 30 day, Stop date: 04/27/15 9:00:00Notes: (Same as: Senokot) duloxetine 60 mg, 1 cap, No Longer Route: PO, Active 2014 [facility] Drug form: DRC, Daily, Dosing Weight 84.1, kg, Start date: 03/29/15 9:00:00, Duration: 30 day, Stop date: 04/27/15 9:00:00Notes: (Same as: Cymbalta) (Do Not Crush) Amitriptyline 2 tab, Route: Inactive Hydrochloride 25 PO, Drug Form: 2014 [facility] MG / Perphenazine TAB, Dosing 4 MG Oral Tablet Weight 84.1, kg, Bedtime, Start date: 03/28/15 21:00:00, Duration: 30 day, Stop date: 04/26/15 21:00:00 Trilafon 8 mg, 4 tab, No Longer Route: PO, Active 2014 [facility] Drug form: TAB, Bedtime, Start date: 03/28/15 21:00:00, Duration: 30 day, Stop date: 04/26/15 21:00:00Notes: (Same as: Trilafon) amitriptyline 50 mg, 1 tab, No Longer Route: PO, Active 2014 [facility] Drug form: TAB, Bedtime, Start date: 03/28/15 21:00:00, Duration: 30 day, Stop date: 04/26/15 21:00:00Notes: (Same as: Elavil) lithium 600 mg, 2 tab, No Longer Route: PO, Active 2014 [facility] Drug form: TAB, QPM, Dosing Weight 84.1, kg, Start date: 03/28/15 17:00:00, Duration: 30 day, Stop date: 04/26/15 17:00:00Notes: Give with food. (Same as: Eskalith) Xarelto 20 mg, 2 tab, No Longer Route: PO, Active 2014 [facility] Drug form: TAB, QPM, Dosing Weight 84.091, kg, Start date: 03/28/15 17:00:00, Duration: 30 day, Stop date: 04/26/15 17:00:00Notes: (Same as: Xarelto) Do Not Crush TriCor 145 mg, 1 tab, No Longer Route: PO, Active 2014 [facility] Drug form: TAB, After Dinner, Start date: 03/28/15 17:00:00, Duration: 30 day, Stop date: 04/26/15 17:00:00Notes: (Same as: Tricor) Lovenox 40 mg, 0.4 mL, No Longer Route: SUB-Q, Active 2014 [facility] Drug form: INJ, [id number], Dosing Weight 84.1, kg, Start date: 03/28/15 15:00:00, Duration: 30 day, Stop date: 04/26/15 15:00:00Notes: (Same as: Lovenox) Ativan 2 mg, 1 tab, No Longer Route: PO, Active 2014 [facility] Drug form: TAB, TID, Dosing Weight 84.1, kg, PRN Anxiety, Start date: 03/28/15 14:51:00, Duration: 30 day, Stop date: 04/27/15 14:50:00Notes: (Same as: Ativan) Albuterol 0.833 3 mL, Route: No Longer MG/ML / INHALATION, Active 2014 [facility] Ipratropium Drug Form: [place] 0.167 SOLN, Dosing MG/ML Inhalant Weight 84.1, Solution kg, RQID, Start date: 03/28/15 11:00:00, Duration: 30 day, Stop date: 04/27/15 7:00:00Notes: (Same as: Duoneb) Nicotine 21 mg, 1 No Longer patch, Route: Active 2014 [facility] TOP, Drug form: ERFILM, Daily, Dosing Weight 84.1, kg, Start date: 03/28/15 10:09:00, Duration: 30 day, Stop date: 04/27/15 9:00:00Notes: (Same as: Habitrol) "Remove old patch before application of new patch" glucagon 1 mg, Route: No Longer INJ, Drug Active 2014 [facility] form: PDR/INJ, PRN, PRN Blood Glucose Results, Start date: 03/28/15 9:18:00, Duration: 30 day, Stop date: 04/27/15 9:17:00 Dextrose 50% in 50 mL, Route: No Longer Water IV IVP, Start Active 2014 [facility] date: 03/28/15 9:18:00, Duration: 30 day, Stop date: 04/27/15 9:17:00, PRN Blood Glucose Results NovoLOG FlexPen 12 unit, 0.12 No Longer mL, Route: Active 2014 [facility] SUB-Q, Drug form: SOLN, Sliding Scale, PRN Blood Glucose Results, Start date: 03/28/15 9:18:00, Duration: 30 day, Stop date: 04/27/15 9:17:00Notes: Roll in palms of hands gently; Do not shake vigorously. (Same as: NovoLOG) "single patient use only" Stable for 28 days at room temperature. Expires in days from Date Lasix 40 mg, 4 mL, Inactive Route: IVP, 2014 [facility] Drug form: INJ, Daily, Dosing Weight 84.1, kg, Start date: 03/28/15 9:17:00, Duration: 30 day, Stop date: 04/27/15 9:00:00Notes: (Same as: Lasix) MEDICATION WASTE Product Size: 40 mg Product Wasted: ___ mg normal saline 0.9% 1,000 mL, Inactive IV 1000 mL Rate: 2014 [facility] ml/hr, Infuse over: 13.3 hr, Route: IV, Dosing Weight 84.1 kg, Total Volume: 1,000, Start date: 03/28/15 9:14:00, Duration: 30 day, Stop date: 04/27/15 9:13:00 Hydrocodone 1 tab, Route: No Longer Bitartrate 5 MG / PO, Drug Form: Active 2014 [facility] Ibuprofen 200 MG TAB, Dosing Oral Tablet Weight 84.1, kg, Q4H, PRN Pain Score 4-6, Start date: 03/28/15 9:08:00, Duration: 30 day, Stop date: 04/27/15 9:07:00Notes: (Same as: Vicoprofen) Saline Flush 0.9% 10 ml, Route: Inactive IVP, Drug 2014 [facility] Form: INJ, Dosing Weight 84.091, kg, Q12H, Start date: 03/28/15 9:00:00, Duration: 30 day, Stop date: 04/26/15 21:00:00Notes: (Same as: BD Posiflush) Famotidine 20 mg, 1 tab, No Longer Route: PO, Active 2014 [facility] Drug form: TAB, Q12H, Dosing Weight 84.091, kg, Start date: 03/28/15 9:00:00, Duration: 30 day, Stop date: 04/26/15 21:00:00Notes: (Same as: Pepcid) vancomycin 1.25 gm, 250 No Longer mL, Route: Active 2014 [facility] IVPB, Drug form: INJ, [id number], Start date: 03/28/15 9:00:00, Duration: 30 day, Stop date: 04/26/15 21:00:00Notes: TIME CRITICAL MEDICATION Same as: Vancocin-NS (premixed) Infusion rate 2001 mg: infuse over 2.5 hours Amiodarone 200 mg, 1 tab, No Longer Route: PO, Active 2014 [facility] Drug form: TAB, Daily, Dosing Weight 84.091, kg, Start date: 03/28/15 9:00:00, Duration: 30 day, Stop date: 04/26/15 9:00:00Notes: (Same as: Cordarone) pneumococcal 0.5 mL, Route: No Longer capsular IM, Drug Form: Active 2014 [facility] polysaccharide INJ, ONCALL, type 1 vaccine / Start date: pneumococcal 03/28/15 capsular 2:44:42, Stop polysaccharide date: 04/27/15 type 10A vaccine / 2:39:42Notes: pneumococcal (Same as: capsular Pneumovax 23) polysaccharide Refrigerate type 11A vaccine / pneumococcal capsular polysaccharide type 12F vaccine / pneumococcal capsular polysacchar meropenem 500 mg, Route: No Longer IVPB, Drug Active 2014 [facility] form: PDR/INJ, [id number], Dosing Weight 84.091, kg, CrCL >=50ml/min, Extended infusion, infuse over 3 hours, Start date: 03/28/15 2:00:00, Duration: 30 day, Stop date: 04/26/15 20:00:00Notes: Same as [place] MEDICATION WASTE Product Size: 500 mg Product Wasted: ___ mg Dextrose 50% in 25 gm, 50 mL, Inactive Water IV Route: IVP, 2014 [facility] Drug Form: INJ, PRN, PRN Blood Glucose Results, Start date: 03/28/15 1:05:00, Duration: 30 day, Stop date: 04/27/15 1:04:00 glucagon 1 mg, Route: Inactive IV, Drug form: 2014 [facility] PDR/INJ, PRN, PRN Blood Glucose Results, Start date: 03/28/15 1:05:00, Duration: 30 day, Stop date: 04/27/15 1:04:00 NovoLOG FlexPen 8 unit, 0.08 Inactive mL, Route: 2014 [facility] SUB-Q, Drug form: SOLN, Sliding Scale, PRN Blood Glucose Results, Start date: 03/28/15 1:04:00, Duration: 30 day, Stop date: 04/27/15 1:03:00Notes: Roll in palms of hands gently; Do not shake vigorously. (Same as: NovoLOG) "single patient use only" Stable for 28 days at room temperature. Expires in days from Date Vancomycin 1 ea, Route: Inactive MISC, Dosing 2014 [facility] Weight 84.091, kg, ONCALL, Start date: 03/28/15 1:00:00, Duration: 1 doses or times, Pharmacy to doseSpecial Instructions: Pharmacy to dose glucagon 1 mg, Route: Inactive INJ, Drug 2014 [facility] form: PDR/INJ, PRN, PRN Blood Glucose Results, Start date: 03/28/15 0:10:00, Duration: 30 day, Stop date: 04/27/15 0:09:00 NovoLOG FlexPen 5 unit, 0.05 Inactive mL, Route: 2014 [facility] SUB-Q, Drug form: SOLN, Sliding Scale, [...] mL, Inactive Water IV Route: IVP, 2014 [facility] Drug Form: INJ, PRN, PRN Blood Glucose Results, Start date: 03/28/15 0:09:00, Duration: 30 day, Stop date: 04/27/15 0:08:00 lithium 300 mg 600 mg=2 tab, Active oral tablet PO, Bedtime, # 2015 [facility] 60 tab, 1 Refill(s) Lantus 20 unit, Active SUB-Q, 2014 [facility] Bedtime, 0 Refill(s) Zolpidem tartrate 10 mg=1 tab, Active 10 MG Oral Tablet PO, Bedtime, # 2014 [facility] [Ambien] 14 tab, 0 Refill(s) lamotrigine 100 MG 100 mg=1 tab, Active Oral Tablet PO, Bedtime, # 2014 [facility] 30 tab, 1 Refill(s) Symbicort 160/4.5 2 puff, Active inhalation aerosol INHALER, BID, 2014 [facility] with adapter # 1 ea, 3 Refill(s) Sodium Chloride 250 mL, Route: No Longer 0.9% IV IVPB, Start Active 2014 [facility] date: 03/27/15 22:38:00, Duration: 30 day, Stop date: 04/26/15 22:37:00, PRN Line Flush Saline Flush 0.9% 10 ml, Route: No Longer IVP, Drug Active 2014 [facility] Form: INJ, Dosing Weight 84.091, kg, PRN, PRN Line Flush, Start date: 03/27/15 22:33:00, Duration: 30 day, Stop date: 04/26/15 22:32:00Notes: (Same as: BD Posiflush) Albuterol 0.833 3 ml, Route: No Longer MG/ML / NEB, Drug Active 2014 [facility] Ipratropium Form: SOLN, [place] 0.167 Dosing Weight MG/ML Inhalant 84.091, kg, Solution PRN, PRN Respiratory Protocol, Start date: 03/27/15 22:33:00, Duration: 30 day, Stop date: 04/26/15 22:32:00Notes: (Same as: Duoneb) Acetaminophen 650 mg, 2 tab, No Longer Route: PO, Active 2014 [facility] Drug form: TAB, Q4H, Dosing Weight 84.091, kg, PRN For Temp > 100.4 F, Start date: 03/27/15 22:33:00, Duration: 30 day, Stop date: 04/26/15 22:32:00Notes: Do not exceed 4 gm/day. (Same as: Tylenol) predniSONE 20 mg See Special Active [place] oral tablet Instructions, 2014 [facility] PO, Daily, 4 day regimen: Day [...] INHALATION, 2014 [facility] QID, # 30 ea, [place] 0.167 0 Refill(s) MG/ML Inhalant Solution torsemide 100 mg, 5 tab, Inactive Sugar Route: PO, 2014 [facility] Drug form: TAB, Daily, Dosing Weight 84.091, kg, Start date: 12/16/14 9:00:00, Duration: 30 day, Stop date: 01/14/15 9:00:00Notes: (Same As: Demadex) TriCor 145 mg, 1 tab, Inactive Sugar Route: PO, 2014 [facility] Drug form: TAB, Daily, Start date: [...] No Longer Sugar Route: PO, Active 2014 [facility] Drug form: ERCAP, Daily, Dosing Weight 84.091, [...] Longer Sugar Syringe Route: IVP, Active 2014 [facility] Drug Form: INJ, Dosing Weight 84.091, [...] Sugar MG/ML Inhalant Route: NEB, Active 2014 [facility] Solution Drug form: [Pulmicort] SUSP, RBID, [...] not exceed 4gm/day of acetaminophen. (Same as: [place] 325/10) acetaminophen-hydr 1 tab, Route: Inactive [place] ocodone 325 mg-10 PO, Drug Form: 2014 [place] mg oral tablet TAB, Dosing Weight 84.091, kg, Q4H, PRN Pain Score 1-5, prn, Start date: 12/15/14 1:20:00, Duration: 30 day, Stop date: 01/14/15 1:19:00Notes: Do not exceed 4gm/day of acetaminophen. (Same as: [place] 325/10) Acetaminophen 325 1 tab, Route: Inactive [place] MG / Hydrocodone PO, Drug Form: 2014 Bitartrate 10 MG TAB, Dosing Oral Tablet [[place] Weight 84.091, 10/325] kg, Q4H, PRN Pain Score 1-5, prn, Start date: 12/15/14 1:02:00, Duration: 30 day, Stop date: 01/14/15 1:01:00Notes: Do not exceed 4gm/day of acetaminophen. (Same as: [place] 325/10) methylPREDNISolone 40 mg, 1 mL, No Longer Sugar SODium SUCCinate Route: IVP, Active 2014 Drug form: INJ, Q8H, Dosing Weight 83.636, kg, Start date: 12/15/14 0:00:00, Duration: 30 day, Stop date: 01/13/15 16:00:00Notes: (Same as:Solu-MEDROL , A-Methapred) Acetaminophen 325 1 tab, PO, Active [place] MG / Hydrocodone Q4H, PRN for 2014 Bitartrate 10 MG pain, 0 Oral Tablet [[place] Refill(s) 10/325] 24 HR Diltiazem 180 mg=1 [...] NEB, Drug Active 2014 [facility] Form: SOLN, [place] 0.167 Dosing Weight MG/ML Inhalant 83.636, kg, [...] Bitartrate 5 MG TAB, Dosing Oral Tablet [[place] Weight 83.636, 5/325] kg, ONCE, STAT, Start date: 12/14/14 17:03:00, Stop date: 12/14/14 17:03:00 Lasix 20 mg, Route: Inactive [place] IVP, Drug 2014 [place] form: INJ, ONCE, Dosing Weight 83.636, kg, Priority: STAT, Start date: 12/14/14 15:07:00, Stop date: 12/14/14 15:07:00 Albuterol 0.833 3 mL, Route: Inactive Sugar MG/ML / INHALATION, 2014 [facility] Dosing Weight [place] 0.167 83.636, kg, MG/ML Inhalant ONCE, Start [...] OPID lumbar wo wo contrast /2014 - [place] contrast MRI MRI History: 729.89 bilateral leg [...] is not recommended in the following populations: [place] [id number] Individuals with unstable creatinine concentrations, including patients [...] Lvl 9.2 mg/dL 8.5 - 10.5 03/30 [facility] CHEM PANEL Sodium Lvl 141 meq/L 135 - 145 03/30 [facility] CHEM PANEL Potassium 3.5 meq/L 3.5 - 5.1 03/30 [facility] CHEM PANEL Chloride Lvl 104 meq/L 95 - 109 03/30 [facility] CHEM PANEL CO2 28 meq/L 24 - 32 03/30 [facility] CHEM PANEL BUN 17 mg/dL 7 - 03/30 [facility] CHEM PANEL Creatinine 0.7 mg/dL 0.5 - 1.4 03/30 [facility] CHEM PANEL Glucose Lvl 126 mg/dL 70 - 99 03/30 [facility] CHEM PANEL AGAP 12.5 meq/L 10.0 - 03/30 20. [facility] CHEM PANEL Lactic Acid 1.1 mMol/L 0.5 - 2.2 03/30 [facility] CHEM PANEL Magnesium 1.9 mg/dL 1.8 - 2.4 03/30 [facility] CHEM PANEL Phosphorus 3.3 mg/dL 2.5 - 4.5 03/30 [facility] HEMATOLOGY Lymphocytes 15.3 % 20.0 - 03/30 MH 40.0 [facility] HEMATOLOGY Segs 75.3 % 45.0 - 03/30 75.0 [facility] HEMATOLOGY Basophils # 0.1 K/CMM 0.0 - 0.2 03/30 [facility] HEMATOLOGY Eosinophils 0.2 K/CMM 0.0 - 0.5 03/30 [facility] HEMATOLOGY Monocytes # 0.5 K/CMM 0.0 - 0.8 03/30 [facility] HEMATOLOGY Lymphocytes 1.3 K/CMM 1.0 - 5.5 03/30 MH # /2014 [facility] HEMATOLOGY Segs-Bands # 6.2 K/CMM 1.5 - 8.1 03/30 /2014 [facility] HEMATOLOGY Eosinophils 2.9 % 0.0 - 4.0 03/30 /2014 [facility] HEMATOLOGY Monocytes 5.9 % 2.0 - 12.0 03/30 [facility] HEMATOLOGY Basophils 0.6 % 0.0 - 1.0 03/30 [facility] HEMATOLOGY RBC 4.14 M/CMM 4.20 - 03/30 MH 5.40 /2014 [facility] HEMATOLOGY WBC 8.2 K/CMM 3.7 - 10.4 03/30 [facility] HEMATOLOGY MPV 8.0 fL 7.4 - 10.4 03/30 [facility] HEMATOLOGY Hgb 10.9 g/dL 12.0 - 03/30 16.0 [facility] HEMATOLOGY MCHC 31.8 g/dL 32.0 - 03/30 MH 36.0 [facility] MCH 26.4 pg 27.0 - 03/30 MH 31.0 [facility] HEMATOLOGY MCV 83.0 fL 80.0 - 03/30 MH 98.0 [facility] HEMATOLOGY Hct 34.4 % 36.0 - 03/30 MH 48.0 /2014 [facility] HEMATOLOGY Platelet 316 K/CMM 133 - 450 03/30 [facility] HEMATOLOGY RDW 23.7 % 11.5 - 03/30 14.5 [facility] PARATHYROI Ca Norm WB 1.14 1.05 - 03/30 D PROFILE mMol/L 1. [facility] PARATHYROI Ca Ion WB 1.10 1.05 - 03/30 D PROFILE mMol/L . [facility] METAL [place] Lvl 0.66 meq/L 0.50 - 03/29 MH 1.50 [facility] TOXICOLOGY Vanco Tr TND [id number] 03/29 [facility] TOXICOLOGY Vanco Tr 12.9 ug/ml 03/29 [facility] CHEM PANEL Phosphorus 3.0 mg/dL 2.5 - 4.5 03/29 [facility] CHEM PANEL Magnesium 2.2 mg/dL 1.8 - 2.4 03/29 Lvl /2014 [facility] CHEM PANEL Procalcitoni 2.02 ng/mL 0.00 - 03/29 Result n Lvl 0. Comment: [facility] Critical Result(s) called to daniel at 03/29/2015 06:03 by gp. Read back OK. ELECTROLYT AGAP 8.8 meq/L 10.0 - 03/29 ES 20. [facility] ELECTROLYT eGFR 96 03/29 Result Comment: [...] is not recommended in the following populations: [facility] 3m2 Individuals with unstable creatinine concentrations, [...] Lvl 143 meq/L 135 - 145 03/29 [facility] ELECTROLYT Creatinine 0.7 mg/dL 0.5 - 1.4 03/29 ES Lv [facility] ELECTROLYT BUN 13 mg/dL 7 - 22 03/29 [facility] ELECTROLYT Glucose Lvl 136 mg/dL 70 - 99 03/29 [facility] ELECTROLYT Calcium Lvl 8.9 mg/dL 8.5 - 10.5 03/29 [facility] ELECTROLYT CO2 30 meq/L 24 - 32 03/29 [facility] ELECTROLYT Chloride Lvl 108 meq/L 95 - 109 03/29 [facility] ELECTROLYT Potassium 3.8 meq/L 3.5 - 5.1 03/29 ES Lv [facility] CHEM PANEL Lactic Acid 1.3 mMol/L 0.5 - 2.2 03/29 [facility] HEMATOLOGY Lymphocytes 12.0 % 20.0 - 03/29 40.0 [facility] HEMATOLOGY Segs 83.2 % 45.0 - 03/29 75.0 [facility] HEMATOLOGY Plt Morph Normal 03/29 [facility] (03/29/15 3:50 AM) HEMATOLOGY Monocytes 4.0 % 2.0 - 12.0 03/29 [facility] HEMATOLOGY Lymphocytes 1.3 K/CMM 1.0 - 5.5 03/29 # /2014 [facility] HEMATOLOGY Segs-Bands # 9.4 K/CMM 1.5 - 8.1 03/29 [facility] HEMATOLOGY Basophils 0.2 % 0.0 - 1.0 03/29 [facility] HEMATOLOGY Eosinophils 0.6 % 0.0 - 4.0 03/29 [facility] HEMATOLOGY Polychrom Moderate None Seen 03/29 [facility] *ABN* (03/29/15 3:50 AM) HEMATOLOGY Eosinophils 0.1 K/CMM 0.0 - 0.5 03/29 # /2014 [facility] HEMATOLOGY Monocytes # 0.5 K/CMM 0.0 - 0.8 03/29 [facility] HEMATOLOGY MPV 8.8 fL 7.4 - 10.4 03/29 [facility] HEMATOLOGY WBC 11.3 K/CMM 3.7 - 10.4 03/29 [facility] HEMATOLOGY RBC 3.61 M/CMM 4.20 - 03/29 MH 5.40 /2014 [facility] HEMATOLOGY MCV 83.8 fL 80.0 - 03/29 MH 98.0 /2014 [facility] HEMATOLOGY MCH 26.5 pg 27.0 - 03/29 MH 31.0 [facility] HEMATOLOGY Hgb 9.6 g/dL 12.0 - 03/29 16.0 [facility] HEMATOLOGY Hct 30.3 % 36.0 - 03/29 MH 48.0 /2014 [facility] HEMATOLOGY RDW 24.3 % 11.5 - 03/29 MH 14.5 [facility] HEMATOLOGY Platelet 280 K/CMM 133 - 450 03/29 [facility] HEMATOLOGY MCHC 31.6 g/dL 32.0 - 03/29 MH 36.0 [facility] PARATHYROI Ca Norm WB 1.08 1.05 - 03/29 D PROFILE mMol/L 08.29 [facility] PARATHYROI Ca Ion WB 1.10 1.05 - 03/29 D PROFILE mMol/L 08.29 [facility] CARDIAC CK MB Index 3.0 0.0 - 2.5 03/28 ENZYMES [facility] CARDIAC Total CK 47 unit/L 12 - 191 03/28 ENZYMES [facility] CARDIAC CK MB 1.4 ng/mL 0.5 - 3.6 08/24 MH ENZYMES /2015 [facility] CARDIAC Troponin-I null 0.00 - 03/28 MH ENZYMES 0.40 [facility] CHEM PANEL Procalcitoni 2.09 ng/mL 0.00 - 03/28 Result n Lvl 0.10 Comment: [facility] Critical Result(s) called to alisha forman at 03/28/2015 12:44 by jeffrey. Read back OK. METAL [place] Lvl 1.44 meq/L 0.50 - 08 MH 1.50 /2014 [facility] CARDIAC Troponin-I null 0.00 - 08 MH ENZYMES 0.40 [facility] CARDIAC Total CK 52 unit/L 12 - 191 03/28 MH ENZYMES /2014 [facility] CHEM PANEL eGFR 71 03/28 Result [...] is not recommended in the following populations: [facility] 3m2 Individuals with unstable creatinine concentrations, [...] 7.0 meq/L 10.0 - 03/28 MH 20.0 [facility] CHEM PANEL Chloride Lvl 109 meq/L 95 - 109 03/28 MH [facility] CHEM PANEL CO2 28 meq/L 24 - 32 03/28 MH [facility] CHEM PANEL Calcium Lvl 8.9 mg/dL 8.5 - 10.5 03/28 MH [facility] CHEM PANEL Creatinine 0.9 mg/dL 0.5 - 1.4 / MH Lvl [facility] CHEM PANEL Sodium Lvl 140 meq/L 135 - 145 03/28 MH [facility] CHEM PANEL Potassium 4.0 meq/L 3.5 - 5.1 03/28 MH Lvl [facility] CHEM PANEL Glucose Lvl 230 mg/dL 70 - 99 03/28 /2014 [facility] CHEM PANEL BUN 13 mg/dL 7 - 22 03/28 /2014 [facility] CHEM PANEL Phosphorus 2.7 mg/dL 2.5 - 4.5 03/28 /2014 [facility] CHEM PANEL Magnesium 2.0 mg/dL 1.8 - 2.4 03/28 MH Lvl [facility] HEMATOLOGY Monocytes # 0.4 K/CMM 0.0 - 0.8 03/28 /2014 [facility] HEMATOLOGY Lymphocytes 2.4 % 20.0 - 03/28 MH 40.0 /2014 [facility] HEMATOLOGY Monocytes 1.9 % 2.0 - 12.0 03/28 /2014 [facility] HEMATOLOGY Lymphocytes 0.4 K/CMM 1.0 - 5.5 03/28 MH /2014 [facility] HEMATOLOGY Segs-Bands # 17.9 K/CMM 1.5 - 8.1 03/28 /2014 [facility] HEMATOLOGY Segs 95.7 % 45.0 - 03/28 MH 75.0 /2014 [facility] HEMATOLOGY Hct 35.3 % 36.0 - 03/28 MH 48.0 /2014 [facility] HEMATOLOGY WBC 18.7 K/CMM 3.7 - 10.4 03/28 /2014 [facility] HEMATOLOGY Hgb 11.0 g/dL 12.0 - 03/28 MH 16.0 /2014 [facility] HEMATOLOGY MCV 83.6 fL 80.0 - 03/28 MH 98.0 /2014 [facility] HEMATOLOGY RBC 4.22 M/CMM 4.20 - 03/28 MH 5.40 /2014 [facility] HEMATOLOGY MCHC 31.1 g/dL 32.0 - 03/28 MH 36.0 /2014 [facility] HEMATOLOGY RDW 23.8 % 11.5 - 03/28 MH 14.5 [facility] HEMATOLOGY MCH 26.0 pg 27.0 - 03/28 MH 31.0 /2014 [facility] HEMATOLOGY Platelet 293 K/CMM 133 - 450 03/28 /2014 [facility] HEMATOLOGY MPV 8.5 fL 7.4 - 10.4 03/28 [facility] PARATHYROI Ca Ion WB 1.19 1.05 - 03/28 MH D PROFILE mMol/L 08.29 [facility] PARATHYROI Ca Norm WB 1.15 1.05 - 03/28 MH D PROFILE mMol/L 08.29 [facility] CHEM PANEL Lactic Acid 2.4 mMol/L 0.5 - 2.2 08/24 MH Lvl /2014 [facility] CARDIAC Troponin-I 0.02 ng/mL 0.00 - 03/28 ENZYMES 0.40 /2014 [facility] CARDIAC Total CK 55 unit/L 12 - 191 03/28 ENZYMES [facility] BACTERIAL MRSA by PCR Negative 03/28 - SEROLOGY [facility] (03/27/15 10:42 PM) CARDIAC proBNP 2233 pg/mL 0 - 125 03/28 ENZYMES [facility] CHEM PANEL Globulin 5.1 g/dL 2.0 - 4.0 03/28 [facility] CHEM PANEL A/G Ratio 0.6 0.7 - 1.6 03/28 [facility] CHEM PANEL B/C Ratio 11 6 - 25 03/28 [facility] CHEM PANEL Total 8.1 g/dL 6.4 - 8.4 03/28 Protein [facility] CHEM PANEL Albumin Lvl 3.0 g/dL 3.5 - 5.0 03/28 [facility] CHEM PANEL Bili Total 0.5 mg/dL 0.2 - 1.3 03/28 [facility] CHEM PANEL AST 32 unit/L 0 - 37 03/28 [facility] CHEM PANEL ALT 16 unit/L 0 - 65 03/28 [facility] CHEM PANEL Alk Phos 59 unit/L 39 - 136 03/28 [facility] HEMATOLOGY Plt Morph Normal 03/28 [facility] (03/27/15 10:42 PM) HEMATOLOGY RBC Morph Normal 03/28 [facility] (03/27/15 10:42 PM) HEMATOLOGY Atypical 0.0 % <=0.0 % 03/28 Lymphs [facility] HEMATOLOGY Bands 7.0 % 0.0 - 11.0 03/28 [facility] HEMATOLOGY INR 1.04 0.85 - 03/28 MH 1.17 /2014 [facility] HEMATOLOGY PTT 31.6 s 22.9 - 03/28 MH 35.8 /2014 [facility] HEMATOLOGY PT 13.6 s 12.0 - 03/28 MH 14.7 /2014 [facility] URINE AND UA Color Yellow Yellow 03/28 STOOL [facility] *NA* (03/27/15 10:42 PM) URINE AND UA Spec Grav 1.025 <=1.030 03/28 STOOL [facility] URINE AND UA Turbidity Clear Clear 03/28 STOOL [facility] (03/27/15 10:42 PM) URINE AND UA Glucose 100 mg/dL Negative 03/28 STOOL mg/dL [facility] URINE AND UA Protein Negative Negative 03/28 STOOL [facility] (03/27/15 10:42 PM) URINE AND UA Ketones Negative Negative 03/28 [facility] *NA* (03/27/15 10:42 PM) URINE AND UA pH 6.0 5.0 - 8.0 03/28 STOOL [facility] URINE AND UA Nitrite Negative Negative 03/28 STOOL [facility] (03/27/15 10:42 PM) URINE AND UA Leuk Est Negative Negative 03/28 STOOL [facility] (03/27/15 10:42 PM) URINE AND UA 0.2 EU/dL 0.1 - 1.0 03/28 STOOL Urobilinogen [facility] URINE AND UA Bili Negative Negative 03/28 [facility] *NA* (03/27/15 10:42 PM) URINE AND UA Blood Small Negative 03/28 [facility] *ABN* (03/27/15 10:42 PM) URINE AND UA Sq Epi None Seen Few 03/28 STOOL [facility] (03/27/15 10:42 PM) URINE AND UA Mucus Few /LPF None Seen 03/28 STOOL /LPF [facility] URINE AND UA Bacteria Occasional None Seen 03/28 STOOL /HPF /HPF [facility] URINE AND UA RBC 13 /HPF 0 - 2 03/28 [facility] URINE AND UA CaOx Lizette Occasional None Seen 03/28 STOOL /HPF /HPF [facility] URINE AND UA WBC 2 /HPF 0 - 5 03/28 [facility] Chest Chest 1view Chest one view: 03/28 [facility] 1view DX DX /2014 - [facility] Exam reason: Shortness of breath. Read [...] - OP[facility] contrast contrast CT /2014 - [place] CT History: Dyspnea/COPD Read by: Zoila Paiz [...] Prot 14 mg/dL 12/15 [place] (UPE) /2014 [facility] IMMUNOLOGY Interp (UPE) Urine 12/15 [place] protein /2014 [place] consists primarily of albumin. No monoclonal bands are identified .Interpret ation performed at [facility]. IMMUNOLOGY Spec Type random 12/15 [place] (UPE) urine 100x /2014 [facility] IMMUNOLOGY Albumin % 39.4 REL % 55.8 - 12/15 MH [place] 66.1 /2014 [facility] IMMUNOLOGY Alpha 1 % 5.0 REL % 2.8 - 4.9 12/15 [place] /2014 [facility] IMMUNOLOGY SPE Interp Total 12/15 [place] protein is [place] increased. A presumptiv e monoclonal protein (1.47 g/dl) is present within the preserved polyclonal gamma globulin region and overlaps with a large peak in the beta-2 fraction that may also ne monoclonal . Serum and urine immunofixa tion studies are recommende d for further evaluation .Interpret ation performed at [facility]. IMMUNOLOGY Beta Glob 1.52 g/dL [...] values reflect the clinical guidelines of the [place] [employer]. [place] CHEM PANEL BUN 12 [...] 4.20 - 12/15 MH [place] 5.40 /2014 [facility] HEMATOLOGY Hgb 10.3 g/dL 12.0 - 12/15 MH [place] 16.0 /2014 [facility] HEMATOLOGY MCHC 32.3 g/dL 32.0 - 12/15 MH [place] 36.0 /2014 [facility] HEMATOLOGY MCH 26.3 pg 27.0 - [...] # 0.1 K/CMM 0.0 - 0.8 12/15 [facility] HEMATOLOGY Segs-Bands # 9.0 K/CMM 1.5 - 8.1 12/15 [facility] HEMATOLOGY Lymphocytes 0.6 K/CMM 1.0 - 5.5 12/15 [place] # /2015 [place] HEMATOLOGY Eosinophils 0.0 % 0.0 - 4.0 12/15 [facility] HEMATOLOGY Basophils 0.1 % 0.0 - 1.0 12/15 [facility] HEMATOLOGY Lymphocytes 6.3 % 20.0 - 12/15 [place] 40.0 [facility] HEMATOLOGY Segs 92.7 % 45.0 - 12/15 [place] 75.0 [facility] HEMATOLOGY Monocytes 0.9 % 2.0 - 12.0 12/15 [facility] Chest Chest Examination: Chest CTA pulm [...] unit/L 12 - 191 12/15 [place] ENZYMES [facility] URINE AND UA RBC 0-2 /HPF 0 - 2 12/15 [place] STOOL [facility] URINE AND UA Bacteria Occasional None Seen 12/15 [place] [facility] /HPF /HPF /2014 [facility] URINE AND UA WBC 0-2 /HPF None Seen 12/15 [facility] /HPF /2014 [facility] URINE AND UA Leuk Est Negative Negative 12/15 [place] STOOL [facility] (12/14/14 7:06 PM) URINE AND UA Sq Epi Occasional Few /LPF 12/15 [place] [facility]OOL /LPF /2014 [facility] URINE AND UA Ketones Negative Negative 12/15 *NA* (12/14/14 7:06 PM) URINE AND UA Bili Negative Negative 12/15 [place] STOOL [facility] *NA* (12/14/14 7:06 PM) URINE AND UA Nitrite Negative Negative 12/15 [facility] (12/14/14 7:06 PM) URINE AND UA Blood Trace Negative 12/15 [place] STOOL [facility] *ABN* (12/14/14 7:06 PM) URINE AND UA 0.2 EU/dL 0.1 - 1.0 12/15 [facility] Urobilinogen [facility] URINE AND UA Color Yellow Yellow 12/15 [facility] *NA* (12/14/14 7:06 PM) URINE AND UA Turbidity Clear Clear 12/15 [place] STOOL [facility] (12/14/14 7:06 PM) URINE AND UA Spec [...] # 0.1 K/CMM 0.0 - 0.2 12/14 [facility] HEMATOLOGY Lymphocytes 7.0 % 20.0 - 12/14 [place] 40.0 /2014 [place] HEMATOLOGY Monocytes 3.9 % 2.0 - 12.0 12/14 [facility] HEMATOLOGY Eosinophils 0.5 % 0.0 - 4.0 12/14 [place] HEMATOLOGY Plt Morph Normal 12/14 [facility] (12/14/14 4:24 PM) HEMATOLOGY Monocytes # 0.6 [...] 36.0 - 05 MH [place] 48.0 /2015 [facility] HEMATOLOGY Platelet 400 K/CMM 133 - 450 05/ MH [place] /2014 [facility] HEMATOLOGY RDW 21.9 % 11.5 - 05 MH [place] 14.5 /2014 [facility] HEMATOLOGY MCHC 32.7 g/dL 32.0 - 12/14 MH [place] 36.0 /2014 [facility] HEMATOLOGY MCV 81.4 fL 80.0 - 12/14 MH [place] 98.0 /2014 [facility] HEMATOLOGY MCH 26.6 pg 27.0 - 12/14 MH [place] 31.0 /2014 [facility] HEMATOLOGY Hgb 11.4 g/dL 12.0 - 05 MH [place] 16.0 /2015 [facility] HEMATOLOGY WBC 16.6 K/CMM 3.7 - 10.4 / [place] /2014 [facility] HEMATOLOGY RBC 4.29 M/CMM 4.20 - 12/14 MH [place] 5.40 /2014 [facility] CARDIAC CK MB Index 4.2 0.0 - 2.5 12/14 [place] ENZYMES /2014 [facility] CARDIAC BNP 350 pg/mL <=100 12/14 5Interpretive Data: Elevated results are in line with increasing severity of [place] ENZYMES pg/mL /2014 congestive heart failure. Minor elevations between 100 and 300 [place] may be seen with Myocardial Ischemia, Sodium retaining drugs, and compensated/treated heart failure. CARDIAC CK MB 2.0 ng/mL 0.5 - 3.6 12/14 [place] ENZYMES /2014 [facility] CARDIAC Troponin-I null 0.00 - 12/14 [place] ENZYMES 0.40 /2014 [facility] CARDIAC Total CK 48 unit/L 12 - 191 12/14 [place] ENZYMES /2014 [facility] CHEM PANEL eGFR 82 12/14 2Result [...] values reflect the clinical guidelines of the [place] [employer]. [place] CHEM PANEL BUN 7 mg/dL 7 - 22 12/14 [facility] Chest Chest 1view Examination: Chest 1view 12/14 - [place] 1view DX - [facility] Provided History: Chest pain Read by: [place] [...] 73 11/01/[facility] Weight 77.273 06/20/2015 [facility] BMI Calculated 29.7 06/20/2015 [facility] Height 161.29 cm 06/20/2015 [facility] Respitory Rate 20 03/30/2015 [facility] Systolic (mm Hg) 100 03/30/2015 [facility] Diastolic (mm Hg) 66 03/30/2015 [facility] Heart Rate 82 03/30/2015 [facility] Temperature Oral (F) 97.9 F 03/30/2015 [facility] Systolic (mm Hg) 110 03/30/2015 [facility] Diastolic (mm Hg) 70 03/30/2015 [facility] Respitory Rate 18 03/30/2015 [facility] Heart Rate 77 03/30/2015 [facility] Temperature Oral (F) 97.7 F 03/30/2015 [facility] Systolic (mm Hg) 104 03/30/2015 [facility] Diastolic (mm Hg) 69 03/30/2015 [facility] Heart Rate 85 03/30/2015 [facility] Temperature Oral (F) 98.5 F 03/30/2015 [facility] Respitory Rate 18 03/30/2015 [facility] Weight 84.1 03/28/2015 [facility] BMI Calculated 28.19 03/28/2015 [facility] Weight 84.091 03/28/2015 [facility] Height 172.72 cm 03/28/2015 [facility] Heart Rate 84 12/16/2014 [place] Temperature Oral (F) 97.8 F 12/16/2014 [place] Systolic (mm Hg) 105 12/16/2014 [place] Diastolic (mm Hg) 65 12/16/2014 [place] Respitory Rate 18 12/16/2014 [place] Respitory Rate 18 12/16/2014 [place] Systolic (mm Hg) 107 12/16/2014 [place] Diastolic (mm Hg) 74 12/16/2014 [place] Temperature Oral (F) 97.9 F 12/16/2014 [place] Heart Rate 80 12/16/2014 [place] Temperature Oral (F) 97.6 F 12/16/2014 [place] Heart Rate 87 12/16/2014 [place] Respitory Rate 18 12/16/2014 [place] Systolic (mm Hg) 115 12/16/2014 [place] Diastolic (mm Hg) 69 12/16/2014 [place] Weight 84.091 12/15/2014 [place] BMI Calculated 28.19 12/15/2014 [place] Height 172.72 cm 12/15/2014 [place] Weight 83.636 12/14/2014 [place] Weight 84.091 11/12/2014 [place] BMI Calculated 28.19 11/12/2014 [place] Height 172.72 cm 11/12/2014 [place] Encounters Location Location Encounter Encounter Reason Attending ADM DC Status Source Details Type Number For Provider Date Date Visit [facility] Bed[facility] [id number] [place] 11/15 11/15 [facility] [place] [facility]2014 [facility] [id number] [place] 12/14 12/16 [facility] Berta /2014 [facility] [place] [facility] Outpt Diag [id number] Raudel 03/07 03/08 [facility] [place] /2014 [facility] [id number] [place] 03/28 03/30 [place] /2014 [facility] Outpt Diag [id number] Nery 04/20 04/21 [facility] Out[facility] Services Shar /2014 [facility] [place] [facility] Outpt Diag [id number] Jenaro Russ 06/03 06/04 [facility] Out[facility] /2014 [facility] [id number] [place] 06/20 06/21 [place] [facility] [id number] Nery 10/26 10/27 [facility] Out[facility] Shar /2015 [facility] [place] [facility] [id number] [place] 03/01 [facility] /2016 [facility] Outpatient [id number] [place] 03/15 [facility] /2016 [place] Outpatient [id number] [place] 06/14 [facility] /2016 [facility] Outpatient [id number] [place] 11/01 [facility] /2017 [place] [facility] [id number] [place] 11/01 11/02 Cardiology [place] /2017 [facility] [place] [facility] Phone [id number] 03/27 03/29 Cardiology Message /2017 [facility] Procedures Procedure Code Date Perfomer Comments Source Back fusion [id number] 01/03/2014 [facility] Back fusion [id number] 01/03/2014 [facility] [place] Back fusion [id number] 01/03/2014 [place] Back fusion [id number] 01/03/2014 [facility] Ablation [id number] 08/05/2012 [facility] Ablation [id number] 08/05/2012 [facility] [place] Ablation [id number] 08/05/2012 [place] Ablation [id number] 08/05/2012 [facility] Back fusion [id number] 08/05/2008 [facility] Back fusion [id number] 08/05/2008 [facility] [place] Back fusion [id number] 08/05/2008 [place] Back fusion [id number] 08/05/2008 [facility] Hysterectomy [id number] 08/05/1994 [facility] Hysterectomy [id number] 08/05/1994 [facility] [place] Hysterectomy [id number] 08/05/1994 [place] Hysterectomy [id number] 08/05/1994 [facility] Arthroscopy of [id number] 08/05/1972 [facility] knee Arthroscopy of [id number] 08/05/1972 [facility] knee [place] Arthroscopy of [id number] 08/05/1972 [place] knee Arthroscopy of [id number] 08/05/1972 [facility]
[2018-12-09] MEDS ORDERED: ALBUTEROL 2.5 MG/3 ML NEB SOL ONE (19:54)
--- NOTE | 2018-12-09 20:33 | RAD REPORT ---
EXAM DESCRIPTION: [place] Single View12/09/2018 8:13 pm CLINICAL HISTORY: sob COMPARISON: December 01, 2018 FINDINGS: [id number] bilateral pulmonary opacities with small pleural effusions Heart is moderately to markedly enlarged IMPRESSION: CHF
[2018-12-09 20:36] LABS: Protime INR 1.53
[2018-12-09 20:43] LABS: Albumin 3.9 g/dL (3.4-5.0); Bilirubin Direct 0.4 mg/dL (0-0.2); Bilirubin Total 1.1 mg/dL (0.2-1.0); CKMB Creatine Kinase MB 1.3 ng/mL (0.3-3.6); Magnesium 2.2 mg/dL (1.8-2.4); Potassium 3.6 mmol/L (3.5-5.1); Troponin (Emerg Dept Use Only) 0.02 ng/mL (0.0-0.045)
[2018-12-09 20:47] LABS: Absolute Lymphocytes (CBC) 0.6 K/uL (0.7-4.9); Absolute Monocytes 0.5 K/uL (0.1-1.3); Absolute Neutrophil 7.5 K/uL (1.8-8.0); Basophils % 0.6 % (0-1.3); Eosinophils % 1.7 % (0-4.4); Hematocrit 32.1 % (36.0-45.0); Lymphocytes % 6.9 % (15.3-44.8); MPV 9.1 fL (7.6-11.3); Monocytes % 5.4 % (3.3-12.3); RBC Red Blood Cell Count 4.23 M/uL (3.86-4.86)
--- NOTE | 2018-12-09 21:00 | ER ---
Nurse's Notes [facility] Name: Elli Durant Age: 63 yrs Sex: Female : 1955 Arrival Date: 12/09/2018 Time: 19:08 Bed 24 Private MD: Ceasar Zhou Diagnosis: Unspecified systolic (congestive) heart failure Presentation: 12/09 19:24 Presenting complaint: Patient states: she has been coughing up blood for the past few bb days first it was pinkish tinged but today it was bright red, pt states her O2 sats have also been lower than normal today it was 86% pt uses home O2 at 2 Lpm. Transition of care: patient was not received from another setting of care. Onset of symptoms is unknown. Risk Assessment: Do you want to hurt yourself or someone else? Patient reports no desire to harm self or others. Initial Sepsis Screen: Does the patient meet any 2 criteria? No. Patient's initial sepsis screen is negative. Does the patient have a suspected source of infection? No. Patient's initial sepsis screen is negative. Care prior to arrival: None. 19:24 Method Of Arrival: Ambulatory bb 19:24 Acuity: GARY 2 bb Historical: - Allergies: 19:32 PENICILLINS; bb - Home Meds: 19:32 citalopram 20 mg tab 2 tabs once daily [Active]; clonazepam 0.5 mg Oral TbDL 0.5 tab bb nightly [Active]; lithium carbonate 300 mg Oral tab 1 tab nightly [Active]; furosemide 80 mg oral tab 1 tab 2 times per day [Active]; metformin 500 mg Oral tr24 1 tab twice a day [Active]; risperidone 1 mg oral tab 1 tab once daily [Active]; spironolactone 50 mg oral tab 1 tab 2 times per day [Active]; trazodone 150 mg Oral tab 1 tab nightly [Active]; Letairis 5 mg Oral tab 1 tab once daily [Active]; Xarelto 20 mg oral tab 1 tab once daily [Active]; levothyroxine 50 mcg tab 1 tab once daily [Active]; - PMHx: 19:32 Atrial Fib; CHF; COPD; Diabetes - NIDDM; insomnia; pulmonary hypertension; Anxiety; bb Depression; Pneumonia; UTI; - PSHx: 19:32 Hysterectomy; heart ablation; Knee surgery; back surgery x 3; bb - Immunization history:: Adult Immunizations up to date. - Social history:: Smoking status: unknown. - Ebola Screening: : No symptoms or risks identified at this time. Screenin:23 Abuse screen: Denies threats or abuse. Denies injuries from another. Nutritional ca1 screening: No deficits noted. Tuberculosis screening: Possible symptoms: recent bloody sputum. Fall Risk IV access (20 points). Assessment: 19:35 General: Appears in no apparent distress. uncomfortable, ill, Behavior is calm, ca1 cooperative, appropriate for age. Pain: Denies pain. Neuro: Level of Consciousness is awake, alert, obeys commands, Oriented to person, place, time, situation. Cardiovascular: Heart tones S1 S2 present Capillary refill < 3 seconds Patient's skin is warm and dry. Rhythm is sinus rhythm. Respiratory: Reports coughing out blood for several days. Shortness of breath since 2 days ago. And SPO2 at home at 91% at 2LPM of O2 when normally she is at SPO2 of 95% at 2LPM of O2 at home. Airway is patent Respiratory effort is even, unlabored, Respiratory pattern is regular, symmetrical, Breath sounds are clear bilaterally. GI: Abdomen is round non-distended, Bowel sounds present X 4 quads. Abd is soft and non tender X 4 quads. : No deficits noted. No signs and/or symptoms were reported regarding the genitourinary system. EENT: Reports nasal congestion since 2 days ago. Derm: Skin is intact, is healthy with good turgor, Skin is pink, warm \T\ dry. Musculoskeletal: Circulation, motion, and sensation intact. Capillary refill < 3 seconds. 20:26 Reassessment: Patient appears in no apparent distress at this time. Patient and/or ca1 family updated on plan of care and expected duration. Pain level reassessed. Patient is alert, oriented x 3, equal unlabored respirations, skin warm/dry/pink. 21:17 Reassessment: Patient appears in no apparent distress at this time. Patient is alert, ca1 oriented x 3, equal unlabored respirations, skin warm/dry/pink. Pt for admission. Informed pt and son a bedside. 21:47 Reassessment: Patient appears in no apparent distress at this time. Patient is alert, ca1 oriented x 3, equal unlabored respirations, skin warm/dry/pink. Pt able to urinate at bedside commode. Output of 400cc after Lasix administration. Patient states feeling better. 22:40 Reassessment: Patient appears in no apparent distress at this time. Patient and/or ca1 family updated on plan of care and expected duration. Pain level reassessed. Patient is alert, oriented x 3, equal unlabored respirations, skin warm/dry/pink. Awaiting room assignment. 23:11 Reassessment: Called for report. Nurse will call back. ca1 23:30 Reassessment: Patient appears in no apparent distress at this time. Patient is alert, ca1 oriented x 3, equal unlabored respirations, skin warm/dry/pink. Wheeled by TAVARES [place] to 4th floor. Pt states feeling better Patient states feeling better. Patient states symptoms have improved. Vital Signs: 19:32 BP 112 / 67; Pulse 103; Resp 18 S; Temp 98.1(O); Pulse Ox 91% on 2 lpm NC; Weight 74.84 bb kg (R); Height 5 ft. 6 in. (167.64 cm); Pain 0/10; 19:49 BP 108 / 61; Pulse 102; Resp 23 S; Pulse Ox 99% on 2 lpm NC; ca1 20:00 BP 107 / 62; Pulse 99; Resp 22 S; Pulse Ox 95% on 2 lpm NC; ca1 20:30 BP 108 / 66; Pulse 104; Resp 24 S; Temp 98.(O); Pulse Ox 95% on 2 lpm NC; ca1 21:00 BP 109 / 62; Pulse 100; Resp 23 S; Temp 98.2(O); Pulse Ox 95% on 2 lpm NC; ca1 21:30 BP 120 / 67; Pulse 98; Resp 18 S; Temp 98.2(O); Pulse Ox 96% on 2 lpm NC; ca1 22:00 BP 112 / 63; Pulse 95; Resp 16 S; Temp 98(O); Pulse Ox 95% on 2 lpm NC; ca1 22:30 BP 123 / 72; Pulse 98; Resp 22 S; Temp 98.1(O); Pulse Ox 98% on 2 lpm NC; ca1 23:00 BP 123 / 61; Pulse 97; Resp 21 S; Temp 98.3(O); Pulse Ox 100% on 2 lpm NC; ca1 23:30 BP 106 / 66; Pulse 92; Resp 19 S; Temp 98.1(O); Pulse Ox 100% on R/A; ca1 19:32 Body Mass Index 26.63 (74.84 kg, 167.64 cm) bb ED Course: 19:08 Patient arrived in ED. am2 19:08 Ceasar Zhou DO is Private Physician. am2 19:17 Ezio Weston MD is Attending Physician. tw4 19:20 Marleni Villareal, TAVARES is Primary Nurse. ca1 19:26 Triage completed. bb 19:32 Arm band placed on Patient placed in an exam room, on a stretcher, on oxygen, on bb manager monitoring, on pulse oximetry. Family accompanied patient. 19:35 Patient has correct armband on for positive identification. Placed in gown. Bed in low ca1 position. Call light in reach. Side rails up X 1. front desk monitor on. Pulse ox on. NIBP on. 19:35 Warm blanket given. ca1 19:50 Inserted saline lock: 20 gauge in right antecubital area, using aseptic technique. ca1 Blood collected. 19:50 First set of blood cultures drawn by me. ca1 20:05 Second set of blood cultures drawn by me. ca1 20:13 XRAY CXR (1 view) In Process Unspecified. EDMS 20:59 Siobhan Maravilla MD is Hospitalizing Provider. tw4 22:10 Patient admitted, IV remains in place. ca1 22:11 No provider procedures requiring assistance completed. ca1 Administered Medications: 19:38 Drug: Albuterol 1.25 mg Route: Inhalation; ca1 12/10 00:06 Follow up: Response: Marked relief of symptoms rv 12/09 21:06 Drug: Lasix 40 mg Route: IVP; Site: right antecubital; ca1 21:49 Follow up: Urine output 400 ml; Response: No adverse reaction ca1 Output: 21:47 Urine: 400ml (Voided); Total: 400ml. ca1 21:49 Urine: 400ml; Total: 800ml. ca1 22:49 Urine: 350ml (Voided); Total: 1150ml. ca1 Outcome: 20:59 Decision to Hospitalize by Provider. tw4 23:38 Admitted to Tele accompanied by nurse, via wheelchair, room 420, with oxygen, with ca1 chart, Report called to Linda Yanes RN 23:38 Condition: stable 23:38 Instructed on the need for admit. 12/10 00:06 Patient left the ED. rv Signatures: Dispatcher [employer] EDMS Melissa Herring RN RN bb Betty Mckennaanda am2 Ezio Weston MD MD tw4 Saturnino Ambrosio RN RN rv Marleni Villareal RN RN ca1 Corrections: (The following items were deleted from the chart) 12/09 20:22 19:49 BP 108 / 61; Pulse 102bpm; Resp 23bpm; Pulse Ox 99% 2 lpm Nasal Cannula; rv ca1 : 19:49 BP 108 / 61; Pulse 102bpm; Resp 23bpm; Pulse Ox 99% 4 lpm Nasal Cannula; ca1 ca1 19:15 General: Appears in no apparent distress. uncomfortable, ill, Behavior is calm, ca1 cooperative, appropriate for age, ca1 : 19:15 Pain: Denies pain. ca1 ca1 19:15 Neuro: Level of Consciousness is awake, alert, obeys commands, Oriented to ca1 person, place, time, situation, ca1 : 19:15 Cardiovascular: Heart tones S1 S2 present Capillary refill < 3 seconds Patient's ca1 skin is warm and dry. Rhythm is sinus rhythm ca1 19:15 Respiratory: Reports coughing out blood for several days. Shortness of breath ca1 since 2 days ago. And SPO2 at home at 91% at 2LPM of O2 when normally she is at SPO2 of 95% at 2LPM of O2 at home. Airway is patent Respiratory effort is even, unlabored, Respiratory pattern is regular, symmetrical, Breath sounds are clear bilaterally. ca1 : 19:15 GI: Abdomen is round non-distended, Bowel sounds present X 4 quads. Abd is soft ca1 and non tender X 4 quads. ca1 : 19:15 : No deficits noted. No signs and/or symptoms were reported regarding the ca1 genitourinary system. ca1 : 19:15 EENT: Reports nasal congestion since 2 days ago ca1 ca1 19:15 Derm: Skin is intact, is healthy with good turgor, Skin is pink, warm \T\ dry. ca1 ca1 19:15 Musculoskeletal: Circulation, motion, and sensation intact. Capillary refill < 3 ca1 seconds, ca1 20:26 19:15 Derm: ca1 ca1 21:15 19:35 Derm: Skin is intact, is healthy with good turgor, Skin is pink, warm \T\ dry. ca1 ca1 21:19 20:00 BP 107 / 62; Pulse 99bpm; Resp 22bpm; Spontaneous; Pulse Ox 95% 2 lpm Nasal ca1 Cannula; ca1 22:13 19:49 BP 108 / 61; Pulse 102bpm; Resp 23bpm; Pulse Ox 99% 2 lpm Nasal Cannula; ca1 ca1 23:08 22:40 Reassessment: Patient appears in no apparent distress at this time. Patient ca1 and/or family updated on plan of care and expected duration. Pain level reassessed. Patient is alert, oriented x 3, equal unlabored respirations, skin warm/dry/pink. ca1 23: 20:23 Tuberculosis screening: Possible symptoms: ca1 ca1
--- NOTE | 2018-12-09 21:00 | EDPHYS ---
Physician Documentation [facility] Name: Elli Durant Age: 63 yrs Sex: Female : 1955 Arrival Date: 12/09/2018 Time: 19:08 Bed 24 Private MD: Ceasar Zhou ED Physician Ezio Weston HPI: 12/09 23:08 This 63 yrs old Female presents to ER via Ambulatory with complaints of Cough tw4 - blood, Low oxygen. 23:08 The patient or guardian reports cough, described as mild. Onset: The symptoms/episode tw4 began/occurred today. Severity of symptoms: At their worst the symptoms were moderate, in the emergency department the symptoms are unchanged. Modifying factors: The symptoms are alleviated by nothing, the symptoms are aggravated by nothing. Associated signs and symptoms: The patient has no apparent associated signs or symptoms. The patient has experienced similar episodes in the past, several times. Historical: - Allergies: 19:32 PENICILLINS; bb - Home Meds: 19:32 citalopram 20 mg tab 2 tabs once daily [Active]; clonazepam 0.5 mg Oral TbDL 0.5 tab bb nightly [Active]; lithium carbonate 300 mg Oral tab 1 tab nightly [Active]; furosemide 80 mg oral tab 1 tab 2 times per day [Active]; metformin 500 mg Oral tr24 1 tab twice a day [Active]; risperidone 1 mg oral tab 1 tab once daily [Active]; spironolactone 50 mg oral tab 1 tab 2 times per day [Active]; trazodone 150 mg Oral tab 1 tab nightly [Active]; Letairis 5 mg Oral tab 1 tab once daily [Active]; Xarelto 20 mg oral tab 1 tab once daily [Active]; levothyroxine 50 mcg tab 1 tab once daily [Active]; - PMHx: 19:32 Atrial Fib; CHF; COPD; Diabetes - NIDDM; insomnia; pulmonary hypertension; Anxiety; bb Depression; Pneumonia; UTI; - PSHx: 19:32 Hysterectomy; heart ablation; Knee surgery; back surgery x 3; bb - Immunization history:: Adult Immunizations up to date. - Social history:: Smoking status: unknown. - Ebola Screening: : No symptoms or risks identified at this time. ROS: 23:08 Constitutional: Negative for fever, chills, and weight loss, Eyes: Negative for injury, tw4 pain, redness, and discharge, Cardiovascular: Negative for chest pain, palpitations, and edema, Abdomen/GI: Negative for abdominal pain, nausea, vomiting, diarrhea, and constipation, Back: Negative for injury and pain, MS/Extremity: Negative for injury and deformity. 23:08 Respiratory: Positive for cough, shortness of breath, Negative for dyspnea on exertion, hemoptysis, orthopnea, pleurisy. Exam: 23:08 Constitutional: This is a well developed, well nourished patient who is awake, alert, tw4 and in no acute distress. Head/Face: Normocephalic, atraumatic. Chest/axilla: Normal chest wall appearance and motion. Nontender with no deformity. No lesions are appreciated. Cardiovascular: Regular rate and rhythm with a normal S1 and S2. No gallops, murmurs, or rubs. Normal PMI, no JVD. No pulse deficits. Abdomen/GI: Soft, non-tender, with normal bowel sounds. No distension or tympany. No guarding or rebound. No evidence of tenderness throughout. Back: No spinal tenderness. No costovertebral tenderness. Full range of motion. MS/ Extremity: Pulses equal, no cyanosis. Neurovascular intact. Full, normal range of motion. Neuro: Awake and alert, GCS 15, oriented to person, place, time, and situation. Cranial nerves II-XII grossly intact. Motor strength 5/5 in all extremities. Sensory grossly intact. Cerebellar exam normal. Normal gait. Vital Signs: 19:32 BP 112 / 67; Pulse 103; Resp 18 S; Temp 98.1(O); Pulse Ox 91% on 2 lpm NC; Weight 74.84 bb kg (R); Height 5 ft. 6 in. (167.64 cm); Pain 0/10; 19:49 BP 108 / 61; Pulse 102; Resp 23 S; Pulse Ox 99% on 2 lpm NC; ca1 20:00 BP 107 / 62; Pulse 99; Resp 22 S; Pulse Ox 95% on 2 lpm NC; ca1 20:30 BP 108 / 66; Pulse 104; Resp 24 S; Temp 98.(O); Pulse Ox 95% on 2 lpm NC; ca1 21:00 BP 109 / 62; Pulse 100; Resp 23 S; Temp 98.2(O); Pulse Ox 95% on 2 lpm NC; ca1 21:30 BP 120 / 67; Pulse 98; Resp 18 S; Temp 98.2(O); Pulse Ox 96% on 2 lpm NC; ca1 22:00 BP 112 / 63; Pulse 95; Resp 16 S; Temp 98(O); Pulse Ox 95% on 2 lpm NC; ca1 22:30 BP 123 / 72; Pulse 98; Resp 22 S; Temp 98.1(O); Pulse Ox 98% on 2 lpm NC; ca1 23:00 BP 123 / 61; Pulse 97; Resp 21 S; Temp 98.3(O); Pulse Ox 100% on 2 lpm NC; ca1 23:30 BP 106 / 66; Pulse 92; Resp 19 S; Temp 98.1(O); Pulse Ox 100% on R/A; ca1 19:32 Body Mass Index 26.63 (74.84 kg, 167.64 cm) bb MDM: 19:17 Patient medically screened. tw4 23:08 Differential Diagnosis: Obstructed Airway Bronchitis Influenza Asthma Exacerbation tw4 Viral Syndrome. Data reviewed: vital signs, nurses notes. Counseling: I had a detailed discussion with the patient and/or guardian regarding: the historical points, exam findings, and any diagnostic results supporting the discharge/admit diagnosis, lab results, radiology results. Physician consultation: Siobhan Maravilla MD regarding admission, to the telemetry unit. patient's condition, need to evaluate the patient as soon as possible, and will see patient in inpatient room. 12/09 19:31 Order name: Blood Culture Adult (2) 12/09 19:31 Order name: BMP 12/09 19:31 Order name: CBC with Diff 12/09 19:31 Order name: Ckmb 12/09 19:31 Order name: CPK 12/09 19:31 Order name: D-Dimer 12/09 19:31 Order name: Hepatic Function 12/09 19:31 Order name: Lipase 12/09 19:31 Order name: Magnesium; Complete Time: 20:55 12/09 20:55 Interpretation: Within normal limits. 12/09 19:31 Order name: NT PRO-BNP; Complete Time: 20:58 12/09 20:58 Interpretation: Normal except: NT PRO-BNP 3353. 4 12/09 19:31 Order name: PT-INR; Complete Time: 20:58 4 12/09 20:58 Interpretation: Normal except: PT 17.8. 12/09 19:31 Order name: Ptt, Activated; Complete Time: 20:55 tw4 12/09 20:55 Interpretation: Within normal limits. 4 12/09 19:31 Order name: Troponin (emerg Dept Use Only) tw4 12/09 19:33 Order name: Blood Culture EDIA 12/09 19:31 Order name: XRAY CXR (1 view); Complete Time: 20:56 4 12/09 20:56 Interpretation: Abnormal. 12/09 19:31 Order name: EKG; Complete Time: 19:33 12/09 19:31 Order name: Cardiac monitoring; Complete Time: 20:16 12/09 19:31 Order name: EKG - Nurse/Tech; Complete Time: 20:17 12/09 19:31 Order name: IV Saline Lock; Complete Time: 19:57 12/09 19:33 Order name: Basic Metabolic Panel; Complete Time: 20:58 EDMS 12/09 20:58 Interpretation: Normal except: NA 135; GLUC 158; BUN 28; GFR 44. 12/09 19:33 Order name: CBC with Automated Diff 12/09 19:33 Order name: CKMB Creatine Kinase MB; Complete Time: 20:55 EDMS 12/09 20:55 Interpretation: Within normal limits. 12/09 19:33 Order name: Creatine Phosphokinase; Complete Time: 20:55 EDMS 12/09 20:55 Interpretation: Within normal limits. 12/09 19:33 Order name: D-Dimer; Complete Time: 20:55 EDMS 12/09 20:55 Interpretation: Within normal limits. 12/09 19:33 Order name: Liver (Hepatic) Function; Complete Time: 20:56 EDMS 12/09 20:56 Interpretation: Normal except: BILIT 1.1; BILID 0.4; TP 9.0; GLOB 5.1; A/G 0.8. 12/09 19:33 Order name: Lipase; Complete Time: 20:55 EDMS 12/09 20:55 Interpretation: Within normal limits. tw4 12/09 20:48 Order name: Manual Differential EDIA 12/09 22:11 Order name: CONS Physician Consult [facility] 12/09 19:31 Order name: Labs collected and sent; Complete Time: 19:57 tw4 12/09 19:31 Order name: O2 Per Protocol; Complete Time: 19:57 tw4 12/09 19:31 Order name: O2 Sat Monitoring; Complete Time: 19:57 tw4 EC:08 Rate is 100 beats/min. Rhythm is regular, Sinus tachycardia. QRS [place] is Normal. [place] tw4 interval is normal. QRS interval is normal. QT interval is normal. No Q waves. No ST changes noted. Clinical impression: Abnormal EKG without significant change. Interpreted by me. Reviewed by me. Administered Medications: 19:38 Drug: Albuterol 1.25 mg Route: Inhalation; ca1 12/10 00:06 Follow up: Response: Marked relief of symptoms 12/09 21:06 Drug: Lasix 40 mg Route: IVP; Site: right antecubital; ca1 21:49 Follow up: Urine output 400 ml; Response: No adverse reaction ca1 Disposition: 12/09/18 20:59 Hospitalization ordered by Siobhan Maravilla for Inpatient Admission. Preliminary diagnosis is Unspecified systolic (congestive) heart failure. - Bed requested for Telemetry/MedSurg (observation). - Status is Inpatient Admission. rv - Condition is Stable. - Problem is an ongoing problem. - Symptoms are unchanged. UTI on Admission? No Signatures: Dispatcher [employer] [facility] Melissa Herring RN RN bb Garcia, Cindy, RN RN Ezio Weston MD MD tw4 Saturnino Ambrosio RN RN rv Marleni Villareal RN RN ca1 Corrections: (The following items were deleted from the chart) 22:23 20:59 Hospitalization Ordered by Siobhan Maravilla MD for Inpatient Admission. Preliminary diagnosis is Unspecified systolic (congestive) heart failure. Bed requested for Telemetry/MedSurg (observation). Status is Inpatient Admission. Condition is Stable. Problem is an ongoing problem. Symptoms are unchanged. UTI on Admission? No. tw4 12/10 00:06 12/09 22:23 12/09/2018 20:59 Hospitalization Ordered by Siobhan Maravilla MD for Inpatient rv Admission. Preliminary diagnosis is Unspecified systolic (congestive) heart failure. Bed requested for Telemetry/MedSurg (observation). Status is Inpatient Admission. Condition is Stable. Problem is an ongoing problem. Symptoms are unchanged. UTI on Admission? No. cg
[2018-12-09] MEDS ORDERED: FUROSEMIDE 20 MG/ 2ML VIAL ONE (21:19)
[2018-12-09 21:21] LABS: Anisocytosis 2+; Blood Morphology Comment NOTED (NOT SEEN); Hypochromasia 1+; Platelet Estimate ADEQ
[2018-12-09] MEDS ORDERED: ONDANSETRON 4 MG/2 ML VIAL IV PRN (22:03)
[2018-12-09] MEDS ORDERED: ALBUTEROL 2.5 MG/3 ML NEB SOL NEB PRN (22:03)
[2018-12-09] MEDS ORDERED: IPRATROPIUM BROM 0.5MG/2.5ML NEB PRN (22:03)
[2018-12-10] MEDS ORDERED: POTASSIUM 25 MEQ EFFERV TAB PO ONE (03:27)
[2018-12-10 04:22] LABS: Absolute Lymphocytes (CBC) 0.9 K/uL (0.7-4.9); Absolute Monocytes 0.6 K/uL (0.1-1.3); Absolute Neutrophil 5.9 K/uL (1.8-8.0); Basophils % 0.7 % (0-1.3); Eosinophils % 3.6 % (0-4.4); Hematocrit 31.6 % (36.0-45.0); Lymphocytes % 11.7 % (15.3-44.8); MPV 9.3 fL (7.6-11.3); Monocytes % 7.5 % (3.3-12.3); RBC Red Blood Cell Count 4.17 M/uL (3.86-4.86)
[2018-12-10 04:45] LABS: Albumin 3.7 g/dL (3.4-5.0); Bilirubin Total 1.1 mg/dL (0.2-1.0); Magnesium 2.2 mg/dL (1.8-2.4); Phosphorus 2.3 mg/dL (2.5-4.9); Potassium 3.4 mmol/L (3.5-5.1); Protein, Total 8.5 g/dL (6.4-8.2)
[2018-12-10] MEDS ORDERED: POTASSIUM CL SA 10 MEQ TAB PO ONE (05:09)
[2018-12-10] MEDS: FUROSEMIDE 40 MG/4 ML VIAL IV SCH ×2 (05:41→08:45)
[2018-12-10] MEDS: POTASS/SODIUM PHOSPHATE 1 PKT POWD.PACK PO SCH ×3 (05:42→08:24)
[2018-12-10] MEDS: POTASSIUM 25 MEQ EFFERV TAB PO SCH (08:24)
[2018-12-10] MEDS: METOPROLOL TAR 50 MG TAB PO SCH ×3 (08:25→08:41)
[2018-12-10] MEDS ORDERED: SILDENAFIL CITRATE 20 MG TABLET PO SCH (09:00)
[2018-12-10] MEDS ORDERED: LISINOPRIL 10 MG TAB PO SCH (09:00)
[2018-12-10] MEDS ORDERED: ENOXAPARIN 40 MG/0.4 ML SQ SCH (09:00)
[2018-12-10] MEDS ORDERED: SPIRONOLACTONE 25 MG TABLET PO SCH (09:00)
[2018-12-10] MEDS ORDERED: AMBRISENTAN 5 MG PO SCH (09:00)
--- NOTE | 2018-12-10 09:26 | P.HP ---
Certification for Inpatient Patient admitted to: Inpatient With expected LOS: >2 Midnights Patient will require the following post-hospital care: None Practitioner: I am a practitioner with admitting privileges, knowledge of patient current condition, hospital course, and medical plan of care. Services: Services provided to patient in accordance with Admission requirements found in Title 42 Section 412.3 of the Code of Federal Regulations Patient History Date of Service: 12/09/18 Reason for admission: shortness of breath History of Present Illness: Patient is a 63-year-old female with history of severe pulmonary hypertension who came to the hospital with difficulty breathing. Patient was admitted to hospital for further evaluation. In the emergency room patient had chest x-ray which revealed pulmonary edema suggestive of congestive heart failure. Review her echo she most likely has acute diastolic dysfunction. She does take Letairis for her severe pulmonary hypertension. Patient will continue this during the hospital stay. Will also get pulmonary consultation. Patient will get labs reviewed as well. Allergies Penicillins Allergy (Verified 09/06/18 00:03) Itching/Hives/Rash Home Medications: [place] Carbonate [Lithotabs *] 1 tab PO BEDTIME 09/06/18 Metformin HCl 1 tab PO BID 09/06/18 Risperidone [Risperdal] 1 mg PO BEDTIME 09/06/18 Rivaroxaban [Xarelto*] 20 mg PO DAILY 09/06/18 Spironolactone [Aldactone*] 50 mg PO BID 09/06/18 Trazodone [Desyrel*] 1 tab PO BEDTIME 09/06/18 clonazePAM [Clonazepam] 0.5 mg PO BEDTIME 09/06/18 Ambrisentan [Letairis] 5 mg PO DAILY 12/10/18 Citalopram Hydrobromide [Celexa] 40 mg PO BEDTIME 12/10/18 Furosemide [Lasix] 80 mg PO BID 12/10/18 Levothyroxine [Synthroid*] 0.05 mg PO 0600 12/10/18 - Past Medical/Surgical History Has patient received pneumonia vaccine in the past: Yes Diabetic: Yes -: CHF -: NIDDM -: COPD -: SMOKER -: Degenerative Back Disease -: AFIB, SVT -: Insomnia -: Pulmonary HTN -: Anxiety -: depression -: pneumonia -: UTI -: BACK SURGERY -: LEFT KNEE SURGERY -: HYSTERECTOMY -: HEART ABLATION - Family History Father Family History: Reviewed- Non-Contributory - Social History Smoking Status: Former smoker Alcohol use: No CD- Drugs: No Caffeine use: Yes Place of Residence: Home Review of Systems 10-point ROS is otherwise unremarkable Physical Examination - Vital Signs Temperature: 97.4 F Blood Pressure: 100/55 Pulse: 89 Respirations: 20 Pulse Ox (%): 92 - Physical Exam General: Alert, In no apparent distress, Oriented x3 HEENT: Atraumatic, PERRLA, Mucous membr. moist/pink, EOMI, Sclerae nonicteric Neck: Supple, 2+ carotid pulse no bruit, No LAD, Without JVD or thyroid abnormality Respiratory: Diminished, Crackles/rales, Expiratory wheezes Cardiovascular: Regular rate/rhythm, Normal S1 S2, Systolic murmur Gastrointestinal: Normal bowel sounds, Soft and benign, Non-distended, No tenderness Musculoskeletal: No tenderness, Erythema Integumentary: No rashes, Tenderness/swelling, Erythema Neurological: Normal gait, Normal speech, Normal tone, Sensation intact, Cranial nerves 3-12 intact, Normal affect, Abnormal strength Lymphatics: No axilla or inguinal lymphadenopathy - Studies Laboratory Data (last 24 hrs) 12/09/18 20:14: PT 17.8 H, INR 1.53, APTT 35.4 12/09/18 20:14: WBC 8.8 D, Hgb 10.1 L, Hct 32.1 L, Plt Count 244 12/09/18 20:14: Sodium 135 L, Potassium 3.6, BUN 28 H, Creatinine 1.24, Glucose 158 H, Magnesium 2.2, Total Bilirubin 1.1 H, AST 15, ALT 13, Alkaline Phosphatase 63, Lipase 199 Assessment & Plan - Problems (Diagnosis) (1) Acute respiratory failure Onset Date: 07/30/18 Current Visit: No Status: Acute Qualifiers: (2) Atrial fibrillation with rapid ventricular response Onset Date: 10/06/15 Current Visit: No Status: Acute (3) COPD (chronic obstructive pulmonary disease) Onset Date: 07/30/18 Current Visit: No Status: Acute (4) Diastolic dysfunction with acute on chronic heart failure Current Visit: No Status: Acute (5) Dyspnea Onset Date: 12/27/16 Current Visit: No Status: Acute Qualifiers: (6) Moderate to severe pulmonary hypertension Current Visit: No Status: Acute (7) SOB (shortness of breath) Onset Date: 09/08/18 Current Visit: No Status: Acute - Plan Plan: 1. Echocardiogram will be reviewed 2. Pulmonary consultation 3. Beta nancy 4. Pulmonary consultation 5. Aggressive diuresis 6. Strict I's and O's 7. Repeat CXR 8. Daily weights 9. Continue woth nebs, and may add steroids 10. Letairis 11. DVT prophylaxis Discharge Plan: Home Plan to discharge in: Greater than 2 days - Advance Directives Does patient have a Living Will: No Does patient have a Durable POA for Healthcare: No - Code Status/Comfort Care Code Status Assessed: Yes Code Status: Full Code Critical Care: No Time Spent Managing PTS Care (In Minutes): 45
--- NOTE | 2018-12-10 10:41 | EKG ---
Test Date: 2018-12-09 Test Time: 20:06:26 Traffic Line Painter: SONAM MEASUREMENT RESULTS: Intervals: Rate: 102 DE: 180 QRSD: 78 QT: 386 QTc: 503 [place]: P: 73 DE: 180 QRS: 146 T: 60 INTERPRETIVE STATEMENTS: Sinus tachycardia Right axis deviation Cannot rule out Anterior infarct, age undetermined Abnormal ECG Compared to ECG 12/01/2018 13:28:29 Sinus rhythm no longer present Prolonged QT interval no longer present Myocardial infarct finding still present Electronically Signed On 12-10-18 10:41:23 CDT by Earl Ramirez
[2018-12-10] MEDS ORDERED: MIDODRINE HCL 5 MG TABLET PO ONE ×2 (11:03→13:15)
[2018-12-10] MEDS ORDERED: NA CHLORIDE 0.9% 250 ML IV ONE ×2 (12:14→17:00)
--- NOTE | 2018-12-10 13:08 | P.PN ---
Subjective Date of Service: 12/10/18 Chief Complaint: shortness of breath Patient seen and examined at bedside with RN. Chart reviewed. Case discussed with pulmonology at this time. This morning patient was sitting at the edge of the bed stating that she is feeling nauseous at this time. Does have improvement than before. At around 12:30 p.m. nurse reported the patient is currently hypotensive after receiving morning blood pressure medication. Patient's blood pressure was noted to be 2 on repeat manual measurements as well. At that time patient was seen and examined the patient with she is feeling dizzy and was having numbness in bilateral lower extremity and bilateral upper extremity. NIH scale score was less than 3. code stroke was called. Patient had a stat MRI brain. And transferred to the ICU for possible pressor. Patient was also given a dose of midodrine x 2 to help with blood pressure. Patient has a pressure did improve markedly however. Review of Systems 10-point ROS is otherwise unremarkable Physical Examination - Vital Signs Temperature: 97 F Blood Pressure: 53/32 Pulse: 89 Respirations: 20 Pulse Ox (%): 92 - Physical Exam General: Alert, In no apparent distress HEENT: Atraumatic, PERRLA, EOMI Neck: Supple, JVD not distended Respiratory: Clear to auscultation bilaterally, Normal air movement Cardiovascular: Regular rate/rhythm, Normal S1 S2 Gastrointestinal: Normal bowel sounds, No tenderness Musculoskeletal: No tenderness Integumentary: No rashes Neurological: Normal speech, Normal strength at 5/5 x4 extr, Normal tone, Cranial nerves 3-12 intact, Normal reflexes 2+, Normal affect, Abnormal sensation Lymphatics: No axilla or inguinal lymphadenopathy - Studies Laboratory Data (last 24 hrs) 12/09/18 20:14: PT 17.8 H, INR 1.53, APTT 35.4 12/09/18 20:14: WBC 8.8 D, Hgb 10.1 L, Hct 32.1 L, Plt Count 244 12/09/18 20:14: Sodium 135 L, Potassium 3.6, BUN 28 H, Creatinine 1.24, Glucose 158 H, Magnesium 2.2, Total Bilirubin 1.1 H, AST 15, ALT 13, Alkaline Phosphatase 63, Lipase 199 Medications List Reviewed: Yes Assessment And Plan - Current Problems (Diagnosis) (1) Hypotension Current Visit: Yes Status: Acute Plan: Hypotension most likely secondary to lisinopril, Lopressor, and spironolactone the patient received this morning. Patient with dizziness and numbness as well -midodrine x 2 with minimal improvement -patient transferred to the ICU for close monitoring. Will start Levophed if needed -will hold all blood pressure medication at this time except Lasix -NS at 250 mL bolus -will follow up with brain MRI to rule out any acute CVA Qualifiers: Hypotension type: hypotension due to drug Qualified Code(s): I95.2 - Hypotension due to drugs (2) CHF (congestive heart failure) Onset Date: 09/05/15 Current Visit: No Status: Acute Plan: Acute CHF exacerbation. Diastolic dysfunction -started on IV Lasix 40 mg b.i.d. -will continue that here however with caution given the hypotension -will hold all blood pressure medications (3) COPD (chronic obstructive pulmonary disease) Onset Date: 07/30/18 Current Visit: No Status: Chronic Plan: COPD with acute exacerbation -duo nebs, steroids, oxygen at this time -pulmonology consulted. Appreciated recommendations at this time Qualifiers: COPD type: COPD with acute exacerbation Qualified Code(s): J44.1 - Chronic obstructive pulmonary disease with (acute) exacerbation (4) Primary pulmonary hypertension Onset Date: 09/08/18 Current Visit: No Status: Acute Discharge Plan: Home Plan to discharge in: Greater than 2 days - Code Status/Comfort Care Code Status Assessed: Yes Critical Care: No
[2018-12-10] MEDS ORDERED: ONDANSETRON 4 MG/2 ML VIAL ONE (13:34)
[2018-12-10] MEDS: NOREPINEPHRINE 4 MG in D5W 250 ML IV PRN ×2 (14:41→15:57)
--- NOTE | 2018-12-10 14:44 | RAD REPORT ---
EXAM DESCRIPTION: MRI - Brain W/Wo Cont - 12/10/2018 2:26 pm CLINICAL HISTORY: Alteration of awareness/confusion COMPARISON: 2017 TECHNIQUE: Axial, sagittal, and coronal magnetic images of the brain were obtained. 20 cc MultiHance administered intravenously FINDINGS: No abnormal signal within the brain is noted. The ventricles are normal in caliber. Diffusion-weighted sequences do not demonstrate evidence of an acute infarction. No abnormal enhancement within the brain is seen. An extra-axial fluid collection is not noted. Fluid within the sinuses/mastoids is not seen IMPRESSION: Unremarkable brain MRI.
[2018-12-10 15:14] LABS: Absolute Lymphocytes (CBC) 0.7 K/uL (0.7-4.9); Absolute Monocytes 1.1 K/uL (0.1-1.3); Absolute Neutrophil 11.1 K/uL (1.8-8.0); Basophils % 0.4 % (0-1.3); Eosinophils % 0.6 % (0-4.4); Hematocrit 34.7 % (36.0-45.0); Lymphocytes % 5.6 % (15.3-44.8); Monocytes % 8.5 % (3.3-12.3); RBC Red Blood Cell Count 4.44 M/uL (3.86-4.86)
[2018-12-10 15:22] LABS: Albumin 3.2 g/dL (3.4-5.0); Bilirubin Total 1.3 mg/dL (0.2-1.0); Potassium 4.9 mmol/L (3.5-5.1); Protein, Total 7.7 g/dL (6.4-8.2)
[2018-12-10] MEDS ORDERED: NOREPINEPHRINE 4 MG in D5W 250 ML IV PRN (16:18)
--- NOTE | 2018-12-10 16:35 | P.PN ---
Subjective Date of Service: 12/11/18 Chief Complaint: shortness of breath In his 63 years of age with a history of severe pulmonary hypertension I just saw her in my office last week admitted to the hospital complaining of worsening shortness of breath. Also had some lower extremity edema patient is intolerant to live Letaris. 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 member Review of Systems General: Weakness Respiratory: Shortness of Breath Cardiovascular: Edema Physical Examination - Vital Signs Temperature: 97 F Blood Pressure: 74/47 Pulse: 57 Respirations: 19 Pulse Ox (%): 93 - Physical Exam General: Alert, Oriented x3 Neck: Supple Respiratory: Clear to auscultation bilaterally, Diminished Cardiovascular: Normal S1 S2, Edema (+edema) Gastrointestinal: Normal bowel sounds, Soft and benign - Studies Laboratory Data (last 24 hrs) 12/09/18 20:14: PT 17.8 H, INR 1.53, APTT 35.4 12/09/18 20:14: WBC 8.8 D, Hgb 10.1 L, Hct 32.1 L, Plt Count 244 12/09/18 20:14: Sodium 135 L, Potassium 3.6, BUN 28 H, Creatinine 1.24, Glucose 158 H, Magnesium 2.2, Total Bilirubin 1.1 H, AST 15, ALT 13, Alkaline Phosphatase 63, Lipase 199 Medications List Reviewed: Yes Assessment & Plan - Problems (Diagnosis) (1) Hypotension Current Visit: Yes Status: Acute Plan: Patient is 63 years of age admitted with worsening shortness of breath he developed hypotension was transferred to the ICU continue with fluid boluses blood cultures broad-spectrum antibiotics IV steroids patient did not get sildenafil labs reviewed mild renal insufficiency mild anemia patient has severe pulmonary hypertension patient did get a right-sided heart catheterization prognosis very poor chest x-ray clear patient's BNP elevated by her hypotension is probably side effect of medications doubt sepsis Qualifiers: Hypotension type: hypotension due to drug Qualified Code(s): I95.2 - Hypotension due to drugs
[2018-12-10 16:50] LABS: Anisocytosis 2+; Blood Morphology Comment NOTED (NOT SEEN); Macrocytosis 2+; Platelet Estimate ADEQ; Urine White Blood Cell Casts OK
[2018-12-10] MEDS ORDERED: RIVAROXABAN 20 MG TABLET PO SCH (17:00)
[2018-12-10] MEDS ORDERED: NA CHLORIDE 0.9% 250 ML ONE (17:17)
[2018-12-10] MEDS: DEXAMETHASONE 4 MG/ML VIAL IV SCH ×3 (17:23→23:59)
[2018-12-10] MEDS: RIVAROXABAN 20 MG TABLET PO SCH (17:54)
[2018-12-10] MEDS ORDERED: ALBUTEROL 2.5 MG/3 ML NEB SOL NEB PRN (18:00)
[2018-12-10] MEDS ORDERED: LORazepam 2 MG/ML VIAL IV PRN (18:48)
[2018-12-10] MEDS ORDERED: levETIRAcetam 1,000 MG in NA CHLORIDE 0.9% 100 ML IV ONE (19:00)
[2018-12-10] MEDS ORDERED: NA CHLORIDE 0.9% 500 ML IV ONE (20:29)
--- NOTE | 2018-12-10 20:57 | RAD REPORT ---
EXAM DESCRIPTION: RAD - Chest Single View - 12/10/2018 8:43 pm CLINICAL HISTORY: PICC line placement COMPARISON: December 09 FINDINGS: Portable chest was obtained following placement of a right upper extremity PICC line. The catheter tip is in the mid SVC..
[2018-12-10] MEDS ORDERED: RISPERIDONE 1 MG TABLET PO SCH (21:00)
[2018-12-10] MEDS ORDERED: CITALOPRAM 10 MG TABLET PO SCH (21:00)
[2018-12-10] MEDS ORDERED: clonazePAM 0.5 MG TAB PO SCH (21:00)
[2018-12-10] MEDS ORDERED: LITHIUM CARBONATE 300 MG TAB PO SCH (21:00)
[2018-12-10] MEDS ORDERED: TRAZODONE 150 MG TAB PO SCH (21:00)
[2018-12-10] MEDS: NOREPINEPHRINE 8 MG in Dextrose 5%-Water 500 ML IV PRN (21:36)
[2018-12-11] MEDS ORDERED: DEXAMETHASONE 10 MG/ML VIAL ONE (00:10)
[2018-12-11] MEDS: NOREPINEPHRINE 8 MG in Dextrose 5%-Water 500 ML IV PRN ×2 (04:23→17:12)
[2018-12-11 05:27] LABS: Urine Appearance CLOUDY; Urine Bilirubin NEGATIVE (NEG); Urine Blood 2+ (NEG); Urine Color YELLOW; Urine Glucose 2+ (NEG); Urine Protein 3+ (NEG); Urine Specific Gravity 1.015 (1.005-1.030)
[2018-12-11 05:29] LABS: Magnesium 2.3 mg/dL (1.8-2.4); Phosphorus 3.4 mg/dL (2.5-4.9); Potassium 4.8 mmol/L (3.5-5.1); Urine Microscopic Reflex ORDER UMIC
[2018-12-11 05:35] LABS: Urine Bacteria LOADED /HPF (<20); Urine RBC 20-50 /HPF (NONE SEEN)
[2018-12-11 05:36] LABS: Urine Culture Reflex Order REFLEXED
[2018-12-11] MEDS: DEXAMETHASONE 4 MG/ML VIAL IV SCH (06:00)
[2018-12-11] MEDS: LEVOTHYROXINE SOD 0.05 MG TABLET PO SCH (06:03)
--- NOTE | 2018-12-11 08:26 | RAD REPORT ---
EXAM DESCRIPTION: RAD - Chest Single View - 12/11/2018 8:14 am CLINICAL HISTORY: CHF, hypotensive, history of pulmonary hypertension COMPARISON: December 10 portable chest TECHNIQUE: AP portable chest image was obtained 0739 hours . FINDINGS: Lung volumes are slightly decreased compared to prior day imaging. New interstitial opacif ication is seen throughout the right lung field with patchy mid upper right lung field opacification suspicious for pneumonia. No new left lung field finding when adjusting for the inspiration differenc e. Cardiomegaly is present. Vasculature is mildly prominent. These findings are not substantially diffe rent. PICC line remains in good position. No pneumothorax or enlarging pleural effusion. No acute bony abno rmality seen. No acute aortic findings suspected. IMPRESSION: Mid and upper right lung field patchy opacification suspicious for developing pneumonia. Lung parenchymal opacification is slightly worse in the patient may have a mild component of volume o verload or CHF.
[2018-12-11] MEDS ORDERED: levETIRAcetam 500 MG in NA CHLORIDE 0.9% 100 ML IV SCH (09:00)
[2018-12-11] MEDS: POTASSIUM 25 MEQ EFFERV TAB PO SCH (09:00)
[2018-12-11] MEDS ORDERED: GLUCAGON 1 MG/VIAL IM PRN (09:14)
[2018-12-11] MEDS ORDERED: D50W 25 GM/50 ML SYRINGE IV PRN (09:14)
[2018-12-11] MEDS: INSULIN -REGULAR HUMAN 50 UNIT/0.5 ML ML SQ SCH ×4 (09:38→21:33)
[2018-12-11] MEDS ORDERED: NA CHLORIDE 0.9% 1,000 ML IV SCH (10:00)
[2018-12-11 10:06] LABS: Arterial Blood Carboxyhemoglob 2.6 % (0-1.5); Blood Gas Oxyhemoglobin 92.5 % (94-97); Blood O2 Saturation 95.4 % (92-98.5)
[2018-12-11] MEDS: ACETAMINOPHEN 500 MG TAB PO PRN ×2 (12:52→17:12)
--- NOTE | 2018-12-11 12:52 | P.PN ---
Subjective Date of Service: 12/11/18 Chief Complaint: Hypotension Patient is still hypotensive doing better alert responsive cooperative discuss with relatives patient is a number of psychiatric medications possible significant interactions will contact the psychiatrist and adjust all the medications patient has severe pulmonary hypertension and maybe very preload dependent she is still requiring low dose of norepinephrine continue with IV fluids discuss with cardiology there is no evidence of sepsis cultures are so far negative/patient did receive Lopressor and lisinopril which were not part of her home medications this was only 1 dose she did not get sildenafil Review of Systems General: Weakness Respiratory: Shortness of Breath Cardiovascular: Edema Physical Examination - Vital Signs Temperature: 97.1 F Blood Pressure: 72/54 Pulse: 70 Respirations: 21 Pulse Ox (%): 98 - Physical Exam General: Alert, Oriented x3 Neck: Supple Respiratory: Clear to auscultation bilaterally Cardiovascular: Normal S1 S2, Abnormal S3, Edema - Studies Medications List Reviewed: Yes Assessment & Plan - Problems (Diagnosis) (1) Hypotension Current Visit: Yes Status: Acute Plan: Patient is 63 years of age transfer to the ICU with shock possible reaction to medication lisinopril and Lopressor are not her home medications she is probably very preload dependent and sensitive will Dc all diuretics continue with IV fluids Dc steroids will contact psychiatrist lithium level is low patient is mildly hypoxic low CO2 renal function is also improving Qualifiers: Hypotension type: hypotension due to drug Qualified Code(s): I95.2 - Hypotension due to drugs
[2018-12-11 13:03] LABS: Urine Appearance CLOUDY; Urine Bilirubin NEGATIVE (NEG); Urine Blood 1+ (NEG); Urine Color YELLOW; Urine Glucose 1+ (NEG); Urine Protein NEGATIVE (NEG)
[2018-12-11 13:23] LABS: Urine Microscopic Reflex ORDER UMIC
--- NOTE | 2018-12-11 13:47 | CON ---
Date of Consultation: 12/11/[address] Soria's service on 12/09/2018. I saw the patient on 12/11/2018. Reason For Consultation: Congestive heart failure. History Of Present Illness: The patient is a 63-year-old white woman. She is known to us from [facility] office visits and admissions. In July of 2018, she underwent a heart catheterization showing normal coronaries. An echocardiogram showed severe pulmonary hypertension, normal ejection fraction with mild mitral stenosis. She comes in with congestive heart failure on 12/09/2018. She is in the ICU since and continues to be in CHF, hypotensive, and we were asked to consult. Past Medical History: Positive for atrial fibrillation for which she takes Xarelto. She also has a history of hypothyroidism, diabetes, bipolar disorder, pulmonary hypertension, COPD, seizure disorder , and anxiety. Allergies: SHE IS ALLERGIC TO PENICILLIN. Review of Systems: Negative. Social History: Negative. Family History: Noncontributory. Medications: Medications at home include lithium, Lasix, metformin, Aldactone, Thyroid, and Xarelto. Physical Examination: Vital Signs: Her blood pressure was 85/60. General: She is arousable, alert, oriented x2. She is on Levophed. All her blood pressure medicati ons have been held since yesterday. HEENT: Negative. She is in sinus rhythm. Neck: Supple with no bruit. Chest: Reveals rales and wheezing bilaterally. Cardiac Exam: Revealed regular rhythm and rates with apical early diastolic murmur. No rumbles. No gallops. Abdomen: Obese, but benign. Extremities: Revealed 1+ edema. Diagnostic Data: Chest x-ray shows CHF. EKG shows sinus tach. Creatinine is 1.37. Her hemoglobin is 10.7. BNP is 3353, blood glucose was 391. Impression And Plan: 1.Rphwn-zh-sjbxdad diastolic congestive heart failure. 2.Mild mitral stenosis. 3.Severe pulmonary hypertension. 4.Moderate renal insufficiency. 5.Mild anemia. 6.Diabetes, poorly controlled. 7.Chronic obstructive pulmonary disease. 8.Atrial fibrillation, on Xarelto. 9.Seizure disorder. 10.Hypotension. I think Mrs. Durant needs to be hydrated gently but more aggressively. She received 1 L of fluid y esterday. Her Levophed dose is stable. We will give her some more fluid, try to control her sugar b russell with a sliding scale insulin. Continue to hold her Aldactone and Lasix, metoprolol, as well as lisinopril for now, and restart slowly. I really think this is a poor combination of diastolic neetu estive heart failure and severe pulmonary hypertension as well as chronic obstructive pulmonary disea se . If blood cultures have not been done, it may not be a bad idea to make sure she is not septic. I will continue to follow the patient along. ELISA/KENNY Voice ID: [id number] Report ID: [id number]
--- NOTE | 2018-12-11 13:53 | P.PN ---
Subjective Date of Service: 12/11/18 Chief Complaint: Hypotension Patient seen and examined at bedside with RN. Chart reviewed. Case discussed with pulmonology, cardiology, neurology at this time. Patient last night at around 6:45 p.m. has a episode of what look like seizure. Patient was started on loading dose of Keppra and then 500 mg b.i.d.. Ever since then she has not had any adverse event. Denies having any nausea vomiting abdominal pain fever chills at this time. Also denies having any shortness of breath chest pain or any other associated symptoms. Patient also denies feeling dizzy at this time and states that the bilateral tingling and numbness has improved. No other complaints to offer. Doing well overall. Currently in the ICU. Review of Systems 10-point ROS is otherwise unremarkable Physical Examination - Vital Signs Temperature: 97.1 F Blood Pressure: 72/54 Pulse: 70 Respirations: 21 Pulse Ox (%): 98 - Physical Exam General: Alert, In no apparent distress, Oriented x3 HEENT: Atraumatic, PERRLA, EOMI Neck: Supple, JVD distended Respiratory: Normal air movement, Expiratory wheezes, Inspiratory wheezes, Rhonchi/gurgles Cardiovascular: Regular rate/rhythm, Normal S1 S2 Gastrointestinal: Normal bowel sounds, No tenderness Musculoskeletal: Erythema, Tenderness Neurological: Normal speech, Normal strength at 5/5 x4 extr, Normal tone, Cranial nerves 3-12 intact, Normal reflexes 2+, Normal affect Lymphatics: No axilla or inguinal lymphadenopathy - Studies Medications List Reviewed: Yes Assessment And Plan - Current Problems (Diagnosis) (1) Hypotension Current Visit: Yes Status: Acute Plan: Hypotension most likely secondary to lisinopril, Lopressor, and spironolactone the patient received. -midodrine x 2 with minimal improvement -currently on IV Levophed with a goal map of over 65 -will hold all blood pressure medication at this time. Though Munir inhibitor and beta nancy decreased mortality, patient unable to tolerate it. -cardiology and pulmonology on board. Appreciated recommendations at this time. -currently on NS at 50 mL an hr as well Qualifiers: Hypotension type: hypotension due to drug Qualified Code(s): I95.2 - Hypotension due to drugs (2) Seizure-like activity Current Visit: Yes Status: Acute Plan: Patient with possibility of seizure-like activity yesterday. Most likely secondary to volume depletion versus psychiatric medication -will go ahead and discontinue sleeping aids due to high risk of drug drug interaction -start patient on Keppra 500 mg b.i.d. -neurology consulted appreciated recommendations at this time -EEG ordered. -brain MRI negative for any acute abnormality -patient does take several anxiety medication which includes lithium however we will hold it at this time given the acute seizure-like activity that the patient had. (3) CHF (congestive heart failure) Onset Date: 09/05/15 Current Visit: No Status: Acute Plan: Acute CHF exacerbation. Diastolic dysfunction -Lasix held due to low blood pressure -will continue to monitor patient closely for overload -cardiology consulted. Appreciated recommendations at this time (4) COPD (chronic obstructive pulmonary disease) Onset Date: 07/30/18 Current Visit: No Status: Chronic Plan: COPD with acute exacerbation -duo nebs, steroids, oxygen at this time -pulmonology consulted. Appreciated recommendations at this time -patient today we leukocytosis however pro calcitonin negative. Negative for sepsis screening. Qualifiers: COPD type: COPD with acute exacerbation Qualified Code(s): J44.1 - Chronic obstructive pulmonary disease with (acute) exacerbation (5) Primary pulmonary hypertension Onset Date: 09/08/18 Current Visit: No Status: Chronic Plan: Patient will require Cialis on discharge for treatment of her primary pulmonary hypertension. With caution given the history of hypotension - Plan Pending clinical improvement at this time. Will continue to monitor patient closely. Continue with IV Levophed, EEG and neurology consultation at this time.
[2018-12-11 14:14] LABS: Urine Bacteria LOADED /HPF (<20); Urine Culture Reflex Order NOT NEEDED; Urine RBC >50 /HPF (NONE SEEN)
--- NOTE | 2018-12-11 15:05 | EEG ---
CHART: [id number] TEST ID#: [id number] DATE OF STUDY: 12/11/2018 THE EEG WAS RECORDED PORTABLE IN THE ICU ON A 17 CHANNEL MACHINE. ELECTRODES WERE APPLIED IN THE USUAL MANNER USING THE INTERNATIONAL 10-20 SYSTEM. THE WAKING BACKGROUND RHYTHM IN THIS RECORD CONSISTS OF FAIRLY WELL DEVELOPED AND FAIRLY WELL ORGANIZED WAVES OF 9.0 HZ., MAXIMAL IN THE POSTERIOR HEAD REGIONS WHICH ATTENUATE NORMALLY WITH EYE OPENING. MODERATE VOLTAGE 6-7 HZ ACTIVITY IS EXPRESSED INTERMITTENTLY IN THE FRONTAL AND CENTRAL REGIONS. THERE ARE NO FOCAL OR LATERALIZING FEATURES. NO EPILEPTIFORM ACTIVITY APPEARS. SLEEP OCCURRED NATURALLY. IN ADDITION NORMAL SLEEP PATTERNS ARE PRESENT. HYPERVENTILATION WAS NOT PERFORMED. PHOTIC STIMULATION PRODUCED NO DRIVING BILATERALLY. IMPRESSION: THIS IS A MILDLY ABNORMAL EEF DUE TO A MILDLY SLOW BACKGROUND. THIS IS A NON-SPECIFIC FINDING INDICATING THE PRESENCE OF A MILD DIFFUSE DISTURBANCE IN CEREBRAL ACTIVITY.
[2018-12-11] MEDS ORDERED: NA CHLORIDE 0.9% 1,000 ML IV ONE (15:30)
[2018-12-11] MEDS: RIVAROXABAN 20 MG TABLET PO SCH (17:13)
[2018-12-11] MEDS: CEFEPIME/SWI 1gm 10 ML IVP SCH (18:29)
[2018-12-11] MEDS ORDERED: MIDODRINE HCL 5 MG TABLET PO ONE (19:00)
[2018-12-11] MEDS ORDERED: VANCOMYCIN 1.25 GM in NA CHLORIDE 0.9% 250 ML IVPB SCH (21:00)
[2018-12-11] MEDS: levETIRAcetam 250 MG in NA CHLORIDE 0.9% 100 ML IV SCH (21:31)
[2018-12-11] MEDS: MIDODRINE HCL 5 MG TABLET PO SCH (21:31)
--- NOTE | 2018-12-11 22:17 | RAD REPORT ---
EXAM DESCRIPTION: RAD - Chest Single View - 12/11/2018 10:11 pm CLINICAL HISTORY: chf Chest pain. COMPARISON: Chest Single View dated 12/11/2018; Chest Single View dated 12/10/2018; Chest Single View da ria 12/09/2018; Chest Single View dated 12/01/2018 FINDINGS: Portable technique limits examination quality. Mild improvement in the CHF pattern is seen since comparative study. The heart is moderately enlarged in size. Right-sided PICC line is unchanged in position. IMPRESSION: Mild improvement in lung aeration since comparative study.
[2018-12-11] MEDS ORDERED: ALBUMIN HUMAN 25% 100 ML IV ONE (22:39)
--- NOTE | 2018-12-12 00:03 | CON ---
Reason For Consultation: Consultation called because of possible seizures. History Of Present Illness: Ms. Durant is a 63-year-old right-handed patient who was admitted to [facility] with shortness of breath and severe pulmonary hypertension. Yesterday, during an episode of severe hypotension, blood pressures; actually mean arterial pressure in the 50s, the patie nt during that time was poorly responsive and required extensive amount of pressors to increase blood pressure. Earlier today, she did receive diuretic and multiple antihypertensive medications. [facility] staff noted that she did seem to recover and was interacting, and then all of a sudden stopped int eracting and her eyes rolled back, her arms shook for less than about 15 to 20 seconds and she remain ed poorly responsive for several more seconds. She was given Keppra IV load of 500 mg twice daily, a nd she did have a head CT scan and brain MRI, which were both normal. She has not had any additional episodes and has had an EEG, which is mildly abnormal due to mildly slow background. This is a nons pecific finding suggesting presence of a mild diffuse disturbance in cerebral function. The patient does not have a history of seizures, as reported by the patient's son and the patient herself who sta te she has no history of febrile seizures or any episodes of loss of consciousness previously. Past Medical History: Significant for bipolar disorder, congestive heart failure, pulmonary hyperten scott, dot-ullcrvz-oaftennik diabetes mellitus, chronic obstructive pulmonary disease, atrial fibrilla tion, anxiety and depression. Past Surgical History: Back surgery, left knee surgery, hysterectomy, cardiac ablation. Family History: Noncontributory. Social History: Smoked in the past. No current smoking or alcohol use. No IV drug use. Medications: On admission: 1.[place] daily. 2.Metformin twice daily. 3.Risperidone 1 mg daily. 4.Xarelto 20 mg daily. 5.Aldactone 50 mg twice daily. 6.Trazodone at bedtime for insomnia. 7.Temazepam 0.5 mg at bedtime. 8.Letairis 5 mg daily. 9.Celexa 40 mg at bedtime. 10.Lasix 80 mg twice daily. 11.Synthroid 0.05 mg daily. Review of Systems: Aside from what is mentioned, the patient has no recent fevers, chills, nausea, and vomiting. There is no shortness of breath. No myalgias, arthralgias, rash, headache, weight change. There is no act kenneth psychiatric issues, although she was treated for bipolar disorder. Physical Examination: Vital signs: Blood pressure 83/46, pulse 76, respiratory rate range from 16 to 23, temperature 97.2, oxygen saturation 97% on 2 L of oxygen by nasal cannula. Weight 176 pounds, height 5 feet 6 inches, BMI 28.5. General: Ms. Durant is resting in the ICU bed. She is in no acute distress. HEENT: She is normocephalic, atraumatic. Sclerae anicteric. Oropharynx is clear, pink, moist. Neck: Supple. Chest: Clear. Heart: Regular. Extremities: Show no significant edema, cyanosis, or clubbing. Neurological: She is alert and oriented to situation and person. She is mildly sleepy, but is easil y arousable. Follows all commands appropriately. Cranial nerves reveal no focal deficits on 2 throu gh 12. Her motor examination, show no focal weakness in upper and lower extremities, at least 5/5 st rength throughout. She has no drift on 10 second count in the upper extremities. Sensory exam, she has stocking-glove loss, light touch, temperature in the legs and arms. Reflexes 2+. Coordination i ntact in the upper extremities. Gait deferred. Laboratory Studies: Most recent white blood cell count 13.1 with 84.9% neutrophils, hemoglobin 10.7, hematocrit 34.7, platelets 285. INR 1.53. pH of 7.37, pCO2 38.7, pO2 of 81. Chemistries show sodium 131, potassium 4.8, chloride 99, carbon dioxide 26, BUN 27, creatinine 1.37, glucose ranged from 352 to 397, calcium 8.0, phosphorus 3.4, magnesium 2.4. Procalcitonin 0.05. Urinalysis shows 1+ blood, 2+ esterase, greater than 50 red blood cells, 10 to 20 white blood cells, loaded with bacteria, 1+ glucose. [place] level of 0.5. Assessment: Ms. Durant is a 63-year-old patient who had significantly decreased cerebral perfusion for a prolonged period around 4-5 hours per the nursing staff and had an episode of more likely myoc lonic activity from brainstem ischemia, less likely from cortical related seizures, and that is elect rographic seizures. Her EEG does not show epileptiform activity, but is mildly so, likely related to the patient's reduction in CSF blood flow. Given the low mean arterial pressure in the 50s. Her br ain MRI is unremarkable for any acute ischemic or hemorrhagic change and she appears to be somewhat v olume depleted. Plan: 1.We will cut back Keppra to 250 mg twice daily and after 2 days, we will cut back to 250 mg daily a nd then stop Keppra. 2.The patient may be managed as per primary team for atrial fibrillation with the Xarelto and for he r severe pulmonary hypertension managed by the Pulmonary service. 3.She may be followed in Dr. Power's clinic 1 month after her discharge home. TYLER/KENNY Voice ID: [id number] Report ID: [id number]
[2018-12-12] MEDS: ACETAMINOPHEN 500 MG TAB PO PRN (03:49)
[2018-12-12 05:27] LABS: Absolute Lymphocytes (CBC) 1.5 K/uL (0.7-4.9); Absolute Neutrophil 14.4 K/uL (1.8-8.0); Eosinophils % 0.3 % (0-4.4); Hematocrit 32.3 % (36.0-45.0); MPV 8.8 fL (7.6-11.3); Monocytes % 5.9 % (3.3-12.3)
[2018-12-12 05:42] LABS: Albumin 2.7 g/dL (3.4-5.0); Bilirubin Total 0.6 mg/dL (0.2-1.0); Potassium 4.5 mmol/L (3.5-5.1); Protein, Total 6.9 g/dL (6.4-8.2)
[2018-12-12] MEDS: NOREPINEPHRINE 8 MG in Dextrose 5%-Water 500 ML IV PRN (06:11)
[2018-12-12] MEDS: LEVOTHYROXINE SOD 0.05 MG TABLET PO SCH (06:13)
[2018-12-12] MEDS ORDERED: SODIUM CHLORIDE 0.9% 10ML INJ IV ONE (08:00)
[2018-12-12] MEDS ORDERED: COSYNTROPIN 0.25 MG VIAL IV ONE (08:00)
[2018-12-12] MEDS: INSULIN -REGULAR HUMAN 50 UNIT/0.5 ML ML SQ SCH ×4 (08:14→21:14)
--- NOTE | 2018-12-12 08:59 | ECHO ---
HEIGHT: 5 ft 6 in WEIGHT: 178 lb 0 oz DATE OF STUDY: 12/11/[address]: Sloan Lomeli MD 2-DIMENSIONAL: YES M.MODE: YES DOPPLER: YES COLOR FLOW: YES TDS: NO PORTABLE: YES DEFINITY: NO BUBBLE STUDY: NO DIAGNOSIS: PULMONARY HYPERTENSION CARDIAC HISTORY: CATHERIZATION: YES SURGERY: NO PROSTHETIC VALVE: NO PACEMAKER: NO MEASUREMENTS (cm) DIASTOLIC (NORMALS) SYSTOLIC (NORMALS) IVSd 0.9 (0.6-1.2) LA Diam 4.2 (1.9-4.0) LVEF 62% LVIDd 3.3 (3.5-5.7) LVIDs 2.2 (2.0-3.5) %FS 32% LVPWd 1.2 (0.6-1.2) Ao Diam 2.7 (2.0-3.7) 2 DIMENSIONAL ASSESSMENT: RIGHT ATRIUM: NORMAL LEFT ATRIUM: DILATED RIGHT VENTRICLE: NORMAL LEFT VENTRICLE: NORMAL TRICUSPID VALVE: NORMAL MITRAL VALVE: STENOTIC PULMONIC VALVE: NORMAL AORTIC VALVE: NORMAL PERICARDIAL EFFUSION: NONE AORTIC ROOT: NORMAL LEFT VENTRICULAR WALL MOTION: NORMAL. DOPPLER/COLOR FLOW: MODERATE MITRAL STENOSIS AREA 1.3 CENTIMETERS SQUARED. COMMENTS: SEVERE PULMONARY HYPERTENSION- RIGHT VENTRICULAR SYSTOLIC PRESSURE 62mmHg. NORMAL EJECTION FRACTION AND LEFT VENTRICULAR SIZE. MODERATE MITRAL STENOSIS AREA 1.3 CENTIMETERS SQUARED. NO EFFUSION. TECHNOLOGIST: URBANO SOTO
[2018-12-12] MEDS ORDERED: CEFEPIME 1 GM/VIAL IV SCH (09:00)
[2018-12-12] MEDS ORDERED: DEXAMETHASONE 10 MG/ML VIAL IV SCH (09:00)
[2018-12-12] MEDS: CEFEPIME/SWI 1gm 10 ML IVP SCH (09:51)
[2018-12-12] MEDS: MIDODRINE HCL 5 MG TABLET PO SCH ×3 (09:51→21:13)
[2018-12-12] MEDS: levETIRAcetam 250 MG in NA CHLORIDE 0.9% 100 ML IV SCH ×2 (09:51→21:12)
--- NOTE | 2018-12-12 11:59 | P.PN ---
Subjective Date of Service: 12/12/18 Chief Complaint: Hypotension Patient is alert responsive cooperative complaining of cough little short of breath drowsy but easily arousable diamond weaned off from a the Levophed at 2 mics urine shows 4+ gram-negative rods cosyntropin test is negative for primary adrenal insufficiency Review of Systems General: Weakness Respiratory: Cough, Shortness of Breath Physical Examination - Vital Signs Temperature: 97.2 F Blood Pressure: 83/57 Pulse: 72 Respirations: 13 Pulse Ox (%): 99 - Physical Exam General: Alert, Oriented x3, Mild distress Neck: Supple Respiratory: Crackles/rales (Minimal crackles at the bases) Cardiovascular: Normal S1 S2, Edema (2+ edema) - Studies Medications List Reviewed: Yes Assessment & Plan - Problems (Diagnosis) (1) Hypotension Current Visit: Yes Status: Acute Plan: Patient is still a little hypotensive weaning off vasopressors urinalysis shows Gram negative rods continue with antibiotics repeat serum cortisol was low trial of steroids cosyntropin stimulation test is negative for primary adrenal insufficiency as the level at 60 min is greater than 18 also complaining of some cough patient's renal function has improved significantly white count is elevated blood cultures negative repeat echocardiogram shows normal left ventricular function severe pulmonary hypertension no evidence of right ventricular dilatation mitral stenosis continue with low-dose steroids chest x- ray shows cardiomegaly patient is fully anti coagulated Qualifiers: Qualified Code(s): I95.2 - Hypotension due to drugs
--- NOTE | 2018-12-12 12:10 | P.PN ---
Subjective Date of Service: 12/12/18 Chief Complaint: Hypotension Patient seen and examined at bedside with RN. Chart reviewed. Case discussed with pulmonology, cardiology, neurology at this time. Patient this morning is doing well. Does complain of having some shortness of breath. This morning patient has been weaned off of Levophed to 2mg. Denies having any chest pain nausea vomiting or any other associated symptoms. Much better than before. Review of Systems 10-point ROS is otherwise unremarkable Physical Examination - Vital Signs Temperature: 97.2 F Blood Pressure: 83/57 Pulse: 72 Respirations: 13 Pulse Ox (%): 99 - Physical Exam General: Alert, Mild distress Neck: JVD distended Respiratory: Normal air movement, Crackles/rales Cardiovascular: Regular rate/rhythm, Normal S1 S2 Gastrointestinal: Normal bowel sounds, No tenderness Musculoskeletal: No tenderness Integumentary: No rashes Neurological: Normal speech, Normal tone, Normal affect Lymphatics: No axilla or inguinal lymphadenopathy - Studies Medications List Reviewed: Yes Assessment And Plan - Current Problems (Diagnosis) (1) Hypotension Current Visit: Yes Status: Acute Plan: Asymptomatic now Hypotension most likely secondary to lisinopril, Lopressor, and spironolactone the patient received. -midodrine 5 mg t.i.d. and currently on Levophed at 2 mg/hr blood pressure with a map > 60 now -will hold all blood pressure medication at this time. Though Munir inhibitor and beta nancy decreased mortality, patient unable to tolerate it. -cardiology and pulmonology on board. Appreciated recommendations at this time. -patient was started on steroids at this time. Qualifiers: Hypotension type: hypotension due to drug Qualified Code(s): I95.2 - Hypotension due to drugs (2) Seizure-like activity Current Visit: Yes Status: Acute Plan: Patient with possibility of seizure-like activity yesterday. Most likely secondary to volume depletion versus psychiatric medication -On keppra 250mg BID for 2 days and then Daily -will go ahead and discontinue sleeping aids due to high risk of drug drug interaction -neurology consulted appreciated recommendations at this time -brain MRI and EEG negative for any acute abnormality -patient does take several anxiety medication which includes lithium however we will hold it at this time given the acute seizure-like activity that the patient had. (3) CHF (congestive heart failure) Onset Date: 09/05/15 Current Visit: No Status: Acute Plan: Acute CHF exacerbation. Diastolic dysfunction -Lasix held due to low blood pressure -will continue to monitor patient closely for overload. X-rays yesterday with worsening -discontinue all fluids at this time -cardiology consulted. Appreciated recommendations at this time (4) COPD (chronic obstructive pulmonary disease) Onset Date: 07/30/18 Current Visit: No Status: Chronic Plan: COPD with acute exacerbation -duo nebs, steroids, oxygen at this time -pulmonology consulted. Appreciated recommendations at this time -patient today we leukocytosis however pro calcitonin negative. Negative for sepsis screening. Qualifiers: COPD type: COPD with acute exacerbation Qualified Code(s): J44.1 - Chronic obstructive pulmonary disease with (acute) exacerbation (5) Primary pulmonary hypertension Onset Date: 09/08/18 Current Visit: No Status: Chronic Plan: Patient will require Cialis on discharge for treatment of her primary pulmonary hypertension. With caution given the history of hypotension (6) Asymptomatic bacteriuria Current Visit: Yes Status: Acute Plan: Patient with asymptomatic bacteriuria. -urine culture positive for 4+ gram-negative rods -patient does not have any comes had for due to continuous hypotension patient was started on IV cefepime -will monitor closely - Plan Pending clinical improvement at this time. Will continue to monitor patient closely. Continue with IV Levophed, EEG and neurology consultation at this time. Discharge Plan: Home Plan to discharge in: Greater than 2 days - Code Status/Comfort Care Code Status Assessed: Yes Critical Care: No
[2018-12-12] MEDS: BENZONATATE 100 MG CAP PO PRN ×2 (13:14→21:12)
--- NOTE | 2018-12-12 13:44 | RAD REPORT ---
EXAM DESCRIPTION: RAD - Chest Single View - 12/12/2018 1:35 pm CLINICAL HISTORY: CHF COMPARISON: December 11 portable TECHNIQUE: AP portable chest image was obtained 1318 hours . FINDINGS: No peripheral mass or consolidation has developed. Interstitial markings remain prominent. PICC line has not changed. Cardiomegaly and vascular engorgement remain. Trachea is in the midline. No pneumothorax is present. No new or enlarging pleural effusion No acute bony abnormality seen. No a cute aortic findings suspected. IMPRESSION: Mild CHF/volume overload pattern similar to prior day study.
[2018-12-12] MEDS: RIVAROXABAN 20 MG TABLET PO SCH (17:21)
[2018-12-12] MEDS: WATER FOR INJ,STERILE 10 ML IV SCH (21:14)
[2018-12-12] MEDS: HYDROCORTISONE SUC 100 MG INJ IV SCH (21:14)
--- NOTE | 2018-12-12 22:22 | P.CNS ---
Date of Consult: 12/11/18 Reason for Consult: MICHAEL/ CKD Requesting Physician: Katheryn Soria Chief Complaint: Hypotension History of Present Illness: 63 yo WF COPD, DM presented to the ER with dyspnea complicated by hypotension. She was seen and examined in the ICU; poorly responsive. Limited HPI/ ROS due to sedation. Patient is a 63-year-old female with history of severe pulmonary hypertension who came to the hospital with difficulty breathing. Patient was admitted to hospital for further evaluation. In the emergency room patient had chest x-ray which revealed pulmonary edema suggestive of congestive heart failure. Review her echo she most likely has acute diastolic dysfunction. She does take Letairis for her severe pulmonary hypertension. Patient will continue this during the hospital stay. Will also get pulmonary consultation. Patient will get labs reviewed as well. 23:08 This 63 yrs old Female presents to ER via Ambulatory with complaints of Cough tw4 - blood, Low oxygen. 23:08 The patient or guardian reports cough, described as mild. Onset: The symptoms/episode tw4 began/occurred today. Severity of symptoms: At their worst the symptoms were moderate, in the emergency department the symptoms are unchanged. Modifying factors : The symptoms are alleviated by nothing, the symptoms are aggravated by nothing. Associated signs and symptoms: The patient has no apparent associated signs or symptoms. The patient has experienced similar episodes in the past, several times. Allergies Penicillins Allergy (Verified 09/06/18 00:03) Itching/Hives/Rash Home medications list reviewed: Yes Home Medications: [place] Carbonate [Lithotabs *] 1 tab PO BEDTIME 09/06/18 Metformin HCl 1 tab PO BID 09/06/18 Risperidone [Risperdal] 1 mg PO BEDTIME 09/06/18 Rivaroxaban [Xarelto*] 20 mg PO DAILY 09/06/18 Spironolactone [Aldactone*] 50 mg PO BID 09/06/18 Trazodone [Desyrel*] 1 tab PO BEDTIME 09/06/18 clonazePAM [Clonazepam] 0.5 mg PO BEDTIME 09/06/18 Ambrisentan [Letairis] 5 mg PO DAILY 12/10/18 Citalopram Hydrobromide [Celexa] 40 mg PO BEDTIME 12/10/18 Furosemide [Lasix] 80 mg PO BID 12/10/18 Levothyroxine [Synthroid*] 0.05 mg PO 0600 12/10/18 - Past Medical/Surgical History Diabetic: Yes -: CHF -: NIDDM -: COPD -: SMOKER -: Degenerative Back Disease -: AFIB, SVT -: Insomnia -: Pulmonary HTN -: Anxiety -: depression -: pneumonia -: UTI -: BACK SURGERY -: LEFT KNEE SURGERY -: HYSTERECTOMY -: HEART ABLATION - Family History Father Family History: Reviewed- Non-Contributory - Social History Smoking Status: Unknown if ever smoked Alcohol use: No CD- Drugs: No Caffeine use: Yes Place of Residence: Home Review of Systems is unable to be obtained (Sedated) Physical Examination Temp Pulse Resp BP Pulse Ox 97.8 F 91 H 23 H 102/66 91 12/12/18 20:00 12/12/18 22:00 12/12/18 22:00 12/12/18 22:00 12/12/18 22:00 General: In no apparent distress, Unresponsive HEENT: Atraumatic, Mucous membr. moist/pink Neck: Supple, JVD distended Respiratory: Clear to auscultation bilaterally, Diminished Cardiovascular: No edema, Regular rate/rhythm, No rubs Gastrointestinal: Soft and benign, Non-distended, No guarding Musculoskeletal: No clubbing, No contractures Integumentary: No rashes, No cyanosis Neurological: Other (Sedated) Greater than 30 minutes patient care. Blood work reviewed in the chart. Hgb 10.7; Cr 1.37 Imagings Data: EXAM DESCRIPTION: RAD - Chest Single View - 12/11/2018 10:11 pm CLINICAL HISTORY: chf Chest pain. COMPARISON: Chest Single View dated 12/11/2018; Chest Single View dated 12/10/2018 ; Chest Single View dated 12/09/2018; Chest Single View dated 12/01/2018 FINDINGS: Portable technique limits examination quality. Mild improvement in the CHF pattern is seen since comparative study. The heart is moderately enlarged in size. Right-sided PICC line is unchanged in position. IMPRESSION: Mild improvement in lung aeration since comparative study. LEFT VENTRICULAR WALL MOTION: NORMAL. DOPPLER/COLOR FLOW: MODERATE MITRAL STENOSIS AREA 1.3 CENTIMETERS SQUARED. COMMENTS: SEVERE PULMONARY HYPERTENSION- RIGHT VENTRICULAR SYSTOLIC PRESSURE 62mmHg. NORMAL EJECTION FRACTION AND LEFT VENTRICULAR SIZE. MODERATE MITRAL STENOSIS AREA 1.3 CENTIMETERS SQUARED. NO EFFUSION. Conclusions/Impression: A/ MICHAEL in the setting of hypovolemia/ hypotension. CKD III. Hypotension. DM II. Diatolic CHF, chronic. Moderate mitral stenosis. Pulmonary HTN secondary to COPD. Microcytic anemia. Anemia in chronic illness. Moderate malnutrition. Hypocalcemia. Acute cystitis. P/ Continue current POC and Medications. Continue pressor support to maintain perfusion; wean as tolerated. Agree with IVF. Caution due to CHF hx. Steroids started for possible adrenal insufficiency. Agree with abx for cystitis; follow up culture. Strict I/O. Monitor lithium level. Encourage nutrition. No NSAIDs. AM labs. Daily weight. Thank you kindly for the consultation.
--- NOTE | 2018-12-12 22:38 | P.PN ---
Date of Service: 12/12/18 Vital Signs Temp Pulse Resp BP Pulse Ox 97.8 F 91 H 23 H 102/66 91 12/12/18 20:00 12/12/18 22:00 12/12/18 22:00 12/12/18 22:00 12/12/18 22:00 Medications Acetaminophen (Tylenol -Extra Strength) 500 mg PO Q4HP PRN PRN Reason: pain/fever Stop: 01/08/19 22:04 Last Admin: 12/12/18 03:49 Dose: 500 mg Albuterol Sulfate (Proventil 0.083% Neb Soln) 2.5 mg NEB [id number] PRN PRN Reason: SHORTNESS OF BREATH Stop: 01/08/19 22:04 Benzonatate (Tessalon Perle) 100 mg PO TID PRN PRN Reason: COUGH Stop: 01/11/19 12:48 Last Admin: 12/12/18 21:12 Dose: 100 mg Dextrose (Dextrose 50% Syringe) 12.5 gm IV PRN PRN; Protocol PRN Reason: HYPOGLYCEMIA Stop: 01/10/19 09:15 Glucagon (Glucagen) 1 mg IM 1X PRN; Protocol PRN Reason: HYPOGLYCEMIA Stop: 01/10/19 09:15 Hydrocortisone Sodium Succinate (Solu-Cortef) 50 mg IV Q12HR [facility] Stop: 01/11/19 21:01 Last Admin: 12/12/18 21:14 Dose: 50 mg Norepinephrine Bitartrate 8 mg (/ Dextrose) 508 mls @ 0 mls/hr IV PRN PRN; Protocol PRN Reason: HEMODYNAMIC PARAMETERS Stop: 01/09/19 17:37 Last Admin: 12/12/18 06:11 Dose: 508 mls Cefepime HCl (Maxipime 1 Gm/10 Ml Ivp) 10 mls @ 200 mls/hr IVP DAILY [facility] Stop: 01/10/19 18:31 Last Admin: 12/12/18 09:51 Dose: 10 mls Levetiracetam 250 mg/ Sodium (Chloride) 102.5 mls @ 100 mls/hr IV BID [facility] Stop: 12/13/18 22:02 Last Admin: 12/12/18 21:12 Dose: 102.5 mls Levetiracetam 250 mg/ Sodium (Chloride) 102.5 mls @ 100 mls/hr IV DAILY [facility] Stop: 12/15/18 10:02 Insulin Human Regular (Novolin -R) 0 unit SQ ACHS [facility]; Protocol Stop: 01/10/19 11:31 Last Admin: 12/12/18 21:14 Dose: 6 unit Ipratropium [place] (Atrovent Neb) 0.5 mg NEB [id number] PRN PRN Reason: SHORTNESS OF BREATH Stop: 01/09/19 02:01 Levothyroxine Sodium (Synthroid) 0.05 mg PO 0600 [facility] Stop: 01/10/19 06:01 Last Admin: 12/12/18 06:13 Dose: 0.05 mg Midodrine (Proamatine) 5 mg PO TID [facility] Stop: 01/10/19 21:01 Last Admin: 12/12/18 21:13 Dose: 5 mg Ondansetron HCl (Zofran) 4 mg IV Q6HP PRN PRN Reason: NAUSEA / VOMITING Stop: 01/08/19 22:04 Rivaroxaban (Xarelto) 20 mg PO DAILY 5 PM [facility] Stop: 01/09/19 18:01 Last Admin: 12/12/18 17:21 Dose: 20 mg Sodium Chloride (Normal Saline Flush) 10 ml IV BID [facility] Stop: 01/09/19 09:01 Last Admin: 12/12/18 21:15 Dose: 10 ml Sterile Water (Sterile Water For Inj (10 Ml Vial)) 2 ml IV Q12HR [facility] Stop: 01/11/19 21:01 Last Admin: 12/12/18 21:14 Dose: 2 ml Microbiology Results 12/09/18 20:10 Blood - Blood Aerobic Blood Culture - Preliminary No growth in 24 hours. 12/09/18 20:10 Blood - Blood Anaerobic Blood Culture - Preliminary No growth in 24 hours. 12/09/18 19:50 Blood - Blood Aerobic Blood Culture - Preliminary No growth in 24 hours. 12/09/18 19:50 Blood - Blood Anaerobic Blood Culture - Preliminary No growth in 24 hours. Assessment/ Plan: Nephrology. Feeling better today but still with dyspnea but she is not sure if it is anxiety. More awake today. CPS stable without CP or SOB. No acute events overnight. Case reviewed with nurse and family at the bedside. Vitals, medications, blood work and imaging reviewed in the chart. General: In no apparent distress, Unresponsive HEENT: Atraumatic, Mucous membr. moist/pink Neck: Supple, JVD distended Respiratory: Clear to auscultation bilaterally, Diminished Cardiovascular: No edema, Regular rate/rhythm, No rubs Gastrointestinal: Soft and benign, Non-distended, No guarding Musculoskeletal: No clubbing, No contractures Integumentary: No rashes, No cyanosis Neurological: Other (Sedated) Greater than 30 minutes patient care. Blood work reviewed in the chart. Hgb 10.1; Cr 1.14 Imagings Data: EXAM DESCRIPTION: RAD - Chest Single View - 12/11/2018 10:11 pm CLINICAL HISTORY: chf Chest pain. COMPARISON: Chest Single View dated 12/11/2018; Chest Single View dated 12/10/2018 ; Chest Single View dated 12/09/2018; Chest Single View dated 12/01/2018 FINDINGS: Portable technique limits examination quality. Mild improvement in the CHF pattern is seen since comparative study. The heart is moderately enlarged in size. Right-sided PICC line is unchanged in position. IMPRESSION: Mild improvement in lung aeration since comparative study. LEFT VENTRICULAR WALL MOTION: NORMAL. DOPPLER/COLOR FLOW: MODERATE MITRAL STENOSIS AREA 1.3 CENTIMETERS SQUARED. COMMENTS: SEVERE PULMONARY HYPERTENSION- RIGHT VENTRICULAR SYSTOLIC PRESSURE 62mmHg. NORMAL EJECTION FRACTION AND LEFT VENTRICULAR SIZE. MODERATE MITRAL STENOSIS AREA 1.3 CENTIMETERS SQUARED. NO EFFUSION. Conclusions/Impression: A/ MICHAEL in the setting of hypovolemia/ hypotension. CKD III. Hypotension. DM II. Diatolic CHF, chronic. Moderate mitral stenosis. Pulmonary HTN secondary to COPD. Microcytic anemia. Anemia in chronic illness. Moderate malnutrition. Hypocalcemia. Acute cystitis. P/ Continue current POC and Medications. Continue pressor support to maintain perfusion; wean as tolerated. Midodrine has been started for persistent hypotension. IVF as needed. Continue hydrocortisone as ordered. Agree with abx for cystitis; follow up culture. Strict I/O. Monitor lithium level. Encourage nutrition. No NSAIDs. AM labs. Daily weight.
[2018-12-13] MEDS: ACETAMINOPHEN 500 MG TAB PO PRN ×2 (01:40→22:51)
[2018-12-13] MEDS: LEVOTHYROXINE SOD 0.05 MG TABLET PO SCH (05:11)
[2018-12-13 05:32] LABS: Absolute Lymphocytes (CBC) 0.6 K/uL (0.7-4.9); Absolute Monocytes 0.5 K/uL (0.1-1.3); Absolute Neutrophil 8.7 K/uL (1.8-8.0); Basophils % 0.1 % (0-1.3); Hematocrit 28.8 % (36.0-45.0); Lymphocytes % 6.5 % (15.3-44.8); MPV 9.5 fL (7.6-11.3); Monocytes % 5.3 % (3.3-12.3); RBC Red Blood Cell Count 3.71 M/uL (3.86-4.86)
[2018-12-13 05:59] LABS: Albumin 3.2 g/dL (3.4-5.0); Bilirubin Total 0.5 mg/dL (0.2-1.0); Potassium 4.9 mmol/L (3.5-5.1)
[2018-12-13] MEDS: INSULIN -REGULAR HUMAN 50 UNIT/0.5 ML ML SQ SCH ×4 (07:30→21:36)
[2018-12-13] MEDS: HYDROCORTISONE SUC 100 MG INJ IV SCH (09:20)
[2018-12-13] MEDS: CEFEPIME/SWI 1gm 10 ML IVP SCH (09:21)
[2018-12-13] MEDS: levETIRAcetam 250 MG in NA CHLORIDE 0.9% 100 ML IV SCH (09:21)
[2018-12-13] MEDS: MIDODRINE HCL 5 MG TABLET PO SCH ×3 (09:21→21:35)
[2018-12-13] MEDS: WATER FOR INJ,STERILE 10 ML IV SCH ×2 (09:22→21:00)
[2018-12-13 10:50] LABS: Blood Morphology Comment NOT SEEN (NOT SEEN); Platelet Estimate ADEQ
--- NOTE | 2018-12-13 11:08 | P.PN ---
Subjective Date of Service: 12/13/18 Chief Complaint: Hypotension Patient has improved significantly she is off vasopressors since the early hr of this morning alert responsive cooperative slight shortness of breath Review of Systems General: Weakness Respiratory: Shortness of Breath Physical Examination - Vital Signs Temperature: 97.3 F Blood Pressure: 106/65 Pulse: 80 Respirations: 16 Pulse Ox (%): 96 - Physical Exam General: Alert, Oriented x3 HEENT: Atraumatic Neck: Supple Respiratory: Clear to auscultation bilaterally Cardiovascular: Normal S1 S2, Edema - Studies Medications List Reviewed: Yes Assessment & Plan - Problems (Diagnosis) (1) Hypotension Current Visit: Yes Status: Acute Plan: Hypertension now resolved continue with low-dose prednisone Qualifiers: Hypotension type: hypotension due to drug Qualified Code(s): I95.2 - Hypotension due to drugs (2) Adrenal insufficiency Current Visit: Yes Status: Acute Plan: Is possible that she has relative adrenal insufficiency although her cosyntropin stimulation test was negative patient did response to steroids continue with low-dose prednisone for now (3) UTI (urinary tract infection) Current Visit: Yes Status: Acute Plan: Patient has a urosepsis with Klebsiella continue with cefepime meter changes records clerk to p.o. antibiotics when tolerate (4) Moderate to severe pulmonary hypertension Current Visit: No Status: Acute Plan: Patient has some moderate to severe pulmonary hypertension discuss with cardiology possibly secondary to mitral stenosis treatment with medications for pulmonary hypertension would be a relative contraindication patient will need a transesophageal echo as per cardiology to evaluate the severity of her mitral stenosis I have informed the patient not to take letaris or sildenafil until cleared with cardiology stable to be transferred to the floor
--- NOTE | 2018-12-13 12:02 | P.PN ---
Subjective Date of Service: 12/13/18 Chief Complaint: Hypotension Patient seen and examined at bedside with RN. Chart reviewed. Case discussed with pulmonology, cardiology, neurology at this time. Patient this morning is doing well. Does complain of having some shortness of breath. Off pressor since last night Denies having any chest pain nausea vomiting or any other associated symptoms. Much better than before. Review of Systems 10-point ROS is otherwise unremarkable Physical Examination - Vital Signs Temperature: 97.3 F Blood Pressure: 106/65 Pulse: 80 Respirations: 16 Pulse Ox (%): 96 - Physical Exam General: Alert, In no apparent distress HEENT: Atraumatic, PERRLA, EOMI Neck: Supple, JVD not distended Respiratory: Clear to auscultation bilaterally, Normal air movement Cardiovascular: Regular rate/rhythm, Normal S1 S2 Gastrointestinal: Normal bowel sounds, No tenderness Musculoskeletal: No tenderness Integumentary: No rashes Neurological: Normal speech, Normal tone, Normal affect Lymphatics: No axilla or inguinal lymphadenopathy - Studies Medications List Reviewed: Yes Assessment And Plan - Current Problems (Diagnosis) (1) Hypotension Current Visit: Yes Status: Resolved Plan: Asymptomatic Hypotension now. Unknown etiology, however adrenal insufficiency, medication SE vs Urosepsis are all a possibility -midodrine 5 mg t.i.d. and prednison 10mg BID now with BP in the normal ranges. -will hold all blood pressure medication at this time. -Though Munir inhibitor and beta nancy decreased mortality in CHF patient, patient unable to tolerate it. -cardiology and pulmonology on board. Appreciated recommendations at this time. Qualifiers: Hypotension type: hypotension due to drug Qualified Code(s): I95.2 - Hypotension due to drugs (2) Asymptomatic bacteriuria Current Visit: Yes Status: Acute Plan: Patient with asymptomatic bacteriuria. However given the hypotension treatment was initialled -urine culture positive for Klebsila -Switched to PO bactrim at this time. Will monitor closely for BMP (3) Seizure-like activity Current Visit: Yes Status: Acute Plan: Patient with possibility of seizure-like activity. -On keppra 250mg BID for 2 days and then Daily PO -will go ahead and discontinue sleeping aids and lithium due to high risk of drug drug interaction -neurology consulted appreciated recommendations at this time -brain MRI and EEG negative for any acute abnormality (4) CHF (congestive heart failure) Onset Date: 09/05/15 Current Visit: No Status: Acute Plan: Acute CHF exacerbation. Diastolic dysfunction -Lasix held due to low blood pressure -will continue to monitor patient closely for overload. -discontinued all fluids at this time -cardiology consulted. Appreciated recommendations at this time (5) COPD (chronic obstructive pulmonary disease) Onset Date: 07/30/18 Current Visit: No Status: Chronic Plan: COPD with acute exacerbation -duonebs, steroids, oxygen at this time -pulmonology consulted. Appreciated recommendations at this time Qualifiers: COPD type: chronic bronchitis Chronic bronchitis type: simple Qualified Code(s): J41.0 - Simple chronic bronchitis (6) Primary pulmonary hypertension Onset Date: 09/08/18 Current Visit: No Status: Chronic Plan: Primary Pulmonary HTN 2.2 to Mitral Stenosis -Treatment with medications for pulmonary hypertension would be a relative contraindication -Patient will need a FRANK as per cardiology to evaluate the severity of her mitral stenosis -Educated patient not to take letaris or sildenafil until cleared with cardiology - Plan Pending clinical improvement at this time. Will continue to monitor patient closely. Transfer to the Floor for further care Discharge Plan: Home Plan to discharge in: 48 Hours - Code Status/Comfort Care Code Status Assessed: Yes Critical Care: No
--- NOTE | 2018-12-13 13:01 | PN ---
Date of Progress Note: 12/12/2018 Ms. Durant has been here since 12/09/2018. Yesterday, she was hypotensive on Levophed. Echocardio gram shows severe pulmonary hypertension with RV systolic pressure approximately 65 mmHg. Normal eje ction fraction. Mitral stenosis that is moderate, which has worsened over the last few month. Today , her blood pressure has improved. She is maintaining her systolic pressure over a 100 on lower dose of the Levophed. Antibiotics were changed yesterday along with her IV hydration. We will continue present regimen for now. She seems to be improving overall. Eventually, admits to alcohol, makes it through this. I would like her to probably go to [facility] and have a transesophageal echocardiogram to better assess mitral valve area. I believe fixing her mitral valve may improve her pulmonary hype rtension and overall status. I will discuss further with her primary care with Dr. Lomeli and with the family. ELISA/KENNY Voice ID: [id number] Report ID: [id number]
--- NOTE | 2018-12-13 13:16 | PN ---
Date of Progress Note: 12/13/2018 Ms. Durant has issues with moderate mitral stenosis and severe pulmonary hypertension. She is now off her pressors. Her blood pressures are about 120 systolic. alert and oriented x3. He r chest sounds pretty clear. She is on midodrine. She will be moved to a regular room today. I surendra l continue her antibiotics and continue to hold blood pressure medication. I am going to make arrang ements for her to have a transesophageal echocardiogram at [facility] to get a better idea of what her mitral stenosis looks like. She may benefit from mitral valve repair. The case was discus sed with her and with Dr. Lomeli and the family, and she can go home hopefully in the next day or 2 . She has an appointment with me in the office on the of this month. KAMLESH Voice ID: [id number] Report ID: [id number]
[2018-12-13] MEDS: BENZONATATE 100 MG CAP PO PRN (15:20)
[2018-12-13] MEDS: METFORMIN HCL 500 MG TAB PO SCH (17:00)
[2018-12-13] MEDS: RIVAROXABAN 20 MG TABLET PO SCH (17:00)
[2018-12-13] MEDS ORDERED: levETIRAcetam 500 MG TAB PO SCH (21:00)
[2018-12-13] MEDS ORDERED: AMOX/K CLAV 875 MG TAB PO SCH (21:00)
[2018-12-13] MEDS: predniSONE 10 MG TAB PO SCH (21:35)
[2018-12-13] MEDS: SMZ./TMP. 800/160 MG TABLET PO SCH (21:35)
[2018-12-14 05:08] LABS: Absolute Lymphocytes (CBC) 0.8 K/uL (0.7-4.9); Absolute Monocytes 0.6 K/uL (0.1-1.3); Absolute Neutrophil 7.5 K/uL (1.8-8.0); Basophils % 0.2 % (0-1.3); Eosinophils % 0.2 % (0-4.4); Hematocrit 32.4 % (36.0-45.0); Lymphocytes % 9.4 % (15.3-44.8); MPV 9.2 fL (7.6-11.3); Monocytes % 6.3 % (3.3-12.3); RBC Red Blood Cell Count 4.17 M/uL (3.86-4.86)
[2018-12-14 05:17] LABS: Albumin 3.3 g/dL (3.4-5.0); Bilirubin Total 0.5 mg/dL (0.2-1.0); Potassium 4.9 mmol/L (3.5-5.1); Protein, Total 7.2 g/dL (6.4-8.2)
[2018-12-14] MEDS: LEVOTHYROXINE SOD 0.05 MG TABLET PO SCH (05:31)
[2018-12-14] MEDS: INSULIN -REGULAR HUMAN 50 UNIT/0.5 ML ML SQ SCH ×4 (07:30→20:35)
--- NOTE | 2018-12-14 07:33 | P.PN ---
Date of Service: 12/13/18 Patient's family was requesting to possibly go home tonight. Reviewed chart, and will await further evaluation in the morning. If labs, and vitals are ok and specialist agreeable then it is possible that she may go home. With her just leaving ICU, it would be a good idea to have a good 24hrs out of the ICU and ambulating well prior to discharging home. Possible DC in am pending primary hospitalist and specialist evaluation in the morning.
[2018-12-14 08:43] VITALS: O2SAT 100
[2018-12-14] MEDS: MIDODRINE HCL 5 MG TABLET PO SCH ×3 (08:45→20:35)
[2018-12-14] MEDS: levETIRAcetam 500 MG TAB PO SCH (08:46)
[2018-12-14] MEDS: predniSONE 10 MG TAB PO SCH ×2 (08:46→20:35)
[2018-12-14] MEDS: SMZ./TMP. 800/160 MG TABLET PO SCH ×2 (08:46→20:35)
[2018-12-14] MEDS: METFORMIN HCL 500 MG TAB PO SCH ×2 (08:47→16:20)
[2018-12-14] MEDS: WATER FOR INJ,STERILE 10 ML IV SCH ×2 (09:00→20:38)
[2018-12-14] MEDS ORDERED: levETIRAcetam 250 MG in NA CHLORIDE 0.9% 100 ML IV SCH (09:00)
--- NOTE | 2018-12-14 10:16 | P.PN ---
Subjective Date of Service: 12/14/18 Chief Complaint: Hypotension Patient seen and examined at bedside with RN. Chart reviewed. Case discussed with pulmonology, cardiology, neurology at this time. Patient this morning does appear to be depressed. Does complain of having some shortness of breath. Off pressor for 24hrs now Denies having any chest pain nausea vomiting or any other associated symptoms. Family contacted. Jake Son notified regarding need to stay for another 24hrs to ensure safe discharge home. In agreement. Review of Systems 10-point ROS is otherwise unremarkable Physical Examination - Vital Signs Temperature: 97.3 F Blood Pressure: 120/72 Pulse: 74 Respirations: 16 Pulse Ox (%): 99 - Physical Exam General: Alert, In no apparent distress HEENT: Atraumatic, PERRLA, EOMI Neck: Supple, JVD not distended Respiratory: Clear to auscultation bilaterally, Normal air movement Cardiovascular: Regular rate/rhythm, Normal S1 S2 Gastrointestinal: Normal bowel sounds, No tenderness Musculoskeletal: No tenderness Integumentary: No rashes Neurological: Normal speech, Normal tone, Normal affect Lymphatics: No axilla or inguinal lymphadenopathy - Studies Medications List Reviewed: Yes Assessment And Plan - Current Problems (Diagnosis) (1) Hypotension Current Visit: Yes Status: Resolved Plan: Asymptomatic Hypotension now. Unknown etiology, however adrenal insufficiency, medication SE vs Urosepsis are all a possibility -midodrine 5 mg t.i.d and prednisone 10mg BID now with BP in the normal ranges. -will hold all blood pressure medication at this time. -Though Munir inhibitor and beta nancy decreased mortality in CHF patient, patient unable to tolerate it. -cardiology and pulmonology on board. Appreciated recommendations at this time. Qualifiers: Hypotension type: hypotension due to drug Qualified Code(s): I95.2 - Hypotension due to drugs (2) Asymptomatic bacteriuria Current Visit: Yes Status: Acute Plan: Patient with asymptomatic bacteriuria. However given the hypotension treatment was initialled -urine culture positive for Klebsila -Switched to PO bactrim at this time. Will monitor closely for BMP (3) Seizure-like activity Current Visit: Yes Status: Acute Plan: Patient with possibility of seizure-like activity. -On keppra 250mg BID for 2 days and then Daily PO -will go ahead and discontinue sleeping aids and lithium due to high risk of drug drug interaction -neurology consulted appreciated recommendations at this time -brain MRI and EEG negative for any acute abnormality (4) CHF (congestive heart failure) Onset Date: 09/05/15 Current Visit: No Status: Acute Plan: Acute CHF exacerbation. Diastolic dysfunction -Lasix held due to low blood pressure -will continue to monitor patient closely for overload. -discontinued all fluids at this time -cardiology consulted. Appreciated recommendations at this time (5) COPD (chronic obstructive pulmonary disease) Onset Date: 07/30/18 Current Visit: No Status: Chronic Plan: COPD with acute exacerbation -duonebs, steroids, oxygen at this time -pulmonology consulted. Appreciated recommendations at this time Qualifiers: COPD type: chronic bronchitis Chronic bronchitis type: simple Qualified Code(s): J41.0 - Simple chronic bronchitis (6) Primary pulmonary hypertension Onset Date: 09/08/18 Current Visit: No Status: Chronic Plan: Primary Pulmonary HTN 2.2 to Mitral Stenosis -Treatment with medications for pulmonary hypertension would be a relative contraindication -Patient will need a FRANK as per cardiology to evaluate the severity of her mitral stenosis -Educated patient not to take letaris or sildenafil until cleared with cardiology - Plan Pending clinical improvement at this time. Will continue to monitor patient closely. Need to contact the Psych Regarding Psych medication. Will start on Citalopram and Respirodone today Discharge Plan: Home Plan to discharge in: 48 Hours - Code Status/Comfort Care Code Status Assessed: Yes Critical Care: No
--- NOTE | 2018-12-14 10:26 | P.PN ---
Subjective Date of Service: 12/14/18 Chief Complaint: Depression Patient is doing better shortness of breath has improved patient is very depressed weeping wants to go home hemodynamically stable Review of Systems General: Weakness Respiratory: Shortness of Breath Physical Examination - Vital Signs Temperature: 97.3 F Blood Pressure: 120/72 Pulse: 74 Respirations: 16 Pulse Ox (%): 99 - Physical Exam General: Alert, Oriented x3 Neck: Supple Respiratory: Clear to auscultation bilaterally - Studies Medications List Reviewed: Yes Assessment & Plan - Problems (Diagnosis) (1) Adrenal insufficiency Current Visit: Yes Status: Acute Plan: Possible adrenal insufficiency patient responded very well to steroids and reduce prednisone to 10 mg today prior to discharge (2) UTI (urinary tract infection) Current Visit: Yes Status: Acute Plan: Patient has urosepsis currently on Bactrim kidney function is now normal white count is normal (3) Moderate to severe pulmonary hypertension Current Visit: No Status: Acute Plan: Patient has some moderate to severe pulmonary hypertension discuss with cardiology possibly secondary to mitral stenosis treatment with medications for pulmonary hypertension would be a relative contraindication patient will need a transesophageal echo as per cardiology to evaluate the severity of her mitral stenosis I have informed the patient not to take letaris or sildenafil until cleared with cardiology stable to be transferred to the floor (4) Depression Current Visit: Yes Status: Acute Plan: Hospitalist to discuss with the psychiatrist tomorrow strongly suspect that she has bipolar resume citalopram 10 risperidone Qualifiers: Depression Type: major depressive disorder
[2018-12-14] MEDS: RIVAROXABAN 20 MG TABLET PO SCH (16:20)
[2018-12-14 17:20] VITALS: BMI 29.8
[2018-12-14] MEDS ORDERED: RISPERIDONE 1 MG TABLET PO SCH (21:00)
[2018-12-15] MEDS: LEVOTHYROXINE SOD 0.05 MG TABLET PO SCH (06:06)
[2018-12-15] MEDS: INSULIN -REGULAR HUMAN 50 UNIT/0.5 ML ML SQ SCH (07:30)
[2018-12-15] MEDS: METFORMIN HCL 500 MG TAB PO SCH (08:24)
[2018-12-15] MEDS: MIDODRINE HCL 5 MG TABLET PO SCH (08:24)
[2018-12-15] MEDS: SMZ./TMP. 800/160 MG TABLET PO SCH (08:24)
[2018-12-15] MEDS: levETIRAcetam 500 MG TAB PO SCH (08:24)
[2018-12-15] MEDS: predniSONE 10 MG TAB PO SCH (08:24)
[2018-12-15] MEDS: WATER FOR INJ,STERILE 10 ML IV SCH (09:00)
[2018-12-15] MEDS ORDERED: CITALOPRAM 10 MG TABLET PO SCH (09:00)
--- NOTE | 2018-12-15 10:28 | P.DS ---
Admission Date: 12/09/18 Discharge Date: 12/15/18 Primary Care Provider: Dr. Zhou; PSYC-Dr. Ruffin ([facility]); Pulm-Dr. Lomeli Disposition: DC HOME/HOME HEALTH CARE Discharge Condition: GOOD Reason for Admission: Depression Consultations: Pulmonary-Dr. Lomeli Neurology-Dr. Power Nephrology-Dr. Zhou Procedures: MRI Brain: COMPARISON: 2017 TECHNIQUE: Axial, sagittal, and coronal magnetic images of the brain were obtained. 20 cc MultiHance administered intravenously FINDINGS: No abnormal signal within the brain is noted. The ventricles are normal in caliber. Diffusion-weighted sequences do not demonstrate evidence of an acute infarction. No abnormal enhancement within the brain is seen. An extra-axial fluid collection is not noted. Fluid within the sinuses/mastoids is not seen IMPRESSION: Unremarkable brain MRI. EEG: DATE OF STUDY: 12/11/2018 The EEG was recorded PORTABLE IN THE ICU on a 17 channel machine. Electrodes were applied in the usual manner using the International 10-20 system. The waking background rhythm in this record consists of FAIRLY well developed and FAIRLY well organized waves of 9.0 Hz., MAXIMAL IN THE POSTERIOR HEAD REGIONS which attenuate normally with eye opening. MODERATE VOLTAGE 6-7 HZ ACTIVITY IS EXPRESSED INTERMITTENTLY IN THE FRONTAL AND CENTRAL REGIONS. There are no focal or lateralizing features. No epileptiform activity appears. Sleep OCCURRED NATURALLY. IN ADDITION normal sleep patterns ARE PRESENT.Hyperventilation was NOT PERFORMED. Photic stimulation produced NO driving bilaterally. IMPRESSION: THIS IS A MILDLY ABNORMAL EEF DUE TO A MILDLY SLOW BACKGROUND. THIS IS A NON-SPECIFIC FINDING INDICATING THE PRESENCE OF A MILD DIFFUSE DISTURBANCE IN CEREBRAL ACTIVITY. ECHO: EF 68% LEFT VENTRICULAR WALL MOTION: NORMAL. DOPPLER/COLOR FLOW: MODERATE MITRAL STENOSIS AREA 1.3 CENTIMETERS SQUARED. COMMENTS: SEVERE PULMONARY HYPERTENSION- RIGHT VENTRICULAR SYSTOLIC PRESSURE 62mmHg. NORMAL EJECTION FRACTION AND LEFT VENTRICULAR SIZE. MODERATE MITRAL STENOSIS AREA 1.3 CENTIMETERS SQUARED. NO EFFUSION. Medical Problem List: Hypotension likely adrenal insufficiency Asymptomatic bacteriuria, urine culture positive for Klebsiella and Kluyvera Seizure activity likely from hypotension Acute on chronic diastolic CHF Chronic COPD Atrial fibrillation on chronic anticoagulation Bipolar disorder Hypothyroidism Diabetes mellitus type 2 Severe Primary pulmonary hypertension secondary to moderate mitral stenosis Brief History of Present Illness: 63-year-old female presented to the emergency room with shortness of breath. Patient with underlying primary pulmonary hypertension. Patient was admitted for treatment. Hospital Course: Patient was admitted for shortness of breath secondary to severe primary pulmonary hypertension secondary to moderate mitral stenosis. During the course of her stay patient became very hypotensive. Patient required ICU management with vasopressors. Medications were adjusting her stay. Blood pressure medication discontinued. Diuretic therapy also discontinued. Patient was seen and evaluated by nephrology, pulmonology and Neurology. MRI brain was unremarkable. EEG did not show any epileptic form changes. Patient was initiated placed on Keppra. At discharge Keppra will be discontinued as seizure disorder has been ruled out. At discharge she is without any significant shortness of breath, chest pain. Blood pressures have remained stable on midodrine. At discharge she will continue with midodrine 5 mg 1 pill 3 times a day to maintain her blood pressure. Patient will also continue with prednisone 10 mg daily. Recommend to follow up with pulmonology within 1 week to follow up this hospitalization. Patient will require cardiology evaluation as an outpatient to further address her mitral stenosis. Patient will need transesophageal echo to further evaluate. At discharge patient has been taking off her pulmonary hypertension medication-Letairis. At discharge blood pressure medication had been discontinued along with diuretic therapy due to low blood pressure. Patient may follow up with her PCP within 1 week to follow up this hospitalization. Patient found to have asymptomatic bacteriuria. Urine culture positive for Klebsiella and Kluyvera. At discharge patient will continue with Bactrim for total of 7 days. UTI prevention will be enforced. Patient with COPD. At discharge she will continue with her medication. Recommend to follow up with pulmonology as directed. Patient with underlying bipolar disorder. Medications have been adjusted. At discharge lithium has been discontinued due to her chronic conditions. Patient will continue with Celexa 40 mg daily, risperidone 1 mg at bedtime, clonazepam 0.5 mg at bedtime as needed for agitation and trazodone 150 mg at bedtime. Recommendation is to follow up with psychiatry to further monitor and address. Patient with underlying diabetes type 2. Patient may continue with metformin 500 mg 1 pill twice daily. Recommend to maintain blood sugars less 140 fasting and less than 200 after meals. Further adjustment can be done by her PCP. Patient with hypothyroidism. At discharge patient will continue with levothyroxine 50 mcg daily. Patient with chronic atrial fibrillation on chronic anti coagulation therapy. At discharge she will continue with Xarelto 20 mg daily. Patient not able to tolerate blood pressure medication/rate control medication at this time due to low blood pressure. This can be further monitored and addressed by Cardiology. Vital Signs/Physical Exam: Temp Pulse Resp BP Pulse Ox 97.9 F 77 18 161/63 H 100 12/15/18 04:00 12/15/18 04:00 12/15/18 04:00 12/15/18 04:00 12/15/18 04:00 General: Alert, In no apparent distress, Oriented x3, Cooperative HEENT: Atraumatic Neck: Supple Respiratory: Clear to auscultation bilaterally, Normal air movement Cardiovascular: Normal pulses, Regular rate/rhythm Gastrointestinal: Normal bowel sounds, Soft and benign, Non-distended, No tenderness, No masses, No rebound, No guarding Musculoskeletal: No erythema, No tenderness, No warmth Integumentary: No erythema, No warmth, No cyanosis Neurological: Normal speech, Normal strength at 5/5 x4 extr, Normal tone, Normal affect Laboratory Data at Discharge: WBC 9.0 K/uL (4.3-10.9) 12/14/18 04:55 Hgb 10.0 g/dL (12.0-15.0) L 12/14/18 04:55 Hct 32.4 % (36.0-45.0) L 12/14/18 04:55 Plt Count 207 K/uL (152-406) 12/14/18 04:55 PT 17.8 SECONDS (9.5-12.5) H 12/09/18 20:14 INR 1.53 12/09/18 20:14 APTT 35.4 SECONDS (24.3-36.9) 12/09/18 20:14 Sodium 136 mmol/L (136-145) 12/14/18 04:55 Potassium 4.9 mmol/L (3.5-5.1) 12/14/18 04:55 BUN 25 mg/dL (7-18) H 12/14/18 04:55 Creatinine 0.90 mg/dL (0.55-1.3) 12/14/18 04:55 Glucose 158 mg/dL (74-106) H 12/14/18 04:55 Phosphorus 3.4 mg/dL (2.5-4.9) 12/11/18 04:55 Magnesium 2.3 mg/dL (1.8-2.4) 12/11/18 04:55 Total Bilirubin 0.5 mg/dL (0.2-1.0) 12/14/18 04:55 AST 26 U/L (15-37) 12/14/18 04:55 ALT 34 U/L (12-78) 12/14/18 04:55 Alkaline Phosphatase 49 U/L (45-117) 12/14/18 04:55 Lipase 199 U/L (73-393) 12/09/18 20:14 Home Medications: Metformin HCl 1 tab PO BID 09/06/18 Risperidone [Risperdal] 1 mg PO BEDTIME 09/06/18 Rivaroxaban [Xarelto*] 20 mg PO DAILY 09/06/18 Trazodone [Desyrel*] 1 tab PO BEDTIME 09/06/18 clonazePAM [Clonazepam] 0.5 mg PO BEDTIME 09/06/18 Citalopram Hydrobromide [Celexa] 40 mg PO BEDTIME 12/10/18 Levothyroxine [Synthroid*] 0.05 mg PO 0600 12/10/18 Midodrine HCl [Proamatine*] 5 mg PO TID #90 tab 12/15/18 Smz./Tmp. [Bactrim Ds 800 MG/160 MG*] 1 tab PO BID #10 tab 12/15/18 predniSONE [Deltasone*] 10 mg PO DAILY #15 tab 12/15/18 New Medications: Midodrine HCl [Proamatine*] 5 mg PO TID #90 tab predniSONE [Deltasone*] 10 mg PO DAILY #15 tab Smz./Tmp. [Bactrim Ds 800 MG/160 MG*] 1 tab PO BID #10 tab Patient Discharge Instructions: 1. Recommend follow up with her PCP in 1 week to follow up this hospitalization. Patient will continue with home health and physical therapy. 2. Patient was admitted for shortness of breath secondary to severe primary pulmonary hypertension secondary to moderate mitral stenosis. During the course of her stay patient became very hypotensive. Patient required ICU management with vasopressors. Medications were adjusting her stay. Blood pressure medication discontinued. Diuretic therapy also discontinued. Patient was seen and evaluated by nephrology, pulmonology and Neurology. MRI brain was unremarkable. EEG did not show any epileptic form changes. Patient was initiated placed on Keppra. At discharge Keppra will be discontinued as seizure disorder has been ruled out. At discharge she is without any significant shortness of breath, chest pain. Blood pressures have remained stable on midodrine. At discharge she will continue with midodrine 5 mg 1 pill 3 times a day to maintain her blood pressure. Patient will also continue with prednisone 10 mg daily. Recommend to follow up with pulmonology within 1 week to follow up this hospitalization. Patient will require cardiology evaluation as an outpatient to further address her mitral stenosis. Patient will need transesophageal echo to further evaluate. At discharge patient has been taking off her pulmonary hypertension medication-Letairis. At discharge blood pressure medication had been discontinued along with diuretic therapy due to low blood pressure. Patient may follow up with her PCP within 1 week to follow up this hospitalization. 3. Patient found to have asymptomatic bacteriuria. Urine culture positive for Klebsiella and Kluyvera. At discharge patient will continue with Bactrim for total of 7 days. UTI prevention will be enforced. 4. Patient with COPD. At discharge she will continue with her medication. Recommend to follow up with pulmonology as directed. 5. Patient with underlying bipolar disorder. Medications have been adjusted. At discharge lithium has been discontinued due to her chronic conditions. Patient will continue with Celexa 40 mg daily, risperidone 1 mg at bedtime, clonazepam 0.5 mg at bedtime as needed for agitation and trazodone 150 mg at bedtime. Recommendation is to follow up with psychiatry to further monitor and address. 6. Patient with underlying diabetes type 2. Patient may continue with metformin 500 mg 1 pill twice daily. Recommend to maintain blood sugars less 140 fasting and less than 200 after meals. Further adjustment can be done by her PCP. 6. Patient with hypothyroidism. At discharge patient will continue with levothyroxine 50 mcg daily. 7. Patient with chronic atrial fibrillation on chronic anti coagulation therapy. At discharge she will continue with Xarelto 20 mg daily. Patient not able to tolerate blood pressure medication/ rate control medication at this time due to low blood pressure. This can be further monitored and addressed by Cardiology. Diet: AHA Activity: Fall precautions Time spent managing pt's care (in minutes): 55
[2018-12-15 13:07] VITALS: BP 133/72; TEMP 97.2
--- NOTE | 2018-12-17 22:28 | P.PN ---
Date of Service: 12/15/18 Vital Signs Temp Pulse Resp BP Pulse Ox 97.2 F 71 18 133/72 100 12/15/18 12:00 12/15/18 12:00 12/15/18 12:00 12/15/18 12:00 12/15/18 12:00 Microbiology Results 12/09/18 20:10 Blood - Blood Aerobic Blood Culture - Final No growth in 5 days. 12/09/18 20:10 Blood - Blood Anaerobic Blood Culture - Final No growth in 5 days. 12/09/18 19:50 Blood - Blood Aerobic Blood Culture - Final No growth in 5 days. 12/09/18 19:50 Blood - Blood Anaerobic Blood Culture - Final No growth in 5 days. Assessment/ Plan: Nephrology. Doing well. +Intermittent dyspnea. +Anxiety CPS stable without CP. No acute events overnight. Vitals, medications, blood work and imaging reviewed in the chart. General: In no apparent distress, Unresponsive HEENT: Atraumatic, Mucous membr. moist/pink Neck: Supple, JVD distended Respiratory: Clear to auscultation bilaterally, Diminished Cardiovascular: No edema, Regular rate/rhythm, No rubs Gastrointestinal: Soft and benign, Non-distended, No guarding Musculoskeletal: No clubbing, No contractures Integumentary: No rashes, No cyanosis Neurological: Other Blood work reviewed in the chart. Hgb 10.1; Cr 1.14 Imagings Data: EXAM DESCRIPTION: RAD - Chest Single View - 12/11/2018 10:11 pm CLINICAL HISTORY: chf Chest pain. COMPARISON: Chest Single View dated 12/11/2018; Chest Single View dated 12/10/2018 ; Chest Single View dated 12/09/2018; Chest Single View dated 12/01/2018 FINDINGS: Portable technique limits examination quality. Mild improvement in the CHF pattern is seen since comparative study. The heart is moderately enlarged in size. Right-sided PICC line is unchanged in position. IMPRESSION: Mild improvement in lung aeration since comparative study. LEFT VENTRICULAR WALL MOTION: NORMAL. DOPPLER/COLOR FLOW: MODERATE MITRAL STENOSIS AREA 1.3 CENTIMETERS SQUARED. COMMENTS: SEVERE PULMONARY HYPERTENSION- RIGHT VENTRICULAR SYSTOLIC PRESSURE 62mmHg. NORMAL EJECTION FRACTION AND LEFT VENTRICULAR SIZE. MODERATE MITRAL STENOSIS AREA 1.3 CENTIMETERS SQUARED. NO EFFUSION. Conclusions/Impression: A/ MICHAEL in the setting of hypovolemia/ hypotension. CKD III. Hypotension. DM II. Diatolic CHF, chronic. Moderate mitral stenosis. Pulmonary HTN secondary to COPD. Microcytic anemia. Anemia in chronic illness. Moderate malnutrition. Hypocalcemia. Acute cystitis. P/ Continue current POC and Medications. Midodrine as ordered. Agree with abx for cystitis. Monitor lithium level. Encourage nutrition. No NSAIDs. AM labs. Daily weight.
== END 2018-12-15 12:00 | disposition home or self-care (01) | DRG 314 ==
LOC: ER 19:06 → ERHOLD 22:57 → 4TH 23:42 → 3RD-ICU 12-10 13:25 → 2ND 12-13 11:30
PROVIDERS: ADMIT Hospitalist; ATTEND Family Medicine
PROC: 02HV33Z Insertion of Infusion Device into Superior Vena Cava, Percutaneous Approach (ICD-10-PCS; principal; 2018-12-10)
DX: I27.0 Primary pulmonary hypertension (principal); I50.33 Acute on chronic diastolic (congestive) heart failure; J96.00 Acute respiratory failure, unspecified whether with hypoxia or hypercapnia; J44.1 Chronic obstructive pulmonary disease with (acute) exacerbation; E44.0 Moderate protein-calorie malnutrition; E27.40 Unspecified adrenocortical insufficiency; N17.9 Acute kidney failure, unspecified; I34.2 Nonrheumatic mitral (valve) stenosis; I95.2 Hypotension due to drugs; R82.71 Bacteriuria; B96.1 Klebsiella pneumoniae [K. pneumoniae] as the cause of diseases classified elsewhere; I48.2 Chronic atrial fibrillation; F41.9 Anxiety disorder, unspecified; F31.9 Bipolar disorder, unspecified; R56.9 Unspecified convulsions; E86.1 Hypovolemia; E11.65 Type 2 diabetes mellitus with hyperglycemia; T46.4X5A Adverse effect of angiotensin-converting-enzyme inhibitors, initial encounter; T44.7X5A Adverse effect of beta-adrenoreceptor antagonists, initial encounter; T50.0X5A Adverse effect of mineralocorticoids and their antagonists, initial encounter; D50.9 Iron deficiency anemia, unspecified; D63.8 Anemia in other chronic diseases classified elsewhere; E83.51 Hypocalcemia; E11.22 Type 2 diabetes mellitus with diabetic chronic kidney disease; N18.3 Chronic kidney disease, stage 3 (moderate); Z68.29 Body mass index [BMI] 29.0-29.9, adult; Z87.891 Personal history of nicotine dependence
CPT/HCPCS: 36415; 70553; 71045; 80048; 80053; 80076; 80178; 80202; 81003; 81015; 82024; 82533; 82550; 82553; 82805; 82962; 83690; 83735; 83880; 84100; 84132; 84145; 84484; 85025; 85379; 85610; 85730; 87040; 87077; 87086; 87088; 87186; 93005; 93306; 95819; 96365; 96367; 96374; 97163; 97165; 99285; A9577; J0692; J0834; J1100; J1720; J1940; J1953; J2405; J7030; J7060; J7512; P9047